=== PATIENT | male | born 1970 | race Caucasian/White ===

== ENCOUNTER 2016-10-11 11:51 | Emergency (ER) | payer OTHER, MEDICARE, MEDICAID ==
[2016-10-11] MEDS ORDERED: IPRATROPIUM 0.5MG/ALBUTEROL 2.5MG INH SOL UD 3ML (DUONEB)(J7620) As Ordered ONE (13:03)
[2016-10-11] MEDS ORDERED: methylPREDNISolone INJ 125 MG/2 ML VIAL (J2930) As Ordered ONE (13:03)
--- NOTE | 2016-10-11 14:26 | REP ---
CHEST, TWO VIEWS: COMPARISON: 07/09/2016 There is no evidence of acute infiltrate. No pleural effusion is seen. The heart is normal in size. The mediastinal silhouette is unremarkable. The visualized osseous structures are intact. IMPRESSION: No acute pulmonary disease. Signed by Brian Moran MD 10/11/2016 05:22 P
--- NOTE | 2016-10-11 14:40 | EDDOCDS ---
Nurse's Notes [facility] Name: Lizandro Hargrove Age: 46 yrs Sex: Male : 1970 Arrival Date: 10/11/2016 Time: 11:51 Bed PD Private MD: [place] Renaldo [place] Diagnosis: Moderate persistent asthma with (acute) exacerbation Presentation: 10/11 11:53 Presenting complaint: Patient states: difficultly breathing and cough for a couple of srm days. hx of asthma. Presenting complaint: Patient states: nom fevers at home. Adult Sepsis Screening: The patient does not have new or worsening altered mentation. Patient's respiratory rate is less than 22. Systolic blood pressure is greater than 100. Patient has a qSOFA score of 0- Negative Sepsis Screen. Suicide/Homicide risk assessment- the patient denies having any suicidal and/or homicidal ideations and does not present with any other emotional, behavioral or mental health complaints. Status: Patient is not a dining service inspector or dependent. Transition of care: patient was not received from another setting of care. 11:53 Acuity: BUTCH Level 4 [facility] 11:53 Method Of Arrival: Walkin/Carried/Asstd [facility] Triage Assessment: 11:55 General: Appears in no apparent distress, Behavior is appropriate for age, cooperative. srm Pain: Pain currently is 5 out of 10 on a pain scale. HIV screening NA for this visit Offered previously. Respiratory: Airway is patent Respiratory effort is even, unlabored, Breath sounds are diminished bilaterally. dry cough. Historical: - Allergies: no known allergies; - Home Meds: 1. albuterol sulfate 90 mcg/actuation Inhl HFAA 1 puff every 4 hours as needed 2. Albuterol-Ipratropium Inhl 3 mL as needed (Last dose: 10/11/2016 08:30) 3. Calcium with D 2 tab nightly 4. Flonase 50 mcg/actuation Nasal spsn 1 spray 2 times per day 5. Qvar inhalation 1 puff 2 times per day 6. Singulair 10 mg Oral tab 1 tab once daily 7. Symbicort INH 2 puff daily 8. Zyrtec 10 mg Oral tab 1 tab once daily - PMHx: Asthma; Seasonal Allergies; Sleep Apnea w/ CPAP; - PSHx: Tonsillectomy; Gastric Bypass; Vasectomy; Left Shoulder Surgery; Left Ankle Surgery; - Social history: Smoking status: Patient states was never smoker of tobacco. No barriers to communication noted, The patient speaks fluent Maltese, Speaks appropriately for age. - Family history: Not pertinent. - : The pt / caregiver states he / she is not on anticoagulants. Home medication list is obtained from the patient. - Exposure Risk Screening:: None identified. Screenin:36 Screening information is obtained from the patient. Fall risk: No risks identified. ttb Assistance ADL's: requires no assistance with activities of daily living. Abuse/DV Screen: The patient / caregiver reports he/she is: not in a situation that causes fear, pain or injury. Nutritional screening: No deficits noted. Advance Directives: Currently, there is no health care proxy. home support is adequate. Assessment: 14:36 Adult Sepsis Screening: The patient does not have new or worsening altered mentation. ttb Systolic blood pressure is greater than 100. Patient has a qSOFA score of 0- Negative Sepsis Screen. General: Appears in no apparent distress, well nourished, well groomed, Behavior is appropriate for age, cooperative. Pain: Denies pain. Neurological: Level of Consciousness is awake, alert. EENT: Denies nasal congestion, nasal discharge. Cardiovascular: Chest pain is denied. Respiratory: Airway is patent Respiratory effort is even, unlabored, Denies shortness of breath. GI: Denies nausea, vomiting, pain. Derm: Skin is normal. Vital Signs: 11:52 BP 126 / 74; Pulse 60; Resp 24 S; Temp 97.3(O); Pulse Ox 100% on R/A; Weight 136.08 kg dd6 (R); Height 6 ft. 0 in. (182.88 cm) (R); 14:33 BP 119 / 59; Pulse 65; Resp 18; Temp 96.3(O); Pulse Ox 100% on R/A; Pain 0/10; ttb 11:52 Body Mass Index 40.69 (136.08 kg, 182.88 cm) dd6 Vitals: 11:52 Log In Time: October 11, 2016 at 11:50. dd6 ED Course: 11:52 Patient visited by Ryan Fournier PCA. dd6 11:52 [facility] is Private Physician. dd6 11:52 Patient moved to Waiting dd6 11:53 Patient moved to Pre RCE dd6 11:54 Triage Initiated srm 12:23 Patient moved to Triage 1 mlb1 12:51 Ermias Pink PA is PHCP. btw 12:51 Ximena Hernandez MD is Attending Physician. btw 12:51 Patient visited by Ermias Pink PA. btw 13:00 Patient moved to PD2 / jrd 13:28 Patient visited by Tiff Machado RN. srm 14:00 Patient visited by Rola Wright PCA. ct3 14:31 [facility] is Referral Physician. btw 14:36 The patient / caregiver is instructed regarding the plan of care and ED course. Patient ttb has correct armband on for positive identification. 14:36 No IV's were initiated during this patient's visit. No procedures done that require ttb assistance. Administered Medications: 13:06 Drug: Albuterol-Ipratropium 1 neb [ipratropium-albuterol 0.5 mg-3 mg(2.5 mg base)/3 mL kt1 nebulization soln (1 neb)] Route: Nebulizer; 13:20 Follow up: Response: Nebulizer completed sd7 13:19 Drug: methylPREDNISolone Sodium Succinate 125 mg [methylprednisolone sodium succ 125 mg mlb1 solution for injection (125 mg)] Route: IM; Site: left deltoid; 13:26 Drug: Albuterol-Ipratropium 1 neb [ipratropium-albuterol 0.5 mg-3 mg(2.5 mg base)/3 mL sd7 nebulization soln (1 neb)] Route: Nebulizer; 13:43 Follow up: Response: Nebulizer completed sd7 13:44 Drug: Albuterol-Ipratropium 1 neb [ipratropium-albuterol 0.5 mg-3 mg(2.5 mg base)/3 mL sd7 nebulization soln (1 neb)] Route: Nebulizer; 14:34 Follow up: Response: Nebulizer completed sd7 RT: 13:06 Initial Med Neb Given as ordered Patient was instructed and evaluated on procedure. kt1 Respiratory: Breath sounds are clear bilaterally. 13:26 Subsequent Med Neb Given as ordered Patient tolerated procedure well without adverse sd7 effect. Respiratory: Breath sounds are diminished bilaterally. Breath sounds with wheezes bilaterally. at expiration. 13:44 Subsequent Med Neb Given as ordered Patient tolerated procedure well without adverse sd7 effect. Respiratory: Breath sounds are clear bilaterally. Order Results: There are currently no results for this order. Outcome: 14:31 Discharge ordered by Provider. btw 14:36 Discharge Assessment: Patient awake, alert and oriented x 3. No cognitive and/or ttb functional deficits noted. Patient verbalized understanding of disposition instructions. Patient awake and alert. patient administered narcotics - no. The following High Risk Discharge criteria are identified: None. Discharged to home ambulatory. Condition: good Condition: stable Condition: improved. Discharge instructions given to patient, Instructed on discharge instructions, follow up and referral plans. medication usage, Demonstrated understanding of instructions, medications, Pt was receptive of discharge instructions/ teaching. Prescriptions given X 1. No special radiology studies were completed. Property :Personal belongings accompany Pt. 14:38 Patient left the ED. ttb Signatures: Tiff Machado RN RN srm Barney, Michael B RN RN mlb1 Monserrat Mason kt1 Ryan Fournier, CHRISTMAS BELL RINGER CHRISTMAS BELL RINGER dd6 Ermias Pink PA PA btw Rola Wright, CHRISTMAS BELL RINGER CHRISTMAS BELL RINGER ct3 Nithya Hernandez RN RN ttb Xiomara Butler,RT RT sd7 Kirill Helton, CHRISTMAS BELL RINGER CHRISTMAS BELL RINGER jrd MTDD
--- NOTE | 2016-10-11 14:40 | EDDOCDS ---
Physician Documentation [facility] Name: Lizandro Hargrove Age: 46 yrs Sex: Male : 1970 Arrival Date: 10/11/2016 Time: 11:51 Bed PD Private MD: [facility] Disposition: 10/11/16 14:31 Discharged to Home/Self Care. Impression: Moderate persistent asthma with (acute) exacerbation. - Condition is Stable. - Discharge Instructions: Asthma, Adult, Asthma, Acute Bronchospasm. - Prescriptions for Medrol (Wilder) 4 mg Oral Tablets, Dose Pack - take 1 Pack by ORAL route as directed - follow package instructions; 1 packet. - Medication Reconciliation, Local Pharmacy Hours form. - Follow up: [facility]; When: 1 - 2 days; Reason: Further diagnostic work-up, Recheck today's complaints, Continuance of care. Follow up: Emergency Department; When: As soon as possible; Reason: Trouble breathing, Worsening of conditions. - Problem is an acute exacerbation. - Symptoms have improved. Historical: - Allergies: no known allergies; - Home Meds: 1. albuterol sulfate 90 mcg/actuation Inhl HFAA 1 puff every 4 hours as needed 2. Albuterol-Ipratropium Inhl 3 mL as needed (Last dose: 10/11/2016 08:30) 3. Calcium with D 2 tab nightly 4. Flonase 50 mcg/actuation Nasal spsn 1 spray 2 times per day 5. Qvar inhalation 1 puff 2 times per day 6. Singulair 10 mg Oral tab 1 tab once daily 7. Symbicort INH 2 puff daily 8. Zyrtec 10 mg Oral tab 1 tab once daily - PMHx: Asthma; Seasonal Allergies; Sleep Apnea w/ CPAP; - PSHx: Tonsillectomy; Gastric Bypass; Vasectomy; Left Shoulder Surgery; Left Ankle Surgery; - Social history: Smoking status: Patient states was never smoker of tobacco. No barriers to communication noted, The patient speaks fluent Luxembourgish, Speaks appropriately for age. - Family history: Not pertinent. - : The pt / caregiver states he / she is not on anticoagulants. Home medication list is obtained from the patient. - Exposure Risk Screening:: None identified. Vital Signs: 10/11 11:52 BP 126 / 74; Pulse 60; Resp 24 S; Temp 97.3(O); Pulse Ox 100% on R/A; Weight 136.08 kg dd6 / 300.01 lbs (R); Height 6 ft. 0 in. (182.88 cm) (R); 14:33 BP 119 / 59; Pulse 65; Resp 18; Temp 96.3(O); Pulse Ox 100% on R/A; Pain 0/10; ttb 11:52 Body Mass Index 40.69 (136.08 kg, 182.88 cm) dd6 MDM: 13:01 methylPREDNISolone Sodium Succinate 125 mg IM once ordered. btw 13:01 Albuterol-Ipratropium 1 neb Nebulizer every 20 minutes x3 ordered. btw 13:01 Call Respiratory ordered. btw 13:01 Call Respiratory complete. kt1 13:01 Chest, 2 View (pa\E\lat) Ordered. EDMS 14:25 Financial registration complete. lg Administered Medications: 13:06 Drug: Albuterol-Ipratropium 1 neb [ipratropium-albuterol 0.5 mg-3 mg(2.5 mg base)/3 mL kt1 nebulization soln (1 neb)] Route: Nebulizer; 13:20 Follow up: Response: Nebulizer completed 13:19 Drug: methylPREDNISolone Sodium Succinate 125 mg [methylprednisolone sodium succ 125 mg mlb1 solution for injection (125 mg)] Route: IM; Site: left deltoid; 13:26 Drug: Albuterol-Ipratropium 1 neb [ipratropium-albuterol 0.5 mg-3 mg(2.5 mg base)/3 mL sd7 nebulization soln (1 neb)] Route: Nebulizer; 13:43 Follow up: Response: Nebulizer completed 13:44 Drug: Albuterol-Ipratropium 1 neb [ipratropium-albuterol 0.5 mg-3 mg(2.5 mg base)/3 mL sd7 nebulization soln (1 neb)] Route: Nebulizer; 14:34 Follow up: Response: Nebulizer completed Signatures: Dispatcher [employer] EDMS Tiff Machado RN RN srm Ganter, LoriLee, Reg Reg lg [place]ter[place], Kristin kt1 Wolfenden, Ermias, Nithya Maguire, ANABEL RN ttb Juventino Patricio RN mlb1 Xiomara Butler RT sd7 MTDD
--- NOTE | 2016-10-13 15:39 | EDDOCDS ---
Nurse's Notes [facility] Name: Lizandro Hargrove Age: 46 yrs Sex: Male : 1970 Arrival Date: 10/11/2016 Time: 11:51 Bed PD Private MD: [place] Renaldo [place] Diagnosis: Moderate persistent asthma with (acute) exacerbation Presentation: 10/11 11:53 Presenting complaint: Patient states: difficultly breathing and cough for a couple of srm days. hx of asthma. Presenting complaint: Patient states: nom fevers at home. Adult Sepsis Screening: The patient does not have new or worsening altered mentation. Patient's respiratory rate is less than 22. Systolic blood pressure is greater than 100. Patient has a qSOFA score of 0- Negative Sepsis Screen. Suicide/Homicide risk assessment- the patient denies having any suicidal and/or homicidal ideations and does not present with any other emotional, behavioral or mental health complaints. Status: Patient is not a patient services specialist or dependent. Transition of care: patient was not received from another setting of care. 11:53 Acuity: BUTCH Level 4 [facility] 11:53 Method Of Arrival: Walkin/Carried/Asstd [facility] Triage Assessment: 11:55 General: Appears in no apparent distress, Behavior is appropriate for age, cooperative. srm Pain: Pain currently is 5 out of 10 on a pain scale. HIV screening NA for this visit Offered previously. Respiratory: Airway is patent Respiratory effort is even, unlabored, Breath sounds are diminished bilaterally. dry cough. Historical: - Allergies: no known allergies; - Home Meds: 1. albuterol sulfate 90 mcg/actuation Inhl HFAA 1 puff every 4 hours as needed 2. Albuterol-Ipratropium Inhl 3 mL as needed (Last dose: 10/11/2016 08:30) 3. Calcium with D 2 tab nightly 4. Flonase 50 mcg/actuation Nasal spsn 1 spray 2 times per day 5. Qvar inhalation 1 puff 2 times per day 6. Singulair 10 mg Oral tab 1 tab once daily 7. Symbicort INH 2 puff daily 8. Zyrtec 10 mg Oral tab 1 tab once daily - PMHx: Asthma; Seasonal Allergies; Sleep Apnea w/ CPAP; - PSHx: Tonsillectomy; Gastric Bypass; Vasectomy; Left Shoulder Surgery; Left Ankle Surgery; - Social history: Smoking status: Patient states was never smoker of tobacco. No barriers to communication noted, The patient speaks fluent Pashto, Speaks appropriately for age. - Family history: Not pertinent. - : The pt / caregiver states he / she is not on anticoagulants. Home medication list is obtained from the patient. - Exposure Risk Screening:: None identified. Screenin:36 Screening information is obtained from the patient. Fall risk: No risks identified. ttb Assistance ADL's: requires no assistance with activities of daily living. Abuse/DV Screen: The patient / caregiver reports he/she is: not in a situation that causes fear, pain or injury. Nutritional screening: No deficits noted. Advance Directives: Currently, there is no health care proxy. home support is adequate. Assessment: 14:36 Adult Sepsis Screening: The patient does not have new or worsening altered mentation. ttb Systolic blood pressure is greater than 100. Patient has a qSOFA score of 0- Negative Sepsis Screen. General: Appears in no apparent distress, well nourished, well groomed, Behavior is appropriate for age, cooperative. Pain: Denies pain. Neurological: Level of Consciousness is awake, alert. EENT: Denies nasal congestion, nasal discharge. Cardiovascular: Chest pain is denied. Respiratory: Airway is patent Respiratory effort is even, unlabored, Denies shortness of breath. GI: Denies nausea, vomiting, pain. Derm: Skin is normal. Vital Signs: 11:52 BP 126 / 74; Pulse 60; Resp 24 S; Temp 97.3(O); Pulse Ox 100% on R/A; Weight 136.08 kg dd6 (R); Height 6 ft. 0 in. (182.88 cm) (R); 14:33 BP 119 / 59; Pulse 65; Resp 18; Temp 96.3(O); Pulse Ox 100% on R/A; Pain 0/10; ttb 11:52 Body Mass Index 40.69 (136.08 kg, 182.88 cm) dd6 Vitals: 11:52 Log In Time: October 11, 2016 at 11:50. dd6 ED Course: 11:52 Patient visited by Ryan Fournier PCA. dd6 11:52 [facility] is Private Physician. dd6 11:52 Patient moved to Waiting dd6 11:53 Patient moved to Pre RCE dd6 11:54 Triage Initiated srm 12:23 Patient moved to Triage 1 mlb1 12:51 Ermias Pink PA is PHCP. btw 12:51 Ximena Hernandez MD is Attending Physician. btw 12:51 Patient visited by Ermias Pink PA. btw 13:00 Patient moved to PD / jrd 13:28 Patient visited by Tiff Machado, ANABEL. srm 14:00 Patient visited by Rola Wright PCA. ct3 14:31 [facility] is Referral Physician. btw 14:36 The patient / caregiver is instructed regarding the plan of care and ED course. Patient ttb has correct armband on for positive identification. 14:36 No IV's were initiated during this patient's visit. No procedures done that require ttb assistance. 14:56 Chest, 2 View (pa\E\lat) Returned. EDMS 10/13 08:37 T-Sheet-- Draft Copy was scanned into [employer] and attached to record. 10:16 [facility] Payment Agreement was scanned into [employer] and attached to record. lg Administered Medications: 10/11 13:06 Drug: Albuterol-Ipratropium 1 neb [ipratropium-albuterol 0.5 mg-3 mg(2.5 mg base)/3 mL kt1 nebulization soln (1 neb)] Route: Nebulizer; 13:20 Follow up: Response: Nebulizer completed sd7 13:19 Drug: methylPREDNISolone Sodium Succinate 125 mg [methylprednisolone sodium succ 125 mg mlb1 solution for injection (125 mg)] Route: IM; Site: left deltoid; 13:26 Drug: Albuterol-Ipratropium 1 neb [ipratropium-albuterol 0.5 mg-3 mg(2.5 mg base)/3 mL sd7 nebulization soln (1 neb)] Route: Nebulizer; 13:43 Follow up: Response: Nebulizer completed sd7 13:44 Drug: Albuterol-Ipratropium 1 neb [ipratropium-albuterol 0.5 mg-3 mg(2.5 mg base)/3 mL sd7 nebulization soln (1 neb)] Route: Nebulizer; 14:34 Follow up: Response: Nebulizer completed sd7 RT: 13:06 Initial Med Neb Given as ordered Patient was instructed and evaluated on procedure. kt1 Respiratory: Breath sounds are clear bilaterally. 13:26 Subsequent Med Neb Given as ordered Patient tolerated procedure well without adverse sd7 effect. Respiratory: Breath sounds are diminished bilaterally. Breath sounds with wheezes bilaterally. at expiration. 13:44 Subsequent Med Neb Given as ordered Patient tolerated procedure well without adverse sd7 effect. Respiratory: Breath sounds are clear bilaterally. Order Results: Radiology Order: Chest, 2 View (pa\E\lat) Test: Chest, 2 View (pa\E\lat) REASON FOR EXAMINATION: diminished on LEFT;Shortness of Breath; CHEST, TWO VIEWS:; ; COMPARISON: 07/09/2016; ; There is no evidence of acute infiltrate.; ; No pleural effusion is seen.; ; The heart is normal in size.; ; The mediastinal silhouette is unremarkable.; ; The visualized osseous structures are intact.; ; IMPRESSION:; ; No acute pulmonary disease.; ; ; Signed by; Brian Moran MD 10/11/2016 05:22 P; Outcome: 14:31 Discharge ordered by Provider. btw 14:36 Discharge Assessment: Patient awake, alert and oriented x 3. No cognitive and/or ttb functional deficits noted. Patient verbalized understanding of disposition instructions. Patient awake and alert. patient administered narcotics - no. The following High Risk Discharge criteria are identified: None. Discharged to home ambulatory. Condition: good Condition: stable Condition: improved. Discharge instructions given to patient, Instructed on discharge instructions, follow up and referral plans. medication usage, Demonstrated understanding of instructions, medications, Pt was receptive of discharge instructions/ teaching. Prescriptions given X 1. No special radiology studies were completed. Property :Personal belongings accompany Pt. 14:38 Patient left the ED. ttb Signatures: Dispatcher [employer] EDMS Tiff Machado, RN RN [facility] Heaven Edward, Reg Reg gb Arnav Jensen, Reg Reg lg Juventino Patricio RN RN mlb1 Monserrat Mason kt1 Ryan Fournier, ASSOCIATE PRODUCT INTEGRITY ENGINEER ASSOCIATE PRODUCT INTEGRITY ENGINEER dd6 Ermias Pink PA PA btw Rola Wright, ASSOCIATE PRODUCT INTEGRITY ENGINEER ASSOCIATE PRODUCT INTEGRITY ENGINEER ct3 Nithya Hernandez RN RN ttb Xiomara ButlerRT RT sd7 Kirill Helton, ASSOCIATE PRODUCT INTEGRITY ENGINEER ASSOCIATE PRODUCT INTEGRITY ENGINEER jrd Chart Complete MTDD
--- NOTE | 2016-10-13 15:39 | EDDOCDS ---
Physician Documentation [facility] Name: Lizandro Hargrove Age: 46 yrs Sex: Male : 1970 Arrival Date: 10/11/2016 Time: 11:51 Bed PD Private MD: [facility] Disposition: 10/11/16 14:31 Discharged to Home/Self Care. Impression: Moderate persistent asthma with (acute) exacerbation. - Condition is Stable. - Discharge Instructions: Asthma, Adult, Asthma, Acute Bronchospasm. - Prescriptions for Medrol (Wilder) 4 mg Oral Tablets, Dose Pack - take 1 Pack by ORAL route as directed - follow package instructions; 1 packet. - Medication Reconciliation, Local Pharmacy Hours form. - Follow up: [facility]; When: 1 - 2 days; Reason: Further diagnostic work-up, Recheck today's complaints, Continuance of care. Follow up: Emergency Department; When: As soon as possible; Reason: Trouble breathing, Worsening of conditions. - Problem is an acute exacerbation. - Symptoms have improved. Historical: - Allergies: no known allergies; - Home Meds: 1. albuterol sulfate 90 mcg/actuation Inhl HFAA 1 puff every 4 hours as needed 2. Albuterol-Ipratropium Inhl 3 mL as needed (Last dose: 10/11/2016 08:30) 3. Calcium with D 2 tab nightly 4. Flonase 50 mcg/actuation Nasal spsn 1 spray 2 times per day 5. Qvar inhalation 1 puff 2 times per day 6. Singulair 10 mg Oral tab 1 tab once daily 7. Symbicort INH 2 puff daily 8. Zyrtec 10 mg Oral tab 1 tab once daily - PMHx: Asthma; Seasonal Allergies; Sleep Apnea w/ CPAP; - PSHx: Tonsillectomy; Gastric Bypass; Vasectomy; Left Shoulder Surgery; Left Ankle Surgery; - Social history: Smoking status: Patient states was never smoker of tobacco. No barriers to communication noted, The patient speaks fluent Ukrainian, Speaks appropriately for age. - Family history: Not pertinent. - : The pt / caregiver states he / she is not on anticoagulants. Home medication list is obtained from the patient. - Exposure Risk Screening:: None identified. Vital Signs: 10/11 11:52 BP 126 / 74; Pulse 60; Resp 24 S; Temp 97.3(O); Pulse Ox 100% on R/A; Weight 136.08 kg dd6 / 300.01 lbs (R); Height 6 ft. 0 in. (182.88 cm) (R); 14:33 BP 119 / 59; Pulse 65; Resp 18; Temp 96.3(O); Pulse Ox 100% on R/A; Pain 0/10; ttb 11:52 Body Mass Index 40.69 (136.08 kg, 182.88 cm) dd6 MDM: 13:01 methylPREDNISolone Sodium Succinate 125 mg IM once ordered. btw 13:01 Albuterol-Ipratropium 1 neb Nebulizer every 20 minutes x3 ordered. btw 13:01 Call Respiratory ordered. btw 13:01 Call Respiratory complete. kt1 13:01 Chest, 2 View (pa\E\lat) Ordered. EDMS 14:25 Financial registration complete. lg 10/13 08:37 T-Sheet-- Draft Copy was scanned into [employer] and attached to record. gb 10:16 [facility] Payment Agreement was scanned into [employer] and attached to record. lg Administered Medications: 10/11 13:06 Drug: Albuterol-Ipratropium 1 neb [ipratropium-albuterol 0.5 mg-3 mg(2.5 mg base)/3 mL kt1 nebulization soln (1 neb)] Route: Nebulizer; 13:20 Follow up: Response: Nebulizer completed 13:19 Drug: methylPREDNISolone Sodium Succinate 125 mg [methylprednisolone sodium succ 125 mg mlb1 solution for injection (125 mg)] Route: IM; Site: left deltoid; 13:26 Drug: Albuterol-Ipratropium 1 neb [ipratropium-albuterol 0.5 mg-3 mg(2.5 mg base)/3 mL sd7 nebulization soln (1 neb)] Route: Nebulizer; 13:43 Follow up: Response: Nebulizer completed 13:44 Drug: Albuterol-Ipratropium 1 neb [ipratropium-albuterol 0.5 mg-3 mg(2.5 mg base)/3 mL sd7 nebulization soln (1 neb)] Route: Nebulizer; 14:34 Follow up: Response: Nebulizer completed 7 Signatures: Dispatcher [employer] Tiff Roe, RN RN srm Heaven Edward, Reg Reg gb Arnav Jensen, Reg Reg lg Monserrat Mason kt1 Ermias Pink PA PA btw Conner, Teresa, RN RN ttJuventino Godfrey RN mlb1 Xiomara Butler RT sd7 The chart was reviewed and I authenticate all verbal orders and agree with the evaluation and treatment provided.Attachments: 10/13 08:37 T-Sheet-- Draft Copy gb 10:16 [facility] Payment Agreement lg Chart Complete MTDD
--- NOTE | 2016-10-13 15:39 | EDDOCDS ---
Physician Documentation [facility] Name: Lizandro Hargrove Age: 46 yrs Sex: Male : 1970 Arrival Date: 10/11/2016 Time: 11:51 Bed PD Private MD: [facility] Disposition: 10/11/16 14:31 Discharged to Home/Self Care. Impression: Moderate persistent asthma with (acute) exacerbation. - Condition is Stable. - Discharge Instructions: Asthma, Adult, Asthma, Acute Bronchospasm. - Prescriptions for Medrol (Wilder) 4 mg Oral Tablets, Dose Pack - take 1 Pack by ORAL route as directed - follow package instructions; 1 packet. - Medication Reconciliation, Local Pharmacy Hours form. - Follow up: [facility]; When: 1 - 2 days; Reason: Further diagnostic work-up, Recheck today's complaints, Continuance of care. Follow up: Emergency Department; When: As soon as possible; Reason: Trouble breathing, Worsening of conditions. - Problem is an acute exacerbation. - Symptoms have improved. Historical: - Allergies: no known allergies; - Home Meds: 1. albuterol sulfate 90 mcg/actuation Inhl HFAA 1 puff every 4 hours as needed 2. Albuterol-Ipratropium Inhl 3 mL as needed (Last dose: 10/11/2016 08:30) 3. Calcium with D 2 tab nightly 4. Flonase 50 mcg/actuation Nasal spsn 1 spray 2 times per day 5. Qvar inhalation 1 puff 2 times per day 6. Singulair 10 mg Oral tab 1 tab once daily 7. Symbicort INH 2 puff daily 8. Zyrtec 10 mg Oral tab 1 tab once daily - PMHx: Asthma; Seasonal Allergies; Sleep Apnea w/ CPAP; - PSHx: Tonsillectomy; Gastric Bypass; Vasectomy; Left Shoulder Surgery; Left Ankle Surgery; - Social history: Smoking status: Patient states was never smoker of tobacco. No barriers to communication noted, The patient speaks fluent Hungarian, Speaks appropriately for age. - Family history: Not pertinent. - : The pt / caregiver states he / she is not on anticoagulants. Home medication list is obtained from the patient. - Exposure Risk Screening:: None identified. Vital Signs: 10/11 11:52 BP 126 / 74; Pulse 60; Resp 24 S; Temp 97.3(O); Pulse Ox 100% on R/A; Weight 136.08 kg dd6 / 300.01 lbs (R); Height 6 ft. 0 in. (182.88 cm) (R); 14:33 BP 119 / 59; Pulse 65; Resp 18; Temp 96.3(O); Pulse Ox 100% on R/A; Pain 0/10; ttb 11:52 Body Mass Index 40.69 (136.08 kg, 182.88 cm) dd6 MDM: 13:01 methylPREDNISolone Sodium Succinate 125 mg IM once ordered. btw 13:01 Albuterol-Ipratropium 1 neb Nebulizer every 20 minutes x3 ordered. btw 13:01 Call Respiratory ordered. btw 13:01 Call Respiratory complete. kt1 13:01 Chest, 2 View (pa\E\lat) Ordered. EDMS 14:25 Financial registration complete. lg 10/13 08:37 T-Sheet-- Draft Copy was scanned into [employer] and attached to record. gb 10:16 [facility] Payment Agreement was scanned into [employer] and attached to record. lg Administered Medications: 10/11 13:06 Drug: Albuterol-Ipratropium 1 neb [ipratropium-albuterol 0.5 mg-3 mg(2.5 mg base)/3 mL kt1 nebulization soln (1 neb)] Route: Nebulizer; 13:20 Follow up: Response: Nebulizer completed 13:19 Drug: methylPREDNISolone Sodium Succinate 125 mg [methylprednisolone sodium succ 125 mg mlb1 solution for injection (125 mg)] Route: IM; Site: left deltoid; 13:26 Drug: Albuterol-Ipratropium 1 neb [ipratropium-albuterol 0.5 mg-3 mg(2.5 mg base)/3 mL sd7 nebulization soln (1 neb)] Route: Nebulizer; 13:43 Follow up: Response: Nebulizer completed 13:44 Drug: Albuterol-Ipratropium 1 neb [ipratropium-albuterol 0.5 mg-3 mg(2.5 mg base)/3 mL sd7 nebulization soln (1 neb)] Route: Nebulizer; 14:34 Follow up: Response: Nebulizer completed 7 Signatures: Dispatcher [employer] Tiff Roe, RN RN srm Heaven Edward, Reg Reg gb Arnav Jensen, Reg Reg lg Monserrat Mason kt1 Ermias Pink PA PA btw Conner, Teresa, RN RN ttJuventino Godfrey RN mlb1 Xiomara Butler RT sd7 The chart was reviewed and I authenticate all verbal orders and agree with the evaluation and treatment provided.Attachments: 10/13 08:37 T-Sheet-- Draft Copy gb 10:16 [facility] Payment Agreement lg Chart Complete MTDD
== END 2016-10-11 14:38 | disposition home or self-care (01) ==
LOC: M ED 11:51
DX: J45.41 Moderate persistent asthma with (acute) exacerbation (principal); G47.30 Sleep apnea, unspecified; Z79.51 Long term (current) use of inhaled steroids; Z79.899 Other long term (current) drug therapy
CPT/HCPCS: 71020; 94640; 96372; 99283; J2930

== ENCOUNTER 2016-10-21 13:26 | Emergency (ER) | payer MEDICARE, MEDICAID ==
--- NOTE | 2016-10-21 15:34 | REP ---
Clinical: Syncope. Comparison: 12/03/2015. Findings: The ventricles, sulci, and cisterns are normal in position and appearance. Moran-white differentiation is maintained. No acute intracranial hemorrhage, mass/mass effect, pathology or trauma/injury. No evidence for acute infarction. No extra-axial fluid collection. Calvarium is intact. Paranasal sinuses and mastoid air cells are clear. Impression: Normal noncontrast head CT. No evidence for acute intracranial pathology or trauma/injury. Signed by Lizandro Paige MD 10/21/2016 03:25 P
[2016-10-21 16:15] LABS: BASO # 0.1 K/mm3 (0.0-0.2); BASO % 1.1 % (0.0-1.0); EOS # 0.2 K/mm3 (0.0-0.50); EOS % 3.3 % (0.0-3.0); LARGE UNSTAINED CELL # 0.2 K/mm3 (0.0-0.4); LARGE UNSTAINED CELL % 3.5 % (0.0-4.0); LYMPH # 2.2 K/mm3 (1.5-4.5); LYMPH % 34.8 % (24.0-44.0); MEAN CORPUSCULAR HEMOGLOBIN 30.2 pg (27.0-33.0); MEAN CORPUSCULAR HGB CONC 32.3 g/dl (32.0-36.5); MEAN CORPUSCULAR VOLUME 93.8 fl (80.0-96.0); MONO # 0.4 K/mm3 (0.0-0.8); MONO % 6.7 % (0.0-5.0); NEUTROPHILS # 2.9 K/mm3 (1.8-7.7); NEUTROPHILS % 50.7 % (36.0-66.0); PLATELET COUNT, AUTOMATED 245 k/mm3 (150-450); RED CELL DISTRIBUTION WIDTH 13.3 % (11.5-14.5); WHITE BLOOD COUNT 5.8 K/mm3 (4.0-10.0)
[2016-10-21 16:34] LABS: ALBUMIN 3.2 GM/DL (3.2-5.2); ALKALINE PHOSPHATASE 82 U/L (45-117); ALT/SGPT 12 U/L (12-78); ANION GAP 4 MEQ/L (8-16); AST/SGOT 11 U/L (15-37); BILIRUBIN,DIRECT 0.1 MG/DL (0.0-0.2); BILIRUBIN,TOTAL 0.5 MG/DL (0.2-1.0); BLOOD UREA NITROGEN 18 MG/DL (7-18); CARBON DIOXIDE LEVEL 32 MEQ/L (21-32); CHLORIDE LEVEL 107 MEQ/L (98-107); CREATININE FOR GFR 0.98 MG/DL (0.70-1.30); GLOMERULAR FILTRATION RATE > 60.0 (>60); GLUCOSE, FASTING 87 MG/DL (70-105); POTASSIUM SERUM 4.2 MEQ/L (3.5-5.1); SODIUM LEVEL 143 MEQ/L (136-145); TOTAL PROTEIN 6.4 GM/DL (6.4-8.2)
--- NOTE | 2016-10-21 18:34 | EDDOCDS ---
Physician Documentation [facility] Name: Lizandro Hargrove Age: 46 yrs Sex: Male : 1970 Arrival Date: 10/21/2016 Time: 13:26 Bed TR7 Private MD: [facility] Disposition: 10/21/16 17:26 Discharged to Home/Self Care. Impression: Dizziness and giddiness. - Condition is Stable. - Medication Reconciliation, Local Pharmacy Hours form. - Follow up: Emergency Department; When: As soon as possible; Reason: Worsening of conditions. Follow up: Private Physician; When: 2 - 3 days; Reason: Recheck today's complaints. - Problem is new. - Symptoms are unchanged. Historical: - Allergies: no known allergies; - Home Meds: 1. albuterol sulfate 90 mcg/actuation Inhl HFAA 1 puff every 4 hours as needed 2. Albuterol-Ipratropium Inhl 3 mL as needed 3. Calcium with D 2 tab nightly 4. Flonase 50 mcg/actuation Nasal spsn 1 spray 2 times per day 5. Qvar inhalation 1 puff 2 times per day 6. Singulair 10 mg Oral tab 1 tab once daily 7. Symbicort INH 2 puff daily 8. Zyrtec 10 mg Oral tab 1 tab once daily - PMHx: Asthma; Seasonal Allergies; Sleep Apnea w/ CPAP; - PSHx: Tonsillectomy; Gastric Bypass; Vasectomy; Left Shoulder Surgery; Left Ankle Surgery; - Social history: Smoking status: Patient states former smoker of tobacco. No barriers to communication noted, The patient speaks fluent Yakut, Speaks appropriately for age. - Family history: Not pertinent. - : The pt / caregiver states he / she is not on anticoagulants. Home medication list is obtained from the patient. - Exposure Risk Screening:: None identified. Vital Signs: 10/21 13:27 BP 117 / 62; Pulse 52; Resp 18 S; Temp 97.1(O); Pulse Ox 100% on R/A; Weight 136.08 kg dd6 / 300.01 lbs (R); Height 6 ft. 0 in. (182.88 cm) (R); 15:56 BP 126 / 58 (auto/); hs1 15:58 Pulse 48 MON; hs1 16:10 Pulse 50 MON; hs1 16:11 BP 113 / 62 (auto/); hs1 16:40 Pulse 48 MON; hs1 16:41 BP 106 / 66 (auto/); hs1 17:10 Pulse 48 MON; hs1 17:11 BP 110 / 66 (auto/); hs1 17:24 BP 118 / 83 Supine; Pulse 53; ms18 17:24 BP 109 / 83 Standing; Pulse 53; ms18 17:25 Pulse 50 MON; hs1 17:26 BP 105 / 67 (auto/); hs1 17:26 Pulse 52 MON; Resp 18; Temp 97.2; Pulse Ox 98% ; Pain 0/10; hs1 17:26 BP 105 / 67 (auto/); hs1 13:27 Body Mass Index 40.69 (136.08 kg, 182.88 cm) dd6 MDM: 13:46 ECG WITH READING ER PHYS+CARDIAG ordered. EDMS 15:11 CBC with Diff Ordered. EDMS 15:11 Troponin Ordered. EDMS 15:11 BMP Ordered. EDMS 15:11 Liver Profile Ordered. EDMS 15:11 CK-MB Ordered. EDMS 15:12 CT Head Without Contrast Ordered. EDMS 15:15 Knife Grinder ordered. jk8 15:18 IV Saline Lock ordered. jk8 16:23 Financial registration complete. zo 16:24 [facility] Payment Agreement was scanned into [employer] and attached to record. zo 16:54 CBC with Diff Reviewed. jk8 16:54 BMP Reviewed. jk8 16:54 Liver Profile Reviewed. jk8 16:54 Troponin Reviewed. jk8 16:54 CK-MB Reviewed. jk8 16:54 CT Head Without Contrast Reviewed. jk8 Signatures: Dispatcher [employer] EDMS Juventino Patricio RN RN mlb1 Leodan Henderson Hannah, RN RN hs1 Kirill Ireland PA-C PA-C jk8 The chart was reviewed and I authenticate all verbal orders and agree with the evaluation and treatment provided.Attachments: 16:24 [facility] Payment Agreement zo MTDD
--- NOTE | 2016-10-21 18:35 | EDDOCDS ---
Nurse's Notes [facility] Name: Lizandro Hargrove Age: 46 yrs Sex: Male : 1970 Arrival Date: 10/21/2016 Time: 13:26 Bed TR7 Private MD: [facility] [place] Diagnosis: Dizziness and giddiness Presentation: 10/21 13:41 Presenting complaint: Patient states: Dizziness and nausea began yesterday. Adult mlb1 Sepsis Screening: The patient does not have new or worsening altered mentation. Patient's respiratory rate is less than 22. Systolic blood pressure is greater than 100. Patient has a qSOFA score of 0- Negative Sepsis Screen. Suicide/Homicide risk assessment- the patient denies having any suicidal and/or homicidal ideations and does not present with any other emotional, behavioral or mental health complaints. 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 Transition of care: patient was not received from another setting of care. 13:41 Acuity: BUTCH Level 3 mlb1 13:41 Method Of Arrival: Walkin/Carried/Asstd mlb1 Triage Assessment: 13:43 General: Appears in no apparent distress, comfortable, Behavior is appropriate for age, mlb1 cooperative. Pain: Denies pain. HIV screening NA for this visit Offered previously. Neurological: Reports dizziness. GI: Reports nausea. Derm: Skin is pink, warm & dry. normal. Historical: - Allergies: no known allergies; - Home Meds: 1. albuterol sulfate 90 mcg/actuation Inhl HFAA 1 puff every 4 hours as needed 2. Albuterol-Ipratropium Inhl 3 mL as needed 3. Calcium with D 2 tab nightly 4. Flonase 50 mcg/actuation Nasal spsn 1 spray 2 times per day 5. Qvar inhalation 1 puff 2 times per day 6. Singulair 10 mg Oral tab 1 tab once daily 7. Symbicort INH 2 puff daily 8. Zyrtec 10 mg Oral tab 1 tab once daily - PMHx: Asthma; Seasonal Allergies; Sleep Apnea w/ CPAP; - PSHx: Tonsillectomy; Gastric Bypass; Vasectomy; Left Shoulder Surgery; Left Ankle Surgery; - Social history: Smoking status: Patient states former smoker of tobacco. No barriers to communication noted, The patient speaks fluent Kinyarwanda, Speaks appropriately for age. - Family history: Not pertinent. - : The pt / caregiver states he / she is not on anticoagulants. Home medication list is obtained from the patient. - Exposure Risk Screening:: None identified. Screenin:22 Screening information is obtained from the patient. Fall risk: No risks identified. hs1 Assistance ADL's: requires no assistance with activities of daily living. Abuse/DV Screen: The patient / caregiver reports he/she is: not in a situation that causes fear, pain or injury. Nutritional screening: No deficits noted. Advance Directives: There is no active DNR order. home support is adequate. Assessment: 13:50 General: Appears in no apparent distress, Behavior is appropriate for age, cooperative. hs1 Neurological: No deficits noted. Cardiovascular: Rhythm is sinus bradycardia No ectopy. Cardiovascular: Chest pain is denied. Respiratory: Airway is patent Respiratory effort is even, unlabored, Respiratory pattern is regular, symmetrical. GI: Abdomen is flat, non- distended obese. Derm: Skin is pink, warm & dry. normal. Vital Signs: 13:27 BP 117 / 62; Pulse 52; Resp 18 S; Temp 97.1(O); Pulse Ox 100% on R/A; Weight 136.08 kg dd6 (R); Height 6 ft. 0 in. (182.88 cm) (R); 15:56 BP 126 / 58 (auto/); hs1 15:58 Pulse 48 MON; hs1 16:10 Pulse 50 MON; hs1 16:11 BP 113 / 62 (auto/); hs1 16:40 Pulse 48 MON; hs1 16:41 BP 106 / 66 (auto/); hs1 17:10 Pulse 48 MON; hs1 17:11 BP 110 / 66 (auto/); hs1 17:24 BP 118 / 83 Supine; Pulse 53; ms18 17:24 BP 109 / 83 Standing; Pulse 53; ms18 17:25 Pulse 50 MON; hs1 17:26 BP 105 / 67 (auto/); hs1 17:26 Pulse 52 MON; Resp 18; Temp 97.2; Pulse Ox 98% ; Pain 0/10; hs1 17:26 BP 105 / 67 (auto/); hs1 13:27 Body Mass Index 40.69 (136.08 kg, 182.88 cm) dd6 Vitals: 13:27 Log In Time: October 21, 2016 at 13:25. dd6 ED Course: 13:27 Patient visited by Ryan Fournier PCA. dd6 13:27 [facility] [place] is Private Physician. dd6 13:27 Patient moved to Waiting dd6 13:29 Patient moved to Pre RCE dd6 13:41 Patient visited by Juventino Patricio RN. mlb1 13:42 Triage Initiated mlb1 13:45 Patient moved to PR2 / 26 mlb1 13:54 Patient moved to Pre RCE bcj 14:46 Patient moved to Triage 2 mlb1 14:49 Kirill Ireland PA-C is PHCP. jk8 14:49 Ximena Hernandez MD is Attending Physician. jk8 14:49 Patient visited by Kirill Ireland PA-C. jk8 14:57 Patient moved to I5 / M5 rs6 15:00 The patient / caregiver is instructed regarding the plan of care and ED course. hs1 15:17 Patient moved to 13 dls 15:54 CT Head Without Contrast Returned. EDMS 16:14 Patient visited by Delia Gudino RN. hs1 16:23 [facility] Payment Agreement was scanned into [employer] and attached to record. zo 17:45 Discontinued IV lock intact, bleeding controlled, pressure dressing applied, No hs1 redness/swelling at site. No procedures done that require assistance. 17:54 Patient moved to TR2 dy 18:06 Patient moved to TR7 ms18 Order Results: Lab Order: CBC with Diff; SPEC'M 10/21/16 15:57 Test: WHITE BLOOD COUNT; Value: 5.8; Range: 4.0-10.0; Units: K/mm3; Status: F Test: RED BLOOD COUNT; Value: 4.61; Range: 4.30-6.10; Units: M/mm3; Status: F Test: HEMOGLOBIN; Value: 14.0; Range: 14.0-18.0; Units: g/dl; Status: F Test: HEMATOCRIT; Value: 43.3; Range: 42.0-52.0; Units: %; Status: F Test: MEAN CORPUSCULAR VOLUME; Value: 93.8; Range: 80.0-96.0; Units: fl; Status: F Test: MEAN CORPUSCULAR HEMOGLOBIN; Value: 30.2; Range: 27.0-33.0; Units: pg; Status: F Test: MEAN CORPUSCULAR HGB CONC; Value: 32.3; Range: 32.0-36.5; Units: g/dl; Status: F Test: RED CELL DISTRIBUTION WIDTH; Value: 13.3; Range: 11.5-14.5; Units: %; Status: F Test: PLATELET COUNT, AUTOMATED; Value: 245; Range: 150-450; Units: k/mm3; Status: F Test: NEUTROPHILS %; Value: 50.7; Range: 36.0-66.0; Units: %; Status: F Test: LYMPH %; Value: 34.8; Range: 24.0-44.0; Units: %; Status: F Test: MONO %; Value: 6.7; Range: 0.0-5.0; Abnormal: Above high normal; Units: %; Status: F Test: EOS %; Value: 3.3; Range: 0.0-3.0; Abnormal: Above high normal; Units: %; Status: F Test: BASO %; Value: 1.1; Range: 0.0-1.0; Abnormal: Above high normal; Units: %; Status: F Test: LARGE UNSTAINED CELL %; Value: 3.5; Range: 0.0-4.0; Units: %; Status: F Test: NEUTROPHILS #; Value: 2.9; Range: 1.8-7.7; Units: K/mm3; Status: F Test: LYMPH #; Value: 2.2; Range: 1.5-4.5; Units: K/mm3; Status: F Test: MONO #; Value: 0.4; Range: 0.0-0.8; Units: K/mm3; Status: F Test: EOS #; Value: 0.2; Range: 0.0-0.50; Units: K/mm3; Status: F Test: BASO #; Value: 0.1; Range: 0.0-0.2; Units: K/mm3; Status: F Test: LARGE UNSTAINED CELL #; Value: 0.2; Range: 0.0-0.4; Units: K/mm3; Status: F Lab Order: Troponin; SPEC'M 10/21/16 15:57 Test: TROPONIN I; Value: < 0.02; Range: < 0.10; Units: NG/ML; Status: F Test Note: ; Troponin I Reference Interval for [place] [employer] LOCI: 99th Percentile= 0.00-0.045 ng/ml Risk Stratification: <= 0.10 ng/ml Decreased Risk for Adverse Clinical Events. 0.10-1.50 ng/ml Increased Risk for Adverse Clinical Events. Evaluation of additional criterion and/or repeat testing in 2-6 hours is suggested to rule out myocardial damage. >= 1.50 ng/ml Indicative of Myocardial Injury. Lab Order: BMP; SPEC'M 10/21/16 15:57 Test: GLUCOSE, FASTING; Value: 87; Range: 70-105; Units: MG/DL; Status: F Test: BLOOD UREA NITROGEN; Value: 18; Range: 7-18; Units: MG/DL; Status: F Test: CREATININE FOR GFR; Value: 0.98; Range: 0.70-1.30; Units: MG/DL; Status: F Test: GLOMERULAR FILTRATION RATE; Value: > 60.0; Range: >60; Status: F Test: SODIUM LEVEL; Value: 143; Range: 136-145; Units: MEQ/L; Status: F Test: POTASSIUM SERUM; Value: 4.2; Range: 3.5-5.1; Units: MEQ/L; Status: F Test: CHLORIDE LEVEL; Value: 107; Range: 98-107; Units: MEQ/L; Status: F Test: CARBON DIOXIDE LEVEL; Value: 32; Range: 21-32; Units: MEQ/L; Status: F Test: ANION GAP; Value: 4; Range: 8-16; Abnormal: Below low normal; Units: MEQ/L; Status: F Test: CALCIUM LEVEL; Value: 8.0; Range: 8.5-10.1; Abnormal: Below low normal; Units: MG/DL; Status: F Test Note: ; Units are mL/min/1.73 m2 Chronic Kidney Disease Staging per NKF: Stage I & II GFR >=60 Normal to Mildly Decreased Stage III GFR 30-59 Moderately Decreased Stage IV GFR 15-29 Severely Decreased Stage V GFR <15 Very Little GFR Left ESRD GFR <15 on EGG AND SPICE MIXER Lab Order: Liver Profile; SPEC'M 10/21/16 15:57 Test: AST/SGOT; Value: 11; Range: 15-37; Abnormal: Below low normal; Units: U/L; Status: F Test: ALT/SGPT; Value: 12; Range: 12-78; Units: U/L; Status: F Test: ALKALINE PHOSPHATASE; Value: 82; Range: 45-117; Units: U/L; Status: F Test: BILIRUBIN,TOTAL; Value: 0.5; Range: 0.2-1.0; Units: MG/DL; Status: F Test: BILIRUBIN,DIRECT; Value: 0.1; Range: 0.0-0.2; Units: MG/DL; Status: F Test: TOTAL PROTEIN; Value: 6.4; Range: 6.4-8.2; Units: GM/DL; Status: F Test: ALBUMIN; Value: 3.2; Range: 3.2-5.2; Units: GM/DL; Status: F Test: ALBUMIN/GLOBULIN RATIO; Value: 1.00; Range: 1.00-1.93; Status: F Lab Order: CK-MB; SPEC'M 10/21/16 15:57 Test: CPK CREATINE PHOSPHOKINASE; Value: 56; Range: 39-308; Units: U/L; Status: F Test: CK-MB VALUE MASS; Value: 1.0; Range: 0.0-3.6; Units: NG/ML; Status: F Test: MB/CK RELATIVE INDEX; Value: 1.78; Range: < OR =4; Status: F Test Note: ; DIAGNOSIS CRITERIA MMB ng/ml Relative Index (RI) NON-AMI < or = 5 N/A MORAN ZONE > 5 < or = 4 AMI > 5 > 4 Radiology Order: CT Head Without Contrast Test: CT Head Without Contrast REASON FOR EXAMINATION: Syncope; Clinical: Syncope.; ; Comparison: 12/03/2015.; ; Findings:; The ventricles, sulci, and cisterns are normal in position and appearance.; Moran-white differentiation is maintained. No acute intracranial hemorrhage,; mass/mass effect, pathology or trauma/injury. No evidence for acute infarction.; No extra-axial fluid collection. Calvarium is intact. Paranasal sinuses and; mastoid air cells are clear.; ; Impression:; Normal noncontrast head CT.; No evidence for acute intracranial pathology or trauma/injury.; ; ; Signed by; Lizandro Paige MD 10/21/2016 03:25 P; Outcome: 17:26 Discharge ordered by Provider. jk8 17:45 Discharge Assessment: Patient awake, alert and oriented x 3. No cognitive and/or hs1 functional deficits noted. Patient verbalized understanding of disposition instructions. patient administered narcotics - no. The following High Risk Discharge criteria are identified: None. Discharged to home ambulatory, with family. Condition: stable. Discharge instructions given to patient. No special radiology studies were completed. Property sent home with patient. 18:33 Patient left the ED. hs1 Signatures: Dispatcher [employer] EDMS Jose Rice, RN RN Kimberly Barnes RN RN Wilian Maynard, RN Juventino Duggan RN RN mlb1 Leodan Henderson Daniell, ELECTROTHERAPIST ELECTROTHERAPIST dd6 Delia Gudino RN RN hs1 Neisha Anderson RN RN ms18 Valentina Umaña, ELECTROTHERAPIST ELECTROTHERAPIST rs6 Kirill Ireland PA-C PA-C jk8 [facility]
--- NOTE | 2016-10-22 07:28 | ECGEPIP ---
Stationary ECG Study [facility] - ED Test Date: 2016-10-21 Pat Name: REAGAN MEJÍA Department: Room: - Gender: M [place] Applier: loraine : 1970 Requested By: Ximena Hernandez Order Number: [id number] Reading MD: Ximena Hernandez Measurements Intervals [place] Rate: 57 P: 34 OK: 162 QRS: -10 QRSD: 106 T: 17 QT: 432 QTc: 421 Interpretive Statements SINUS BRADYCARDIA Electronically Signed On 10-22-2016 7:27:41 EST by Ximena Hernandez
--- NOTE | 2016-10-23 19:34 | EDDOCDS ---
Nurse's Notes [facility] Name: Reagan Mejía Age: 46 yrs Sex: Male : 1970 Arrival Date: 10/21/2016 Time: 13:26 Bed TR7 Private MD: [facility] [place] Diagnosis: Dizziness and giddiness Presentation: 10/21 13:41 Presenting complaint: Patient states: Dizziness and nausea began yesterday. Adult mlb1 Sepsis Screening: The patient does not have new or worsening altered mentation. Patient's respiratory rate is less than 22. Systolic blood pressure is greater than 100. Patient has a qSOFA score of 0- Negative Sepsis Screen. Suicide/Homicide risk assessment- the patient denies having any suicidal and/or homicidal ideations and does not present with any other emotional, behavioral or mental health complaints. Status: Patient is not a environmental services supervisor or dependent. Transition of care: patient was not received from another setting of care. 13:41 Acuity: BUTCH Level 3 mlb1 13:41 Method Of Arrival: Walkin/Carried/Asstd mlb1 Triage Assessment: 13:43 General: Appears in no apparent distress, comfortable, Behavior is appropriate for age, mlb1 cooperative. Pain: Denies pain. HIV screening NA for this visit Offered previously. Neurological: Reports dizziness. GI: Reports nausea. Derm: Skin is pink, warm & dry. normal. Historical: - Allergies: no known allergies; - Home Meds: 1. albuterol sulfate 90 mcg/actuation Inhl HFAA 1 puff every 4 hours as needed 2. Albuterol-Ipratropium Inhl 3 mL as needed 3. Calcium with D 2 tab nightly 4. Flonase 50 mcg/actuation Nasal spsn 1 spray 2 times per day 5. Qvar inhalation 1 puff 2 times per day 6. Singulair 10 mg Oral tab 1 tab once daily 7. Symbicort INH 2 puff daily 8. Zyrtec 10 mg Oral tab 1 tab once daily - PMHx: Asthma; Seasonal Allergies; Sleep Apnea w/ CPAP; - PSHx: Tonsillectomy; Gastric Bypass; Vasectomy; Left Shoulder Surgery; Left Ankle Surgery; - Social history: Smoking status: Patient states former smoker of tobacco. No barriers to communication noted, The patient speaks fluent Italian, Speaks appropriately for age. - Family history: Not pertinent. - : The pt / caregiver states he / she is not on anticoagulants. Home medication list is obtained from the patient. - Exposure Risk Screening:: None identified. Screenin:22 Screening information is obtained from the patient. Fall risk: No risks identified. hs1 Assistance ADL's: requires no assistance with activities of daily living. Abuse/DV Screen: The patient / caregiver reports he/she is: not in a situation that causes fear, pain or injury. Nutritional screening: No deficits noted. Advance Directives: There is no active DNR order. home support is adequate. Assessment: 13:50 General: Appears in no apparent distress, Behavior is appropriate for age, cooperative. hs1 Neurological: No deficits noted. Cardiovascular: Rhythm is sinus bradycardia No ectopy. Cardiovascular: Chest pain is denied. Respiratory: Airway is patent Respiratory effort is even, unlabored, Respiratory pattern is regular, symmetrical. GI: Abdomen is flat, non- distended obese. Derm: Skin is pink, warm & dry. normal. Vital Signs: 13:27 BP 117 / 62; Pulse 52; Resp 18 S; Temp 97.1(O); Pulse Ox 100% on R/A; Weight 136.08 kg dd6 (R); Height 6 ft. 0 in. (182.88 cm) (R); 15:56 BP 126 / 58 (auto/); hs1 15:58 Pulse 48 MON; hs1 16:10 Pulse 50 MON; hs1 16:11 BP 113 / 62 (auto/); hs1 16:40 Pulse 48 MON; hs1 16:41 BP 106 / 66 (auto/); hs1 17:10 Pulse 48 MON; hs1 17:11 BP 110 / 66 (auto/); hs1 17:24 BP 118 / 83 Supine; Pulse 53; ms18 17:24 BP 109 / 83 Standing; Pulse 53; ms18 17:25 Pulse 50 MON; hs1 17:26 BP 105 / 67 (auto/); hs1 17:26 Pulse 52 MON; Resp 18; Temp 97.2; Pulse Ox 98% ; Pain 0/10; hs1 17:26 BP 105 / 67 (auto/); hs1 13:27 Body Mass Index 40.69 (136.08 kg, 182.88 cm) dd6 Vitals: 13:27 Log In Time: October 21, 2016 at 13:25. dd6 ED Course: 13:27 Patient visited by Ryan Fournier PCA. dd6 13:27 [facility] [place] is Private Physician. dd6 13:27 Patient moved to Waiting dd6 13:29 Patient moved to Pre RCE dd6 13:41 Patient visited by Juventino Patricio RN. mlb1 13:42 Triage Initiated mlb1 13:45 Patient moved to PR2 / 26 mlb1 13:54 Patient moved to Pre RCE bcj 14:46 Patient moved to Triage 2 mlb1 14:49 Kirill Ireland PA-C is PHCP. jk8 14:49 Ximena Hernandez MD is Attending Physician. jk8 14:49 Patient visited by Kirill Ireland PA-C. jk8 14:57 Patient moved to I5 / M5 rs6 15:00 The patient / caregiver is instructed regarding the plan of care and ED course. hs1 15:17 Patient moved to 13 dls 15:54 CT Head Without Contrast Returned. EDMS 16:14 Patient visited by Delia Gudino RN. hs1 16:23 [facility] Payment Agreement was scanned into [employer] and attached to record. zo 17:45 Discontinued IV lock intact, bleeding controlled, pressure dressing applied, No hs1 redness/swelling at site. No procedures done that require assistance. 17:54 Patient moved to TR2 dy 18:06 Patient moved to TR7 ms18 10/22 07:58 EKG-ADULT Returned. EDMS 08:45 T-Sheet-- Draft Copy was scanned into [employer] and attached to record. seh 08:52 ECG/EKG was scanned into [employer] and attached to record. [facility] Order Results: Lab Order: CBC with Diff; SPEC'M 10/21/16 15:57 Test: WHITE BLOOD COUNT; Value: 5.8; Range: 4.0-10.0; Units: K/mm3; Status: F Test: RED BLOOD COUNT; Value: 4.61; Range: 4.30-6.10; Units: M/mm3; Status: F Test: HEMOGLOBIN; Value: 14.0; Range: 14.0-18.0; Units: g/dl; Status: F Test: HEMATOCRIT; Value: 43.3; Range: 42.0-52.0; Units: %; Status: F Test: MEAN CORPUSCULAR VOLUME; Value: 93.8; Range: 80.0-96.0; Units: fl; Status: F Test: MEAN CORPUSCULAR HEMOGLOBIN; Value: 30.2; Range: 27.0-33.0; Units: pg; Status: F Test: MEAN CORPUSCULAR HGB CONC; Value: 32.3; Range: 32.0-36.5; Units: g/dl; Status: F Test: RED CELL DISTRIBUTION WIDTH; Value: 13.3; Range: 11.5-14.5; Units: %; Status: F Test: PLATELET COUNT, AUTOMATED; Value: 245; Range: 150-450; Units: k/mm3; Status: F Test: NEUTROPHILS %; Value: 50.7; Range: 36.0-66.0; Units: %; Status: F Test: LYMPH %; Value: 34.8; Range: 24.0-44.0; Units: %; Status: F Test: MONO %; Value: 6.7; Range: 0.0-5.0; Abnormal: Above high normal; Units: %; Status: F Test: EOS %; Value: 3.3; Range: 0.0-3.0; Abnormal: Above high normal; Units: %; Status: F Test: BASO %; Value: 1.1; Range: 0.0-1.0; Abnormal: Above high normal; Units: %; Status: F Test: LARGE UNSTAINED CELL %; Value: 3.5; Range: 0.0-4.0; Units: %; Status: F Test: NEUTROPHILS #; Value: 2.9; Range: 1.8-7.7; Units: K/mm3; Status: F Test: LYMPH #; Value: 2.2; Range: 1.5-4.5; Units: K/mm3; Status: F Test: MONO #; Value: 0.4; Range: 0.0-0.8; Units: K/mm3; Status: F Test: EOS #; Value: 0.2; Range: 0.0-0.50; Units: K/mm3; Status: F Test: BASO #; Value: 0.1; Range: 0.0-0.2; Units: K/mm3; Status: F Test: LARGE UNSTAINED CELL #; Value: 0.2; Range: 0.0-0.4; Units: K/mm3; Status: F Lab Order: Troponin; SPEC'M 10/21/16 15:57 Test: TROPONIN I; Value: < 0.02; Range: < 0.10; Units: NG/ML; Status: F Test Note: ; Troponin I Reference Interval for [place] LOCI: 99th Percentile= 0.00-0.045 ng/ml Risk Stratification: <= 0.10 ng/ml Decreased Risk for Adverse Clinical Events. 0.10-1.50 ng/ml Increased Risk for Adverse Clinical Events. Evaluation of additional criterion and/or repeat testing in 2-6 hours is suggested to rule out myocardial damage. >= 1.50 ng/ml Indicative of Myocardial Injury. Lab Order: BMP; SPEC'M 10/21/16 15:57 Test: GLUCOSE, FASTING; Value: 87; Range: 70-105; Units: MG/DL; Status: F Test: BLOOD UREA NITROGEN; Value: 18; Range: 7-18; Units: MG/DL; Status: F Test: CREATININE FOR GFR; Value: 0.98; Range: 0.70-1.30; Units: MG/DL; Status: F Test: GLOMERULAR FILTRATION RATE; Value: > 60.0; Range: >60; Status: F Test: SODIUM LEVEL; Value: 143; Range: 136-145; Units: MEQ/L; Status: F Test: POTASSIUM SERUM; Value: 4.2; Range: 3.5-5.1; Units: MEQ/L; Status: F Test: CHLORIDE LEVEL; Value: 107; Range: 98-107; Units: MEQ/L; Status: F Test: CARBON DIOXIDE LEVEL; Value: 32; Range: 21-32; Units: MEQ/L; Status: F Test: ANION GAP; Value: 4; Range: 8-16; Abnormal: Below low normal; Units: MEQ/L; Status: F Test: CALCIUM LEVEL; Value: 8.0; Range: 8.5-10.1; Abnormal: Below low normal; Units: MG/DL; Status: F Test Note: ; Units are mL/min/1.73 m2 Chronic Kidney Disease Staging per NKF: Stage I & II GFR >=60 Normal to Mildly Decreased Stage III GFR 30-59 Moderately Decreased Stage IV GFR 15-29 Severely Decreased Stage V GFR <15 Very Little GFR Left ESRD GFR <15 on SURGEON CHIEF Lab Order: Liver Profile; SPEC'M 10/21/16 15:57 Test: AST/SGOT; Value: 11; Range: 15-37; Abnormal: Below low normal; Units: U/L; Status: F Test: ALT/SGPT; Value: 12; Range: 12-78; Units: U/L; Status: F Test: ALKALINE PHOSPHATASE; Value: 82; Range: 45-117; Units: U/L; Status: F Test: BILIRUBIN,TOTAL; Value: 0.5; Range: 0.2-1.0; Units: MG/DL; Status: F Test: BILIRUBIN,DIRECT; Value: 0.1; Range: 0.0-0.2; Units: MG/DL; Status: F Test: TOTAL PROTEIN; Value: 6.4; Range: 6.4-8.2; Units: GM/DL; Status: F Test: ALBUMIN; Value: 3.2; Range: 3.2-5.2; Units: GM/DL; Status: F Test: ALBUMIN/GLOBULIN RATIO; Value: 1.00; Range: 1.00-1.93; Status: F Lab Order: CK-MB; SPEC'M 10/21/16 15:57 Test: CPK CREATINE PHOSPHOKINASE; Value: 56; Range: 39-308; Units: U/L; Status: F Test: CK-MB VALUE MASS; Value: 1.0; Range: 0.0-3.6; Units: NG/ML; Status: F Test: MB/CK RELATIVE INDEX; Value: 1.78; Range: < OR =4; Status: F Test Note: ; DIAGNOSIS CRITERIA MMB ng/ml Relative Index (RI) NON-AMI < or = 5 N/A MORAN ZONE > 5 < or = 4 AMI > 5 > 4 Radiology Order: EKG-ADULT Test: EKG-ADULT REASON FOR EXAMINATION: dizziness; Stationary ECG Study; [facility] - ED; ; Test Date: 2016-10-21; Pat Name: REAGAN MEJÍA Department:; Room: -; Gender: M Destination Specialist: loraine; : 1970 Requested By: Ximena Hernandez; Order Number: [id number] Reading MD: Ximena Hernandez; Measurements; Intervals [place]; Rate: 57 P: 34; AL: 162 QRS: -10; QRSD: 106 T: 17; QT: 432; QTc: 421; Interpretive Statements; SINUS BRADYCARDIA; ; Electronically Signed On 10-22-2016 7:27:41 EST by Ximena Hernandez; Radiology Order: CT Head Without Contrast Test: CT Head Without Contrast REASON FOR EXAMINATION: Syncope; Clinical: Syncope.; ; Comparison: 12/03/2015.; ; Findings:; The ventricles, sulci, and cisterns are normal in position and appearance.; Moran-white differentiation is maintained. No acute intracranial hemorrhage,; mass/mass effect, pathology or trauma/injury. No evidence for acute infarction.; No extra-axial fluid collection. Calvarium is intact. Paranasal sinuses and; mastoid air cells are clear.; ; Impression:; Normal noncontrast head CT.; No evidence for acute intracranial pathology or trauma/injury.; ; ; Signed by; Reagan Paige MD 10/21/2016 03:25 P; Outcome: 10/21 17:26 Discharge ordered by Provider. jk8 17:45 Discharge Assessment: Patient awake, alert and oriented x 3. No cognitive and/or hs1 functional deficits noted. Patient verbalized understanding of disposition instructions. patient administered narcotics - no. The following High Risk Discharge criteria are identified: None. Discharged to home ambulatory, with family. Condition: stable. Discharge instructions given to patient. No special radiology studies were completed. Property sent home with patient. 18:33 Patient left the ED. hs1 Signatures: Dispatcher [employer] EDMS Jose Rice RN RN bcj Scott, Debra, RN RN dls Youngs, David, Juventino Duggan RN, RN RN mlb1 Leodan Henderson Daniell, WAXED BAG MACHINE OPERATOR WAXED BAG MACHINE OPERATOR dd6 Delia Gudino RN RN hs1 Neisha Anderson RN RN ms18 Valentina Umaña, WAXED BAG MACHINE OPERATOR WAXED BAG MACHINE OPERATOR rs6 Kirill Ireland PA-C PA-C jk8 Hoffert, Sarah seh Chart Complete MTDD
--- NOTE | 2016-10-23 19:34 | EDDOCDS ---
Physician Documentation [facility] Name: Lizandro Hargrove Age: 46 yrs Sex: Male : 1970 Arrival Date: 10/21/2016 Time: 13:26 Bed TR7 Private MD: [facility] Disposition: 10/21/16 17:26 Discharged to Home/Self Care. Impression: Dizziness and giddiness. - Condition is Stable. - Medication Reconciliation, Local Pharmacy Hours form. - Follow up: Emergency Department; When: As soon as possible; Reason: Worsening of conditions. Follow up: Private Physician; When: 2 - 3 days; Reason: Recheck today's complaints. - Problem is new. - Symptoms are unchanged. Historical: - Allergies: no known allergies; - Home Meds: 1. albuterol sulfate 90 mcg/actuation Inhl HFAA 1 puff every 4 hours as needed 2. Albuterol-Ipratropium Inhl 3 mL as needed 3. Calcium with D 2 tab nightly 4. Flonase 50 mcg/actuation Nasal spsn 1 spray 2 times per day 5. Qvar inhalation 1 puff 2 times per day 6. Singulair 10 mg Oral tab 1 tab once daily 7. Symbicort INH 2 puff daily 8. Zyrtec 10 mg Oral tab 1 tab once daily - PMHx: Asthma; Seasonal Allergies; Sleep Apnea w/ CPAP; - PSHx: Tonsillectomy; Gastric Bypass; Vasectomy; Left Shoulder Surgery; Left Ankle Surgery; - Social history: Smoking status: Patient states former smoker of tobacco. No barriers to communication noted, The patient speaks fluent Georgian, Speaks appropriately for age. - Family history: Not pertinent. - : The pt / caregiver states he / she is not on anticoagulants. Home medication list is obtained from the patient. - Exposure Risk Screening:: None identified. Vital Signs: 10/21 13:27 BP 117 / 62; Pulse 52; Resp 18 S; Temp 97.1(O); Pulse Ox 100% on R/A; Weight 136.08 kg dd6 / 300.01 lbs (R); Height 6 ft. 0 in. (182.88 cm) (R); 15:56 BP 126 / 58 (auto/); hs1 15:58 Pulse 48 MON; hs1 16:10 Pulse 50 MON; hs1 16:11 BP 113 / 62 (auto/); hs1 16:40 Pulse 48 MON; hs1 16:41 BP 106 / 66 (auto/); hs1 17:10 Pulse 48 MON; hs1 17:11 BP 110 / 66 (auto/); hs1 17:24 BP 118 / 83 Supine; Pulse 53; ms18 17:24 BP 109 / 83 Standing; Pulse 53; ms18 17:25 Pulse 50 MON; hs1 17:26 BP 105 / 67 (auto/); hs1 17:26 Pulse 52 MON; Resp 18; Temp 97.2; Pulse Ox 98% ; Pain 0/10; hs1 17:26 BP 105 / 67 (auto/); hs1 13:27 Body Mass Index 40.69 (136.08 kg, 182.88 cm) dd6 MDM: 13:46 ECG WITH READING ER PHYS+CARDIAG ordered. EDMS 15:11 CBC with Diff Ordered. EDMS 15:11 Troponin Ordered. EDMS 15:11 BMP Ordered. EDMS 15:11 Liver Profile Ordered. EDMS 15:11 CK-MB Ordered. EDMS 15:12 CT Head Without Contrast Ordered. EDMS 15:15 Manager Cable ordered. jk8 15:18 IV Saline Lock ordered. jk8 16:23 Financial registration complete. zo 16:24 [facility] Payment Agreement was scanned into [email or web address] and attached to record. zo 16:54 CBC with Diff Reviewed. jk8 16:54 BMP Reviewed. jk8 16:54 Liver Profile Reviewed. jk8 16:54 Troponin Reviewed. jk8 16:54 CK-MB Reviewed. jk8 16:54 CT Head Without Contrast Reviewed. jk8 10/22 08:45 T-Sheet-- Draft Copy was scanned into [email or web address] and attached to record. [facility] 08:52 ECG/EKG was scanned into [email or web address] and attached to record. [facility] Signatures: Dispatcher [employer] EDJuventino Conway RN RN mlb1 Leodan Henderson Hannah, RN RN hs1 Kirill Ireland PA-C PA-C jk8 Hoffert, Sarah seh The chart was reviewed and I authenticate all verbal orders and agree with the evaluation and treatment provided.Attachments: 01/14 16:24 [facility] Payment Agreement zo 10/22 08:45 T-Sheet-- Draft Copy [facility] 08:52 ECG/EKG [facility] Chart Complete MTDD
--- NOTE | 2016-10-23 19:34 | EDDOCDS ---
Physician Documentation [facility] Name: Lizandro Hargrove Age: 46 yrs Sex: Male : 1970 Arrival Date: 10/21/2016 Time: 13:26 Bed TR7 Private MD: [facility] Disposition: 10/21/16 17:26 Discharged to Home/Self Care. Impression: Dizziness and giddiness. - Condition is Stable. - Medication Reconciliation, Local Pharmacy Hours form. - Follow up: Emergency Department; When: As soon as possible; Reason: Worsening of conditions. Follow up: Private Physician; When: 2 - 3 days; Reason: Recheck today's complaints. - Problem is new. - Symptoms are unchanged. Historical: - Allergies: no known allergies; - Home Meds: 1. albuterol sulfate 90 mcg/actuation Inhl HFAA 1 puff every 4 hours as needed 2. Albuterol-Ipratropium Inhl 3 mL as needed 3. Calcium with D 2 tab nightly 4. Flonase 50 mcg/actuation Nasal spsn 1 spray 2 times per day 5. Qvar inhalation 1 puff 2 times per day 6. Singulair 10 mg Oral tab 1 tab once daily 7. Symbicort INH 2 puff daily 8. Zyrtec 10 mg Oral tab 1 tab once daily - PMHx: Asthma; Seasonal Allergies; Sleep Apnea w/ CPAP; - PSHx: Tonsillectomy; Gastric Bypass; Vasectomy; Left Shoulder Surgery; Left Ankle Surgery; - Social history: Smoking status: Patient states former smoker of tobacco. No barriers to communication noted, The patient speaks fluent Nepali, Speaks appropriately for age. - Family history: Not pertinent. - : The pt / caregiver states he / she is not on anticoagulants. Home medication list is obtained from the patient. - Exposure Risk Screening:: None identified. Vital Signs: 10/21 13:27 BP 117 / 62; Pulse 52; Resp 18 S; Temp 97.1(O); Pulse Ox 100% on R/A; Weight 136.08 kg dd6 / 300.01 lbs (R); Height 6 ft. 0 in. (182.88 cm) (R); 15:56 BP 126 / 58 (auto/); hs1 15:58 Pulse 48 MON; hs1 16:10 Pulse 50 MON; hs1 16:11 BP 113 / 62 (auto/); hs1 16:40 Pulse 48 MON; hs1 16:41 BP 106 / 66 (auto/); hs1 17:10 Pulse 48 MON; hs1 17:11 BP 110 / 66 (auto/); hs1 17:24 BP 118 / 83 Supine; Pulse 53; ms18 17:24 BP 109 / 83 Standing; Pulse 53; ms18 17:25 Pulse 50 MON; hs1 17:26 BP 105 / 67 (auto/); hs1 17:26 Pulse 52 MON; Resp 18; Temp 97.2; Pulse Ox 98% ; Pain 0/10; hs1 17:26 BP 105 / 67 (auto/); hs1 13:27 Body Mass Index 40.69 (136.08 kg, 182.88 cm) dd6 MDM: 13:46 ECG WITH READING ER PHYS+CARDIAG ordered. EDMS 15:11 CBC with Diff Ordered. EDMS 15:11 Troponin Ordered. EDMS 15:11 BMP Ordered. EDMS 15:11 Liver Profile Ordered. EDMS 15:11 CK-MB Ordered. EDMS 15:12 CT Head Without Contrast Ordered. EDMS 15:15 Beauty Culturist ordered. jk8 15:18 IV Saline Lock ordered. jk8 16:23 Financial registration complete. zo 16:24 [facility] Payment Agreement was scanned into [employer] and attached to record. zo 16:54 CBC with Diff Reviewed. jk8 16:54 BMP Reviewed. jk8 16:54 Liver Profile Reviewed. jk8 16:54 Troponin Reviewed. jk8 16:54 CK-MB Reviewed. jk8 16:54 CT Head Without Contrast Reviewed. jk8 10/22 08:45 T-Sheet-- Draft Copy was scanned into [employer] and attached to record. [facility] 08:52 ECG/EKG was scanned into [employer] and attached to record. [facility] Signatures: Dispatcher [employer] EDJuventino Conway RN RN mlb1 Leodan Henderson Hannah, RN RN hs1 Kirill Ireland PA-C PA-C jk8 Hoffert, Sarah seh The chart was reviewed and I authenticate all verbal orders and agree with the evaluation and treatment provided.Attachments: 01/14 16:24 [facility] Agreement zo 10/22 08:45 T-Sheet-- Draft Copy [facility] 08:52 ECG/EKG [facility] Chart Complete MTDD
== END 2016-10-21 18:33 | disposition home or self-care (01) ==
LOC: M ED 13:26
DX: R42 Dizziness and giddiness (principal); J45.909 Unspecified asthma, uncomplicated; G47.30 Sleep apnea, unspecified; Z98.84 Bariatric surgery status; Z87.39 Personal history of other diseases of the musculoskeletal system and connective tissue; Z90.89 Acquired absence of other organs; Z87.891 Personal history of nicotine dependence; Z79.51 Long term (current) use of inhaled steroids; Z79.899 Other long term (current) drug therapy

== ENCOUNTER 2016-12-07 16:06 | Emergency (ER) | payer MEDICARE, MEDICAID ==
[~2016-12-07] VITALS: Ht 182.9 cm; Wt 136.1 kg
[2016-12-07] MEDS ORDERED: COMBAER6 INH (16:35)
[2016-12-07] MEDS ORDERED: SING10TA32 PO (16:35)
[2016-12-07] MEDS ORDERED: ZYRT10CA PO (16:35)
[2016-12-07] MEDS ORDERED: [UNRECOGNIZED DRUG - REMARK] (16:35)
[2016-12-07] MEDS ORDERED: CEFU250T PO (16:35)
[2016-12-07] MEDS ORDERED: ALBU17IN2 INH (16:35)
[2016-12-07] MEDS ORDERED: METH4PACK PO (16:35)
[2016-12-07] MEDS ORDERED: methylPREDNISolone INJ 125 MG/2 ML VIAL (J2930) IV ONE (19:00)
[2016-12-07 19:28] LABS: BASO % 0.3 % (0.0-1.0); EOS % 0.6 % (0.0-3.0); LARGE UNSTAINED CELL # 0.1 K/mm3 (0.0-0.4); LARGE UNSTAINED CELL % 1.9 % (0.0-4.0); LYMPH # 1.5 K/mm3 (1.5-4.5); LYMPH % 20.9 % (24.0-44.0); MEAN CORPUSCULAR HEMOGLOBIN 30.7 pg (27.0-33.0); MEAN CORPUSCULAR HGB CONC 33.2 g/dl (32.0-36.5); MEAN CORPUSCULAR VOLUME 92.3 fl (80.0-96.0); MONO # 0.4 K/mm3 (0.0-0.8); MONO % 5.9 % (0.0-5.0); NEUTROPHILS # 4.5 K/mm3 (1.8-7.7); NEUTROPHILS % 70.4 % (36.0-66.0); PLATELET COUNT, AUTOMATED 294 k/mm3 (150-450); RED CELL DISTRIBUTION WIDTH 12.8 % (11.5-14.5); WHITE BLOOD COUNT 6.4 K/mm3 (4.0-10.0)
[2016-12-07] MEDS: IPRATROPIUM 0.5MG/ALBUTEROL 2.5MG INH SOL UD 3ML (DUONEB)(J7620) NEB PRN ×3 (19:34→20:30)
--- NOTE | 2016-12-07 19:45 | REP ---
CHEST, TWO VIEWS: HISTORY: Dyspnea and cough. COMPARISON: 10/11/2016 FINDINGS: The superior mediastinal structures are midline. The cardiac silhouette is unremarkable in size, shape and position. The diaphragmatic surfaces of the lungs are regular and the costophrenic angles are clear. The pulmonary spicer are clear. The imaged osseous structures are intact. IMPRESSION: There is no acute cardiopulmonary disease. No significant change from the prior examination. Signed by Cheko Monge DO 12/07/2016 07:49 P
[2016-12-07 19:56] LABS: ANION GAP 5 MEQ/L (8-16); BLOOD UREA NITROGEN 22 MG/DL (7-18); CALCIUM LEVEL 8.7 MG/DL (8.5-10.1); CARBON DIOXIDE LEVEL 30 MEQ/L (21-32); CHLORIDE LEVEL 108 MEQ/L (98-107); CREATININE FOR GFR 1.01 MG/DL (0.70-1.30); GLOMERULAR FILTRATION RATE > 60.0 (>60); GLUCOSE, FASTING 100 MG/DL (70-105); SODIUM LEVEL 143 MEQ/L (136-145)
[2016-12-07] MEDS ORDERED: PRED20TA PO (21:07)
[2016-12-07 21:19] VITALS: BP 132/69
== END 2016-12-07 21:25 | disposition home or self-care (01) ==
LOC: M ED 19:52
DX: J44.1 Chronic obstructive pulmonary disease with (acute) exacerbation (principal); I25.10 Atherosclerotic heart disease of native coronary artery without angina pectoris; E11.9 Type 2 diabetes mellitus without complications; Z79.51 Long term (current) use of inhaled steroids; Z79.899 Other long term (current) drug therapy; Z87.891 Personal history of nicotine dependence; G47.30 Sleep apnea, unspecified
CPT/HCPCS: 36415; 71020; 80048; 85025; 87804; 94640; 94760; 96374; 99282; J2930

== ENCOUNTER 2016-12-09 10:47 | Emergency (ER) | payer MEDICARE, MEDICAID ==
[~2016-12-09] VITALS: Ht 182.9 cm; Wt 136.1 kg
[~2016-12-09 10:47] MED LIST: ALBU17IN2 INH; CEFU250T PO; COMBAER6 INH; METH4PACK PO; PRED20TA PO; SING10TA32 PO; ZYRT10CA PO; [UNRECOGNIZED DRUG - REMARK]
[2016-12-09] MEDS ORDERED: SYMB16INH INH (11:03)
[2016-12-09] MEDS ORDERED: dexameTHASONE 20 MG/5 ML VIAL (J1100) IV ONE (11:30)
[2016-12-09] MEDS: IPRATROPIUM 0.5MG/ALBUTEROL 2.5MG INH SOL UD 3ML (DUONEB)(J7620) NEB PRN ×3 (12:08→13:02)
[2016-12-09 12:55] VITALS: O2SAT 98
[2016-12-09 13:24] VITALS: BP 111/56
== END 2016-12-09 13:45 | disposition home or self-care (01) ==
LOC: EDBD 10:47 → M ED 11:41
DX: J45.901 Unspecified asthma with (acute) exacerbation (principal); Z79.52 Long term (current) use of systemic steroids; Z79.899 Other long term (current) drug therapy; Z87.891 Personal history of nicotine dependence; Z98.84 Bariatric surgery status; G47.30 Sleep apnea, unspecified
CPT/HCPCS: 94640; 94760; 96374; 99283; J1100

== ENCOUNTER 2016-12-15 17:55 | Emergency (ER) | payer MEDICARE, MEDICAID ==
[~2016-12-15] VITALS: Ht 182.9 cm; Wt 142.9 kg
[~2016-12-15 17:55] MED LIST changes: +SYMB16INH INH
[2016-12-15] MEDS ORDERED: FLUTISP (18:19)
[2016-12-15] MEDS ORDERED: CALC1TAB30 PO (18:19)
[2016-12-15] MEDS ORDERED: SYMB16INH INH (18:19)
[2016-12-15] MEDS ORDERED: IPRATROPIUM 0.5MG/ALBUTEROL 2.5MG INH SOL UD 3ML (DUONEB)(J7620) NEB ONE ×2 (20:30)
[2016-12-15] MEDS ORDERED: dexameTHASONE 20 MG/5 ML VIAL (J1100) IM ONE (20:30)
[2016-12-15] MEDS ORDERED: ALBUTEROL SULFATE 2.5 MG/0.5 ML INH NEB SOLN NEB ONE (20:30)
[2016-12-15] MEDS ORDERED: AZITHROMYCIN 250 MG TAB PO ONE (21:00)
[2016-12-15] MEDS ORDERED: PRED20TA PO (21:02)
[2016-12-15] MEDS ORDERED: ZITHTAB PO (21:03)
[2016-12-15 21:13] VITALS: BP 111/65
--- NOTE | 2016-12-16 08:35 | REP ---
REASON: Cough COMPARISON: 12/07/2016 FINDINGS: The superior mediastinal structures are midline. The cardiac silhouette is unremarkable in size, shape, and position. The diaphragmatic surfaces of the lungs are regular, and the costophrenic angles are clear. The pulmonary spicer are clear. The imaged osseous structures are intact. IMPRESSION: There is no acute cardiopulmonary disease. Signed by Cheko Monge DO 12/16/2016 10:04 A
== END 2016-12-15 21:14 | disposition home or self-care (01) ==
LOC: M ED 18:50
DX: J45.901 Unspecified asthma with (acute) exacerbation (principal); J20.9 Acute bronchitis, unspecified; J06.9 Acute upper respiratory infection, unspecified; G47.30 Sleep apnea, unspecified; Z98.84 Bariatric surgery status; Z79.52 Long term (current) use of systemic steroids; Z79.899 Other long term (current) drug therapy
CPT/HCPCS: 71020; 94640; 96372; 99282; J1100

== ENCOUNTER 2016-12-17 16:55 | Emergency (ER) | payer MEDICARE, MEDICAID ==
[~2016-12-17 16:55] MED LIST changes: +CALC1TAB30 PO; +FLUTISP; +ZITHTAB PO
[2016-12-17] MEDS ORDERED: ALBU83IN INH (17:06)
[2016-12-17] MEDS ORDERED: PRED20TA PO (17:06)
[2016-12-17] MEDS ORDERED: IPRATROPIUM 0.5MG/ALBUTEROL 2.5MG INH SOL UD 3ML (DUONEB)(J7620) NEB STA (17:23)
[2016-12-17] MEDS ORDERED: ALBUTEROL SULFATE 2.5 MG/0.5 ML INH NEB SOLN As Ordered ONE (17:29)
[2016-12-17] MEDS ORDERED: methylPREDNISolone INJ 125 MG/2 ML VIAL (J2930) IV ONE (17:30)
[2016-12-17] MEDS ORDERED: ALBUTEROL SULFATE 2.5 MG/0.5 ML INH NEB SOLN NEB ONE (17:30)
[2016-12-17 17:43] LABS: ABG BASE EXCESS 1.5 (-2.0-2.0); ABG HCO3 25.3 MEQ/L (22.0-26.0); ABG PARTIAL PRESSURE O2 69.8 mmHg (75.0-100.0); ABG STANDARD HCO3 25.8 MEQ/L (22.0-26.0); ABG TOTAL CO2 26.4 MEQ/L (22.0-29.0); ABG pH (ARTERIAL) 7.452 UNITS (7.350-7.450)
[2016-12-17 17:56] LABS: BASO % 0.1 % (0.0-1.0); EOS % 0.3 % (0.0-3.0); LARGE UNSTAINED CELL # 0.1 K/mm3 (0.0-0.4); LARGE UNSTAINED CELL % 0.6 % (0.0-4.0); LYMPH # 0.7 K/mm3 (1.5-4.5); LYMPH % 7.2 % (24.0-44.0); MEAN CORPUSCULAR HEMOGLOBIN 30.2 pg (27.0-33.0); MEAN CORPUSCULAR VOLUME 91.5 fl (80.0-96.0); MONO # 0.3 K/mm3 (0.0-0.8); MONO % 2.8 % (0.0-5.0); NEUTROPHILS # 8.2 K/mm3 (1.8-7.7); NEUTROPHILS % 88.9 % (36.0-66.0); PLATELET COUNT, AUTOMATED 346 k/mm3 (150-450); RED CELL DISTRIBUTION WIDTH 12.8 % (11.5-14.5); WHITE BLOOD COUNT 9.2 K/mm3 (4.0-10.0)
[2016-12-17 18:21] LABS: ALBUMIN 3.6 GM/DL (3.2-5.2); ALBUMIN/GLOBULIN RATIO 1.16 (1.00-1.93); ALKALINE PHOSPHATASE 58 U/L (45-117); ALT/SGPT 16 U/L (12-78); ANION GAP 10 MEQ/L (8-16); AST/SGOT 15 U/L (15-37); BILIRUBIN,DIRECT 0.1 MG/DL (0.0-0.2); BILIRUBIN,TOTAL 0.5 MG/DL (0.2-1.0); BLOOD UREA NITROGEN 20 MG/DL (7-18); CALCIUM LEVEL 8.5 MG/DL (8.5-10.1); CARBON DIOXIDE LEVEL 26 MEQ/L (21-32); CHLORIDE LEVEL 105 MEQ/L (98-107); CREATININE FOR GFR 1.12 MG/DL (0.70-1.30); GLOMERULAR FILTRATION RATE > 60.0 (>60); GLUCOSE, FASTING 112 MG/DL (70-105); SODIUM LEVEL 141 MEQ/L (136-145); TOTAL PROTEIN 6.7 GM/DL (6.4-8.2)
[2016-12-17] MEDS ORDERED: ISOVUE-370 76% 100ML VIAL (Q9967) As Ordered ONE (18:32)
[2016-12-17] MEDS ORDERED: NS 1,000 ML IV SCH (18:45)
--- NOTE | 2016-12-17 19:10 | REPUSA ---
History: shortness of breath Comparison: No prior CTA of the chest available Technique: A CT-pulmonary angiogram was performed. A dose of intravenous contrast was administered. A xial images were displayed, as were sagittal and coronal reconstructions. A 3-D model was also render ed. Exam DLP: Findings: Somewhat limited evaluation due to suboptimal bolus. No CT evidence of central pulmonary em bolism is identified. There is no evidence of thoracic aortic aneurysm or dissection. No air space consolidation is identified in the lungs. There is no evidence of pulmonary edema. No pa thologically enlarged hilar or mediastinal lymph nodes are identified. No significant pleural or herminio cardial fluid collection is seen. There is no evidence of pneumothorax. Mild degenerative changes are noted in the spine. The included portion of the upper abdomen does not show significant abnormality. Impression: Suboptimal bolus. No evidence of central pulmonary embolism is identified.
[2016-12-17 20:30] VITALS: O2SAT 95
[2016-12-17 21:09] VITALS: BP 114/58
--- NOTE | 2016-12-18 07:35 | REP ---
Clinical: Cough. Dyspnea . Comparison: 12/15/2016 . Findings: The mediastinum and cardiac silhouette are stable and within normal limits for portable technique. The lung spicer are clear without acute consolidation, effusion, or pneumothorax. Skeletal structures are intact. Impression: Normal portable chest x-ray Signed by Lizandro Paige MD 12/18/2016 07:27 A
--- NOTE | 2016-12-18 12:27 | ECGEPIP ---
Stationary ECG Study [facility] - ED Test Date: 2016-12-17 Pat Name: REAGAN MEJÍA Department: Room: - Gender: M Churn Operator: macrina : 1970 Requested By: Satinder Ramos Order Number: [id number] Reading MD: Ximena Hernandez Measurements Intervals [place] Rate: 73 P: 37 IN: 152 QRS: -18 QRSD: 105 T: 20 QT: 386 QTc: 427 Interpretive Statements SINUS RHYTHM INCREASED RATE 10/21/16 Electronically Signed On 12-18-2016 12:27:23 EDT by Ximena Hernandez
== END 2016-12-17 21:11 | disposition home or self-care (01) ==
LOC: EDBD 16:55 → M ED 17:36
DX: J45.51 Severe persistent asthma with (acute) exacerbation (principal); G47.30 Sleep apnea, unspecified; Z98.84 Bariatric surgery status; Z87.891 Personal history of nicotine dependence; Z79.2 Long term (current) use of antibiotics; Z79.899 Other long term (current) drug therapy; Z79.51 Long term (current) use of inhaled steroids; Z79.52 Long term (current) use of systemic steroids
CPT/HCPCS: 36600; 71010; 71275; 80048; 80076; 82550; 82553; 82803; 83605; 83880; 84484; 85025; 85379; 87040; 87804; 93005; 93041; 94640; 96361; 96374; 99284; J2930; Q9967

== ENCOUNTER → 2016-12-26 | Outpatient (REF) | payer MEDICARE, MEDICAID ==
[~2016-12-26] MED LIST changes: +ALBU83IN INH
[2016-12-26 11:17] LABS: BASO % 0.2 % (0.0-1.0); EOS # 0.1 K/mm3 (0.0-0.50); LYMPH % 15.5 % (24.0-44.0); MEAN CORPUSCULAR HEMOGLOBIN 30.8 pg (27.0-33.0); MEAN CORPUSCULAR HGB CONC 32.9 g/dl (32.0-36.5); MEAN CORPUSCULAR VOLUME 93.6 fl (80.0-96.0); MONO # 0.5 K/mm3 (0.0-0.8); MONO % 8.1 % (0.0-5.0); NEUTROPHILS # 4.3 K/mm3 (1.8-7.7); NEUTROPHILS % 72.5 % (36.0-66.0); RED CELL DISTRIBUTION WIDTH 12.9 % (11.5-14.5); WHITE BLOOD COUNT 5.9 K/mm3 (4.0-10.0)
[2016-12-26 11:33] LABS: FOLATE > 24.0 NG/ML (>5.4); VITAMIN B12 LEVEL 370 PG/ML (247-911)
[2016-12-26 11:35] LABS: ALBUMIN 3.2 GM/DL (3.2-5.2); ALBUMIN/GLOBULIN RATIO 1.33 (1.00-1.93); ALKALINE PHOSPHATASE 56 U/L (45-117); ALT/SGPT 14 U/L (12-78); ANION GAP 5 MEQ/L (8-16); AST/SGOT 13 U/L (15-37); BILIRUBIN,TOTAL 0.6 MG/DL (0.2-1.0); BLOOD UREA NITROGEN 14 MG/DL (7-18); CARBON DIOXIDE LEVEL 28 MEQ/L (21-32); CHLORIDE LEVEL 108 MEQ/L (98-107); CHOLESTEROL LEVEL 168 MG/DL (<200); FERRITIN 36 NG/ML (26-388); GLOMERULAR FILTRATION RATE > 60.0 (>60); GLUCOSE, FASTING 97 MG/DL (70-105); MAGNESIUM LEVEL 2.2 MG/DL (1.8-2.4); PHOSPHORUS LEVEL 2.8 MG/DL (2.5-4.9); POTASSIUM SERUM 4.2 MEQ/L (3.5-5.1); SODIUM LEVEL 141 MEQ/L (136-145); TOTAL PROTEIN 5.6 GM/DL (6.4-8.2); TRIGLYCERIDES LEVEL 82 MG/DL (<150)
[2016-12-27 11:13] LABS: ALBUMIN 3.29 GM/DL (3.29-5.55); ALBUMIN % 58.8 % (55.8-66.1); GAMMA GLOBULIN % 13.8 % (11.1-18.8)
[2016-12-27 14:16] LABS: Lyme Disease IgG/IgM Antibodie <0.91 ISR (0.00-0.90); Lyme Disease IgM Ab Quantitati <0.80 index (0.00-0.79)
== END ==
LOC: M LABDRAW1 10:37
PROVIDERS: ATTEND Physician Assistant Medical
DX: M13.80 Other specified arthritis, unspecified site (principal); J45.909 Unspecified asthma, uncomplicated; J40 Bronchitis, not specified as acute or chronic; R06.02 Shortness of breath; Z79.899 Other long term (current) drug therapy

== ENCOUNTER → 2017-03-12 | Outpatient (CLI) | payer MEDICARE, MEDICAID ==
[2017-03-12 16:49] LABS: FERRITIN 21 NG/ML (26-388)
[2017-03-12 19:21] LABS: BASO % 0.8 % (0.0-1.0); EOS # 0.2 K/mm3 (0.0-0.50); LYMPH # 1.5 K/mm3 (1.5-4.5); LYMPH % 30.7 % (24.0-44.0); MEAN CORPUSCULAR HEMOGLOBIN 31.1 pg (27.0-33.0); MEAN CORPUSCULAR HGB CONC 32.9 g/dl (32.0-36.5); MEAN CORPUSCULAR VOLUME 94.7 fl (80.0-96.0); MONO # 0.3 K/mm3 (0.0-0.8); MONO % 6.4 % (0.0-5.0); NEUTROPHILS # 2.5 K/mm3 (1.8-7.7); NEUTROPHILS % 55.5 % (36.0-66.0); RED CELL DISTRIBUTION WIDTH 12.9 % (11.5-14.5); WHITE BLOOD COUNT 4.5 K/mm3 (4.0-10.0)
== END ==
LOC: M WUC 12:20
PROVIDERS: ATTEND Physician Assistant Medical
DX: D50.9 Iron deficiency anemia, unspecified (principal)

== ENCOUNTER → 2017-03-15 | Outpatient (REF) | payer MEDICARE, MEDICAID ==
[~2017-03-15] MED LIST changes: +ASPI1TAB PO; +ASPI325T PO; +ASPI81TA85 PO; +CLEO300C2; +DRAM25TA3 PO; +IPRASOL4 INH; +OMEP20CA3 PO; +OMEP40CA2 PO; +TIOT18INH INH; +ZOFR4TAB3 PO
[2017-03-18 15:10] LABS: D001-IgE D pteronyssinus <0.10 kU/L (Class 0); E005-IgE Dog Dander 4.15 kU/L (Class IV); G002-IgE Bermuda Grass < 0.10 kU/L (Class 0); G008-IgE Kentucky Bluegrass < 0.10 kU/L (Class 0); M001-IgE Penicillium chrysogen < 0.10 kU/L (Class 0); M002 IgE Cladosporium herbaru < 0.10 kU/L (Class 0); M003 IgE Aspergillus fumigatu < 0.10 kU/L (Class 0); M006-IgE Alternaria alternata < 0.10 kU/L (Class 0); T001-IgE Maple/Box Elder < 0.10 kU/L (Class 0); T003-IgE Common Silver Birch < 0.10 kU/L (Class 0); T007-IgE Oak, White < 0.10 kU/L (Class 0); T008-IgE Elm, American < 0.10 kU/L (Class 0); T015-IgE Ash, White < 0.10 kU/L (Class 0); T041-IgE Hickory, White < 0.10 kU/L (Class 0); W001-IgE Ragweed, Short < 0.10 kU/L (Class 0); W009-IgE Plantain, English < 0.10 kU/L (Class 0); W014-IgE Pigweed, Rough < 0.10 kU/L (Class 0); W018-IgE Sheep Sorrel < 0.10 kU/L (Class 0)
== END ==
LOC: M LAB REF 12:54
PROVIDERS: ATTEND Internal Medicine Pulmonary Disease
DX: J45.40 Moderate persistent asthma, uncomplicated (principal); L03.316 Cellulitis of umbilicus

== ENCOUNTER → 2017-03-15 | Outpatient (REF) | payer MEDICARE, MEDICAID ==
[~2017-03-15] MED LIST changes: -ASPI1TAB PO; -ASPI325T PO; -DRAM25TA3 PO; -IPRASOL4 INH; -OMEP20CA3 PO; -ZOFR4TAB3 PO
== END ==
LOC: M LAB REF 15:41
PROVIDERS: ATTEND Physician Assistant Medical
DX: L03.316 Cellulitis of umbilicus (principal)

== ENCOUNTER 2017-03-23 12:06 | Emergency (ER) | payer MEDICARE, MEDICAID ==
[~2017-03-23 12:06] MED LIST changes: -ASPI81TA85 PO; -CLEO300C2; -OMEP40CA2 PO; -TIOT18INH INH
[2017-03-23] MEDS ORDERED: ASPIRIN 81 MG CHEW TABLET PO ONE (12:15)
[2017-03-23] MEDS ORDERED: OMEP40CA2 PO (12:35)
[2017-03-23] MEDS ORDERED: PRED20TA PO (12:35)
[2017-03-23] MEDS ORDERED: CLEO300C2 (12:35)
[2017-03-23] MEDS ORDERED: TIOT18INH INH (12:35)
--- NOTE | 2017-03-23 12:48 | REP ---
Chest one-view HISTORY: Chest pain Comparison: 12/17/2016 The lungs are clear. The heart is normal in size. The pulmonary vasculature is normal in appearance. Impression: No acute disease. Signed by Ever Low MD 03/23/2017 12:39 P
[2017-03-23 12:54] LABS: BASO % 0.2 % (0.0-1.0); EOS % 0.4 % (0.0-3.0); LARGE UNSTAINED CELL # 0.1 K/mm3 (0.0-0.4); LARGE UNSTAINED CELL % 0.9 % (0.0-4.0); LYMPH # 0.9 K/mm3 (1.5-4.5); LYMPH % 14.3 % (24.0-44.0); MEAN CORPUSCULAR HEMOGLOBIN 31.1 pg (27.0-33.0); MEAN CORPUSCULAR HGB CONC 33.4 g/dl (32.0-36.5); MEAN CORPUSCULAR VOLUME 93.2 fl (80.0-96.0); MONO # 0.1 K/mm3 (0.0-0.8); MONO % 2.2 % (0.0-5.0); NEUTROPHILS # 4.9 K/mm3 (1.8-7.7); NEUTROPHILS % 82.1 % (36.0-66.0); PLATELET COUNT, AUTOMATED 264 k/mm3 (150-450); RED CELL DISTRIBUTION WIDTH 12.6 % (11.5-14.5)
[2017-03-23 12:58] LABS: ALBUMIN 3.7 GM/DL (3.2-5.2); ALBUMIN/GLOBULIN RATIO 1.23 (1.00-1.93); ALKALINE PHOSPHATASE 70 U/L (45-117); ALT/SGPT 18 U/L (12-78); ANION GAP 3 MEQ/L (8-16); AST/SGOT 23 U/L (15-37); BILIRUBIN,DIRECT < 0.1 MG/DL (0.0-0.2); BILIRUBIN,TOTAL 0.6 MG/DL (0.2-1.0); BLOOD UREA NITROGEN 18 MG/DL (7-18); CALCIUM LEVEL 8.6 MG/DL (8.5-10.1); CARBON DIOXIDE LEVEL 26 MEQ/L (21-32); CHLORIDE LEVEL 107 MEQ/L (98-107); CREATININE FOR GFR 1.01 MG/DL (0.70-1.30); GLOMERULAR FILTRATION RATE > 60.0 (>60); GLUCOSE, FASTING 118 MG/DL (70-105); POTASSIUM SERUM 4.1 MEQ/L (3.5-5.1); SODIUM LEVEL 136 MEQ/L (136-145); TOTAL PROTEIN 6.7 GM/DL (6.4-8.2)
[2017-03-23] MEDS ORDERED: ASPI81TA85 PO (19:19)
--- NOTE | 2017-03-23 19:39 | ECGEPIP ---
Stationary ECG Study [facility] - ED Test Date: 2017-03-23 Pat Name: REAGAN MEJÍA Department: Room: - Gender: M Software Recruiter: jamey : 1970 Requested By: Ximena Hernandez Order Number: [id number] Reading MD: Blas Frausto Measurements Intervals [place] Rate: 59 P: 12 MD: 142 QRS: -14 QRSD: 110 T: -1 QT: 429 QTc: 428 Interpretive Statements SINUS BRADYCARDIA NSTTW ABNORMALITY SIMILAR TO 12/17/16 Electronically Signed On 03-23-2017 19:38:39 EDT by Blas Frausto
--- NOTE | 2017-03-23 19:43 | ECGEPIP ---
Stationary ECG Study [facility] - ED Test Date: 2017-03-23 Pat Name: REAGAN MEJÍA Department: Room: - Gender: M Natural Resource Officer: lr : 1970 Requested By: Ximena Hernandez Order Number: [id number] Reading MD: Blas Frausto Measurements Intervals [place] Rate: 53 P: 23 MS: 156 QRS: -12 QRSD: 106 T: 1 QT: 456 QTc: 431 Interpretive Statements SINUS BRADYCARDIA INCOMPLETE RIGHT BUNDLE BRANCH BLOCK SIMILAR TO PRIOR ON SAME DATE Electronically Signed On 03-23-2017 19:43:00 EDT by Blas Frausto
[2017-03-23 19:56] VITALS: BP 111/59
== END 2017-03-23 20:09 | disposition home or self-care (01) ==
LOC: M ED 12:44
DX: R07.9 Chest pain, unspecified (principal); R42 Dizziness and giddiness; R06.02 Shortness of breath; J45.909 Unspecified asthma, uncomplicated; G47.30 Sleep apnea, unspecified; Z79.899 Other long term (current) drug therapy; Z79.82 Long term (current) use of aspirin

== ENCOUNTER 2017-03-30 12:47 | Inpatient (IN) | payer MEDICARE, MEDICAID ==
[~2017-03-30] VITALS: Ht 182.9 cm; Wt 141.8 kg
[~2017-03-30 12:47] MED LIST changes: +ASPI81TA85 PO; +CLEO300C2; +OMEP40CA2 PO; +TIOT18INH INH
--- NOTE | 2017-03-30 13:50 | REP ---
CT of the brain without IV contrast: Comparison 10/21/2016. There is no hemorrhage. The cortical stripe is unremarkable. Ventricles are normal size and midline. There is no edema, mass effect or midline shift. The visualized paranasal sinuses and mastoid air cells are unremarkable. Impression: There is no hemorrhage, acute infarct or mass. Negative CT scan of the brain. No interval change. Signed by Brian Celeste MD 03/30/2017 01:42 P
[2017-03-30 13:59] LABS: MEAN CORPUSCULAR HEMOGLOBIN 31.8 pg (27.0-33.0); MEAN CORPUSCULAR HGB CONC 34.6 g/dl (32.0-36.5); RED CELL DISTRIBUTION WIDTH 12.7 % (11.5-14.5); WHITE BLOOD COUNT 5.4 K/mm3 (4.0-10.0)
[2017-03-30 14:00] LABS: ANION GAP 8 MEQ/L (8-16); BLOOD UREA NITROGEN 18 MG/DL (7-18); CALCIUM LEVEL 8.5 MG/DL (8.5-10.1); CARBON DIOXIDE LEVEL 27 MEQ/L (21-32); CHLORIDE LEVEL 107 MEQ/L (98-107); CREATININE FOR GFR 1.11 MG/DL (0.70-1.30); GLOMERULAR FILTRATION RATE > 60.0 (>60); GLUCOSE, FASTING 92 MG/DL (70-105); SODIUM LEVEL 142 MEQ/L (136-145)
[2017-03-30] MEDS ORDERED: MECLIZINE 25 MG TABLET PO ONE (14:15)
[2017-03-30] MEDS ORDERED: OMEP20CA3 PO (16:19)
[2017-03-30] MEDS ORDERED: IPRASOL4 INH (16:19)
[2017-03-30] MEDS ORDERED: ASPI325T PO (16:20)
[2017-03-30] MEDS ORDERED: PRED20TA PO (16:23)
[2017-03-30] MEDS ORDERED: ACETAMINOPHEN TAB 650MG DOSE (2X325MG) PO PRN (17:45)
[2017-03-30] MEDS ORDERED: ALBUTEROL 90 MCG/ACT 8GM HFA INHALER INH PRN (17:45)
[2017-03-30] MEDS ORDERED: OMEPRAZOLE 20 MG CAP PO PRN (17:45)
[2017-03-30] MEDS ORDERED: ONDANSETRON 4MG/2ML VIAL (J2405) IV PRN (17:45)
[2017-03-30] MEDS ORDERED: IPRATROPIUM 0.5MG/ALBUTEROL 2.5MG INH SOL UD 3ML (DUONEB)(J7620) NEB PRN (17:45)
--- NOTE | 2017-03-30 18:16 | HPE ---
DATE OF ADMISSION: 03/30/2017 PRIMARY CARE PROVIDER: Juany Tracey. CODE STATUS: Full code. CHIEF COMPLAINT: Brief aphasia with left arm paresthesias. HISTORY OF PRESENT ILLNESS: Mr. Hargrove is a 46-year-old gentleman with recurrent history of vague complaint of left arm weakness, paresthesias, who has an appointment to see neurology within the next 1-2 weeks, but was brought to the emergency department after having brief episode of paresthesias, weakness, and aphasia. He stated when the emergency medical services (EMS) presented to his house and bring him to the emergency department that he did have garbled speech that was recognized by his family members. That has since dissipated and he is no longer having any issues other than the left arm paresthesias. He denies headache, lightheadedness, dizziness, blurry vision, double vision. No other significant limitations, and he has had good appetite. No sick contacts. PAST MEDICAL HISTORY: 1. Asthma. 2. Seasonal allergies. 3. Gastroesophageal reflux disease (GERD). PAST SURGICAL HISTORY: Unremarkable. FAMILY HISTORY: Noncontributory. SOCIAL HISTORY: States he quit smoking several years ago. Denies any alcohol use. No illicit drug use. No recent travel. No sick contacts. ALLERGIES: No known drug allergies. CURRENT MEDICATIONS: - albuterol inhaler as directed - DuoNeb every four hours as needed - aspirin 325 mg daily - Symbicort 160/4.5 mcg two inhalations twice a day - calcium with vitamin D one tablet twice a day - Zyrtec 10 mg daily - Singulair 10 mg daily - omeprazole 20 mg daily - prednisone 20 mg daily which will need to be confirmed by pharmacy - Spiriva one inhalation daily REVIEW OF SYSTEMS: CONSTITUTIONAL: He denies fevers, chills, rigors. No change in appetite or loss of appetite. HEENT: He denies headache, lightheadedness, dizziness, blurry vision or double vision. He did have a brief episode of aphasia as outlined above which has since dissipated. No difficulty with speech or swallowing. PULMONARY: He denies productive sputum, cough or hemoptysis, although he does have an underlying history of asthma. CARDIOVASCULAR: No chest pain, paroxysmal nocturnal dyspnea (PND), orthopnea. No lower extremity edema. GASTROINTESTINAL (GI): No nausea, vomiting or diarrhea. Appetite is good. He denies change in bowel habits. No hematochezia or melena. GENITOURINARY (): No dysuria, frequency or hematuria. MUSCULOSKELETAL: No bone, muscle or joint pain, swelling or erythema. NEUROLOGIC: He does describe aphasia briefly and does have some ongoing left-sided paresthesias. LYMPHATIC: No lumps, bumps, swelling of the neck, axilla or groin. No weight loss. No night sweats. ENDOCRINE: Negative for diabetes. Negative for thyroid disorder. HEMATOLOGIC: No bleeding or bruising sore. No prior history of venous thromboembolism. ONCOLOGIC: No history of cancer. PSYCHIATRIC: No history of depression. No suicidal ideation. No auditory or visual hallucinations. 10-point review of systems complete. Pertinent positives are listed. PHYSICAL EXAMINATION: VITAL SIGNS: Temperature is 97, pulse is 73, respiratory rate is 18, blood pressure 111/55, SpO2 is 100% on room air. GENERAL: The patient appears to be in no acute distress. He is alert and oriented, pleasant. HEENT: Head is atraumatic, normocephalic. Eyes pupils equal, round, and reactive to light and accommodation. Throat clear. Mucous membranes moist. No slurred speech. No facial droop. NECK: Supple. LUNGS: Clear. HEART: Regular rate and rhythm. ABDOMEN: Soft. EXTREMITIES: Good mannequin molder strength bilaterally. No limitations with range of motion. Lower extremity show no edema, no calf tenderness. NEUROLOGIC: Cranial nerves II through XII grossly intact. No motor or sensory deficits noted. LABORATORY DATA: White count is 5.4, hemoglobin is 14.5, platelets 286,000. Sodium is 142, potassium 4.0, chloride 107, bicarbonate 27, anion gap 8, BUN 18, creatinine 1.11, glucose 92. IMAGING: Head CT negative for hemorrhage or acute infarct or mass; otherwise no interval change, no acute findings. 12-lead EKG is pending, as well as MRI, MRA, and 2-D echocardiogram. PROBLEM LIST: 1. Transient ischemic attack (TIA) with brief aphasia which is resolved. 2. Left arm paresthesia. 3. Asthma. 4. Seasonal allergic rhinitis. 5. Gastroesophageal reflux disease (GERD). PLAN: The patient is admitted to the progressive care unit (PCU) on telemetry per Dr. Hwang. Consult Dr. Galvan. MRI, MRA of the brain is pending. Two-dimensional echocardiogram is pending. 12-lead electrocardiogram (EKG) is pending. Continue with home medications. Will check a lipid profile in the morning. Aspirin 325 mg daily. Physical therapy (PT)/occupational therapy (OT) evaluation and treatment. Deep venous thrombosis (DVT) prophylaxis with Lovenox.
[2017-03-30] MEDS: SYMBICORT 160/4.5MCG INHALER 6GM INH SCH (19:00)
--- NOTE | 2017-03-30 20:00 | REPUSA ---
MRI of the brain clinical history: CVA Technique: Multiecho multiplanar MRI images of the brain were obtained without administration of cont rast. Diffusion weighted images with ADC mapping was also obtained. The ventricles and sulci are symmetric bilaterally. The brain parenchyma demonstrates uniform and nor mal signal on all sequences. There is no midline shift, mass effect, or extra-axial fluid collection. The midline intracranial structures do not demonstrate any gross abnormalities. The cervical cranial junction is intact. The orbits are unremarkable. The visualized paranasal sinuses and mastoid air ce lls are clear. The osseous structures and superficial soft tissues are unremarkable. The vascular str uctures demonstrate appropriate flow voids. Impression: No acute findings.
--- NOTE | 2017-03-30 20:00 | REPUSA ---
MRI of the brain clinical history: CVA. Technique: [id number] MRA images of the brain were obtained without administration of contrast. 3 -D MIP images were also obtained. Findings: The vascular structures extending from the distal carotid and vertebrobasilar arterial syst ems, through the [place], demonstrate normal caliber and contour. There is no evidence of an eurysm, stenosis, or thrombosis. Impression: Unremarkable MRA examination of the brain.
[2017-03-30] MEDS ORDERED: NS 1,000 ML IV ONE (20:45)
[2017-03-30 20:49] LABS: MEAN CORPUSCULAR HEMOGLOBIN 31.4 pg (27.0-33.0); MEAN CORPUSCULAR HGB CONC 33.9 g/dl (32.0-36.5); MEAN CORPUSCULAR VOLUME 92.8 fl (80.0-96.0); RED CELL DISTRIBUTION WIDTH 12.7 % (11.5-14.5); WHITE BLOOD COUNT 5.4 K/mm3 (4.0-10.0)
[2017-03-30 21:24] VITALS: BP 124/67
[2017-03-30 23:36] VITALS: BP 113/58
[2017-03-31] MEDS ORDERED: SLF 3 ML SYR IV PRN (03:45)
[2017-03-31 04:16] VITALS: BP 105/55
[2017-03-31 05:44] LABS: MEAN CORPUSCULAR HEMOGLOBIN 32.8 pg (27.0-33.0); MEAN CORPUSCULAR HGB CONC 35.1 g/dl (32.0-36.5); MEAN CORPUSCULAR VOLUME 93.3 fl (80.0-96.0); RED CELL DISTRIBUTION WIDTH 12.6 % (11.5-14.5); WHITE BLOOD COUNT 4.2 K/mm3 (4.0-10.0)
[2017-03-31] MEDS ORDERED: SLF 3 ML SYR IV SCH (06:00)
[2017-03-31 06:09] LABS: ANION GAP 8 MEQ/L (8-16); BLOOD UREA NITROGEN 15 MG/DL (7-18); CALCIUM LEVEL 8.2 MG/DL (8.5-10.1); CARBON DIOXIDE LEVEL 25 MEQ/L (21-32); CHLORIDE LEVEL 111 MEQ/L (98-107); CHOLESTEROL LEVEL 160 MG/DL (<200); CREATININE FOR GFR 0.96 MG/DL (0.70-1.30); GLOMERULAR FILTRATION RATE > 60.0 (>60); GLUCOSE, FASTING 95 MG/DL (70-105); POTASSIUM SERUM 3.9 MEQ/L (3.5-5.1); SODIUM LEVEL 144 MEQ/L (136-145); TRIGLYCERIDES LEVEL 93 MG/DL (<150)
[2017-03-31] MEDS: SYMBICORT 160/4.5MCG INHALER 6GM INH SCH (07:47)
[2017-03-31] MEDS: IPRATROPIUM 0.5MG/ALBUTEROL 2.5MG INH SOL UD 3ML (DUONEB)(J7620) NEB SCH ×2 (07:47)
[2017-03-31 07:52] VITALS: BP 121/66
[2017-03-31] MEDS ORDERED: ENOXAPARIN 40 MG/0.4 ML SYRINGE (J1650) SC SCH (09:00)
[2017-03-31] MEDS ORDERED: ASPIRIN 325 MG TAB PO SCH (09:00)
[2017-03-31] MEDS ORDERED: CETIRIZINE (ZyrTEC) 10 MG TAB PO SCH (09:00)
[2017-03-31] MEDS ORDERED: TIOTROPIUM INHALER/CAPSULE (SPIRIVA) INH SCH (09:00)
[2017-03-31] MEDS ORDERED: MONTELUKAST 10 MG TAB PO SCH (09:00)
[2017-03-31] MEDS ORDERED: DRAM25TA3 PO (11:33)
[2017-03-31] MEDS ORDERED: ASPI1TAB PO (11:33)
[2017-03-31 11:54] VITALS: BP 114/60
--- NOTE | 2017-03-31 13:45 | ECHO ---
DATE OF PROCEDURE: 03/31/2017 REFERRING PROVIDER: Dr. Theodore Oliva. PATIENT LOCATION: Room 3211 REASON FOR THE ECHOCARDIOGRAM: TIA. 2D MEASUREMENT: IVS - 1.2 cm LV - 5.1 cm LVPW - 1.2 cm LA - 3.5 cm Aorta - 3.5 cm IVC - 2.4 cm DOPPLER MEASUREMENTS: Peak velocity across the aortic valve - 1.4 m/s Peak velocity across the LVOT - 1.0 m/s Mitral E - 0.66, Estella A - 0.47 with ratio of 1.4 2D COMMENTS: 1. Normal left ventricular size, wall thickness and normal global left ventricular systolic function. Left ventricular systolic ejection fraction is estimated at 60%. 2. Normal left atrium. Normal right atrium and right ventricle. 3. The atrial septum appears to be normal without evidence of defect or shunt. 4. Normal aortic root. 5. No pericardial effusion seen. 6. Normal aortic valve, mitral valve, tricuspid valve and pulmonic valve. The proximal pulmonary artery branches were not well visualized. 7. The inferior vena cava was mildly enlarged. Central venous pressure might then be elevated. DOPPLER: Only trace mitral regurgitation detected. Assessment of the left ventricular diastolic function appeared to be normal. IMPRESSION: 1. Normal global left ventricular systolic and diastolic function. 2. No significant valvular heart disease but trace mitral regurgitation. 3. The inferior vena cava/IVC was mildly enlarged. Central venous pressure might be elevated. MTDD
--- NOTE | 2017-03-31 14:10 | DSES ---
DATE OF ADMISSION: 03/30/2017 DATE OF DISCHARGE: 03/31/2017 ATTENDING PHYSICIAN: Germaine Hwang MD PRIMARY CARE PROVIDER: ELIANA Anguiano REFERRING PHYSICIAN: None. CONSULTING PHYSICIAN: Rose Galvan MD, of neurology CONDITION ON DISCHARGE: Stable. FINAL DIAGNOSIS: Dizziness/possible transient ischemic attack (TIA). PROCEDURES: None. HISTORY OF PRESENT ILLNESS: The patient is a 46-year-old male with past medical history of asthma, seasonal allergies, and gastroesophageal reflux disease (GERD), who presented to the emergency room (ER) with complaints of left arm weakness, paresthesias, and some slurred speech at home. The patient was scheduled to see neurology in 1-2 weeks but presented to the emergency room after he had presented with these symptoms. Family members had brought him to the emergency room because of symptoms that they had noted at home. Upon arrival of emergency medical services (EMS) to the home, the patient's symptoms had resolved. The patient was admitted for possible TIA. HOSPITAL COURSE: 1. Left arm weakness, numbness, and slurred speech associated with dizziness, possibly secondary to TIA, possibly secondary to illness. The patient had presented with weakness of his arm on the left side but has improved. Physical reveals full 5/5 muscle strength. Imaging done in the emergency room of MRI of his head and MRA of his head was negative. The patient has been evaluated by neurology. Has been cleared for discharge with aspirin 81 mg to be taken at home. The patient has been advised to followup with neurology as an outpatient, as well as his primary care provider. The patient was discharged home with meclizine. The patient had received a dose of meclizine, and his dizziness has resolved. 2. Asthma. Continue with current inhaled therapy. 3. Seasonal allergic rhinitis. Continue with cetirizine. 4. Gastroesophageal reflux disease. Continue with proton pump inhibitor (PPI). DISCHARGE MEDICATIONS: The patient will be discharged home with the following medications: - albuterol two puffs inhaled twice a day as needed shortness of breath - Symbicort two puffs inhaled twice a day - calcium one tablet by mouth twice a day - cetirizine 10 mg by mouth daily - Montelukast 10 mg by mouth daily - omeprazole 20 mg by mouth daily - Spiriva one inhalation daily Medications stopped include: - aspirin 325 - prednisone 20 mg daily New medications prescribed include: - aspirin 81 mg by mouth every day - meclizine 25 mg by mouth every 12 hours as needed dizziness DISCHARGE INSTRUCTIONS: The patient was advised to followup with his primary care provider and neurology within the next 7 days. He has been advised to remain compliant with treatment and medications and return to the emergency room if he experiences any problems. TIME SPENT ON DISCHARGE: 35 minutes.
--- NOTE | 2017-03-31 14:51 | CR ---
DATE OF CONSULTATION: 03/31/2017 REFERRING PROVIDER: Dr. Theodore Oliva REASON FOR CONSULTATION: Possible transient ischemic attack (TIA). HISTORY OF PRESENT ILLNESS: The patient is 46-year-old male with past medical history significant for gastric bypass surgery with approximately 200 pounds of weight loss, presenting with sudden onset of severe dizziness. The patient states he has experienced dizziness without vertigo and states that again he is having severe dizziness without vertigo. He stated that his left arm started to feel numb as well as bilateral legs. He took a baby aspirin 325 mg. He started to feel as though he was leaning toward the left all of a sudden. He could not exactly describe the sensation changes. His voice sounded different. He was brought via ambulance to [facility]. The patient did have a head CT, which was negative. His symptoms have improved in regard to the paresthesias and speech changes; however, he still has difficulty with balance. The patient does have a history of sleep apnea and is noncompliant with treatment. He, himself, does not have a history of hypertension, diabetes, or hyperlipidemia. He quit tobacco several years ago. PAST MEDICAL HISTORY: 1. Obstructive sleep apnea, noncompliant with continuous positive airway pressure (CPAP) therapy. 2. Morbid obesity. Has had gastric bypass surgery. 3. Chronic dizziness. PAST SURGICAL HISTORY: Gastric bypass surgery January 2016. SOCIAL HISTORY: The patient denies use of any tobacco, alcohol, or illicit drugs but was a former smoker. The patient quit tobacco 21 years ago. FAMILY HISTORY: Noncontributory. REVIEW OF SYSTEMS: A 14-point review of systems was obtained and is negative except as per history of present illness (HPI). PHYSICAL EXAMINATION: Blood pressure 111/55, pulse rate 65, respiratory rate is 18, 97 degrees Fahrenheit. Current height 6 feet 0 inches, current weight is 143 kg. The patient is awake, alert, oriented to person, place, and time. Speech, language, comprehension, repetition are intact. Pupils are 3 mm round, reactive to light. Extraocular movements are intact without nystagmus. Sensation when V1, V2, V3 is intact to light touch bilaterally. No facial asymmetry on activation. Palate elevates symmetrically. Tongue is midline. No weakness of sternocleidomastoids. No pronator drift. Strength is 5/5, including bilateral deltoids, biceps, triceps, hand wheel presser, iliopsoas, tibialis. Romberg testing is negative. Sensory is intact to light touch and temperature throughout all four extremities. Deep tendon reflexes are 2+ throughout. ASSESSMENT: Possible transient ischemic attacks (TIA) with episode of dizziness, leaning toward the left, and left arm paresthesias. Bilateral lower extremity paresthesias less likely. Could be related to a TIA. PLAN Start aspirin 81 mg by mouth daily. Obtain MRI brain, MR angiogram head and neck without contrast. Continue telemetry monitoring since symptoms have essentially improved with treatment of meclizine. Continue observation per 24 hours. If MRI is normal, the patient can be seen in the outpatient clinic within the next month. Can consider checking a B12 level.
--- NOTE | 2017-04-02 00:51 | ECGEPIP ---
Stationary ECG Study [facility] Test Date: 2017-03-30 Pat Name: REAGAN MEJÍA Department: Room: [place] [address] Gender: M Director Of Patient Financial Services: GABY : 1970 Requested By: FARHAN Dee Order Number: [id number] Reading MD: Fred Dallas Measurements Intervals [place] Rate: 57 P: 54 [place]: 164 QRS: -12 QRSD: 106 T: 15 QT: 431 QTc: 420 Interpretive Statements SINUS BRADYCARDIA LOW QRS VOLTAGE IN PRECORDIAL LEADS Compared to the last 2 tracings, no significant changes Electronically Signed On 04-02-2017 0:51:35 EDT by Fred Dallas
== END 2017-03-31 12:08 | disposition home or self-care (01) | DRG 69 ==
LOC: M ED 15:20 → M ED INP 17:39 → M PCU 21:15
PROVIDERS: ADMIT Hospitalist; ATTEND Internal Medicine
DX: G45.9 Transient cerebral ischemic attack, unspecified (principal); J45.909 Unspecified asthma, uncomplicated; K21.9 Gastro-esophageal reflux disease without esophagitis; Z79.899 Other long term (current) drug therapy; J30.9 Allergic rhinitis, unspecified; Z87.891 Personal history of nicotine dependence; G47.33 Obstructive sleep apnea (adult) (pediatric); Z91.19 Patient's noncompliance with other medical treatment and regimen; Z98.84 Bariatric surgery status

== ENCOUNTER 2017-04-02 12:32 | Emergency (ER) | payer MEDICARE, MEDICAID ==
[~2017-04-02] VITALS: Ht 182.9 cm; Wt 144.1 kg
[~2017-04-02 12:32] MED LIST changes: +ASPI1TAB PO; +ASPI325T PO; +CEFU1TAB20 PO; -CEFU250T PO; +DRAM25TA3 PO; +IPRASOL4 INH; +OMEP20CA3 PO
[2017-04-02] MEDS ORDERED: NS 500 ML IV ONE (13:15)
[2017-04-02 13:43] LABS: BASO % 0.5 % (0.0-1.0); EOS # 0.3 K/mm3 (0.0-0.50); EOS % 4.6 % (0.0-3.0); LARGE UNSTAINED CELL # 0.1 K/mm3 (0.0-0.4); LARGE UNSTAINED CELL % 2.3 % (0.0-4.0); LYMPH # 1.5 K/mm3 (1.5-4.5); LYMPH % 25.3 % (24.0-44.0); MEAN CORPUSCULAR HEMOGLOBIN 31.5 pg (27.0-33.0); MEAN CORPUSCULAR HGB CONC 33.1 g/dl (32.0-36.5); MEAN CORPUSCULAR VOLUME 95.1 fl (80.0-96.0); MONO # 0.4 K/mm3 (0.0-0.8); MONO % 6.4 % (0.0-5.0); NEUTROPHILS # 3.4 K/mm3 (1.8-7.7); NEUTROPHILS % 60.8 % (36.0-66.0); PLATELET COUNT, AUTOMATED 253 k/mm3 (150-450); RED CELL DISTRIBUTION WIDTH 12.8 % (11.5-14.5); WHITE BLOOD COUNT 5.6 K/mm3 (4.0-10.0)
[2017-04-02 14:44] LABS: ALBUMIN/GLOBULIN RATIO 1.03 (1.00-1.93); ALKALINE PHOSPHATASE 63 U/L (45-117); ALT/SGPT 13 U/L (12-78); ANION GAP 3 MEQ/L (8-16); AST/SGOT 11 U/L (15-37); BILIRUBIN,DIRECT < 0.1 MG/DL (0.0-0.2); BILIRUBIN,TOTAL 0.4 MG/DL (0.2-1.0); BLOOD UREA NITROGEN 19 MG/DL (7-18); CALCIUM LEVEL 7.8 MG/DL (8.5-10.1); CARBON DIOXIDE LEVEL 29 MEQ/L (21-32); CHLORIDE LEVEL 111 MEQ/L (98-107); CREATININE FOR GFR 0.96 MG/DL (0.70-1.30); GLOMERULAR FILTRATION RATE > 60.0 (>60); GLUCOSE, FASTING 89 MG/DL (70-105); POTASSIUM SERUM 4.3 MEQ/L (3.5-5.1); SODIUM LEVEL 143 MEQ/L (136-145); TOTAL PROTEIN 5.9 GM/DL (6.4-8.2)
[2017-04-02] MEDS ORDERED: ZOFR4TAB3 PO (14:56)
[2017-04-02 15:07] VITALS: BP 130/71
--- NOTE | 2017-04-02 20:06 | ECGEPIP ---
Stationary ECG Study [facility] - ED Test Date: 2017-04-02 Pat Name: REAGAN MEJÍA Department: Room: - Gender: M Curriculum Designer: karen : 1970 Requested By: Gigi Cline PA-C Order Number: [id number] Reading MD: Ximena Hernandez Measurements Intervals [place] Rate: 51 P: 23 [place]: 166 QRS: -13 QRSD: 110 T: -2 QT: 430 QTc: 398 Interpretive Statements SINUS BRADYCARDIA SIMILAR 03/30/17 Electronically Signed On 04-02-2017 20:05:48 EDT by Ximena Hernandez
== END 2017-04-02 15:09 | disposition home or self-care (01) ==
LOC: M ED 13:33
DX: R42 Dizziness and giddiness (principal); R11.2 Nausea with vomiting, unspecified; I10 Essential (primary) hypertension; J45.909 Unspecified asthma, uncomplicated; K21.9 Gastro-esophageal reflux disease without esophagitis; Z98.84 Bariatric surgery status; Z79.899 Other long term (current) drug therapy; Z79.82 Long term (current) use of aspirin; Z87.891 Personal history of nicotine dependence

== ENCOUNTER → 2017-04-04 | Outpatient (REF) | payer MEDICARE, MEDICAID ==
[~2017-04-04] MED LIST changes: -CEFU1TAB20 PO; +CEFU250T PO; +ZOFR4TAB3 PO
[2017-04-04 13:49] LABS: VITAMIN B12 LEVEL 345 PG/ML (247-911)
[2017-04-04 13:50] LABS: FOLATE 16.9 NG/ML (>5.4)
[2017-04-05 05:23] LABS: TOTAL PROTEIN 6.7 GM/DL (6.4-8.2)
[2017-04-05 06:18] LABS: ALBUMIN 4.07 GM/DL (3.29-5.55); ALBUMIN % 60.7 % (55.8-66.1); GAMMA GLOBULIN % 14.5 % (11.1-18.8)
== END ==
LOC: M LABNEURO 12:59
PROVIDERS: ATTEND Psychiatry & Neurology Neurology
DX: G62.9 Polyneuropathy, unspecified (principal); E61.0 Copper deficiency

== ENCOUNTER → 2017-06-04 | Outpatient (REF) | payer OTHER, MEDICAID ==
[~2017-06-04] MED LIST changes: +CEFU1TAB20 PO; -CEFU250T PO; +MECL-86 PO; +MOBI15TA PO
== END ==
LOC: M LAB REF 11:00
PROVIDERS: ATTEND Physician Assistant Medical
DX: L02.412 Cutaneous abscess of left axilla (principal)

== ENCOUNTER 2017-06-16 11:41 | Emergency (ER) | payer OTHER, MEDICARE, MEDICAID ==
[~2017-06-16] VITALS: Ht 182.9 cm; Wt 143.2 kg
[~2017-06-16 11:41] MED LIST changes: -MECL-86 PO; -MOBI15TA PO
[2017-06-16] MEDS ORDERED: COMBAER6 INH (11:56)
[2017-06-16] MEDS ORDERED: MOBI15TA PO (11:56)
[2017-06-16] MEDS: IPRATROPIUM 0.5MG/ALBUTEROL 2.5MG INH SOL UD 3ML (DUONEB)(J7620) NEB PRN ×3 (12:13→13:15)
[2017-06-16] MEDS ORDERED: methylPREDNISolone INJ 125 MG/2 ML VIAL (J2930) IV ONE (12:15)
--- NOTE | 2017-06-16 12:21 | REP ---
Clinical: Dyspnea and cough . Comparison: 03/23/2017 . Technique: PA and lateral. Findings: The mediastinum and cardiac silhouette are normal. The lung spicer are clear and without acute consolidation, effusion, or pneumothorax. The skeletal structures are intact and normal. Impression: 1. No acute cardiopulmonary process. Signed by Lizandro Paige MD 06/16/2017 12:13 P
[2017-06-16 12:35] LABS: BASO % 0.6 % (0.0-1.0); EOS # 0.3 K/mm3 (0.0-0.50); EOS % 5.4 % (0.0-3.0); LARGE UNSTAINED CELL # 0.2 K/mm3 (0.0-0.4); LARGE UNSTAINED CELL % 2.6 % (0.0-4.0); LYMPH # 1.4 K/mm3 (1.5-4.5); MEAN CORPUSCULAR HEMOGLOBIN 30.4 pg (27.0-33.0); MEAN CORPUSCULAR HGB CONC 32.1 g/dl (32.0-36.5); MEAN CORPUSCULAR VOLUME 94.4 fl (80.0-96.0); MONO # 0.4 K/mm3 (0.0-0.8); MONO % 6.4 % (0.0-5.0); NEUTROPHILS # 3.7 K/mm3 (1.8-7.7); NEUTROPHILS % 64.1 % (36.0-66.0); PLATELET COUNT, AUTOMATED 271 k/mm3 (150-450); RED CELL DISTRIBUTION WIDTH 13.3 % (11.5-14.5); WHITE BLOOD COUNT 5.7 K/mm3 (4.0-10.0)
[2017-06-16 12:54] LABS: ANION GAP 7 MEQ/L (8-16); BLOOD UREA NITROGEN 16 MG/DL (7-18); CALCIUM LEVEL 8.3 MG/DL (8.5-10.1); CARBON DIOXIDE LEVEL 27 MEQ/L (21-32); CHLORIDE LEVEL 111 MEQ/L (98-107); CREATININE FOR GFR 1.06 MG/DL (0.70-1.30); GLOMERULAR FILTRATION RATE > 60.0 (>60); GLUCOSE, FASTING 84 MG/DL (70-105); POTASSIUM SERUM 3.8 MEQ/L (3.5-5.1); SODIUM LEVEL 145 MEQ/L (136-145)
[2017-06-16 14:16] VITALS: O2SAT 99
[2017-06-16] MEDS ORDERED: PRED20TA PO (14:20)
[2017-06-16] MEDS ORDERED: MECL-86 PO (14:20)
[2017-06-16 14:34] VITALS: BP 101/52
== END 2017-06-16 14:36 | disposition home or self-care (01) ==
LOC: M ED 11:41
DX: J45.901 Unspecified asthma with (acute) exacerbation (principal)
CPT/HCPCS: 71020; 80048; 85025; 93041; 94640; 94760; 96374; 99285; J2930

== ENCOUNTER → 2017-06-26 | Outpatient (CLI) | payer MEDICARE, MEDICAID ==
[~2017-06-26] MED LIST changes: +MECL-86 PO; +MOBI15TA PO
[2017-06-26 13:57] LABS: BASO % 0.6 % (0.0-1.0); EOS # 0.2 K/mm3 (0.0-0.50); EOS % 4.1 % (0.0-3.0); LYMPH # 1.6 K/mm3 (1.5-4.5); LYMPH % 27.7 % (24.0-44.0); MEAN CORPUSCULAR HEMOGLOBIN 31.1 pg (27.0-33.0); MEAN CORPUSCULAR HGB CONC 33.9 g/dl (32.0-36.5); MONO # 0.4 K/mm3 (0.0-0.8); MONO % 6.4 % (0.0-5.0); NEUTROPHILS # 3.3 K/mm3 (1.8-7.7); NEUTROPHILS % 58.9 % (36.0-66.0); WHITE BLOOD COUNT 5.6 K/mm3 (4.0-10.0)
[2017-06-26 14:33] LABS: ALBUMIN 3.3 GM/DL (3.2-5.2); ALBUMIN/GLOBULIN RATIO 1.22 (1.00-1.93); ALKALINE PHOSPHATASE 69 U/L (45-117); ALT/SGPT 15 U/L (12-78); ANION GAP 7 MEQ/L (8-16); AST/SGOT 17 U/L (15-37); BILIRUBIN,TOTAL 0.4 MG/DL (0.2-1.0); BLOOD UREA NITROGEN 22 MG/DL (7-18); CALCIUM LEVEL 8.7 MG/DL (8.5-10.1); CARBON DIOXIDE LEVEL 27 MEQ/L (21-32); CHLORIDE LEVEL 110 MEQ/L (98-107); CREATININE FOR GFR 1.26 MG/DL (0.70-1.30); FERRITIN 28 NG/ML (26-388); GLOMERULAR FILTRATION RATE > 60.0 (>60); GLUCOSE, FASTING 73 MG/DL (70-105); POTASSIUM SERUM 4.8 MEQ/L (3.5-5.1); SODIUM LEVEL 144 MEQ/L (136-145); THYROXINE (T4) 5.6 UG/DL (4.5-12.0)
== END ==
LOC: M WUC 10:47
PROVIDERS: ATTEND Physician Assistant Medical
DX: R42 Dizziness and giddiness (principal); D50.9 Iron deficiency anemia, unspecified; Z79.899 Other long term (current) drug therapy

== ENCOUNTER → 2017-06-29 | Outpatient (CLI) | payer MEDICARE, MEDICAID ==
--- NOTE | 2017-06-29 13:03 | REP ---
THYROID ULTRASOUND: Real-time sonographic evaluation of the thyroid performed. Right lobe measures 5.2 x 1.9 x 2.6 cm and left lobe 4.7 x 1.6 x 1.6 cm. Echotexture is diffusely heterogeneous. A solid nodule in the mid right lobe measures 6 x 7 x 5 mm. No other cystic or solid nodule is seen. Signed by Brian Moran MD 06/29/2017 02:24 P
== END ==
LOC: M RAD 11:46
PROVIDERS: ATTEND Physician Assistant Medical
DX: E03.9 Hypothyroidism, unspecified (principal)

== ENCOUNTER → 2017-07-26 | Outpatient (CLI) | payer MEDICARE, MEDICAID ==
[2017-07-26 20:30] LABS: THYROXINE (T4) 7.4 UG/DL (4.5-12.0)
== END ==
LOC: M WUC 17:56
PROVIDERS: ATTEND Physician Assistant Medical
DX: E03.9 Hypothyroidism, unspecified (principal)

== ENCOUNTER 2017-09-24 09:40 | Emergency (ER) | payer OTHER, MEDICARE ==
[~2017-09-24] VITALS: Ht 180.3 cm; Wt 143.6 kg
[~2017-09-24 09:40] MED LIST changes: -ARNU1INH INH; -LEVO75TA4 PO; -PRED10TA2 PO; -SPIR12.9 INH; -SPIR1AER IN
[2017-09-24 09:41] VITALS: BP 123/67
[2017-09-24] MEDS ORDERED: LEVO75TA4 PO (09:51)
[2017-09-24] MEDS ORDERED: ARNU1INH INH (09:51)
[2017-09-24] MEDS ORDERED: SPIR1AER IN (09:53)
[2017-09-24] MEDS ORDERED: SPIR12.9 INH (09:53)
[2017-09-24] MEDS ORDERED: IPRATROPIUM 0.5MG/ALBUTEROL 2.5MG INH SOL UD 3ML (DUONEB)(J7620) NEB ONE (10:15)
[2017-09-24] MEDS ORDERED: ALBUTEROL SULFATE 2.5 MG/0.5 ML INH NEB SOLN INH ONE (10:15)
--- NOTE | 2017-09-24 10:30 | REP ---
CHEST: Two views. There is no evidence of acute infiltrate. No pleural effusion is seen. The heart is normal in size. The mediastinal silhouette is unremarkable. The visualized osseous structures are intact. IMPRESSION: No acute pulmonary disease. Signed by Brian Moran MD 09/24/2017 05:55 P
[2017-09-24 10:47] LABS: BASO % 0.6 % (0.0-1.0); EOS # 0.1 10^3/uL (0.0-0.50); EOS % 2.3 % (0.0-3.0); IMMATURE GRANULOCYTE % 0.4 % (0-0); LYMPH # 1.4 10^3/uL (1.5-4.5); MEAN CORPUSCULAR HGB CONC 31.9 g/dl (32.0-36.5); MEAN CORPUSCULAR VOLUME 93.8 fl (80.0-96.0); MONO # 0.3 10^3/uL (0.0-0.8); MONO % 5.8 % (0.0-5.0); NEUTROPHILS # 3.1 10^3/uL (1.8-7.7); NEUTROPHILS % 62.9 % (36.0-66.0); PLATELET COUNT, AUTOMATED 267 10^3/uL (150-450); RED CELL DISTRIBUTION WIDTH 13.1 % (11.5-14.5); WHITE BLOOD COUNT 4.9 10^3/uL (4.0-10.0)
[2017-09-24 12:19] LABS: ANION GAP 5 MEQ/L (8-16); BLOOD UREA NITROGEN 24 MG/DL (7-18); CALCIUM LEVEL 8.4 MG/DL (8.5-10.1); CARBON DIOXIDE LEVEL 29 MEQ/L (21-32); CHLORIDE LEVEL 109 MEQ/L (98-107); CREATININE FOR GFR 0.94 MG/DL (0.70-1.30); GLOMERULAR FILTRATION RATE > 60.0 (>60); GLUCOSE, FASTING 96 MG/DL (70-105); SODIUM LEVEL 143 MEQ/L (136-145)
[2017-09-24] MEDS ORDERED: PRED10TA2 PO (12:33)
== END 2017-09-24 12:43 | disposition home or self-care (01) ==
LOC: M ED 09:40
DX: J45.901 Unspecified asthma with (acute) exacerbation (principal); E03.9 Hypothyroidism, unspecified; M54.5 Low back pain; Z98.84 Bariatric surgery status; Z79.899 Other long term (current) drug therapy; Z79.51 Long term (current) use of inhaled steroids

== ENCOUNTER → 2017-09-24 | Outpatient (CLI) | payer MEDICAID, MEDICARE ==
[~2017-09-24] MED LIST changes: +ARNU1INH INH; +LEVO75TA4 PO; +PRED10TA2 PO; +SPIR12.9 INH; +SPIR1AER IN
[2017-09-24 10:32] LABS: FREE T4 1.03 NG/DL (0.76-1.46)
== END ==
LOC: M LAB 09:15
PROVIDERS: ATTEND Nurse Practitioner Family
DX: E03.9 Hypothyroidism, unspecified (principal)

== ENCOUNTER → 2018-01-29 | Outpatient (CLI) | payer OTHER, MEDICARE ==
[2018-01-29 20:26] LABS: BASO % 0.4 % (0.0-1.0); EOS # 0.2 10^3/uL (0.0-0.50); EOS % 3.6 % (0.0-3.0); HEMATOCRIT 41.3 % (42.0-52.0); HEMOGLOBIN 13.3 g/dl (13.5-17.5); LYMPH # 1.7 10^3/uL (1.5-4.5); LYMPH % 33.7 % (24.0-44.0); MEAN CORPUSCULAR HGB CONC 32.2 g/dl (32.0-36.5); MONO # 0.4 10^3/uL (0.0-0.8); MONO % 7.9 % (0.0-5.0); NEUTROPHILS # 2.7 10^3/uL (1.8-7.7); NEUTROPHILS % 54.4 % (36.0-66.0); PLATELET COUNT, AUTOMATED 260 10^3/uL (150-450); RED BLOOD COUNT 4.44 10^6/uL (4.30-6.10); RED CELL DISTRIBUTION WIDTH 13.3 % (11.5-14.5)
[2018-01-29 20:54] LABS: IMMUNOGLOBULIN E 20.3 IU/ML (<100)
== END ==
LOC: M WUC 16:36
DX: J45.40 Moderate persistent asthma, uncomplicated (principal)
CPT/HCPCS: 82785

== ENCOUNTER 2018-08-07 18:24 | Emergency (ER) | payer MEDICARE, OTHER ==
[2018-08-07] MEDS: IPRATROPIUM 0.5MG/ALBUTEROL 2.5MG INH SOL UD 3ML (DUONEB)(J7620) NEB ×3 (18:50→19:35)
[2018-08-07 19:19] LABS: VENOUS BASE EXCESS 0.2 (-2.0-2.0); VENOUS HCO3 25.9 MEQ/L (23.0-27.0); VENOUS O2 SATURATION 82.6 % (60.0-80.0); VENOUS PARTIAL PRESSURE CO2 45.8 mmHg (38.0-50.0); VENOUS PARTIAL PRESSURE O2 46.4 mmHg (30.0-50.0); VENOUS STANDARD HCO3 24.3 MEQ/L; VENOUS TOTAL CO2 27.3 MEQ/L (24.0-28.0)
[2018-08-07] MEDS: methylPREDNISolone INJ 125 MG/2 ML VIAL (J2930) IV (19:38)
== END 2018-08-07 20:22 | disposition home or self-care (01) ==
LOC: M ED 18:24
DX: J45.901 Unspecified asthma with (acute) exacerbation (principal); Z87.01 Personal history of pneumonia (recurrent); Z86.73 Personal history of transient ischemic attack (TIA), and cerebral infarction without residual deficits; Z87.891 Personal history of nicotine dependence; Z98.0 Intestinal bypass and anastomosis status
CPT/HCPCS: J2930

== ENCOUNTER → 2020-08-04 | Outpatient (REF) | payer OTHER, MEDICARE ==
[~2020-08-04] MED LIST changes: +ARNU1INH INH; +ASPI-1 PO; -ASPI1TAB PO; -ASPI325T PO; +ASPI81TA26 PO; -ASPI81TA85 PO; +ASPI81TA86 PO; +FULLMIS XX; +IPRA0.00 INH; -IPRASOL4 INH; +LEVO75TA4 PO; +OMEP1CAP73 PO; -OMEP20CA3 PO; -OMEP40CA2 PO; +OMEP40CA97 PO; +PRED10TA2 PO; +SPIR12.9 INH; +SPIR1AER IN; +ZOFR4TAB14 PO; -ZOFR4TAB3 PO
[2020-08-04 18:14] LABS: BASO % 0.5 % (0.0-1.0); EOS # 0.1 10^3/uL (0.0-0.5); EOS % 1.4 % (0.0-3.0); HEMATOCRIT 41.4 % (42.0-52.0); HEMOGLOBIN 12.9 g/dl (13.5-17.5); LYMPH # 2.8 10^3/uL (1.5-5.0); LYMPH % 43.5 % (24.0-44.0); MEAN CORPUSCULAR HEMOGLOBIN 28.9 pg (27.0-33.0); MEAN CORPUSCULAR HGB CONC 31.2 g/dl (32.0-36.5); MEAN CORPUSCULAR VOLUME 92.8 fl (80.0-96.0); MONO # 0.5 10^3/uL (0.0-0.8); MONO % 7.7 % (0.0-5.0); NEUTROPHILS % 46.6 % (36.0-66.0); PLATELET COUNT, AUTOMATED 269 10^3/uL (150-450); RED BLOOD COUNT 4.46 10^6/uL (4.30-6.10); WHITE BLOOD COUNT 6.5 10^3/uL (4.0-10.0)
[2020-08-08 02:07] LABS: D001-IgE D pteronyssinus <0.10 kU/L (Class 0); E001-IgE Cat Epith/Dander 0.74 kU/L (Class II); E005-IgE Dog Dander 1.35 kU/L (Class II); G002-IgE Bermuda Grass < 0.10 kU/L (Class 0); G008-IgE Kentucky Bluegrass < 0.10 kU/L (Class 0); M001-IgE Penicillium chrysogen < 0.10 kU/L (Class 0); M002 IgE Cladosporium herbaru < 0.10 kU/L (Class 0); M003 IgE Aspergillus fumigatu < 0.10 kU/L (Class 0); M006-IgE Alternaria alternata < 0.10 kU/L (Class 0); T001-IgE Maple/Box Elder < 0.10 kU/L (Class 0); T003-IgE Common Silver Birch < 0.10 kU/L (Class 0); T006-IgE Cedar, Mountain < 0.10 kU/L (Class 0); T007-IgE Oak, White < 0.10 kU/L (Class 0); T008-IgE Elm, American < 0.10 kU/L (Class 0); T015-IgE Ash, White < 0.10 kU/L (Class 0); T041-IgE Hickory, White < 0.10 kU/L (Class 0); T070-IgE White Mulberry < 0.10 kU/L (Class 0); W001-IgE Ragweed, Short < 0.10 kU/L (Class 0); W009-IgE Plantain, English < 0.10 kU/L (Class 0); W014-IgE Pigweed, Rough < 0.10 kU/L (Class 0); W018-IgE Sheep Sorrel < 0.10 kU/L (Class 0)
== END ==
LOC: M LAB REF 17:23
PROVIDERS: ATTEND Physician Assistant
DX: J45.50 Severe persistent asthma, uncomplicated (principal)

== ENCOUNTER → 2020-08-06 | Outpatient (CLI) | payer OTHER, MEDICARE ==
--- NOTE | 2020-08-06 13:00 | REP ---
INDICATION: SEVERE PERSISTENT ASTHMA W/ACUTE EXACERBATION. COMPARISON: 06/07/2018. The latest prior. FINDINGS: The superior mediastinal structures are midline. The cardiac silhouette is unremarkable in size, shape, and position. The diaphragmatic surfaces of the lungs are regular, and the costophrenic angles are clear. The pulmonary spicer are clear. The imaged osseous structures are intact. IMPRESSION: There is no acute cardiopulmonary disease. <Electronically signed by Cheko Monge > 08/06/20 [id number]
== END ==
LOC: M LAB 11:58
PROVIDERS: ATTEND Physician Assistant
DX: J45.51 Severe persistent asthma with (acute) exacerbation (principal)

== ENCOUNTER → 2021-02-10 | Outpatient (REF) | payer OTHER | LOC: M LAB REF 16:39 | PROVIDERS: ATTEND Internal Medicine Pulmonary Disease | DX: J45.50 Severe persistent asthma, uncomplicated (principal) ==

== ENCOUNTER → 2021-02-28 | Outpatient (CLI) | payer MEDICARE ==
--- NOTE | 2021-02-28 16:03 | REPVR ---
PROCEDURE INFORMATION: Exam: CT Chest Without Contrast; Diagnostic Exam date and time: 02/28/2021 3:31 PM Age: 50 years old Clinical indication: Other: Asthma TECHNIQUE: Imaging protocol: Diagnostic computed tomography of the chest without contrast. Axial, coronal and sagittal reformatted images were created and reviewed. 3D rendering (Not supervised by radiologist): MIP and/or 3D reconstructed images were created by the technologist. Radiation optimization: All CT scans at this facility use at least one of these dose optimization techniques: automated exposure control; mA and/or kV adjustment per patient size (includes targeted exams where dose is matched to clinical indication); or iterative reconstruction. COMPARISON: CT ANGIO CHEST 12/17/2016 6:39 PM FINDINGS: Lungs: Unremarkable. No consolidation. No mass. Pleural spaces: Unremarkable. No pneumothorax. No pleural effusion. Heart: Unremarkable. No cardiomegaly. No pericardial effusion. Aorta: Unremarkable. No aneurysm. Lymph nodes: No pathologically enlarged lymph nodes. Liver: Scattered hepatic cysts, measuring up to 1.6 cm in the left hepatic lobe. Stomach and bowel: Status post gastric bypass. Bones/joints: No acute osseous abnormality. Degenerative changes. Soft tissues: Unremarkable. IMPRESSION: 1. No CT evidence of acute intrathoracic pathology. 2. Additional findings, as above. Electronically signed by: Juventino Madera On 02/28/2021 16:02:58 PM
== END ==
LOC: M RAD 15:22
PROVIDERS: ATTEND Internal Medicine Pulmonary Disease
DX: J45.50 Severe persistent asthma, uncomplicated (principal); K76.89 Other specified diseases of liver

== ENCOUNTER → 2021-03-15 | Outpatient (REF) | payer MEDICARE ==
[2021-03-15 14:12] LABS: BASO % 0.6 % (0.0-1.0); EOS # 0.2 10^3/uL (0.0-0.5); EOS % 3.1 % (0.0-3.0); HEMATOCRIT 42.2 % (42.0-52.0); HEMOGLOBIN 13.2 g/dl (13.5-17.5); LYMPH # 1.5 10^3/uL (1.5-5.0); MEAN CORPUSCULAR HEMOGLOBIN 28.6 pg (27.0-33.0); MEAN CORPUSCULAR HGB CONC 31.3 g/dl (32.0-36.5); MEAN CORPUSCULAR VOLUME 91.5 fl (80.0-96.0); MONO # 0.4 10^3/uL (0.0-0.8); MONO % 8.7 % (2.0-8.0); NEUTROPHILS # 2.8 10^3/uL (1.5-8.5); NEUTROPHILS % 57.4 % (36.0-66.0); PLATELET COUNT, AUTOMATED 255 10^3/uL (150-450); RED BLOOD COUNT 4.61 10^6/uL (4.30-6.10); WHITE BLOOD COUNT 4.8 10^3/uL (4.0-10.0)
== END ==
LOC: M LAB REF 13:09
PROVIDERS: ATTEND Internal Medicine Pulmonary Disease
DX: J45.50 Severe persistent asthma, uncomplicated (principal)

== ENCOUNTER 2021-08-18 15:33 | Emergency (ER) | payer MEDICARE ==
[~2021-08-18] VITALS: Ht 182.9 cm; Wt 168.3 kg
[~2021-08-18 15:33] MED LIST changes: -METH4PACK
--- OUTSIDE RECORDS SUMMARY | 2021-08-18 15:41 | CCD ---
Continuity of Care Document (CCD) Created on: 06/10/2021 Lizandro Hargrove External Reference #: [id number] : 1970 Sex: Male Author Author Lizandro VASQUEZ D.O. [place] [address] Phone [phone] Care Team Providers Care Baby Attendant Name Role Phone Torrie Tracey AUTM [phone] [facility] Dept - [place]-Pulmonary AUTM AUTM Unavailable Problems Active Problems Provider Date Uncomplicated severe persistent asthma ELIANA Wayne O nset: 08/04/2020 Social History Type Date Description Comments Sex Unknown Cigarette Use 1988 Pack Years - 05 Tobacco Use Start: 10/08/88 End: 10/08/93 Patient is a forme r smoker hx:<1ppd since age 19 Smoking Status Reviewed: 06/03/21 Patient is a former smoker hx :<1ppd since age 19 Allergies, Adverse Reactions, Alerts Description No Known Drug Allergies Medications Active Medications SIG Qnty Indications Ordering Provide r Date Prednisone 10mg Tablets 4 tabs po qd x5d, 3 tabs po qd x5d, 2 tabs po qd x5d, 1 tab x 5 days, then 1/2 tab po x 5 days 53tabs J45.50 Shawn Vasquez D.O. 06/03/2021 Carl-24 200mg Caps ER 24HR 1 by mouth bid 60caps Gerhard AndreaO. 03/28/2021 Prednisone 10mg Tablets 1 by mouth every day 30tabs J45.50 Shanw Vasquez D.O. 03/15/2021 Azithromycin 500mg Tablets 1 tab by mouth sunday, sun and sunday 36tabs J45.50 Gerhard AndreaO. 10/11/19 21 Asmanex Twisthaler 120 Metered Doses 220mcg/Inh Aerosol 1 puff by mouth twice a day 1units J45.50 Kemar AndreaO. 09/14/2020 Spiriva Respimat 2.5mcg/Act Aeroso l 2 puffs every day 4gm Anna Solo M.D. Zyrtec Allergy 10mg Capsules 1 tab by mouth every day 30caps Unknown Ventolin HFA 108(90Base) mcg/Act A erosol 2 puffs every 4 hours as needed 18gm Anna boles M.D. Symbicort 160-4.5mcg/Act Aerosol 2 puff twice a day 10.200gm Anna Solo M.D. Levothyroxine Sodium 75mcg Tablets 1 tab by mouth every day Unknown Omeprazole 40mg Capsules DR 1 cap by mouth every day 30caps Unknown Meclizine HCL 25mg Tablets 1 by mouth as needed Unknown Singulair 10mg Tablets 1 tab by mouth every day Unknown Albuterol Sulfate (2 .5mg/3ML) 0.083% Nebulizer 1 vial four times a day as needed 1080ml J45.50 Gerhard Pinto SeO. History Medications Theophylline ER 400mg Tablets ER 2 4HR 1 by mouth two times a day 180tabs J45.50 Gerhard AndreaO. - 03/14/2021 Prednisone 10mg Tablets 4 tabs po qd x5d, 3 tabs po qd x5d, 2 tabs po qd x5d, 1 tab x 5 days, then 1/2 tab po x 5 days 53tabs J45.50 Gerhard AndreaO. 02/10/2021 - 021 Medications Administered in Office Medication SIG Qnty Indications Ordering Provider Date Covid-19 vaccine, Unspecified Inj ection Unknown 12/13/2020 Immunizations CPT Code Status Date Vaccine Lot # [id number] Given 09/14/2020 Afluria, Quadrivalent, 0.5ml , [facility]# 26072-902-87 Vital Signs Date Vital Result Comment 06/03/2021 11:25am BP Systolic 108 mmHg BP Diastolic 60 mmHg Heart Rate 69 /min O2 % BldC Oximetry 95 % Height 71 inches 5'11" Weight 381.00 lb BMI (Body Mass Index) 53.1 kg/m2 [place] Body Weight 172 lb Weight 172.822 kg BSA (Body Surface Area) 2.77 m2 04/13/2021 2:16pm Heart Rate 60 /min O2 % BldC Oximetry 97 % Height 71 inches 5'11" Weight 378.00 lb BMI (Body Mass Index) 52.7 kg/m2 [place] Body Weight 172 lb Weight 171.461 kg BSA (Body Surface Area) 2.76 m2 Results Test Acquired Date Facility Test Result H/L Range Note FVL/Harjit 06/03/2021 [facility] PD[facility]eport SEE IMAGE FVC-Pred 5.23 L FVC-Pre 1.72 L FVC-%Pred-Pre 32 L FVC-LLN 4.27 L Fev1-Pred 4.06 L Fev1-Pre 1.21 L Fev1-%Pred-Pre 29 L Fev1-LLN 3.24 L Fev6-Pred 5.05 L Fev6-Pre 1.72 L Fev6-%Pred-Pre 34 L Fev6-LLN 4.11 L Mcb7rbd-Vkjl 78 % Dba9yre-Gtp 70 % Ejw2djv-%Pred-Pre 90 % Woe9zyt-MPP 68 % Pzh7cjg-Xdqw 97 % Zur1moc-Ifu 100 % Vyt5hem-%Pred-Pre 103 % FEFMax-Pred 10.05 L/E/sec FEFMax-Pre 4.72 L/E/sec FEFMax-%Pred-Pre 46 L/E/sec FEFMax-LLN 7.66 L/E/sec Mjt7060-Rzyo 3.57 L/E/sec Beu2063-Myq 0.68 L/E/sec Kuy3457-%Pred-Pre 19 L/E/sec Veg1489-MVN 1.92 L/E/sec ExpTime-Pre 6.02 sec Ymg5vic3-Ngxo 80 % Xiv7zmf5-Ljl 70 % Onn5hwi4-%Pred-Pre 87 % Okk7mfw7-DST 71 % FVL/Harjit 04/13/2021 [facility] PDFReport SEE IMAGE FVC-Pred 5.26 L FVC-Pre 1.90 L FVC-%Pred-Pre 36 L FVC-LLN 4.29 L Fev1-Pred 4.09 L Fev1-Pre 1.41 L Fev1-%Pred-Pre 34 L Fev1-LLN 3.27 L Fev6-Pred 5.08 L Fev6-Pre 1.87 L Fev6-%Pred-Pre 36 L Fev6-LLN 4.14 L Zgm0chm-Vowu 78 % Eww4bgi-Xnz 74 % Ayx0hnw-%Pred-Pre 95 % Ffy0lig-USG 68 % Fbp6ceb-Sadv 97 % Yju3npo-Kjm 98 % Kmc0soh-%Pred-Pre 101 % FEFMax-Pred 10.10 L/E/sec FEFMax-Pre 5.25 L/E/sec FEFMax-%Pred-Pre 51 L/E/sec FEFMax-LLN 7.71 L/E/sec Vsm1949-Sako 3.62 L/E/sec Jxo9844-Hgh 1.01 L/E/sec Irr2120-%Pred-Pre 27 L/E/sec Uxv9564-HHE 1.97 L/E/sec ExpTime-Pre 7.28 sec Mox4gnm6-Ypbi 81 % Ayb1eft1-Lfr 76 % Uou9swo2-%Pred-Pre 93 % Bwn9vxa6-GMB 72 % Rast/Ige, Pulmonary 03/15/2021 [facility] nter Main Lab [address] [place] [address] [phone] Immunoglobulin E 57.4 IU/mL Normal <100 Rast Zone 1 Region Allergen Panel (Inclu 03/15/2021 [facility] Main Lab [address] [place] [address] [phone] Class Description (SEE NOTE) Normal . 1 L039-JdK D pteronyssinus <0.10 kU/L Normal Class 0 N025-GxS D farinae Mite <0.10 kU/L Normal Class 0 G998-XpX Cat Epith/Dander 0.56 kU/L Abnormal Class II I195-PjV Dog Dander 1.53 kU/L Abnormal Class III Z407-GjE [place]erm[place] Grass < 0.10 kU/L Normal Class 0 C771-EhU [place] < 0.10 kU/L Normal Class 0 J945-MnY Bahia Grass < 0.10 kU/L Normal Class 0 M672-WgU Cockroach, Algerian < 0.10 kU/L Normal Class 0 T907-RrA Penicillium chrysogen < 0.10 kU/L Normal Class 0 M002 IgE Cladosporium herbaru < 0.10 kU/L Normal Class 0 M003 IgE Aspergillus fumigatu < 0.10 kU/L Normal Class 0 V225-KxV Mucor racemosus < 0.10 kU/L Normal Class 0 P598-DlK Alternaria alternata < 0.10 kU/L Normal Class 0 O932-OfZ Stemphylium Herbarum < 0.10 kU/L Normal Class 0 W523-RlN Common Silver Birch < 0.10 kU/L Normal Class 0 U614-GdJ Rien[place], White < 0.10 kU/L Normal Class 0 S352-PvC Elm, Algerian < 0.10 kU/L Normal Class 0 N913-ToH Crispin, White < 0.10 kU/L Normal Class 0 Q420-WbN Maple/[place] < 0.10 kU/L Normal Class 0 D447-VxD Hazelnut Tree < 0.10 kU/L Normal Class 0 Z974-OoB [place], White < 0.10 kU/L Normal Class 0 K571-KfQ [place] < 0.10 kU/L Normal Class 0 C976-XhI [place], Mountain < 0.10 kU/L Normal Class 0 W559-TmV Ragweed, Short < 0.10 kU/L Normal Class 0 K376-WwB Mugwort < 0.10 kU/L Normal Class 0 V493-LeD Plantain, Cuban < 0.10 kU/L Normal Class 0 C137-IpS Pigweed, Rough < 0.10 kU/L Normal Class 0 Z147-WhM Sheep [place] < 0.10 kU/L Normal Class 0 X852-KwI Nettle < 0.10 kU/L Normal Class 0 2 CBC With Differential 03/15/2021 [facility] Main Lab [address] [place] [address] [phone] White Blood Count 4.8 10 Normal 4.0-10.0 Red Blood Count 4.61 10 Normal 4.30-6.10 Hemoglobin 13.2 g/dL Low 13.5-17.5 Hematocrit 42.2 % Normal 42.0-52.0 Mean Corpuscular Volume 91.5 fl Normal 80.0-96.0 Mean Corpuscular Hemoglobin 28.6 pg Normal 27.0-33.0 Mean Corpuscular HGB Conc 31.3 g/dL Low 32.0-36.5 Red Cell Distribution Width 14.2 % Normal 11.5-14.5 Platelet Count, Automated 255 10 Normal 150-450 Neutrophils % 57.4 % Normal 36.0-66.0 Lymph % 30.0 % Normal 24.0-44.0 [place] % 8.7 % High 2.0-8.0 Eos % 3.1 % High 0.0-3.0 Baso % 0.6 % Normal 0.0-1.0 Immature Granulocyte % 0.2 % Normal 0-3.0 Nucleated Red Blood Cell % 0.0 % Normal 0-0 Neutrophils # 2.8 10 Normal 1.5-8.5 Lymph # 1.5 10 Normal 1.5-5.0 [place] # 0.4 10 Normal 0.0-0.8 Eos # 0.2 10 Normal 0.0-0.5 Baso # 0.0 10 Normal 0.0-0.2 FVL/Harjit 03/15/2021 [facility] PDFReport SEE IMAGE FVC-Pred 5.26 L FVC-Pre 1.75 L FVC-%Pred-Pre 33 L FVC-LLN 4.29 L Fev1-Pred 4.09 L Fev1-Pre 1.36 L Fev1-%Pred-Pre 33 L Fev1-LLN 3.27 L Fev6-Pred 5.08 L Fev6-Pre 1.75 L Fev6-%Pred-Pre 34 L Fev6-LLN 4.14 L Zgl0gmg-Ulgo 78 % Til2acg-Cnp 78 % Ldr7hdl-%Pred-Pre 99 % Rxi8iuc-OSF 68 % Zwk6jfr-Psyn 97 % Vck7owo-Bij 100 % Vzm7wsl-%Pred-Pre 103 % FEFMax-Pred 10.10 L/E/sec FEFMax-Pre 4.56 L/E/sec FEFMax-%Pred-Pre 45 L/E/sec FEFMax-LLN 7.71 L/E/sec Xog8630-Czhs 3.62 L/E/sec Ynz3748-Ygr 1.15 L/E/sec Mjz3512-%Pred-Pre 31 L/E/sec Dst0516-YUZ 1.97 L/E/sec ExpTime-Pre 5.91 sec Bnm0led9-Dmng 81 % Uzi8hzr0-Cpg 78 % Tmm3gjw0-%Pred-Pre 96 % Sei2ctf6-PQN 72 % Aspergillus Antibodies 02/10/2021 [facility] Main Lab [address] [place] [address] [phone] Aspergillus Fumigatus [place] Negative Normal Neg:<1 :1 Aspergillus Flavus [place] Negative Normal Neg:<1:1 Aspergillus Niger [place] Negative Normal Neg:<1:1 3 FVL/Harjit 02/10/2021 [employer] PDFReport SEE IMAGE FVC-Pred 5.26 L FVC-Pre 1.73 L FVC-%Pred-Pre 32 L FVC-LLN 4.29 L Fev1-Pred 4.09 L Fev1-Pre 1.19 L Fev1-%Pred-Pre 29 L Fev1-LLN 3.27 L Fev6-Pred 5.08 L Fev6-Pre 1.73 L Fev6-%Pred-Pre 34 L Fev6-LLN 4.14 L Jpa1uku-Qoqx 78 % Hlg4vck-Iix 69 % Xmu3ruw-%Pred-Pre 88 % Eha6owx-IEM 68 % Lou6vzw-Wwrt 97 % Xlt1htl-Wdd 100 % Ssx2gam-%Pred-Pre 103 % FEFMax-Pred 10.10 L/E/sec FEFMax-Pre 3.07 L/E/sec FEFMax-%Pred-Pre 30 L/E/sec FEFMax-LLN 7.71 L/E/sec Ziy0876-Nhqr 3.62 L/E/sec Gob7957-Ajw 0.71 L/E/sec Ooa9964-%Pred-Pre 19 L/E/sec Rtg4891-EMK 1.97 L/E/sec ExpTime-Pre 6.66 sec Hei7foz5-Opej 81 % Vry7crj6-Pry 69 % Ybf3hwq5-%Pred-Pre 85 % Yep5rqb7-PFS 72 % 1 . Levels of Specific IgE Class Description of Class ----- ---- < 0.10 0 Negative 0.10 - 0.31 0/I Equivoc al/Low 0.32 - 0.55 I Low 0.56 - 1.40 II Moderat e 1.41 - 3.90 III High 3.91 - 19.00 IV Very Hi gh 19.01 - 100.00 V Very H igh >100.00 Very High 2 Performed at: [facility] [address] [id number] 61 Colorectal Surgeon: Casey Simental MD, Phone: [phone] 3 Performed at: [facility] [address] [id number] 61 Colorectal Surgeon: Casey Simental MD, Phone: [phone] Procedures Date Code Description Status 06/03/2021 87850 Office/Outpatient Established Mo d MDM 30-39 Min Completed 06/03/2021 88431 Spirometry Completed 04/13/2021 60578 Office/Outpatient Established Mo d MDM 30-39 Min Completed 04/13/2021 11917 Spirometry Completed 03/15/2021 59991 Office/Outpatient Established Mo d MDM 30-39 Min Completed 03/15/2021 32967 Spirometry Completed 02/10/2021 73177 Office/Outpatient Established Lo w MDM 20-29 Min Completed 02/10/2021 33755 Spirometry Completed Medical Devices Description No Information Available Encounters Type Date Location Provider Dx Diagnosis Office Visit 06/03/2021 11:30a [facility] Shawn swan D.O. J45.50 Severe persistent asthma, uncomplicated R05 Cough K21.9 Gastro-esophageal reflux dis ease without esophagitis Office Visit 04/13/2021 2:00p [facility] Shawn swan D.O. J45.50 Severe persistent asthma, uncomplicated Office Visit 03/15/2021 11:00a [facility] Shawn swan D.O. J45.50 Severe persistent asthma, uncomplicated Office Visit 02/10/2021 1:30p [facility]Th[facility] Shawn swan D.O. J45.50 Severe persistent asthma, uncomplicated Assessments Date Code Description Provider 06/03/2021 J45.50 Severe persistent asthma, uncomp licated Shawn Sears, D.O. 06/03/2021 R05 Cough Shawn Sears, D.O. 06/03/2021 K21.9 Gastro-esophageal reflux disease without esophagitis Shawn Sears, D.O. 04/13/2021 J45.50 Severe persistent asthma, uncomp licated Shawn Sears, D.O. 03/15/2021 J45.50 Severe persistent asthma, uncomp licated Shawn Sears, D.O. 02/10/2021 J45.50 Severe persistent asthma, uncomp licated Shawn Sears, D.O. Plan of Treatment Future Appointment(s):* 09/06/2021 3:00 pm - Shawn Vasquez D.O. at [facility] Pulmonary/Thoracic 06/03/2021 - Shawn Sears, D.O.* J45.50 Severe persistent asthma, uncomplicated * R05 Cough * K21.9 Gastro-esophageal reflux disease without esophagitis * * New Medication:* Prednisone 10 mg * New Labs:* FVL/[place], Ordered: 06/03/21 * Theophylline Level, Ordered: 06/03/21 * Follow up:* Follow up in August with Carl level and spirometry, me please. Needs referral to allergy to consider off label use of Dupixent. Functional Status Functional Condition Comment Date Status Independent with all ADL's Activ e Independent with all IADL's Acti ve Mental Status Mental Condition Comment Date Status Cognitive ability not impaired A ctive Referrals Refer to Reason for Referral Status Appt Date Radiology/Procedure 77227 Closed 02/28/2021
--- OUTSIDE RECORDS SUMMARY | 2021-08-18 15:41 | CCD | Continuity of Care Document ---
Author Author Lizandro VASQUEZ D.O. [place] [address] Phone [phone] Care Team Providers Care Water Hydrant Installer Name Role Phone Torrie Tracey AUTM [phone] [facility] Dept - [place]-P[place] AUTM [phone] AUTM Unavailable Problems Active Problems Provider Date [...] SIG Qnty Indications Ordering Provide r Date Carl-24 200mg Caps ER 24HR 1 by mouth every day 30caps Gerhard AndreaO. 03/28/2021 Prednisone 10mg Tablets 1 by mouth every day 30tabs J45.50 Shawn Vasquez D.O. 03/15/2021 Azithromycin 500mg Tablets 1 tab by mouth sunday, sun and sunday 36tabs J45.50 Gerhard AndreaOJaime 10/11/19 21 Asmanex Twisthaler 120 Metered Doses [...] mouth two times a day 180tabs J45.50 Shawn Vasquez D.O. - 03/14/2021 Prednisone 10mg Tablets 4 tabs [...] CPT Code Status Date Vaccine Lot # [id number] Given 09/14/2020 Afluria, Quadrivalent, 0.5ml , [facility]# 63682-907-90 Vital Signs Date Vital Result Comment 06/03/2021 11:25am BP Systolic 108 mmHg BP Diastolic 60 mmHg Heart Rate 69 /min O2 % BldC Oximetry 95 % Height 71 inches 5'11" Weight 381.00 lb BMI (Body Mass Index) 53.1 kg/m2 [place] Body Weight 172 lb Weight 172.822 kg BSA (Body Surface Area) 2.77 m2 04/13/2021 2:16pm Heart Rate 60 /min O2 % BldC Oximetry 97 % Height 71 inches 5'11" Weight 378.00 lb BMI (Body Mass Index) 52.7 kg/m2 [place] Body Weight 172 lb Weight 171.461 kg BSA (Body Surface Area) 2.76 m2 Results Test Acquired Date Facility Test Result H/L Range Note FVL/Harjit 06/03/2021 [facility] PDFReport SEE IMAGE FVC-Pred 5.23 L FVC-Pre 1.72 L FVC-%Pred-Pre 32 L FVC-LLN 4.27 L Fev1-Pred 4.06 L Fev1-Pre 1.21 L Fev1-%Pred-Pre 29 L Fev1-LLN 3.24 L Fev6-Pred 5.05 L Fev6-Pre 1.72 L Fev6-%Pred-Pre 34 L Fev6-LLN 4.11 L Rss4edn-Pprl 78 % Hvm7jwb-Uxc 70 % Ipq5tof-%Pred-Pre 90 % Xxd8rfr-JUD 68 % Aou4ylv-Gchc 97 % Unp4eef-Rkk 100 % Wqb9hbl-%Pred-Pre 103 % FEFMax-Pred 10.05 L/E/sec FEFMax-Pre 4.72 L/E/sec FEFMax-%Pred-Pre 46 L/E/sec FEFMax-LLN 7.66 L/E/sec Mrv4762-Bpck 3.57 L/E/sec Leu0593-Kyo 0.68 L/E/sec Mkm2272-%Pred-Pre 19 L/E/sec Pxa1073-KFG 1.92 L/E/sec ExpTime-Pre 6.02 sec Smz6hof9-Xwki 80 % Lry2wlc6-Pvz 70 % Jka2svr4-%Pred-Pre 87 % Ayy0fgn0-VOS 71 % FVL/Harjit 04/13/2021 [employer] PDFReport SEE IMAGE FVC-Pred 5.26 L FVC-Pre 1.90 L FVC-%Pred-Pre 36 L FVC-LLN 4.29 L Fev1-Pred 4.09 L Fev1-Pre 1.41 L Fev1-%Pred-Pre 34 L Fev1-LLN 3.27 L Fev6-Pred 5.08 L Fev6-Pre 1.87 L Fev6-%Pred-Pre 36 L Fev6-LLN 4.14 L Dka1jtq-Yvhh 78 % Ijh8cxn-Fst 74 % Fda3yui-%Pred-Pre 95 % Bom4lyl-XWP 68 % Eiz5vnd-Twuc 97 % Pxj8eje-Fpb 98 % Svp7wxv-%Pred-Pre 101 % FEFMax-Pred 10.10 L/E/sec FEFMax-Pre 5.25 L/E/sec FEFMax-%Pred-Pre 51 L/E/sec FEFMax-LLN 7.71 L/E/sec Bvv9731-Ujzc 3.62 L/E/sec Rta6189-Lgh 1.01 L/E/sec Qhx9886-%Pred-Pre 27 L/E/sec Vmk7919-DSO 1.97 L/E/sec ExpTime-Pre 7.28 sec Nqg4mjp1-Dyms 81 % Ccc3bmj5-Zkl 76 % Awf5zqe0-%Pred-Pre 93 % Yug2esu3-WJE 72 % Rast/Ige, Pulmonary 03/15/2021 [facility] nter Main Lab [address] [place] [address] [phone] Immunoglobulin E 57.4 IU/mL Normal <100 Rast Zone 1 Region Allergen Panel (Inclu 03/15/2021 [facility] Main Lab [address] [place] [address] [phone] Class Description (SEE NOTE) Normal . 1 M127-HoY D pteronyssinus <0.10 kU/L Normal Class 0 R625-QnX D farinae Mite <0.10 kU/L Normal Class 0 B929-ZpY Cat Epith/Dander 0.56 kU/L Abnormal Class II F835-TfW Dog Dander 1.53 kU/L Abnormal Class III L926-GoW [place] Grass < 0.10 kU/L Normal Class 0 X785-WnR [place] < 0.10 kU/L Normal Class 0 U522-YqY Bahia Grass < 0.10 kU/L Normal Class 0 D496-YyR Cockroach, Solomon Islander < 0.10 kU/L Normal Class 0 F043-UdJ Penicillium chrysogen < 0.10 kU/L Normal Class 0 M002 IgE Cladosporium herbaru < 0.10 kU/L Normal Class 0 M003 IgE Aspergillus fumigatu < 0.10 kU/L Normal Class 0 E464-BuR Mucor racemosus < 0.10 kU/L Normal Class 0 T575-NgN Alternaria alternata < 0.10 kU/L Normal Class 0 R711-FcQ Stemphylium Herbarum < 0.10 kU/L Normal Class 0 C329-StA Common Silver Birch < 0.10 kU/L Normal Class 0 Y517-LhE [place], White < 0.10 kU/L Normal Class 0 V592-MtY Elm, Solomon Islander < 0.10 kU/L Normal Class 0 W578-BiL Crispin, White < 0.10 kU/L Normal Class 0 X696-ZsB Maple/[place] < 0.10 kU/L Normal Class 0 H521-RoT Hazelnut Tree < 0.10 kU/L Normal Class 0 N442-OgP [place], White < 0.10 kU/L Normal Class 0 J921-WgP White [place] < 0.10 kU/L Normal Class 0 F738-AtW [place], Mountain < 0.10 kU/L Normal Class 0 S848-TeH Ragweed, Short < 0.10 kU/L Normal Class 0 C841-JeM Mugwort < 0.10 kU/L Normal Class 0 Z988-JoO Plantain, Slovenian < 0.10 kU/L Normal Class 0 L377-BlX Pigweed, Rough < 0.10 kU/L Normal Class 0 S625-ObK Sheep [place] < 0.10 kU/L Normal Class 0 S860-TpT [place]ettle < 0.10 kU/L Normal Class 0 2 CBC With Differential 03/15/2021 [facility] Main Lab [address] [place] [address] [phone] White Blood Count 4.8 10 Normal 4.0-10.0 [...] 36.0-66.0 Lymph % 30.0 % Normal 24.0-44.0 [place] % 8.7 % High 2.0-8.0 Eos % 3.1 % High 0.0-3.0 Baso % 0.6 % Normal 0.0-1.0 Immature Granulocyte % 0.2 % Normal 0-3.0 Nucleated Red Blood Cell % 0.0 % Normal 0-0 Neutrophils # 2.8 10 Normal 1.5-8.5 Lymph # 1.5 10 Normal 1.5-5.0 [place] # 0.4 10 Normal 0.0-0.8 Eos # 0.2 10 Normal 0.0-0.5 Baso # 0.0 10 Normal 0.0-0.2 FVL/Gray 03/15/2021 [employer] PDFReport SEE IMAGE FVC-Pred 5.26 L FVC-Pre 1.75 L FVC-%Pred-Pre 33 L FVC-LLN 4.29 L Fev1-Pred 4.09 L Fev1-Pre 1.36 L Fev1-%Pred-Pre 33 L Fev1-LLN 3.27 L Fev6-Pred 5.08 L Fev6-Pre 1.75 L Fev6-%Pred-Pre 34 L Fev6-LLN 4.14 L Nhw6dqt-Idjy 78 % Pdf7nbr-Sgo 78 % Lke3rgk-%Pred-Pre 99 % Ood9mky-ZFY 68 % Xvn7hhl-Hgsw 97 % Wje0cyr-Msl 100 % Ocz7ano-%Pred-Pre 103 % FEFMax-Pred 10.10 L/E/sec FEFMax-Pre 4.56 L/E/sec FEFMax-%Pred-Pre 45 L/E/sec FEFMax-LLN 7.71 L/E/sec Hob7405-Gvno 3.62 L/E/sec Jui8986-Mcs 1.15 L/E/sec Wcs1870-%Pred-Pre 31 L/E/sec Wwz3382-RMI 1.97 L/E/sec ExpTime-Pre 5.91 sec Kbk1luw7-Ghft 81 % Ros1mut9-Cul 78 % Bjb0ews7-%Pred-Pre 96 % Thl5zck3-UWV 72 % Aspergillus Antibodies 02/10/2021 [facility] Main Lab [address] [place] [address] [phone] Aspergillus Fumigatus [place] Negative Normal Neg:<1 :1 Aspergillus Flavus [place] Negative Normal Neg:<1:1 Aspergillus Niger [place] Negative Normal Neg:<1:1 3 FVL/Gray 02/10/2021 [employer] PDFReport SEE IMAGE FVC-Pred 5.26 L FVC-Pre 1.73 L FVC-%Pred-Pre 32 L FVC-LLN 4.29 L Fev1-Pred 4.09 L Fev1-Pre 1.19 L Fev1-%Pred-Pre 29 L Fev1-LLN 3.27 L Fev6-Pred 5.08 L Fev6-Pre 1.73 L Fev6-%Pred-Pre 34 L Fev6-LLN 4.14 L Anx0itz-Chhr 78 % Kfu2pjl-Wvg 69 % Rez2krv-%Pred-Pre 88 % Phb7drp-TIL 68 % Evh0daj-Wnsf 97 % Poa1zkp-Qbq 100 % Pnn5dqy-%Pred-Pre 103 % FEFMax-Pred 10.10 L/E/sec FEFMax-Pre 3.07 L/E/sec FEFMax-%Pred-Pre 30 L/E/sec FEFMax-LLN 7.71 L/E/sec Kch0024-Iepk 3.62 L/E/sec Zxg0338-Oro 0.71 L/E/sec Cty0745-%Pred-Pre 19 L/E/sec Kgv6601-TAH 1.97 L/E/sec ExpTime-Pre 6.66 sec Gcf0gwa4-Xbon 81 % Drp6mkr4-Wnp 69 % Sun5hmt1-%Pred-Pre 85 % Aoi6nek6-JCG 72 % 1 . Levels of Specific IgE Class Description of Class ----- ---- < 0.10 0 Negative 0.10 - 0.31 0/I Equivoc al/Low 0.32 - 0.55 I Low 0.56 - 1.40 II Moderat e 1.41 - 3.90 III High 3.91 - 19.00 IV Very Hi gh 19.01 - 100.00 V Very H igh >100.00 Very High 2 Performed at: [address] [id number] Volunteer Manager: Casey Simental MD, Phone: [phone] 3 Performed at: [address] [id number] Volunteer Manager: Casey Simental MD, Phone: [phone] Procedures Date Code Description Status 04/13/2021 93117 Office/Outpatient Established Mo d MDM 30-39 Min Completed 04/13/2021 17390 Spirometry Completed 03/15/2021 08368 Office/Outpatient Established Mo d MDM 30-39 Min Completed 03/15/2021 11695 Spirometry Completed 02/10/2021 79132 Office/Outpatient Established Lo w MDM 20-29 Min Completed 02/10/2021 59655 Spirometry Completed Medical Devices Description No Information Available Encounters Type Date Location Provider Dx Diagnosis Office Visit 04/13/2021 2:00p [facility] Shawn Se swan D.O. J45.50 Severe persistent asthma, uncomplicated Office Visit 03/15/2021 11:00a [facility] Shawn Kemar Subramanian.O. J45.50 Severe persistent asthma, uncomplicated Office Visit 02/10/2021 1:30p [facility] Shawn Se swan D.O. J45.50 Severe persistent asthma, uncomplicated Assessments Date Code Description Provider 06/03/2021 J45.50 Severe persistent asthma, uncomp licated Shawn Sears, D.O. 06/03/2021 R05 Cough Shawn Sears, D.O. 06/03/2021 K21.9 Gastro-esophageal reflux disease without esophagitis Shawn Vasquez D.O. 04/13/2021 J45.50 Severe persistent asthma, uncomp licated Shawn Sears D.O. 03/15/2021 J45.50 Severe persistent asthma, uncomp licated Shawn Sears, D.O. 02/10/2021 J45.50 Severe persistent asthma, uncomp licated Shawn Vasquez D.O. Plan of Treatment 06/03/2021 - Shawn Vasquez D.O.* J45.50 Severe persistent asthma, uncomplicated * R05 Cough * K21.9 Gastro-esophageal reflux disease without esophagitis * * New Labs:* FVL/Harjit, Ordered: 06/03/21 * Theophylline Level, Ordered: 06/03/21 * Follow up:* Follow up in August with carl roseann and harjit, me please Functional Status Functional Condition Comment Date Status Independent with all ADL's Activ e Independent with all IADL's Acti ve Mental Status Mental Condition Comment Date Status Cognitive ability not impaired A ctive Referrals Refer to Reason for Referral Status Appt Date Radiology/Procedure 72383 Closed 02/28/2021
--- OUTSIDE RECORDS SUMMARY | 2021-08-18 15:41 | CCD | Continuity of Care Document ---
Author Author Lizandro VASQUEZ D.O. Organization [place] [address] Phone [phone] Care Team Providers Care Antique Clocks Repairer Name Role Phone Torrie Tracey AUTM [phone] [facility] Dept - [place]-P[facility] AUTM [phone] AUTM Unavailable Problems Active Problems Provider Date Uncomplicated severe persistent asthma ELIANA Wayne O nset: 08/04/2020 Social History Type Date Description Comments Sex Unknown Cigarette Use 1988 Pack Years - 05 Tobacco Use Start: 10/08/88 End: 10/08/93 Patient is a forme r smoker hx:<1ppd since age 19 Smoking Status Reviewed: 03/15/21 Patient is a former smoker hx :<1ppd [...] CPT Code Status Date Vaccine Lot # [id number] Given 09/14/2020 Afluria, Quadrivalent, 0.5ml , [facility]# [id number] Vital Signs Date Vital Result Comment 04/13/2021 2:16pm Heart Rate 60 /min O2 % BldC Oximetry 97 % Height 71 inches 5'11" Weight 378.00 lb BMI (Body Mass Index) 52.7 kg/m2 [place] Body Weight 172 lb Weight 171.461 kg BSA (Body Surface Area) 2.76 m2 03/15/2021 11:04am BP Systolic 110 mmHg BP Diastolic 70 mmHg Heart Rate 67 /min O2 % BldC Oximetry 95 % Body Temperature 97.2 F Height 71 inches 5'11" Weight 374.00 lb BMI (Body Mass Index) 52.2 kg/m2 [place] Body Weight 172 lb Weight 169.646 kg BSA (Body Surface Area) 2.75 m2 Results Test Acquired Date Facility Test Result H/L Range Note FVL/[place] 04/13/2021 [facility] PDFReport SEE IMAGE FVC-Pred 5.26 L FVC-Pre 1.90 L FVC-%Pred-Pre 36 L FVC-LLN 4.29 L Fev1-Pred 4.09 L Fev1-Pre 1.41 L Fev1-%Pred-Pre 34 L Fev1-LLN 3.27 L Fev6-Pred 5.08 L Fev6-Pre 1.87 L Fev6-%Pred-Pre 36 L Fev6-LLN 4.14 L Vgw0bdo-Wkjd 78 % Crr7giq-Zus 74 % Qge2vsk-%Pred-Pre 95 % Cda5snl-ASA 68 % Jqz4ozl-Szxm 97 % Dsb3mki-Zta 98 % Kse7nwp-%Pred-Pre 101 % FEFMax-Pred 10.10 L/E/sec FEFMax-Pre 5.25 L/E/sec FEFMax-%Pred-Pre 51 L/E/sec FEFMax-LLN 7.71 L/E/sec Hin2898-Xayf 3.62 L/E/sec Kjd4779-Yrd 1.01 L/E/sec Hzn9569-%Pred-Pre 27 L/E/sec Ebn3542-LPD 1.97 L/E/sec ExpTime-Pre 7.28 sec Zay5kij8-Yoxw 81 % Hcp6xkp7-Cxw 76 % How2cez9-%Pred-Pre 93 % Fkg1hqi7-SUL 72 % [facility], Pulmonary 03/15/2021 [facility] nter Main Lab [address], [place] [id number] [phone] Immunoglobulin E 57.4 IU/mL Normal <100 [place] Zone 1 Region Allergen Panel (Inclu 03/15/2021 [facility] Main Lab [address] [place] [address] [phone] Class Description (SEE NOTE) Normal . 1 X352-AmK D pteronyssinus <0.10 kU/L Normal Class 0 C761-XpV D farinae Mite <0.10 kU/L Normal Class 0 Y607-CoP Cat Epith/Dander 0.56 kU/L Abnormal Class II O727-LrX Dog Dander 1.53 kU/L Abnormal Class III R153-HqH Berm[place] Grass < 0.10 kU/L Normal Class 0 J358-WxT [place] Blue[place] < 0.10 kU/L Normal Class 0 E261-HlU [place] Grass < 0.10 kU/L Normal Class 0 V139-UiF Cockroach, Finnish < 0.10 kU/L Normal Class 0 M709-PaQ Penicillium chrysogen < 0.10 kU/L Normal Class 0 M002 IgE Cladosporium herbaru < 0.10 kU/L Normal Class 0 M003 IgE Aspergillus fumigatu < 0.10 kU/L Normal Class 0 F696-RlW Mucor racemosus < 0.10 kU/L Normal Class 0 C074-UvZ Alternaria alternata < 0.10 kU/L Normal Class 0 S127-GoO Stemphylium Herbarum < 0.10 kU/L Normal Class 0 T273-NeC Common Silver Birch < 0.10 kU/L Normal Class 0 L256-OyJ [place], White < 0.10 kU/L Normal Class 0 F702-AjH Elm, Finnish < 0.10 kU/L Normal Class 0 D821-ChF [place], White < 0.10 kU/L Normal Class 0 A313-TyK Maple/[place] < 0.10 kU/L Normal Class 0 Z349-HbY Hazelnut Tree < 0.10 kU/L Normal Class 0 J855-TuP [place], White < 0.10 kU/L Normal Class 0 B727-ZoU [place] < 0.10 kU/L Normal Class 0 S094-AtC [place], Mountain < 0.10 kU/L Normal Class 0 I433-YjM Ragweed, Short < 0.10 kU/L Normal Class 0 P069-JkJ Mugwort < 0.10 kU/L Normal Class 0 H443-KwT Plantain, Amharic < 0.10 kU/L Normal Class 0 Z401-UpZ Pigweed, Rough < 0.10 kU/L Normal Class 0 C973-RdN Sheep [place] < 0.10 kU/L Normal Class 0 G812-KwA Nettle < 0.10 kU/L Normal Class 0 2 CBC With Differential 03/15/2021 [facility] Main Lab [address] [id number] [phone] White Blood Count 4.8 10 Normal 4.0-10.0 [...] 36.0-66.0 Lymph % 30.0 % Normal 24.0-44.0 [place] % 8.7 % High 2.0-8.0 Eos % 3.1 % High 0.0-3.0 Baso % 0.6 % Normal 0.0-1.0 Immature Granulocyte % 0.2 % Normal 0-3.0 Nucleated Red Blood Cell % 0.0 % Normal 0-0 Neutrophils # 2.8 10 Normal 1.5-8.5 Lymph # 1.5 10 Normal 1.5-5.0 [place] # 0.4 10 Normal 0.0-0.8 Eos # 0.2 10 Normal 0.0-0.5 Baso # 0.0 10 Normal 0.0-0.2 FVL/Harjit 03/15/2021 [employer] PDFReport SEE IMAGE FVC-Pred 5.26 L FVC-Pre 1.75 L FVC-%Pred-Pre 33 L FVC-LLN 4.29 L Fev1-Pred 4.09 L Fev1-Pre 1.36 L Fev1-%Pred-Pre 33 L Fev1-LLN 3.27 L Fev6-Pred 5.08 L Fev6-Pre 1.75 L Fev6-%Pred-Pre 34 L Fev6-LLN 4.14 L Cjn7uty-Nmxh 78 % Rcm8vdp-Vbk 78 % Hhb6pig-%Pred-Pre 99 % Avm3zta-UVA 68 % Icn7spk-Fpam 97 % Uws4muu-Hwc 100 % Eej1rti-%Pred-Pre 103 % FEFMax-Pred 10.10 L/E/sec FEFMax-Pre 4.56 L/E/sec FEFMax-%Pred-Pre 45 L/E/sec FEFMax-LLN 7.71 L/E/sec Zuz2877-Dijh 3.62 L/E/sec Eji8505-Ffu 1.15 L/E/sec Yyy0116-%Pred-Pre 31 L/E/sec Zsq3549-DZE 1.97 L/E/sec ExpTime-Pre 5.91 sec Qrg5dfa4-Qhrb 81 % Tjt5qwm3-Wno 78 % Uvw9kju2-%Pred-Pre 96 % Ihy9luk5-ZEW 72 % Aspergillus Antibodies 02/10/2021 [facility] Main Lab [address], [place] [id number] [phone] Aspergillus Fumigatus [place] Negative Normal Neg:<1 :1 Aspergillus Flavus [place] Negative Normal Neg:<1:1 Aspergillus Niger [place] Negative Normal Neg:<1:1 3 FVL/[place] 02/10/2021 [employer] PDFReport SEE IMAGE FVC-Pred 5.26 L FVC-Pre 1.73 L FVC-%Pred-Pre 32 L FVC-LLN 4.29 L Fev1-Pred 4.09 L Fev1-Pre 1.19 L Fev1-%Pred-Pre 29 L Fev1-LLN 3.27 L Fev6-Pred 5.08 L Fev6-Pre 1.73 L Fev6-%Pred-Pre 34 L Fev6-LLN 4.14 L Pla2hwy-Efyp 78 % Ixe6rmu-Sih 69 % Oai3gmc-%Pred-Pre 88 % Gbi5geq-DKH 68 % Lnr1vfr-Ioqw 97 % Ttq3mfd-Lml 100 % Cep1nav-%Pred-Pre 103 % FEFMax-Pred 10.10 L/E/sec FEFMax-Pre 3.07 L/E/sec FEFMax-%Pred-Pre 30 L/E/sec FEFMax-LLN 7.71 L/E/sec Dif2138-Rwtr 3.62 L/E/sec Zzd5484-Wuv 0.71 L/E/sec Dwo1892-%Pred-Pre 19 L/E/sec Vxv8798-TLB 1.97 L/E/sec ExpTime-Pre 6.66 sec Deo3bng9-Rxmx 81 % Bvv8nmt8-Gnm 69 % Cgj8egy1-%Pred-Pre 85 % Miu3pqm8-QYL 72 % 1 . Levels of Specific IgE Class Description of Class ----- ---- < 0.10 0 Negative 0.10 - 0.31 0/I Equivoc al/Low 0.32 - 0.55 I Low 0.56 - 1.40 II Moderat e 1.41 - 3.90 III High 3.91 - 19.00 IV Very Hi gh 19.01 - 100.00 V Very H igh >100.00 Very High 2 Performed at: [address] [id number] Technical Writer: Casey Simental MD, Phone: [phone] Performed at: [address] [id number] Technical Writer: Casey Simental MD, Phone: [phone] Procedures Date Code Description Status 04/13/2021 06640 Office/Outpatient Established Mo d MDM 30-39 Min Completed 04/13/2021 46376 Spirometry Completed 03/15/2021 01549 Office/Outpatient Established Mo d MDM 30-39 Min Completed 03/15/2021 15949 Spirometry Completed 02/10/2021 37072 Office/Outpatient Established Lo w MDM 20-29 Min Completed 02/10/2021 68532 Spirometry Completed Medical Devices Description No Information Available Encounters Type Date Location Provider Dx Diagnosis Office Visit 04/13/2021 2:00p [facility] Shawn swan D.OJaime J45.50 Severe persistent asthma, uncomplicated Office Visit 03/15/2021 11:00a [facility] Shawn swan D.OJaime J45.50 Severe persistent asthma, uncomplicated Office Visit 02/10/2021 1:30p [facility] Shawn swan DJaimeO. J45.50 Severe persistent asthma, uncomplicated Assessments Date Code Description Provider 04/13/2021 J45.50 Severe persistent asthma, uncomp licated Shawn Sears, D.O. 03/15/2021 J45.50 Severe persistent asthma, uncomp licated Shawn Sears, D.O. 02/10/2021 J45.50 Severe persistent asthma, uncomp licated Shawn Sears, D.O. Plan of Treatment 04/13/2021 - Shawn Vasquez D.Darlene.* J45.50 Severe persistent asthma, uncomplicated * * Follow up:* Carl level in one week. Follow up in one month with spirometry, me, not PA. Recommend Commercial Carpenter referral. Functional Status Functional Condition Comment Date Status Independent with all ADL's Activ e Independent with all IADL's Acti ve Mental Status Mental Condition Comment Date Status Cognitive ability not impaired A ctive Referrals Refer to Reason for Referral Status Appt Date Radiology/Procedure 32830 Closed 02/28/2021
--- OUTSIDE RECORDS SUMMARY | 2021-08-18 15:41 | CCD | Continuity of Care Document ---
Author Author Lizandro VASQUEZ D.O. [place] [address] Phone [phone] Care Team Providers Care Compound Specialist Name Role Phone Torrie Tracey AUTM [phone] [facility] Dept - [place]-Pulmonary AUTM [phone] AUTM Unavailable Problems Active Problems Provider Date [...] CPT Code Status Date Vaccine Lot # [id number] Given 09/14/2020 Afluria, Quadrivalent, 0.5ml , [facility]# [id number] Vital Signs Date Vital Result Comment 06/03/2021 11:25am BP Systolic 108 mmHg BP Diastolic 60 mmHg Heart Rate 69 /min O2 % BldC Oximetry 95 % Height 71 inches 5'11" Weight 381.00 lb BMI (Body Mass Index) 53.1 kg/m2 [place] Body Weight 172 lb Weight 172.822 kg BSA (Body Surface Area) 2.77 m2 04/13/2021 2:16pm Heart Rate 60 /min O2 % BldC Oximetry 97 % Height 71 inches 5'11" Weight 378.00 lb BMI (Body Mass Index) 52.7 kg/m2 [place] Body Weight 172 lb Weight 171.461 kg BSA (Body Surface Area) 2.76 m2 Results Test Acquired Date Facility Test Result H/L Range Note FVL/Harjit 06/03/2021 [employer] PDFReport SEE IMAGE FVC-Pred 5.23 L FVC-Pre 1.72 L FVC-%Pred-Pre 32 L FVC-LLN 4.27 L Fev1-Pred 4.06 L Fev1-Pre 1.21 L Fev1-%Pred-Pre 29 L Fev1-LLN 3.24 L Fev6-Pred 5.05 L Fev6-Pre 1.72 L Fev6-%Pred-Pre 34 L Fev6-LLN 4.11 L Kuo8oxb-Fvmi 78 % Ldm1cgu-Fnm 70 % Cdm3ojf-%Pred-Pre 90 % Ruj9uar-TQL 68 % Flm6oun-Hlhq 97 % Lrm3pvz-Emt 100 % Bvh3thl-%Pred-Pre 103 % FEFMax-Pred 10.05 L/E/sec FEFMax-Pre 4.72 L/E/sec FEFMax-%Pred-Pre 46 L/E/sec FEFMax-LLN 7.66 L/E/sec Gbj2279-Aqmc 3.57 L/E/sec Zjq7959-Ezi 0.68 L/E/sec Szu3060-%Pred-Pre 19 L/E/sec Kdt6999-VFR 1.92 L/E/sec ExpTime-Pre 6.02 sec Gie4uvl0-Xtmf 80 % Oqa2yib5-Sge 70 % Nhb5dzb7-%Pred-Pre 87 % Sbp9cwg0-FRS 71 % FVL/Harjit 04/13/2021 [employer] PDFReport SEE IMAGE FVC-Pred 5.26 L FVC-Pre 1.90 L FVC-%Pred-Pre 36 L FVC-LLN 4.29 L Fev1-Pred 4.09 L Fev1-Pre 1.41 L Fev1-%Pred-Pre 34 L Fev1-LLN 3.27 L Fev6-Pred 5.08 L Fev6-Pre 1.87 L Fev6-%Pred-Pre 36 L Fev6-LLN 4.14 L [place] 78 % Sed7hlv-Ocv 74 % Wsv8lwn-%Pred-Pre 95 % Cof9jqf-HTK 68 % Cbp0vmt-Niqp 97 % Aqt4sjj-Pto 98 % Yhu8geb-%Pred-Pre 101 % FEFMax-Pred 10.10 L/E/sec FEFMax-Pre 5.25 L/E/sec FEFMax-%Pred-Pre 51 L/E/sec FEFMax-LLN 7.71 L/E/sec Lao6093-Ozie 3.62 L/E/sec Zau0237-Szr 1.01 L/E/sec %Pred-Pre 27 L/E/sec Twl1396-RPS 1.97 L/E/sec ExpTime-Pre 7.28 sec Qxj1rdf1-Zmzs 81 % Zbm1wjf0-Dgh 76 % Equ0tmx0-%Pred-Pre 93 % Mfv0yzu1-PHU 72 % [facility]/[place]ge, Pulmonary 03/15/2021 [facility] nter Main Lab [address] [place] [id number] [phone] Immunoglobulin E 57.4 IU/mL Normal <100 R[facility] Zone 1 Region Allergen Panel (Inclu 03/15/2021 [facility] Main Lab [address] [place] [address] [phone] Class Description (SEE NOTE) Normal . 1 F074-UcL D pteronyssinus <0.10 kU/L Normal Class 0 A724-XpW D farinae Mite <0.10 kU/L Normal Class 0 A792-IfF Cat Epith/Dander 0.56 kU/L Abnormal Class II S671-NkA Dog Dander 1.53 kU/L Abnormal Class III G728-ShK [place]erm[place] Grass < 0.10 kU/L Normal Class 0 K935-OxV [place] < 0.10 kU/L Normal Class 0 I832-ZvM [place] Grass < 0.10 kU/L Normal Class 0 D692-MbX Cockroach, Jordanian < 0.10 kU/L Normal Class 0 X791-UmI Penicillium chrysogen < 0.10 kU/L Normal Class 0 M002 IgE Cladosporium herbaru < 0.10 kU/L Normal Class 0 M003 IgE Aspergillus fumigatu < 0.10 kU/L Normal Class 0 Q558-NwA Mucor racemosus < 0.10 kU/L Normal Class 0 W909-KlL Alternaria alternata < 0.10 kU/L Normal Class 0 T133-WwD Stemphylium Herbarum < 0.10 kU/L Normal Class 0 S594-GpT Common Silver Birch < 0.10 kU/L Normal Class 0 F150-XuZ [place], White < 0.10 kU/L Normal Class 0 H467-IqJ Elm, Jordanian < 0.10 kU/L Normal Class 0 T650-YbL [place], White < 0.10 kU/L Normal Class 0 W842-MsA Maple/[place] < 0.10 kU/L Normal Class 0 E969-HgU Hazelnut Tree < 0.10 kU/L Normal Class 0 B580-KdT [place], White < 0.10 kU/L Normal Class 0 D282-HoJ [place] < 0.10 kU/L Normal Class 0 O845-ApS [place], Mountain < 0.10 kU/L Normal Class 0 E513-TlX Ragweed, Short < 0.10 kU/L Normal Class 0 N475-TnZ Mugwort < 0.10 kU/L Normal Class 0 N532-OlU Plantain, Mozambican < 0.10 kU/L Normal Class 0 K750-YoI Pigweed, Rough < 0.10 kU/L Normal Class 0 T737-XyE Sheep [place] < 0.10 kU/L Normal Class 0 Q183-NxL Nettle < 0.10 kU/L Normal Class 0 2 CBC With Differential 03/15/2021 [facility] Main Lab [address] [place] [address] [phone] White Blood Count 4.8 10 Normal 4.0-10.0 [...] 36.0-66.0 Lymph % 30.0 % Normal 24.0-44.0 [place] % 8.7 % High 2.0-8.0 Eos % 3.1 % High 0.0-3.0 Baso % 0.6 % Normal 0.0-1.0 Immature Granulocyte % 0.2 % Normal 0-3.0 Nucleated Red Blood Cell % 0.0 % Normal 0-0 Neutrophils # 2.8 10 Normal 1.5-8.5 Lymph # 1.5 10 Normal 1.5-5.0 [place] # 0.4 10 Normal 0.0-0.8 Eos # 0.2 10 Normal 0.0-0.5 Baso # 0.0 10 Normal 0.0-0.2 FVL/Harjit 03/15/2021 [employer] PDFReport SEE IMAGE FVC-Pred 5.26 L FVC-Pre 1.75 L FVC-%Pred-Pre 33 L FVC-LLN 4.29 L Fev1-Pred 4.09 L Fev1-Pre 1.36 L Fev1-%Pred-Pre 33 L Fev1-LLN 3.27 L Fev6-Pred 5.08 L Fev6-Pre 1.75 L Fev6-%Pred-Pre 34 L Fev6-LLN 4.14 L Nfz0ibj-Ffck 78 % Qlz7kwx-Xmg 78 % Kjw5vwl-%Pred-Pre 99 % Lgn2qng-WVX 68 % Rjs6bir-Ftpc 97 % Egm1qcl-Qzt 100 % Gjv2hwt-%Pred-Pre 103 % FEFMax-Pred 10.10 L/E/sec FEFMax-Pre 4.56 L/E/sec FEFMax-%Pred-Pre 45 L/E/sec FEFMax-LLN 7.71 L/E/sec Tvm3284-Shjw 3.62 L/E/sec Nsy4849-Dwv 1.15 L/E/sec Bpw3601-%Pred-Pre 31 L/E/sec Wqx7071-GLQ 1.97 L/E/sec ExpTime-Pre 5.91 sec Djb0fsi4-Muss 81 % Fah1yjl9-Dhx 78 % Jhb6voc8-%Pred-Pre 96 % Dly3drv6-UAT 72 % Aspergillus Antibodies 02/10/2021 [facility] Main Lab [address] [place] [address] [phone] Aspergillus Fumigatus [place] Negative Normal Neg:<1 :1 Aspergillus Flavus [place] Negative Normal Neg:<1:1 Aspergillus Niger [place] Negative Normal Neg:<1:1 3 FVL/Harjit 02/10/2021 [employer] PDFReport SEE IMAGE FVC-Pred 5.26 L FVC-Pre 1.73 L FVC-%Pred-Pre 32 L FVC-LLN 4.29 L Fev1-Pred 4.09 L Fev1-Pre 1.19 L Fev1-%Pred-Pre 29 L Fev1-LLN 3.27 L Fev6-Pred 5.08 L Fev6-Pre 1.73 L Fev6-%Pred-Pre 34 L Fev6-LLN 4.14 L Xfm5nvo-Mzod 78 % Lsc8mnx-Qof 69 % Asd5kyq-%Pred-Pre 88 % Nho2urz-YIB 68 % Arm2vnt-Bnwq 97 % Ius9mem-Bny 100 % Peq5znw-%Pred-Pre 103 % FEFMax-Pred 10.10 L/E/sec FEFMax-Pre 3.07 L/E/sec FEFMax-%Pred-Pre 30 L/E/sec FEFMax-LLN 7.71 L/E/sec Qoi4305-Feym 3.62 L/E/sec Kkw1376-Owk 0.71 L/E/sec Lce8383-%Pred-Pre 19 L/E/sec Dtq1173-MLX 1.97 L/E/sec ExpTime-Pre 6.66 sec Nnr4icu3-Kkbf 81 % Ojm8yzq9-Tol 69 % Nnn0gdl8-%Pred-Pre 85 % Htd2bxv0-EDK 72 % 1 . Levels of Specific IgE Class Description of Class ----- ---- < 0.10 0 Negative 0.10 - 0.31 0/I Equivoc al/Low 0.32 - 0.55 I Low 0.56 - 1.40 II Moderat e 1.41 - 3.90 III High 3.91 - 19.00 IV Very Hi gh 19.01 - 100.00 V Very H igh >100.00 Very High 2 Performed at: [facility] [address] [id number] 41 Bedspring Assembler: Casey Simental MD, Phone: [phone] Performed at: [facility] [address] [id number] 61 Bedspring Assembler: Casey Simental MD, Phone: [phone] Procedures Date Code Description Status 04/13/2021 54030 Office/Outpatient Established Mo d MDM 30-39 Min Completed 04/13/2021 58936 Spirometry Completed 03/15/2021 43697 Office/Outpatient Established Mo d MDM 30-39 Min Completed 03/15/2021 62079 Spirometry Completed 02/10/2021 33489 Office/Outpatient Established Lo w MDM 20-29 Min Completed 02/10/2021 06523 Spirometry Completed Medical Devices Description No Information Available Encounters Type Date Location Provider Dx Diagnosis Office Visit 04/13/2021 2:00p [facility] Shawn swan D.O. J45.50 Severe persistent asthma, uncomplicated Office Visit 03/15/2021 11:00a [facility] Shawn swan D.O. J45.50 Severe persistent asthma, uncomplicated Office Visit 02/10/2021 1:30p [facility] Shawn swan D.O. J45.50 Severe persistent asthma, uncomplicated Assessments Date Code Description Provider 06/03/2021 J45.50 Severe persistent asthma, uncomp licated Shawn Vasquez D.O. 06/03/2021 R05 Cough Shawn Vasquez D.O. 06/03/2021 K21.9 Gastro-esophageal reflux disease without esophagitis Shawn Vasquez D.O. 04/13/2021 J45.50 Severe persistent asthma, uncomp licated Shawn Sears, D.O. 03/15/2021 J45.50 Severe persistent asthma, uncomp licated Shawn Sears, D.O. 02/10/2021 J45.50 Severe persistent asthma, uncomp licated Shawn Sears, D.O. Plan of Treatment Future Appointment(s):* 09/06/2021 3:00 pm - Shawn [facility] D.O. at [facility] Pulmonary[facility]Thoracic 06/03/2021 - Gerhard AndreaO.* J45.50 Severe persistent asthma, uncomplicated * R05 Cough * K21.9 Gastro-esophageal reflux disease without esophagitis * * New Medication:* Prednisone 10 mg * New Labs:* FVL/[place], Ordered: 06/03/21 * Theophylline Level, Ordered: 06/03/21 * Follow up:* Follow up in August with carl level and harjit, me please Needs referral to allergy to consider off label use of dupixent Functional Status Functional Condition Comment Date Status Independent with all ADL's Activ e Independent with all IADL's Acti ve Mental Status Mental Condition Comment Date Status Cognitive ability not impaired A ctive Referrals Refer to Reason for Referral Status Appt Date Radiology/Procedure 68403 Closed 02/28/2021
--- OUTSIDE RECORDS SUMMARY | 2021-08-18 15:41 | CCD ---
Continuity of Care Document (CCD) Created on: 06/03/2021 Lizandro Hargrove External Reference #: [id number] : 1970 Sex: Male Author Author Lizandro VASQUEZ D.[place]. [place] [address] Phone [phone] Care Team Providers Care Call Or Contact Centre Manager Name Role Phone Torrie Tracey AUTM [phone] [facility] Dept - [place]-Pulmonary AUTM AUTM Unavailable [...] CPT Code Status Date Vaccine Lot # [id number] Given 09/14/2020 Afluria, Quadrivalent, 0.5ml , [facility]# 97960-891-15 Vital Signs Date Vital Result Comment 04/13/2021 2:16pm Heart Rate 60 /min O2 % BldC Oximetry 97 % Height 71 inches 5'11" Weight 378.00 lb BMI (Body Mass Index) 52.7 kg/m2 [place] Body Weight 172 lb Weight 171.461 kg BSA (Body Surface Area) 2.76 m2 03/15/2021 11:04am BP Systolic 110 mmHg BP Diastolic 70 mmHg Heart Rate 67 /min O2 % BldC Oximetry 95 % Body Temperature 97.2 F Height 71 inches 5'11" Weight 374.00 lb BMI (Body Mass Index) 52.2 kg/m2 [place] Body Weight 172 lb Weight 169.646 kg BSA (Body Surface Area) 2.75 m2 Results Test Acquired Date Facility Test Result H/L Range Note [facility]/[place] 04/13/2021 [facility] SEE IMAGE FVC-Pred 5.26 L FVC-Pre 1.90 L FVC-%Pred-Pre 36 L FVC-LLN 4.29 L Fev1-Pred 4.09 L Fev1-Pre 1.41 L Fev1-%Pred-Pre 34 L Fev1-LLN 3.27 L Fev6-Pred 5.08 L Fev6-Pre 1.87 L Fev6-%Pred-Pre 36 L Fev6-LLN 4.14 L Wvk7mvr-Ejgi 78 % Lzy4cpa-Qxl 74 % Bcs0pqf-%Pred-Pre 95 % Zie0zdo-MWL 68 % Yoq5vbf-Noqf 97 % Nad9cls-Pua 98 % Fnx5lgu-%Pred-Pre 101 % FEFMax-Pred 10.10 L/E/sec FEFMax-Pre 5.25 L/E/sec FEFMax-%Pred-Pre 51 L/E/sec FEFMax-LLN 7.71 L/E/sec Bqx5317-Fvjc 3.62 L/E/sec Tlk9322-Cmr 1.01 L/E/sec Mel7794-%Pred-Pre 27 L/E/sec Pch3086-PZR 1.97 L/E/sec ExpTime-Pre 7.28 sec Mqy7bdc7-Boqw 81 % Rip7jyp0-Mxr 76 % Qsp1lvb2-%Pred-Pre 93 % Sqv0rby5-CLS 72 % [facility], Pulmonary 03/15/2021 [facility] nter Main Lab [address] [place], [place] [id number] [phone] Immunoglobulin E 57.4 IU/mL Normal <100 [facility] Zone 1 Region Allergen Panel (Inclu 03/15/2021 [facility] Main Lab [address] [place] [address] [phone] Class Description (SEE NOTE) Normal . 1 B107-FqG D pteronyssinus <0.10 kU/L Normal Class 0 F616-IrE D farinae Mite <0.10 kU/L Normal Class 0 E292-EjE Cat Epith/Dander 0.56 kU/L Abnormal Class II O158-HcG Dog Dander 1.53 kU/L Abnormal Class III E867-WyR B[place] Grass < 0.10 kU/L Normal Class 0 O958-YdL [place] Bluegrass < 0.10 kU/L Normal Class 0 E835-BjU Bahia Grass < 0.10 kU/L Normal Class 0 K477-WmX Cockroach, Portuguese < 0.10 kU/L Normal Class 0 X256-RvM Penicillium chrysogen < 0.10 kU/L Normal Class 0 M002 IgE Cladosporium herbaru < 0.10 kU/L Normal Class 0 M003 IgE Aspergillus fumigatu < 0.10 kU/L Normal Class 0 Y469-ZiB Mucor racemosus < 0.10 kU/L Normal Class 0 K566-HbL Alternaria alternata < 0.10 kU/L Normal Class 0 H115-QgK Stemphylium Herbarum < 0.10 kU/L Normal Class 0 E078-VvM Common Silver Birch < 0.10 kU/L Normal Class 0 A420-JuO [place], White < 0.10 kU/L Normal Class 0 B954-PrR Elm, Portuguese < 0.10 kU/L Normal Class 0 L774-QcN Crispin, White < 0.10 kU/L Normal Class 0 N418-XlX Maple/Garrett < 0.10 kU/L Normal Class 0 U633-KkU Hazelnut Tree < 0.10 kU/L Normal Class 0 Q506-MiV Christian, White < 0.10 kU/L Normal Class 0 T977-TaM White Lovely < 0.10 kU/L Normal Class 0 A375-DoH [place], Mountain < 0.10 kU/L Normal Class 0 R807-IuA Ragweed, Short < 0.10 kU/L Normal Class 0 P059-MxR Mugwort < 0.10 kU/L Normal Class 0 B041-EuN Plantain, Arabic < 0.10 kU/L Normal Class 0 I219-VvD Pigweed, Rough < 0.10 kU/L Normal Class 0 G601-KxP Sheep Larson < 0.10 kU/L Normal Class 0 R155-KrR Nettle < 0.10 kU/L Normal Class 0 2 CBC With Differential 03/15/2021 [facility] Main Lab [address] [place] [id number] [phone] White Blood Count 4.8 10 Normal 4.0-10.0 [...] 36.0-66.0 Lymph % 30.0 % Normal 24.0-44.0 Mitchell % 8.7 % High 2.0-8.0 Eos % 3.1 % High 0.0-3.0 Baso % 0.6 % Normal 0.0-1.0 Immature Granulocyte % 0.2 % Normal 0-3.0 Nucleated Red Blood Cell % 0.0 % Normal 0-0 Neutrophils # 2.8 10 Normal 1.5-8.5 Lymph # 1.5 10 Normal 1.5-5.0 Mitchell # 0.4 10 Normal 0.0-0.8 Eos # 0.2 10 Normal 0.0-0.5 Baso # 0.0 10 Normal 0.0-0.2 FVL/Harjit 03/15/2021 [facility] SEE IMAGE FVC-Pred 5.26 L FVC-Pre 1.75 L FVC-%Pred-Pre 33 L FVC-LLN 4.29 L Fev1-Pred 4.09 L Fev1-Pre 1.36 L Fev1-%Pred-Pre 33 L Fev1-LLN 3.27 L Fev6-Pred 5.08 L Fev6-Pre 1.75 L Fev6-%Pred-Pre 34 L Fev6-LLN 4.14 L Eey9mti-Zddz 78 % Raw6ost-Nuz 78 % Eos3xex-%Pred-Pre 99 % Lvl2nai-OIF 68 % Uxd6grh-Umju 97 % Sma2aen-Fnw 100 % Cgd7zvq-%Pred-Pre 103 % FEFMax-Pred 10.10 L/E/sec FEFMax-Pre 4.56 L/E/sec FEFMax-%Pred-Pre 45 L/E/sec FEFMax-LLN 7.71 L/E/sec Rek8543-Oiqt 3.62 L/E/sec Eyo7907-Cng 1.15 L/E/sec Nmw1032-%Pred-Pre 31 L/E/sec Rtd7003-VHF 1.97 L/E/sec ExpTime-Pre 5.91 sec Gta1tcu2-Lhnp 81 % Ppa5xel4-Kib 78 % Leo8afs3-%Pred-Pre 96 % Fcv1yzc3-DNY 72 % Aspergillus Antibodies 02/10/2021 [facility] Main Lab [address] [place], [place] [id number] [phone] Aspergillus Fumigatus Pay[place] Negative Normal Neg:<1 :1 Aspergillus Flavus [place] Negative Normal Neg:<1:1 Aspergillus Niger [place] Negative Normal Neg:<1:1 3 [facility] 02/10/2021 [facility] SEE IMAGE FVC-Pred 5.26 L FVC-Pre 1.73 L FVC-%Pred-Pre 32 L FVC-LLN 4.29 L Fev1-Pred 4.09 L Fev1-Pre 1.19 L Fev1-%Pred-Pre 29 L Fev1-LLN 3.27 L Fev6-Pred 5.08 L Fev6-Pre 1.73 L Fev6-%Pred-Pre 34 L Fev6-LLN 4.14 L Ljf5vzi-Kurs 78 % Vrg3rab-Pob 69 % Juf3cct-%Pred-Pre 88 % Dht8nni-ZHS 68 % Tdc8hqb-Owpw 97 % Sjm1grx-Eey 100 % Sck7dce-%Pred-Pre 103 % FEFMax-Pred 10.10 L/E/sec FEFMax-Pre 3.07 L/E/sec FEFMax-%Pred-Pre 30 L/E/sec FEFMax-LLN 7.71 L/E/sec Fci6464-Jjci 3.62 L/E/sec Glx9748-Dtn 0.71 L/E/sec Tmq8008-%Pred-Pre 19 L/E/sec Sjs0147-OHF 1.97 L/E/sec ExpTime-Pre 6.66 sec Vup3ajn1-Moxk 81 % Kgd9rqv8-Aac 69 % Pbi6qbw4-%Pred-Pre 85 % Rbb8osm5-AMB 72 % 1 . Levels of Specific IgE Class Description of Class ----- ---- < 0.10 0 Negative 0.10 - 0.31 0/I Equivoc al/Low 0.32 - 0.55 I Low 0.56 - 1.40 II Moderat e 1.41 - 3.90 III High 3.91 - 19.00 IV Very Hi gh 19.01 - 100.00 V Very H igh >100.00 Very High 2 Performed at: [address] [id number] Outside Machinist Apprentice: Casey Simental MD, Phone: [phone] Performed at: [address] [id number] 61 Outside Machinist Apprentice: Casey Simental MD, Phone: [phone] Procedures Date Code Description Status 04/13/2021 16144 Office/Outpatient Established Mo d MDM 30-39 Min Completed 04/13/2021 21478 Spirometry Completed 03/15/2021 69717 Office/Outpatient Established Mo d MDM 30-39 Min Completed 03/15/2021 62049 Spirometry Completed 02/10/2021 68658 Office/Outpatient Established Lo w MDM 20-29 Min Completed 02/10/2021 43897 Spirometry Completed Medical Devices Description No Information [...] month with spirometry, me, not PA. Recommend Heating And Ventilation Engineer referral. Functional Status Functional Condition Comment Date Status Independent with all ADL's Activ e Independent with all IADL's Acti ve Mental Status Mental Condition Comment Date Status Cognitive ability not impaired A ctive Referrals Refer to Reason for Referral Status Appt Date Radiology/Procedure 64875 Closed 02/28/2021
[2021-08-18] MEDS ORDERED: METH4PACK (15:57)
[2021-08-18] MEDS: IPRATROPIUM 0.5MG/ALBUTEROL 2.5MG INH SOL UD 3ML (DUONEB) NEB SCH ×3 (17:10→18:40)
[2021-08-18 17:20] LABS: BASO % 0.3 % (0.0-1.0); EOS % 0.1 % (0.0-3.0); HEMATOCRIT 41.1 % (42.0-52.0); LYMPH # 1.2 10^3/uL (1.5-5.0); LYMPH % 16.3 % (24.0-44.0); MEAN CORPUSCULAR HEMOGLOBIN 28.4 pg (27.0-33.0); MEAN CORPUSCULAR HGB CONC 31.6 g/dl (32.0-36.5); MEAN CORPUSCULAR VOLUME 89.7 fl (80.0-96.0); MONO # 0.4 10^3/uL (0.0-0.8); NEUTROPHILS # 5.5 10^3/uL (1.5-8.5); PLATELET COUNT, AUTOMATED 279 10^3/uL (150-450); RED BLOOD COUNT 4.58 10^6/uL (4.30-6.10)
[2021-08-18 17:46] LABS: ALBUMIN 3.5 GM/DL (3.2-5.2); BILIRUBIN,DIRECT 0.1 MG/DL (0.0-0.2); BILIRUBIN,TOTAL 0.5 MG/DL (0.2-1.0); THYROID STIMULATING HORMONE 0.739 uIU/ML (0.358-3.740); THYROXINE (T4) 8.5 UG/DL (4.5-12.0); TOTAL PROTEIN 6.5 GM/DL (6.4-8.2)
--- OUTSIDE RECORDS SUMMARY | 2021-08-18 17:49 | CCD ---
Author Author [facility] Organization [facility] Address Unknown Phone Unavailable Care Team Providers Care Procurement Technician Name Role Phone Mani Rodriguez MD Unavailable Unavailable Mani Rodriguez MD Unavailable Unavailable Mani Rodriguez MD Unavailable Unavailable Mani Rodriguez MD Unavailable Unavailable Mani Rodriguez MD Unavailable Unavailable Mani Rodriguez MD Unavailable Unavailable PHYSICIAN, OTHER Unavailable Unavailable Josephine MORIN MD Unavailable Unavailable Josephine MORIN MD Unavailable Unavailable Josephine MORIN MD Unavailable Unavailable Josephine MORIN MD Unavailable Unavailable Josephine MORIN MD Unavailable Unavailable Josephine MORIN MD Unavailable Unavailable Josephine MORIN MD Unavailable Unavailable Josephine MORIN MD Unavailable Unavailable Josephine MORIN MD Unavailable Unavailable Josephine MORIN MD Unavailable Unavailable Josephine MORIN MD Unavailable Unavailable Josephine MORIN MD Unavailable Unavailable Josephine MORIN MD Unavailable Unavailable Josephine MORIN MD Unavailable Unavailable Josephine MORIN MD Unavailable Unavailable Middeldorf DO, Dewayne Unavailable + Middeldorf DO, Dewayne Unavailable + Middeldorf DO, Dewayne Unavailable + Middeldorf DO, Dewayne Unavailable + Middeldorf DO, Dewayne Unavailable + DR MD URIEL FABIAN Unavailable Unavailable OTHER, PHYSICIAN REFERRING Unavailable Unavailabl e ROCHE, M GUY PA Unavailable Unavailable ROCHE, M GUY PA Unavailable Unavailable ROCHE, M GUY PA Unavailable Unavailable ROCHE, M GUY PA Unavailable Unavailable ROCHE, M GUY PA Unavailable Unavailable ROCHE, M GUY PA Unavailable Unavailable ROCHE, M GUY PA Unavailable Unavailable ROCHE, M GUY PA Unavailable Unavailable ROCHE, M GUY PA Unavailable Unavailable ROCHE, M GUY PA Unavailable Unavailable ROCHE, M GUY PA Unavailable Unavailable ROCHE, M GUY PA Unavailable Unavailable ROCHE, M GUY PA Unavailable Unavailable ROCHE, M GUY PA Unavailable Unavailable ROCHE, M GUY PA Unavailable Unavailable ROCHE, M GUY PA Unavailable Unavailable ROCHE, M GUY PA Unavailable Unavailable ROCHE, M GUY PA Unavailable Unavailable ROCHE, M GUY PA Unavailable Unavailable ROCHE, M GUY PA Unavailable Unavailable ROCHE, M GUY PA Unavailable Unavailable ROCHE, M GUY PA Unavailable Unavailable ROCHE, M GUY PA Unavailable Unavailable ROCHE, M GUY PA Unavailable Unavailable ROCHE, M GUY PA Unavailable Unavailable ROCHE, M GUY PA Unavailable Unavailable ROCHE, M GUY PA Unavailable Unavailable ROCHE, M GUY PA Unavailable Unavailable ROCHE, M GUY PA Unavailable Unavailable ROCHE, M GUY PA Unavailable Unavailable ROCHE, M GUY PA Unavailable Unavailable ROCHE, M GUY PA Unavailable Unavailable ROCHE, M GUY PA Unavailable Unavailable ROCHE, M GUY PA Unavailable Unavailable ROCHE, M GUY PA Unavailable Unavailable Terese Raymundo MD Unavailable Unavailable Terese Raymundo MD Unavailable Unavailable Terese Raymundo MD Unavailable Unavailable Terese Raymundo MD Unavailable Unavailable Terese Raymundo MD Unavailable Unavailable Terese Raymundo MD Unavailable Unavailable Terese Raymundo MD Unavailable Unavailable Sorge, C Hira MD Unavailable Unavailable Sorge, C Hira MD Unavailable Unavailable Sorge, C Hira MD Unavailable Unavailable Sorge, C Hira MD Unavailable Unavailable Sorge, C Hira MD Unavailable Unavailable Sorge, C Hira MD Unavailable Unavailable Sorge, C Hira MD Unavailable Unavailable Sorge, C Hira MD Unavailable Unavailable Sorge, C Hira MD Unavailable Unavailable Sorge, C Hira MD Unavailable Unavailable Sorge, C Hira MD Unavailable Unavailable Sorge, C Hira MD Unavailable Unavailable Sorge, C Hira MD Unavailable Unavailable Sorge, C Hira MD Unavailable Unavailable Sorge, C Hira MD Unavailable Unavailable Sorge, C Hira MD Unavailable Unavailable Sorge, C Hira MD Unavailable Unavailable Sorge, C Hira MD Unavailable Unavailable Sorge, C Hira MD Unavailable Unavailable SEARS, A CECILIA DO Unavailable Unavailable SEARS, A CECILIA DO Unavailable Unavailable SEARS, A CECILIA DO Unavailable Unavailable SEARS, A CECILIA DO Unavailable Unavailable SEARS, A CECILIA DO Unavailable Unavailable SEARS, A CECILIA DO Unavailable Unavailable SEARS, A CECILIA DO Unavailable Unavailable SEARS, A CECILIA DO Unavailable Unavailable SEARS, A CECILIA DO Unavailable Unavailable SEARS, A CECILIA DO Unavailable Unavailable SEARS, A CECILIA DO Unavailable Unavailable SEARS, A CECILIA DO Unavailable Unavailable SEARS, A CECILIA DO Unavailable Unavailable SEARS, A CECILIA DO Unavailable Unavailable SEARS, A CECILIA DO Unavailable Unavailable SEARS, A CECILIA DO Unavailable Unavailable SEARS, A CECILIA DO Unavailable Unavailable SEARS, A CECILIA DO Unavailable Unavailable SEARS, A CECILIA DO Unavailable Unavailable SEARS, A CECILIA DO Unavailable Unavailable SEARS, A CECILIA DO Unavailable Unavailable SEARS, A CECILIA DO Unavailable Unavailable SEARS, A CECILIA DO Unavailable Unavailable SEARS, A CECILIA DO Unavailable Unavailable SEARS, A CECILIA DO Unavailable Unavailable SEARS, A CECILIA DO Unavailable Unavailable SEARS, A CECILIA DO Unavailable Unavailable SEARS, A CECILIA DO Unavailable Unavailable SEARS, A CECILIA DO Unavailable Unavailable SEARS, A CECILIA DO Unavailable Unavailable SEARS, A CECILIA DO Unavailable Unavailable SEARS, A CECILIA DO Unavailable Unavailable SEARS, A CECILIA DO Unavailable Unavailable SEARS, A CECILIA DO Unavailable Unavailable SEARS, A CECILIA DO Unavailable Unavailable SEARS, A CECILIA DO Unavailable Unavailable SEARS, A CECILIA DO Unavailable Unavailable SEARS, A CECILIA DO Unavailable Unavailable SEARS, A CECILIA DO Unavailable Unavailable SEARS, A CECILIA DO Unavailable Unavailable SEARS, A CECILIA DO Unavailable Unavailable SEARS, A CECILIA DO Unavailable Unavailable SEARS, A CECILIA DO Unavailable Unavailable SEARS, A CECILIA DO Unavailable Unavailable SEARS, A CECILIA DO Unavailable Unavailable SEARS, A CECILIA DO Unavailable Unavailable SEARS, A CECILIA DO Unavailable Unavailable SEARS, A CECILIA DO Unavailable Unavailable TYREE, BRAYDON PA Unavailable Unavailable TYREE, BRAYDON PA Unavailable Unavailable TYREE, BRAYDON PA Unavailable Unavailable TYREE, BRAYDON PA Unavailable Unavailable TYREE, BRAYDON PA Unavailable Unavailable TYREE, BRAYDON PA Unavailable Unavailable TYREE, BRAYDON PA Unavailable Unavailable TYREE, BRAYDON PA Unavailable Unavailable TYREE, BRAYDON PA Unavailable Unavailable TYREE, BRAYDON PA Unavailable Unavailable TYREE, BRAYDON PA Unavailable Unavailable TYREE, BRAYDON PA Unavailable Unavailable TYREE, BRAYDON PA Unavailable Unavailable TYREE, BRAYDON PA Unavailable Unavailable Tracey, C Torrie PA Unavailable Unavailable Tracey, C Torrie PA Unavailable Unavailable Tracey, C Torrie PA Unavailable Unavailable Tracey, C Torrie PA Unavailable Unavailable Tracey, C Torrie PA Unavailable Unavailable Tracey, C Torrie PA Unavailable Unavailable Tracey, C Torrie PA Unavailable Unavailable Tracey, C Torrie PA Unavailable Unavailable Tracey, C Torrie PA Unavailable Unavailable Tracey, C Torrie PA Unavailable Unavailable Tracey, C Torrie PA Unavailable Unavailable Tracey, C Torrie PA Unavailable Unavailable Tracey, C Torrie PA Unavailable Unavailable Tracey, C Torrie PA Unavailable Unavailable Tracey, C Torrie PA Unavailable Unavailable Tracey, C Torrie PA Unavailable Unavailable Tracey, C Torrie PA Unavailable Unavailable Tracey, C Torrie PA Unavailable Unavailable Tracey, C Torrie PA Unavailable Unavailable Tracey, C Torrie PA Unavailable Unavailable Tracey, C Torrie PA Unavailable Unavailable Tracey, C Torrie PA Unavailable Unavailable Tracey, C Torrie PA Unavailable Unavailable Tracey, C Torrie PA Unavailable Unavailable Tracey, C Torrie PA Unavailable Unavailable Tracey, C Torrie PA Unavailable Unavailable Tracey, C Torrie PA Unavailable Unavailable Tracey, C Torrie PA Unavailable Unavailable Tracey, C Torrie PA Unavailable Unavailable Tracey, C Torrie PA Unavailable Unavailable Tracey, C Torrie PA Unavailable Unavailable Tracey, C Torrie PA Unavailable Unavailable Tracey, C Torrie PA Unavailable Unavailable Tracey, C Torrie PA Unavailable Unavailable Tracey, C Torrie PA Unavailable Unavailable Tracey, C Torrie PA Unavailable Unavailable Tracey, C Torrie PA Unavailable Unavailable Tracey, C Torrie PA Unavailable Unavailable Tracey, C Torrie PA Unavailable Unavailable Tracey, C Torrie PA Unavailable Unavailable Tracey, C Torrie PA Unavailable Unavailable Tracey, C Torrie PA Unavailable Unavailable Tracey, C Torrie PA Unavailable Unavailable Tracey, C Torrie PA Unavailable Unavailable Tracey, C Torrie PA Unavailable Unavailable Tracey, C Torrie PA Unavailable Unavailable Tracey, C Torrie PA Unavailable Unavailable Tracey, C Torrie PA Unavailable Unavailable Tracey, C Torrie PA Unavailable Unavailable Tracey, C Torrie PA Unavailable Unavailable Tracey, C Torrie PA Unavailable Unavailable SIMEON, K BAKARI PA Unavailable Unavailable SIMEON, K BAKARI PA Unavailable Unavailable SIMEON, K BAKARI PA Unavailable Unavailable SIMEON, K BAKARI PA Unavailable Unavailable SIMEON, K BAKARI PA Unavailable Unavailable SIMEON, K BAKARI PA Unavailable Unavailable SIMEON, K BAKARI PA Unavailable Unavailable SIMEON, K BAKARI PA Unavailable Unavailable SIMEON, K BAKARI PA Unavailable Unavailable SIMEON, K BAKARI PA Unavailable Unavailable SIMEON, K BAKARI PA Unavailable Unavailable SIMEON, K BAKARI PA Unavailable Unavailable SIMEON, K BAKARI PA Unavailable Unavailable SIMEON, K BAKARI PA Unavailable Unavailable SIMEON, K BAKARI PA Unavailable Unavailable SIMEON, K BAKARI PA Unavailable Unavailable SIMEON, K BAKARI PA Unavailable Unavailable SIMEON, K BAKARI PA Unavailable Unavailable SIMEON, K BAKARI PA Unavailable Unavailable SIMEON, K BAKARI PA Unavailable Unavailable SIMEON, K BAKARI PA Unavailable Unavailable SIMEON, K BAKARI PA Unavailable Unavailable SIMEON, K BAKARI PA Unavailable Unavailable SIMEON, K BAKARI PA Unavailable Unavailable SIMEON, K BAKARI PA Unavailable Unavailable SIMEON, K BAKARI PA Unavailable Unavailable SIMEON, K BAKARI PA Unavailable Unavailable SIMEON, K BAKARI PA Unavailable Unavailable SIMEON, K BAKARI PA Unavailable Unavailable SIMEON, K BAKARI PA Unavailable Unavailable SIMEON, K BAKARI PA Unavailable Unavailable SIMEON, K BAKARI PA Unavailable Unavailable SIMEON, K BAKARI PA Unavailable Unavailable SIMEON, K BAKARI PA Unavailable Unavailable SIMEON, K BAKARI PA Unavailable Unavailable SIMEON, K BAKARI PA Unavailable Unavailable SIMEON, K BAKARI PA Unavailable Unavailable SIMEON, K BAKARI PA Unavailable Unavailable SIMEON, K BAKARI PA Unavailable Unavailable SIMEON, K BAKARI PA Unavailable Unavailable SIMEON, K BAKARI PA Unavailable Unavailable SIMEON, K BAKARI PA Unavailable Unavailable SIMEON, K BAKARI PA Unavailable Unavailable SIMEON, K BAKARI PA Unavailable Unavailable SIMEON, K BAKARI PA Unavailable Unavailable SIMEON, K BAKARI PA Unavailable Unavailable SIMEON, K BAKARI PA Unavailable Unavailable SIMEON, K BAKARI PA Unavailable Unavailable SIMEON, K BAKARI PA Unavailable Unavailable SIMEON, K BAKARI PA Unavailable Unavailable SIMEON, K BAKARI PA Unavailable Unavailable SIMEON, K BAKARI PA Unavailable Unavailable SIMEON, K BAKARI PA Unavailable Unavailable SIMEON, K BAKARI PA Unavailable Unavailable Alton, E Brian DO Unavailable Unavailable Alton, E Brian DO Unavailable Unavailable Alton, E Brian DO Unavailable Unavailable Alton, E Brian DO Unavailable Unavailable Alton, E Brian DO Unavailable Unavailable Alton, E Brian DO Unavailable Unavailable Alton, E Brian DO Unavailable Unavailable Alton, E Brian DO Unavailable Unavailable Alton, E Brian DO Unavailable Unavailable Alton, E Brian DO Unavailable Unavailable Alton, E Brian DO Unavailable Unavailable Alton, E Brian DO Unavailable Unavailable Alton, E Brian DO Unavailable Unavailable Alton, E Brian DO Unavailable Unavailable Alton, E Brian DO Unavailable Unavailable Alton, E Brian DO Unavailable Unavailable Alton, E Brian DO Unavailable Unavailable Alton, E Brian DO Unavailable Unavailable Alton, E Brian DO Unavailable Unavailable Alton, E Brian DO Unavailable Unavailable Alton, E Brian DO Unavailable Unavailable Alton, E Brian DO Unavailable Unavailable Alton, E Brian DO Unavailable Unavailable Alton, E Brian DO Unavailable Unavailable Alton, E Brian DO Unavailable Unavailable Alton, E Brian DO Unavailable Unavailable DR SUDARSHAN MEANS Unavailable Unavailable Re-disclosure Warning The records that you are about to access may contain information from federally-assisted alcohol or drug abuse programs. If such information is present, then the following federally mandated warning applies: This information has been disclosed to you from records protected by federal confidentiality rules (42 CFR part 2). The federal rules prohibit you from making any further disclosure of this information unless further disclosure is expressly permitted by the written consent of the person to whom it pertains or as otherwise permitted by 42 CFR part 2. A general authorization for the release of medical or other information is NOT sufficient for this purpose. The Federal rules restrict any use of the information to criminally investigate or prosecute any alcohol or drug abuse patient.The records that you are about to access may contain highly sensitive health information, the redisclosure of which is protected by Article 27-F of the [facility] Public Health law. If you continue you may have access to information: Regarding HIV / AIDS; Provided by facilities licensed or operated by the [facility] Office of Mental Health; or Provided by the [facility] Office for People With Developmental Disabilities. If such information is present, then the following [facility] mandated warning applies: This information has been disclosed to you from confidential records which are protected by state law. State law prohibits you from making any further disclosure of this information without the specific written consent of the person to whom it pertains, or as otherwise permitted by law. Any unauthorized further disclosure in violation of state law may result in a fine or detention sentence or both. A general authorization for the release of medical or other information is NOT sufficient authorization for further disc losure. Allergies and Adverse Reactions Type Description Substance Reaction Status Data Source(s ) Miscellaneous allergy No Known Drug Allergies No Known Drug Allergies [facility] Miscellaneous allergy No Known Food Allergies No Known Food Allergies [facility] Environmental Allergy seasonal seasonal Cli [facility] Family History Family Member Name Family Member Gender Family Member Status Date o f Status Description Data Source(s) Unknown Male Problem [facility] ([facility] () Unknown Male Problem [facility] ([facility]) () - at age 81 Unknown Male Problem [facility] ([facility]) Unknown Male Problem [facility] ([facility] ) () Unknown Male Problem [facility] ([facility] at age 84 Encounters Encounter Providers Location Date Indications Data Source(s ) Outpatient Attender: DR FERNANDO Law er: DR FERNANDO Greenltant: Hira Raymundo MD 008 07/28/2021 01:29:00 PM EDT - 07/28/2021 01:29:00 PM EDT Lab test [facility] Lab test Outpatient Attender: DR FERNANDO Law er: DR KING TRANReferrer: DR FERNANDO Pickensant: Hira Raymundo MD 07/28/2021 11:36:00 A M EDT - 07/28/2021 12:00:00 PM EDT F/U FROM CF ER [facility] F/U FROM ER Patient discharged. Emergency Attender: BAKARI Avery mitter: BAKARI SIMEON PAConsultant: Hira Raymundo MD 07/23/2021 05:51:00 PM EDT - 07/23/2021 06:45:00 PM EDT DIFFICULTY BREATHING [facility] DIFFICULTY BREATHING Patient discharged. Emergency Attender: BAKARI Avery mitter: BAKARI SIMEON PAConsultant: Hira Raymundo MD 07/21/2021 11:37:00 AM EDT - 07/21/2021 02:20:00 PM EDT CAN'T BREATH [facility] CAN'T BREATH Patient discharged. Outpatient Attender: DR FERNANDO Law er: DR FERNANDO Greenltant: Hira Raymundo MD 008 07/12/2021 12:21:00 PM EDT - 07/12/2021 12:21:00 PM EDT LAB TEST [facility] LAB TEST Outpatient Attender: DR FERNANDO Law er: DR KING TRANReferrer: DR FERNANDO Greenltant: Hira Raymundo MD 07/12/2021 11:47:00 A M EDT - 07/12/2021 12:10:00 PM EDT Health check up [facility] Health check up Patient discharged. Outpatient Attender: Dewayne Falk DOAttender: Mateo Rodriguez MD 06/08/2021 03:15:00 PM EDT [facility] Outpatient Attender: Dewayne Falk DOAttender: ELANA PURCELL ER-LAB-PNP 06/03/2021 11:56:00 AM EDT [facility] Outpatient Attender: CECILIA Montejo/Jorge/Hema/Reindl 06/03/2021 11:30:00 AM EDT [facility] ([facility] Emergency Attender: DR MASHA FUNEZ NAdmitter: DR MASHA MEANSConsultant: Hira Raymundo MD 06/01/2021 07:42:00 PM EDT - 06/01/2021 09:42:00 PM EDT SHORTNESS OF BREATH [facility] SHORTNESS OF BREATH Patient discharged. Outpatient Attender: SILAS Gonzalesmitter: SILAS MORIN MDConsultant: Hira Raymundo MD 008 05/26/2021 11:08:00 AM EDT - 05/26/2021 11:08:00 AM EDT BLOOD WORK [facility] BLOOD WORK Outpatient Attender: SILAS Forrester DAdmitter: SILAS MORIN MDReferrer: SILAS MORIN MDConsultant: Hira Raymundo MD 2020 10:43:00 AM EDT - 05/26/2021 11:10:00 AM EDT Health check up [facility] Health check up Patient discharged. Outpatient Attender: CECILIA Bell christopher: DR ALVARADO OTHERAdmitter: CECILIA VAQSUEZ DOConsultant: Hira Raymundo MD 008 05/20/2021 01:17: 00 PM EDT - 05/20/2021 01:17:00 PM EDT lab test [facility] lab test Outpatient Attender: Brian Triana mitter: Brian Muñizerrer: Brian Dang DOConsultant: Hira Raymundo MD 04/27/2021 09:31 :00 AM EDT - 04/27/2021 09:50:00 AM EDT MIGRANE HEADACHE [facility] MIGRANE HEADACHE Patient discharged. Emergency Attender: BAKARI Avery mitter: BAKARI SIMEON PAConsultant: Hira Raymundo MD 04/14/2021 05:38:00 PM EDT - 04/14/2021 06:45:00 PM EDT SHORTNESS OF BREATH [facility] SHORTNESS OF BREATH Patient discharged. Outpatient Attender: CECILIA Montejo/[place]/Hema/Reindl 04/13/2021 02:00:00 PM EDT [facility] ([facility], ) Emergency Attender: BAKARI Avery mitter: BAKARI SIMEON PAConsultant: Hira Raymundo MD 04/08/2021 06:24:00 PM EDT - 04/08/2021 08:30:00 PM EDT DIFFICULTY BREATHING [facility] DIFFICULTY BREATHING Patient discharged. Outpatient Attender: CECILIA Montejo/[place]/Hema/Reindl 03/15/2021 11:00:00 AM EDT [facility] ([facility], ) Outpatient Attender: SILAS Gonzalesmitter: SILAS MORIN MDReferrer: SILAS MORIN MDConsultant: Hira Raymundo MD 2020 11:11:00 AM EDT - 03/05/2021 12:00:00 PM EDT DIARRHEA [facility] DIARRHEA Patient discharged. Emergency Attender: BAKARI Avery mitter: BAKARI SIMEON PAConsultant: Hira Raymundo MD [id number] 03/04/2021 12:11:00 PM EDT - 03/04/2021 02:23:00 PM EDT CAN'T BREATH [facility] CAN'T BREATH Patient discharged. Outpatient Attender: SILAS Forrester DAdmitter: SILAS MORIN MDConsultant: Hira Raymundo MD 008 03/01/2021 11:42:00 AM EDT - 03/01/2021 11:42:00 AM EDT LAB TEST [facility] LAB TEST Outpatient Attender: SILAS Forrester DAdmitter: SILAS MORIN MDReferrer: SILAS Wuultant: Hira Raymundo MD 2020 10:57:00 AM EDT - 03/01/2021 11:10:00 AM EDT Health check up [facility] Health check up Patient discharged. Emergency Attender: DR MASHA Deemitter: DR MASHA MEANSConsultant: Hira Raymundo MD [id number] 02/15/2021 05:34:00 PM EDT - 02/15/2021 06:56:00 PM EDT Shortness of breath [facility] Shortness of breath Patient discharged. Outpatient Attender: Torrie HAWK dmitter: Torrie Tracey PAConsultant: Hira Raymundo MD 008 02/14/2021 01:54:00 PM EDT - 02/14/2021 01:54:00 PM EDT Lab test [facility] Lab test Emergency Attender: BAKARI Avery mitter: BAKARI SIMEON PAConsultant: Hira Raymundo MD 02/12/2021 02:45:00 PM EDT - 02/12/2021 04:40:00 PM EDT DIFFICULTY BREATHING [facility] DIFFICULTY BREATHING Patient discharged. Outpatient Attender: CECILIA Montejo/[place]/Hema/Reindl 02/10/2021 01:30:00 PM EDT [facility] ([facility], ) Emergency Attender: BAKARI Avery mitter: BAKARI SIMEON PAConsultant: Hira Raymundo MD 01/31/2021 11:39:00 AM EDT - 01/31/2021 01:00:0 0 PM EDT SOB [facility] SOB Patient discharged. Outpatient Attender: CECILIA Bell christopher: DR ALVARADO OTHERAdmitter: CECILIA VASQUEZ DOConsultant: Hira Raymundo MD 008 01/28/2021 02:47: 00 PM EDT - 01/28/2021 02:47:00 PM EDT Lab test [facility] Lab test Outpatient Attender: CECILIA Montejo/Jorge/Hema/Reindl 10/11/2020 10:00:00 AM EST [facility] ([facility], ) Outpatient Attender: GUY [place]um/Hema/Rein dl 09/14/2020 01:30:00 PM EST [facility] ([facility]) Emergency Attender: BRAYDON HAWK dmitter: BRAYDON CLEMENTS PAConsultant: Hira Raymundo MD [id number] 08/25/2020 01:21:00 PM EST - 08/25/2020 03:21:00 PM EST ASTHMAS ATTACK [facility] ASTHMAS ATTACK Patient discharged. Emergency Attender: BAKARI Avery mitter: BAKARI Nolanerrer: BAKARI SIMEON PAConsultant: Hira Raymundo MD [id number] 08/12/2020 12:10 :00 PM EST - 08/12/2020 03:20:00 PM EST SHORTNESS OF BREATH [facility] SHORTNESS OF BREATH Patient discharged. Outpatient Attender: GUY [place]/Hema/Rein dl 08/04/2020 02:30:00 PM EDT [facility] ([facility], ) Emergency Attender: DR MASHA Pereira: DR MASHA Webb: DR MASHA MEANSConsultant: Hira Raymundo MD 0 10:32:00 AM EDT - 08/03/2020 11:45:00 AM EDT Shortness of breath [facility] Shortness of breath Patient discharged. Emergency Attender: DR MASHA Gill: Hira Raymundo MDAdmitter: DR MASHA Webb: DR MASHA MEANSConsultant: Hira Raymundo MD 06/24/2020 03:47:00 PM EDT - 06/24/2020 05:00:00 PM EDT Difficulty breathing [facility] Difficulty breathing Patient admitted. Emergency Attender: BAKARI Avery mitter: BAKARI [place]: BAKARI SIMEON PAConsultant: Hira Raymundo MD [id number] 06/22/2020 02:16 :00 PM EDT - 06/22/2020 05:30:00 PM EDT Dizziness [facility] Dizziness Patient discharged. Emergency Attender: BRAYDON HAWK dmitter: BRAYDON CLEMENTS PAReferrer: BRAYDON CLEMENTS PAConsultant: Hira Raymundo MD [id number] 06/17/2020 09:2 9:00 AM EDT - 06/17/2020 12:10:00 PM EDT Shortness of breath [facility] Shortness of breath Patient discharged. Immunizations Vaccine Date Status Description Data Source(s) COVID-19 VACCINE Yoni 12/13/2020 12:00:00 AM EST completed [facility] Vaccine Series Complete: YESThis Data wa s Submitted to [facility] [employer]. New in 2011. IIV4 09/14/2020 10:44:00 PM EST completed [facility] ([facility], ) New in 2011. IIV4 09/14/2020 01:53:00 PM EST completed [facility] ([facility], ) Medications Medication Brand Name Start Date Product Form Dose Route Admi nistrative Instructions Pharmacy Instructions Status Indications Reaction Description Data Source(s) Albuterol 0.833 MG/ML / Ipratropium Brom fabio 0.167 MG/ML Inhalant Solution CL- ALBUTEROL/IPRATROP(DUONEB) 3MG-0.5MG CL- ALBUTEROL/IPRATROP(DUONEB) 3MG-0.5MG 07/28/2021 12:25:00 PM EDT 1 U INHALATION active <td>CL- ALBUTEROL/IPRATROP(DUONEB) 3MG- 0.5MG</td><td>07/28/2021</td><td>07/28/2021</td><td>INHALATION</td><td>X1</td><t d>1 unit(s)</td><td>[id number]</td><td>RxNorm</td><td>1 EA INHALATION ONE TIME DOSE</td> [facility] Medrol Dosepak 4MG Oral Tablet 07/28/2021 12:00:00 AM EDT 1 mL BY MOUTH active <td>Medrol Dosepak 4 MG Oral Tablet</td><td>07/28/2021</td><td>Unknown</td><td>BY MOUTH</td><td>DAILY</td><td>1 DOSE</td><td>[id number]</td><td>RxNorm</td><td>TAKE 1 DOSE BY MOUTH DAILY</td> [facility] benzonatate 100 MG Oral Capsule [Tessalo n Perles] Tessalon Perles 100MG Oral Capsule, Liquid Filled Tessalon Perles 100MG Oral Capsule, Liquid Filled 07/28/2021 12:00:00 AM EDT 1 CAPSULE BY MOUTH active <td>Tessalon Perles 100MG Oral Capsule, Liquid Filled</td><td>07/28/2021</td><td>Unknown</td><td>BY MOUTH</td><td>TWICE A DAY</td><td>1 CAPSULE</td><td>809986</td><td>RxNorm</td><td>TAKE 1 CAPSULE BY MOUTH TWICE A DAY FOR cough NEEDED</td> [facility] Prednisone 20 MG Oral Tablet predniSONE 20MG Oral Tabl et predniSONE 20MG Oral Tablet 07/23/2021 12:00:00 AM EDT 2 TABLET BY MOUTH active <td>predniSONE 20MG Oral Tablet</td><td>07/23/2021</td><td>Unknown</td><td>BY MOUTH</td><td>DAILY</td><td>2 TABLET</td><td>848588</td><td>RxNorm</td><td>TAKE 2 TABLET BY MOUTH DAILY x 2 additional days</td> [facility] Prednisone 20 MG Oral Tablet predniSONE 20MG Oral Tabl et predniSONE 20MG Oral Tablet 07/21/2021 12:00:00 AM EDT 2 TABLET BY MOUTH active <td>predniSONE 20MG Oral Tablet</td><td>07/21/2021</td><td>Unknown</td><td>BY MOUTH</td><td>DAILY</td><td>2 TABLET</td><td>660110</td><td>RxNorm</td><td>TAKE 2 TABLET BY MOUTH DAILY x 3 days then resume the daily 10 mg tab</td> [facility] Calcium 600 600 MG Oral Tablet 07/13/2021 12:00:00 AM EDT 1 TABLET BY MOUTH active <td>Calcium 600 600 MG Oral Tablet</td><td>07/13/2021</td><td>Unknown</td><td>BY MOUTH</td><td>DAILY</td><td>1 TABLET</td><td></td><td>RxNorm</td><td>TAKE 1 TABLET BY MOUTH DAILY</td> [facility] Prednisone 10 MG Oral Tablet Prednisone 06/03/2021 12:00:00 AM EDT ORAL active MEDENT ([facility], ) Cholecalciferol 1000 UNT Oral Tablet Vitamin D 1000IU Oral Tablet Vitamin D 1000IU Oral Tablet 06/02/2021 12:00:00 AM EDT 1 TABLET BY MOUTH active <td>Vitamin D 1000IU Oral Tablet</td><td >06/02/2021</td><td>Unknown</td><td>BY MOUTH</td><td>DAILY</td><td>1 TABLET</td><td>440813</td><td>RxNorm</td><td>TAKE 1 TABLET BY MOUTH DAILY</td> [facility] Cholecalciferol 1000 UNT Oral Tablet Vitamin D 1000IU Oral Tablet Vitamin D 1000IU Oral Tablet 06/02/2021 12:00:00 AM EDT 1 TABLET BY MOUTH active <td>Vitamin D 1000IU Oral Tablet</td><td >06/02/2021</td><td>Unknown</td><td>BY MOUTH</td><td>DAILY</td><td>1 TABLET</td><td>296376</td><td>RxNorm</td><td>TAKE 1 TABLET BY MOUTH DAILY</td> [facility] METHYLPRED(SOLU-MEDROL)125MG/2MLFINJ 06/01/2021 08:29: 00 PM EDT 125 mg IM OPTIONS active <td>METHYLPRED (SOLU- MEDROL)125MG/2MLFINJ</td><td>06/01/2021</td><td>06/01/2021</td><td>IM OPTIONS</td><td>X1</td><td>125 MG</td><td>7866354</td><td>RxNorm</td><td>125 MG IM OPTIONS ONE TIME DOSE</td> [facility] Albuterol 0.83 MG/ML Inhalant Solution ALBUTEROL (PROV ENTIL) 0.083%F ALBUTEROL (PROVENTIL) 0.083%F 06/01/2021 07:57:00 PM EDT 3 U INHALATION active <td>ALBUTEROL (P ROVENTIL) 0.083%F</td><td>06/01/2021</td><td>06/01/2021</td><td>INHALATION</td><td>X1< VIAL</td><td>506864</td><td>RxNorm</td><td>3 VIAL INHALATION ONE TIME DOSE </td> [facility] Albuterol 0.833 MG/ML / Ipratropium Brom fabio 0.167 MG/ML Inhalant Solution ALBUTEROL/IPRAT(DUONEB)3MG/0.5MGF3ML ALBUTEROL/IPRAT(DUONEB)3MG/0.5MGF3ML 06/01/2021 07:57:00 PM EDT 3 mL INHALATION active <td>ALBUTEROL/IPRAT(DUONEB)3MG/0.5MGF3ML</td><td>06/01/2021</td><td>06/01/20 21</td><td>INHALATION</td><td>X1</td><td>3 ML</td><td>8271641</td><td>RxNorm</td><td>3 ML INHALATION ONE TIME DOSE</td> [facility] Prednisone 50 MG Oral Tablet predniSONE 50MG Oral Tabl et predniSONE 50MG Oral Tablet 06/01/2021 12:00:00 AM EDT 1 TABLET BY MOUTH active <td>predniSONE 50MG Oral Tablet</td><td>06/01/2021</td><td>Unknown</td><td>BY MOUTH</td><td>DAILY</td><td>1 TABLET</td><td>717719</td><td>RxNorm</td><td>TAKE 1 TABLET BY MOUTH DAILY</td> [facility] Ergocalciferol 28399 UNT Oral Capsule Vitamin D 04336Z U Oral Capsule Vitamin D 35110AD Oral Capsule 05/28/2021 12:00:00 AM EDT 1 CAPSULE BY MOUTH active <td>Vitamin D 94062VU Oral Capsule</td><td>05/28/2021</td><td>Unknown</td><td>BY MOUTH</td><td>Once a Week</td><td>1 CAPSULE</td><td>9294567</td><td>RxNorm</td><td>TAKE 1 CAPSULE BY MOUTH Once a Week</td> [facility] Ergocalciferol 03610 UNT Oral Capsule Vitamin D 42597F U Oral Capsule Vitamin D 12425KT Oral Capsule 05/28/2021 12:00:00 AM EDT 1 CAPSULE BY MOUTH active <td>Vitamin D 85771XU Oral Capsule</td><td>05/28/2021</td><td>Unknown</td><td>BY MOUTH</td><td>Once a Week</td><td>1 CAPSULE</td><td>2473688</td><td>RxNorm</td><td>TAKE 1 CAPSULE BY MOUTH Once a Week</td> [facility] Ergocalciferol 53826 UNT Oral Capsule Vitamin D 53936O U Oral Capsule Vitamin D 97768AT Oral Capsule 05/28/2021 12:00:00 AM EDT 1 CAPSULE BY MOUTH active <td>Vitamin D 07846TP Oral Capsule</td><td>05/28/2021</td><td>Unknown</td><td>BY MOUTH</td><td>Once a Week</td><td>1 CAPSULE</td><td>9303301</td><td>RxNorm</td><td>TAKE 1 CAPSULE BY MOUTH Once a Week</td> [facility] Ergocalciferol 58798 UNT Oral Capsule Vitamin D 34774D U Oral Capsule Vitamin D 59259PT Oral Capsule 05/28/2021 12:00:00 AM EDT 1 CAPSULE BY MOUTH active <td>Vitamin D 65128MV Oral Capsule</td><td>05/28/2021</td><td>Unknown</td><td>BY MOUTH</td><td>Once a Week</td><td>1 CAPSULE</td><td>2660261</td><td>RxNorm</td><td>TAKE 1 CAPSULE BY MOUTH Once a Week</td> [facility] Prednisone 10 MG Oral Tablet predniSONE 10MG Oral Tabl et predniSONE 10MG Oral Tablet 05/26/2021 12:00:00 AM EDT 1 TABLET ORAL active <td>predniSONE 10MG Oral Tablet</td><td>05/26/2021</td><td>Unknown</td><td>ORAL</td><td>DAILY</td><td>1 TABLET</td><td>089017</td><td>RxNorm</td><td>TAKE 1 TABLET ORAL DAILY</td> [facility] Prednisone 10 MG Oral Tablet predniSONE 10MG Oral Tabl et predniSONE 10MG Oral Tablet 05/26/2021 12:00:00 AM EDT 1 TABLET ORAL active <td>predniSONE 10MG Oral Tablet</td><td>05/26/2021</td><td>Unknown</td><td>ORAL</td><td>DAILY</td><td>1 TABLET</td><td>482862</td><td>RxNorm</td><td>TAKE 1 TABLET ORAL DAILY</td> [facility] Theophylline 200MG Oral Tablet, Extended Release, 12 HR 05/26/2021 12:00:00 AM EDT 1 TABLET ORAL active <td>The ophylline 200MG Oral Tablet, Extended Release, 12 HR</td><td>05/26/2021</td><td>Unknown</td><td>ORAL</td><td>DAILY</td><td>1 TABLET</td><td></td><td>RxNorm</td><td>TAKE 1 TABLET ORAL DAILY</td> [facility] Prednisone 10 MG Oral Tablet predniSONE 10MG Oral Tabl et predniSONE 10MG Oral Tablet 05/26/2021 12:00:00 AM EDT 1 TABLET ORAL active <td>predniSONE 10MG Oral Tablet</td><td>05/26/2021</td><td>Unknown</td><td>ORAL</td><td>DAILY</td><td>1 TABLET</td><td>159419</td><td>RxNorm</td><td>TAKE 1 TABLET ORAL DAILY</td> [facility] Azithromycin 250MG Oral Tablet 05/26/2021 12:00:00 AM EDT 2 TABLET ORAL active <td>Azithromycin 250 MG Oral Tablet</td><td>05/26/2021</td><td>Unknown</td><td>ORAL</td><td>EVERY OTHER DAY</td><td>2 TABLET</td><td>534283</td><td>RxNorm</td><td>TAKE 2 TABLET ORAL EVERY OTHER DAY</td> [facility] Theophylline 200MG Oral Tablet, Extended Release, 12 HR 05/26/2021 12:00:00 AM EDT 1 TABLET ORAL active <td>The ophylline 200MG Oral Tablet, Extended Release, 12 HR</td><td>05/26/2021</td><td>Unknown</td><td>ORAL</td><td>DAILY</td><td>1 TABLET</td><td></td><td>RxNorm</td><td>TAKE 1 TABLET ORAL DAILY</td> [facility] Theophylline 200MG Oral Tablet, Extended Release, 12 HR 05/26/2021 12:00:00 AM EDT 1 TABLET ORAL active <td>The ophylline 200MG Oral Tablet, Extended Release, 12 HR</td><td>05/26/2021</td><td>Unknown</td><td>ORAL</td><td>DAILY</td><td>1 TABLET</td><td></td><td>RxNorm</td><td>TAKE 1 TABLET ORAL DAILY</td> [facility] Theophylline 200MG Oral Tablet, Extended Release, 12 HR 05/26/2021 12:00:00 AM EDT 1 TABLET ORAL active <td>The ophylline 200MG Oral Tablet, Extended Release, 12 HR</td><td>05/26/2021</td><td>Unknown</td><td>ORAL</td><td>DAILY</td><td>1 TABLET</td><td></td><td>RxNorm</td><td>TAKE 1 TABLET ORAL DAILY</td> [facility] Azithromycin 250MG Oral Tablet 05/26/2021 12:00:00 AM EDT 2 TABLET ORAL active <td>Azithromycin 250 MG Oral Tablet</td><td>05/26/2021</td><td>Unknown</td><td>ORAL</td><td>EVERY OTHER DAY</td><td>2 TABLET</td><td>453629</td><td>RxNorm</td><td>TAKE 2 TABLET ORAL EVERY OTHER DAY</td> [facility] Prednisone 10 MG Oral Tablet predniSONE 10MG Oral Tabl et predniSONE 10MG Oral Tablet 05/26/2021 12:00:00 AM EDT 1 TABLET ORAL active <td>predniSONE 10MG Oral Tablet</td><td>05/26/2021</td><td>Unknown</td><td>ORAL</td><td>DAILY</td><td>1 TABLET</td><td>690940</td><td>RxNorm</td><td>TAKE 1 TABLET ORAL DAILY</td> [facility] Azithromycin 250MG Oral Tablet 05/26/2021 12:00:00 AM EDT 2 TABLET ORAL active <td>Azithromycin 250 MG Oral Tablet</td><td>05/26/2021</td><td>Unknown</td><td>ORAL</td><td>EVERY OTHER DAY</td><td>2 TABLET</td><td>855374</td><td>RxNorm</td><td>TAKE 2 TABLET ORAL EVERY OTHER DAY</td> [facility] 2 ML Ketorolac Tromethamine 30 MG/ML Inj ection CL- KETOROLAC (TORADOL) 60MG/2ML VIAL CL- KETOROLAC (TORADOL) 60MG/2ML VIAL 04/27/2021 10:10:00 AM EDT 1 U IM OPTIONS active <td>CL- KETORO LAC (TORADOL) 60MG/2ML VIAL</td><td>04/27/2021</td><td>04/27/2021</td><td>IM OPTIONS</td><td>X1</td><td>1 unit(s)</td><td>8030907</td><td>RxNorm</td><td>1 EA IM OPTIONS ONE TIME DOSE</td> [facility] Sumatriptan 50 MG Oral Tablet [Imitrex] Imitrex 50MG O ral Tablet Imitrex 50MG Oral Tablet 04/27/2021 12:00:00 AM EDT 1 TABLET BY MOUTH ac tive <td>Imitrex 50MG Oral Tablet</td><td>04/27/2021</td><td>Unknown</td><td>BY MOUTH</td><td>ONE TIME DOSE</td><td>1 TABLET</td><td>425814</td><td>RxNorm</td><td>TAKE 1 TABLET BY MOUTH ONE TIME DOSE</td> [facility] Sumatriptan 50 MG Oral Tablet [Imitrex] Imitrex 50MG O ral Tablet Imitrex 50MG Oral Tablet 04/27/2021 12:00:00 AM EDT 1 TABLET BY MOUTH ac tive <td>Imitrex 50MG Oral Tablet</td><td>04/27/2021</td><td>Unknown</td><td>BY MOUTH</td><td>ONE TIME DOSE</td><td>1 TABLET</td><td>274759</td><td>RxNorm</td><td>TAKE 1 TABLET BY MOUTH ONE TIME DOSE</td> [facility] Sumatriptan 50 MG Oral Tablet [Imitrex] Imitrex 50MG O ral Tablet Imitrex 50MG Oral Tablet 04/27/2021 12:00:00 AM EDT 1 TABLET BY MOUTH ac tive <td>Imitrex 50MG Oral Tablet</td><td>04/27/2021</td><td>Unknown</td><td>BY MOUTH</td><td>ONE TIME DOSE</td><td>1 TABLET</td><td>755923</td><td>RxNorm</td><td>TAKE 1 TABLET BY MOUTH ONE TIME DOSE</td> [facility] Metoclopramide 10 MG Oral Tablet [Reglan] Reglan 10MG Oral Tablet Reglan 10MG Oral Tablet 04/27/2021 12:00:00 AM EDT 1 TABLET BY MOUTH ac tive <td>Reglan 10MG Oral Tablet</td><td>04/27/2021</td><td>Unknown</td><td>BY MOUTH</td><td>ONE TIME DOSE</td><td>1 TABLET</td><td>281020</td><td>RxNorm</td><td>TAKE 1 TABLET BY MOUTH ONE TIME DOSE</td> [facility] Sumatriptan 50 MG Oral Tablet [Imitrex] Imitrex 50MG O ral Tablet Imitrex 50MG Oral Tablet 04/27/2021 12:00:00 AM EDT 1 TABLET BY MOUTH ac tive <td>Imitrex 50MG Oral Tablet</td><td>04/27/2021</td><td>Unknown</td><td>BY MOUTH</td><td>ONE TIME DOSE</td><td>1 TABLET</td><td>300671</td><td>RxNorm</td><td>TAKE 1 TABLET BY MOUTH ONE TIME DOSE</td> [facility] Sumatriptan 50 MG Oral Tablet [Imitrex] Imitrex 50MG O ral Tablet Imitrex 50MG Oral Tablet 04/27/2021 12:00:00 AM EDT 1 TABLET BY MOUTH ac tive <td>Imitrex 50MG Oral Tablet</td><td>04/27/2021</td><td>Unknown</td><td>BY MOUTH</td><td>ONE TIME DOSE</td><td>1 TABLET</td><td>236986</td><td>RxNorm</td><td>TAKE 1 TABLET BY MOUTH ONE TIME DOSE</td> [facility] Metoclopramide 10 MG Oral Tablet [Reglan] Reglan 10MG Oral Tablet Reglan 10MG Oral Tablet 04/27/2021 12:00:00 AM EDT 1 TABLET BY MOUTH ac tive <td>Reglan 10MG Oral Tablet</td><td>04/27/2021</td><td>Unknown</td><td>BY MOUTH</td><td>ONE TIME DOSE</td><td>1 TABLET</td><td>600108</td><td>RxNorm</td><td>TAKE 1 TABLET BY MOUTH ONE TIME DOSE</td> [facility] Metoclopramide 10 MG Oral Tablet [Reglan] Reglan 10MG Oral Tablet Reglan 10MG Oral Tablet 04/27/2021 12:00:00 AM EDT 1 TABLET BY MOUTH ac tive <td>Reglan 10MG Oral Tablet</td><td>04/27/2021</td><td>Unknown</td><td>BY MOUTH</td><td>ONE TIME DOSE</td><td>1 TABLET</td><td>727678</td><td>RxNorm</td><td>TAKE 1 TABLET BY MOUTH ONE TIME DOSE</td> [facility] Metoclopramide 10 MG Oral Tablet [Reglan] Reglan 10MG Oral Tablet Reglan 10MG Oral Tablet 04/27/2021 12:00:00 AM EDT 1 TABLET BY MOUTH ac tive <td>Reglan 10MG Oral Tablet</td><td>04/27/2021</td><td>Unknown</td><td>BY MOUTH</td><td>ONE TIME DOSE</td><td>1 TABLET</td><td>487569</td><td>RxNorm</td><td>TAKE 1 TABLET BY MOUTH ONE TIME DOSE</td> [facility] Metoclopramide 10 MG Oral Tablet [Reglan] Reglan 10MG Oral Tablet Reglan 10MG Oral Tablet 04/27/2021 12:00:00 AM EDT 1 TABLET BY MOUTH ac tive <td>Reglan 10MG Oral Tablet</td><td>04/27/2021</td><td>Unknown</td><td>BY MOUTH</td><td>ONE TIME DOSE</td><td>1 TABLET</td><td>151427</td><td>RxNorm</td><td>TAKE 1 TABLET BY MOUTH ONE TIME DOSE</td> [facility] Prednisone 20 MG Oral Tablet predniSONE 20MG Oral Tabl et predniSONE 20MG Oral Tablet 04/14/2021 12:00:00 AM EDT 40 MILLIGRAM BY MOUTH act alan <td>predniSONE 20MG Oral Tablet</td><td>04/14/2021</td><td>Unknown</td><td>BY MOUTH</td><td>DAILY</td><td>40 MILLIGRAM</td><td>654208</td><td>RxNorm</td><td> TAKE 40 MILLIGRAM BY MOUTH DAILY X 5 DAYS</td> [facility] Theophylline 200 MG Extended Release Oral Capsule [Carl-24] Carl-24 03/28/2021 12:00:00 AM EDT ORAL active M EDENT ([facility], ) Prednisone 10 MG Oral Tablet Prednisone 03/15/2021 12:00:00 AM EDT ORAL active MEDENT ([facility], ) Theophylline 400 MG Extended Release Oral Tablet Theophyllin e ER 03/15/2021 12:00:00 AM EDT ORAL completed MED[facility] ([facility], ) Ergocalciferol 00870 UNT Oral Capsule Vitamin D 14920H U Oral Capsule Vitamin D 54981PK Oral Capsule 03/05/2021 12:00:00 AM EDT 1 CAPSULE BY MOUTH active <td>Vitamin D 89798WJ Oral Capsule</td><td>03/05/2021</td><td>Unknown</td><td>BY MOUTH</td><td>Once a Week</td><td>1 CAPSULE</td><td>5346288</td><td>RxNorm</td><td>TAKE 1 CAPSULE BY MOUTH Once a Week</td> [facility] montelukast 10 MG Oral Tablet Montelukast Sodium 10MG Oral Tablet Montelukast Sodium 10MG Oral Tablet 03/01/2021 12:00:00 AM EDT 10 MILLIGRAMS ORAL active <td>Montelukast Sodi um 10MG Oral Tablet</td><td>03/01/2021</td><td>Unknown</td><td>ORAL</td><td>DAILY</td><td>10 MILLIGRAMS</td><td>20011111</td><td>RxNorm</td><td>TAKE 10 MILLIGRAMS ORAL DAILY </td> [facility] Albuterol 0.83 MG/ML Inhalant Solution A lbuterol Sulfate 0.083% Inhalation Solution Albuterol Sulfate 0.083% Inhalation Solution 12:00:00 AM EDT 2 mL INHALATION active <td>A lbuterol Sulfate 0.083% Inhalation Solution</td><td>03/01/2021</td><td>Unknown</td><td>INHALATION</td><td> NEEDED EVERY 4 HR</td><td>2 PUFF</td><td>023017</td><td>RxNorm</td><td>PUFF 2 PUFF INHALATION NEEDED EVERY 4 HR</td> [facility] Omeprazole 20 MG Delayed Release Oral Ca psule Omeprazole 20MG Oral Capsule, Delayed Release Omeprazole 20MG Oral Capsule, Delayed Release 03/01/20 12:00:00 AM EDT 20 MILLIGRAMS ORAL active <td>Omeprazole 20MG Oral Capsule, Delayed Release</td><td>03/01/2021</td><td>Unknown</td><td>ORAL</td><td>DAILY</td><td>20 MILLIGRAMS</td><td>624808</td><td>RxNorm</td><td>TAKE 20 MILLIGRAMS ORAL DAILY</td> [facility] Meclizine Hydrochloride 25 MG Oral Tablet Meclizine HC l 25MG Oral Tablet Meclizine HCl 25MG Oral Tablet 03/01/2021 12:00:00 AM EDT 25 MIL LIGRAM BY MOUTH active <td>Meclizine HCl 25MG Oral Tablet</td><td>03/01/2021</td><td>Unknown</td><td>BY MOUTH</td><td>PRNTID</td><td>25 MILLIGRAM</td><td>845489</td><td>RxNorm</td><td> TAKE 25 MILLIGRAM BY MOUTH PRNTID FOR dizziness</td> [facility] Flonase 0.05MG/Actuation Nasal [place] 03/01/2021 12:00:00 AM EDT 2 mL active <td>Flonase 0.05MG/A ctuation Nasal [place]</td><td>03/01/2021</td><td>Unknown</td><td>BOTH NARES</td><td>TWICE A DAY</td><td>2 SPRAY</td><td>2359237</td><td>RxNorm</td><td>2 SPRAY BOTH NARES TWICE A DAY</td> [facility] Flonase 0.05MG/Actuation Nasal [place] 03/01/2021 12:00:00 AM EDT 2 mL active <td>Flonase 0.05MG/A ctuation Nasal [place]</td><td>03/01/2021</td><td>Unknown</td><td>BOTH NARES</td><td>TWICE A DAY</td><td>2 SPRAY</td><td>3761598</td><td>RxNorm</td><td>2 SPRAY BOTH NARES TWICE A DAY</td> [facility] Omeprazole 20 MG Delayed Release Oral Ca psule Omeprazole 20MG Oral Capsule, Delayed Release Omeprazole 20MG Oral Capsule, Delayed Release 03/01/20 12:00:00 AM EDT 20 MILLIGRAMS ORAL active <td>Omeprazole 20MG Oral Capsule, Delayed Release</td><td>03/01/2021</td><td>Unknown</td><td>ORAL</td><td>DAILY</td><td>20 MILLIGRAMS</td><td>982932</td><td>RxNorm</td><td>TAKE 20 MILLIGRAMS ORAL DAILY</td> [facility] Levothyroxine Sodium 0.075 MG Oral Tablet Levothyroxin e 75MCG Oral Tablet Levothyroxine 75MCG Oral Tablet 03/01/2021 12:00:00 AM EDT 75 ug O RAL active <td>Levothyroxine 75 MCG Oral Tablet</td><td>03/01/2021</td><td>Unknown</td><td>ORAL</td><td>DAILY</td><td>75 MCG</td><td>304054</td><td>RxNorm</td><td>TAKE 75 MCG ORAL DAILY</td> [facility] montelukast 10 MG Oral Tablet Montelukast Sodium 10MG Oral Tablet Montelukast Sodium 10MG Oral Tablet 03/01/2021 12:00:00 AM EDT 10 MILLIGRAMS ORAL active <td>Montelukast Sodi um 10MG Oral Tablet</td><td>03/01/2021</td><td>Unknown</td><td>ORAL</td><td>DAILY</td><td>10 MILLIGRAMS</td><td>20011111</td><td>RxNorm</td><td>TAKE 10 MILLIGRAMS ORAL DAILY </td> [facility] Omeprazole 20 MG Delayed Release Oral Ca psule Omeprazole 20MG Oral Capsule, Delayed Release Omeprazole 20MG Oral Capsule, Delayed Release 03/01/20 12:00:00 AM EDT 20 MILLIGRAMS ORAL active <td>Omeprazole 20MG Oral Capsule, Delayed Release</td><td>03/01/2021</td><td>Unknown</td><td>ORAL</td><td>DAILY</td><td>20 MILLIGRAMS</td><td>19800206</td><td>RxNorm</td><td>TAKE 20 MILLIGRAMS ORAL DAILY</td> [facility] Flonase 0.05MG/Actuation Nasal [place] 03/01/2021 12:00:00 AM EDT 2 mL active <td>Flonase 0.05MG/A ctuation Nasal [place]</td><td>03/01/2021</td><td>Unknown</td><td>BOTH NARES</td><td>TWICE A DAY</td><td>2 SPRAY</td><td>4989377</td><td>RxNorm</td><td>2 SPRAY BOTH NARES TWICE A DAY</td> [facility] Meclizine Hydrochloride 25 MG Oral Tablet Meclizine HC l 25MG Oral Tablet Meclizine HCl 25MG Oral Tablet 03/01/2021 12:00:00 AM EDT 25 MIL LIGRAM BY MOUTH active <td>Meclizine HCl 25MG Oral Tablet</td><td>03/01/2021</td><td>Unknown</td><td>BY MOUTH</td><td>PRNTID</td><td>25 MILLIGRAM</td><td>421990</td><td>RxNorm</td><td> TAKE 25 MILLIGRAM BY MOUTH PRNTID FOR dizziness</td> [facility] Meclizine Hydrochloride 25 MG Oral Tablet Meclizine HC l 25MG Oral Tablet Meclizine HCl 25MG Oral Tablet 03/01/2021 12:00:00 AM EDT 25 MIL LIGRAM BY MOUTH active <td>Meclizine HCl 25MG Oral Tablet</td><td>03/01/2021</td><td>Unknown</td><td>BY MOUTH</td><td>PRNTID</td><td>25 MILLIGRAM</td><td>500322</td><td>RxNorm</td><td> TAKE 25 MILLIGRAM BY MOUTH PRNTID FOR dizziness</td> [facility] Levothyroxine Sodium 0.075 MG Oral Tablet Levothyroxin e 75MCG Oral Tablet Levothyroxine 75MCG Oral Tablet 03/01/2021 12:00:00 AM EDT 75 ug O RAL active <td>Levothyroxine 75 MCG Oral Tablet</td><td>03/01/2021</td><td>Unknown</td><td>ORAL</td><td>DAILY</td><td>75 MCG</td><td>497954</td><td>RxNorm</td><td>TAKE 75 MCG ORAL DAILY</td> [facility] Omeprazole 20 MG Delayed Release Oral Ca psule Omeprazole 20MG Oral Capsule, Delayed Release Omeprazole 20MG Oral Capsule, Delayed Release 03/01/20 12:00:00 AM EDT 20 MILLIGRAMS ORAL active <td>Omeprazole 20MG Oral Capsule, Delayed Release</td><td>03/01/2021</td><td>Unknown</td><td>ORAL</td><td>DAILY</td><td>20 MILLIGRAMS</td><td>646395</td><td>RxNorm</td><td>TAKE 20 MILLIGRAMS ORAL DAILY</td> [facility] Albuterol 0.83 MG/ML Inhalant Solution A lbuterol Sulfate 0.083% Inhalation Solution Albuterol Sulfate 0.083% Inhalation Solution 12:00:00 AM EDT 2 mL INHALATION active <td>A lbuterol Sulfate 0.083% Inhalation Solution</td><td>03/01/2021</td><td>Unknown</td><td>INHALATION</td><td> NEEDED EVERY 4 HR</td><td>2 PUFF</td><td>036160</td><td>RxNorm</td><td>PUFF 2 PUFF INHALATION NEEDED EVERY 4 HR</td> [facility] Meclizine Hydrochloride 25 MG Oral Tablet Meclizine HC l 25MG Oral Tablet Meclizine HCl 25MG Oral Tablet 03/01/2021 12:00:00 AM EDT 25 MIL LIGRAM BY MOUTH active <td>Meclizine HCl 25MG Oral Tablet</td><td>03/01/2021</td><td>Unknown</td><td>BY MOUTH</td><td>PRNTID</td><td>25 MILLIGRAM</td><td>[id number]</td><td>RxNorm</td><td> TAKE 25 MILLIGRAM BY MOUTH PRNTID FOR dizziness</td> [facility] Levothyroxine Sodium 0.075 MG Oral Tablet Levothyroxin e 75MCG Oral Tablet Levothyroxine 75MCG Oral Tablet 03/01/2021 12:00:00 AM EDT 75 ug O RAL active <td>Levothyroxine 75 MCG Oral Tablet</td><td>03/01/2021</td><td>Unknown</td><td>ORAL</td><td>DAILY</td><td>75 MCG</td><td>[id number]</td><td>RxNorm</td><td>TAKE 75 MCG ORAL DAILY</td> [facility] Levothyroxine Sodium 0.075 MG Oral Tablet Levothyroxin e 75MCG Oral Tablet Levothyroxine 75MCG Oral Tablet 03/01/2021 12:00:00 AM EDT 75 ug O RAL active <td>Levothyroxine 75 MCG Oral Tablet</td><td>03/01/2021</td><td>Unknown</td><td>ORAL</td><td>DAILY</td><td>75 MCG</td><td>[id number]</td><td>RxNorm</td><td>TAKE 75 MCG ORAL DAILY</td> [facility] Meclizine Hydrochloride 25 MG Oral Tablet Meclizine HC l 25MG Oral Tablet Meclizine HCl 25MG Oral Tablet 03/01/2021 12:00:00 AM EDT 25 MIL LIGRAM BY MOUTH active <td>Meclizine HCl 25MG Oral Tablet</td><td>03/01/2021</td><td>Unknown</td><td>BY MOUTH</td><td>PRNTID</td><td>25 MILLIGRAM</td><td>[id number]</td><td>RxNorm</td><td> TAKE 25 MILLIGRAM BY MOUTH PRNTID FOR dizziness</td> [facility] Flonase 0.05MG/Actuation Nasal [place] 03/01/2021 12:00:00 AM EDT 2 mL active <td>Flonase 0.05MG/A ctuation Nasal [place]</td><td>03/01/2021</td><td>Unknown</td><td>BOTH NARES</td><td>TWICE A DAY</td><td>2 SPRAY</td><td>[id number]</td><td>RxNorm</td><td>2 SPRAY BOTH NARES TWICE A DAY</td> [facility] Albuterol 0.83 MG/ML Inhalant Solution A lbuterol Sulfate 0.083% Inhalation Solution Albuterol Sulfate 0.083% Inhalation Solution 12:00:00 AM EDT 2 mL INHALATION active <td>A lbuterol Sulfate 0.083% Inhalation Solution</td><td>03/01/2021</td><td>Unknown</td><td>INHALATION</td><td> NEEDED EVERY 4 HR</td><td>2 PUFF</td><td>[id number]</td><td>RxNorm</td><td>PUFF 2 PUFF INHALATION NEEDED EVERY 4 HR</td> [facility] Meclizine Hydrochloride 25 MG Oral Tablet Meclizine HC l 25MG Oral Tablet Meclizine HCl 25MG Oral Tablet 03/01/2021 12:00:00 AM EDT 25 MIL LIGRAM BY MOUTH active <td>Meclizine HCl 25MG Oral Tablet</td><td>03/01/2021</td><td>Unknown</td><td>BY MOUTH</td><td>PRNTID</td><td>25 MILLIGRAM</td><td>[id number]</td><td>RxNorm</td><td> TAKE 25 MILLIGRAM BY MOUTH PRNTID FOR dizziness</td> [facility] Albuterol 0.83 MG/ML Inhalant Solution A lbuterol Sulfate 0.083% Inhalation Solution Albuterol Sulfate 0.083% Inhalation Solution 12:00:00 AM EDT 2 mL INHALATION active <td>A lbuterol Sulfate 0.083% Inhalation Solution</td><td>03/01/2021</td><td>Unknown</td><td>INHALATION</td><td> NEEDED EVERY 4 HR</td><td>2 PUFF</td><td>[id number]</td><td>RxNorm</td><td>PUFF 2 PUFF INHALATION NEEDED EVERY 4 HR</td> [facility] montelukast 10 MG Oral Tablet Montelukast Sodium 10MG Oral Tablet Montelukast Sodium 10MG Oral Tablet 03/01/2021 12:00:00 AM EDT 10 MILLIGRAMS ORAL active <td>Montelukast Sodi um 10MG Oral Tablet</td><td>03/01/2021</td><td>Unknown</td><td>ORAL</td><td>DAILY</td><td>10 MILLIGRAMS</td><td>[id number]</td><td>RxNorm</td><td>TAKE 10 MILLIGRAMS ORAL DAILY </td> [facility] montelukast 10 MG Oral Tablet Montelukast Sodium 10MG Oral Tablet Montelukast Sodium 10MG Oral Tablet 03/01/2021 12:00:00 AM EDT 10 MILLIGRAMS ORAL active <td>Montelukast Sodi um 10MG Oral Tablet</td><td>03/01/2021</td><td>Unknown</td><td>ORAL</td><td>DAILY</td><td>10 MILLIGRAMS</td><td>[id number]</td><td>RxNorm</td><td>TAKE 10 MILLIGRAMS ORAL DAILY </td> [facility] montelukast 10 MG Oral Tablet Montelukast Sodium 10MG Oral Tablet Montelukast Sodium 10MG Oral Tablet 03/01/2021 12:00:00 AM EDT 10 MILLIGRAMS ORAL active <td>Montelukast Sodi um 10MG Oral Tablet</td><td>03/01/2021</td><td>Unknown</td><td>ORAL</td><td>DAILY</td><td>10 MILLIGRAMS</td><td>[id number]</td><td>RxNorm</td><td>TAKE 10 MILLIGRAMS ORAL DAILY </td> [facility] Levothyroxine Sodium 0.075 MG Oral Tablet Levothyroxin e 75MCG Oral Tablet Levothyroxine 75MCG Oral Tablet 03/01/2021 12:00:00 AM EDT 75 ug O RAL active <td>Levothyroxine 75 MCG Oral Tablet</td><td>03/01/2021</td><td>Unknown</td><td>ORAL</td><td>DAILY</td><td>75 MCG</td><td>527954</td><td>RxNorm</td><td>TAKE 75 MCG ORAL DAILY</td> [facility] Omeprazole 20 MG Delayed Release Oral Ca psule Omeprazole 20MG Oral Capsule, Delayed Release Omeprazole 20MG Oral Capsule, Delayed Release 03/01/20 12:00:00 AM EDT 20 MILLIGRAMS ORAL active <td>Omeprazole 20MG Oral Capsule, Delayed Release</td><td>03/01/2021</td><td>Unknown</td><td>ORAL</td><td>DAILY</td><td>20 MILLIGRAMS</td><td>407287</td><td>RxNorm</td><td>TAKE 20 MILLIGRAMS ORAL DAILY</td> [facility] Flonase 0.05MG/Actuation Nasal [place] 03/01/2021 12:00:00 AM EDT 2 mL active <td>Flonase 0.05MG/A ctuation Nasal [place]</td><td>03/01/2021</td><td>Unknown</td><td>BOTH NARES</td><td>TWICE A DAY</td><td>2 SPRAY</td><td>1450674</td><td>RxNorm</td><td>2 SPRAY BOTH NARES TWICE A DAY</td> [facility] Flonase 0.05MG/Actuation Nasal [place] 03/01/2021 12:00:00 AM EDT 2 mL active <td>Flonase 0.05MG/A ctuation Nasal [place]</td><td>03/01/2021</td><td>Unknown</td><td>BOTH NARES</td><td>TWICE A DAY</td><td>2 SPRAY</td><td>3794721</td><td>RxNorm</td><td>2 SPRAY BOTH NARES TWICE A DAY</td> [facility] Levothyroxine Sodium 0.075 MG Oral Tablet Levothyroxin e 75MCG Oral Tablet Levothyroxine 75MCG Oral Tablet 03/01/2021 12:00:00 AM EDT 75 ug O RAL active <td>Levothyroxine 75 MCG Oral Tablet</td><td>03/01/2021</td><td>Unknown</td><td>ORAL</td><td>DAILY</td><td>75 MCG</td><td>535961</td><td>RxNorm</td><td>TAKE 75 MCG ORAL DAILY</td> [facility] Albuterol 0.83 MG/ML Inhalant Solution A lbuterol Sulfate 0.083% Inhalation Solution Albuterol Sulfate 0.083% Inhalation Solution 12:00:00 AM EDT 2 mL INHALATION active <td>A lbuterol Sulfate 0.083% Inhalation Solution</td><td>03/01/2021</td><td>Unknown</td><td>INHALATION</td><td> NEEDED EVERY 4 HR</td><td>2 PUFF</td><td>352166</td><td>RxNorm</td><td>PUFF 2 PUFF INHALATION NEEDED EVERY 4 HR</td> [facility] montelukast 10 MG Oral Tablet Montelukast Sodium 10MG Oral Tablet Montelukast Sodium 10MG Oral Tablet 03/01/2021 12:00:00 AM EDT 10 MILLIGRAMS ORAL active <td>Montelukast Sodi um 10MG Oral Tablet</td><td>03/01/2021</td><td>Unknown</td><td>ORAL</td><td>DAILY</td><td>10 MILLIGRAMS</td><td>[id number]</td><td>RxNorm</td><td>TAKE 10 MILLIGRAMS ORAL DAILY </td> [facility] Omeprazole 20 MG Delayed Release Oral Ca psule Omeprazole 20MG Oral Capsule, Delayed Release Omeprazole 20MG Oral Capsule, Delayed Release 03/01/20 12:00:00 AM EDT 20 MILLIGRAMS ORAL active <td>Omeprazole 20MG Oral Capsule, Delayed Release</td><td>03/01/2021</td><td>Unknown</td><td>ORAL</td><td>DAILY</td><td>20 MILLIGRAMS</td><td>[id number]</td><td>RxNorm</td><td>TAKE 20 MILLIGRAMS ORAL DAILY</td> [facility] Albuterol 0.83 MG/ML Inhalant Solution A lbuterol Sulfate 0.083% Inhalation Solution Albuterol Sulfate 0.083% Inhalation Solution 12:00:00 AM EDT 2 mL INHALATION active <td>A lbuterol Sulfate 0.083% Inhalation Solution</td><td>03/01/2021</td><td>Unknown</td><td>INHALATION</td><td> NEEDED EVERY 4 HR</td><td>2 PUFF</td><td>358216</td><td>RxNorm</td><td>PUFF 2 PUFF INHALATION NEEDED EVERY 4 HR</td> [facility] benzonatate 100 MG Oral Capsule [Tessalo n Perles] Tessalon Perles 100MG Oral Capsule, Liquid Filled Tessalon Perles 100MG Oral Capsule, Liquid Filled 02/15/2021 12:00:00 AM EDT 1 CAPSULE BY MOUTH active <td>Tessalon Perles 100MG Oral Capsule, Liquid Filled</td><td>02/15/2021</td><td>Unknown</td><td>BY MOUTH</td><td>EVERY 8HR</td><td>1 CAPSULE</td><td>786970</td><td>RxNorm</td><td>TAKE 1 CAPSULE BY MOUTH EVERY 8HR</td> [facility] benzonatate 100 MG Oral Capsule [Tessalo n Perles] Tessalon Perles 100MG Oral Capsule, Liquid Filled Tessalon Perles 100MG Oral Capsule, Liquid Filled 02/15/2021 12:00:00 AM EDT 1 CAPSULE BY MOUTH active <td>Tessalon Perles 100MG Oral Capsule, Liquid Filled</td><td>02/15/2021</td><td>Unknown</td><td>BY MOUTH</td><td>EVERY 8HR</td><td>1 CAPSULE</td><td>153933</td><td>RxNorm</td><td>TAKE 1 CAPSULE BY MOUTH EVERY 8HR</td> [facility] Prednisone 20 MG Oral Tablet predniSONE 20MG Oral Tabl et predniSONE 20MG Oral Tablet 02/12/2021 12:00:00 AM EDT 2 TABLET BY MOUTH active <td>predniSONE 20MG Oral Tablet</td><td>02/12/2021</td><td>Unknown</td><td>BY MOUTH</td><td>DAILY</td><td>2 TABLET</td><td>830881</td><td>RxNorm</td><td>TAKE 2 TABLET BY MOUTH DAILY FOR THE NEXT THREE DAYS</td> [facility] Prednisone 20 MG Oral Tablet predniSONE 20MG Oral Tabl et predniSONE 20MG Oral Tablet 02/12/2021 12:00:00 AM EDT 2 TABLET BY MOUTH active <td>predniSONE 20MG Oral Tablet</td><td>02/12/2021</td><td>Unknown</td><td>BY MOUTH</td><td>DAILY</td><td>2 TABLET</td><td>325536</td><td>RxNorm</td><td>TAKE 2 TABLET BY MOUTH DAILY FOR THE NEXT THREE DAYS</td> [facility] Prednisone 10 MG Oral Tablet Prednisone 02/10/2021 12:00:00 AM EDT ORAL completed [facility] ([facility], ) Covid-19 vaccine, Unspecified 12/13/2020 12:00:00 AM EST completed [facility] ([facility], ) Medication administered onsite Azithromycin 500 MG Oral Tablet Azithromycin 10/11/2020 12:00:[address] ORAL active [facility] ([facility], ) Prednisone 10 MG Oral Tablet Prednisone 10/11/2020 12:00:00 AM EST ORAL completed [facility] ([facility], ) 120 ACTUAT mometasone furoate 0.2 MG/ACTUAT Dry Powder Inhaler [Asmanex] Asmanex Twisthaler 120 Metered Doses 09/14/2020 12:00:00 AM EST ORAL active [facility] ([facility], ) 120 ACTUAT Fluticasone propionate 0.22 MG/ACTUAT Meter ed Dose Inhaler [Flovent] Flovent HFA 08/04/2020 12:00:00 AM EDT RESPIRATORY compl eted [facility] ([facility], ) Prednisone 10 MG Oral Tablet Prednisone 08/04/2020 12:00:00 AM EDT completed [facility] ([facility], ) Insurance Providers Payer name Policy type / Coverage type Policy ID Covered republican ID Covered republican's relationship to rogers Policy Rogers Plan Information OTHER B [id number] Self [id number] P[employer] Ins (WC) Workers Compensation [id number] Self [id number] Medicaid [facility] Part B [id number] [id number] Self [id number] Medicaid [facility] Part B [id number] [id number] Self [id number] Medicaid [facility] Part B [id number] [id number] Self [id number] MEDICARE A [id number] Self [id number] A [id number] A MEDICARE [id number] SP [id number] MEDICARE [id number] SP [id number] A MEDICARE [id number] SP [id number] [place] Med[place] Part B [id number] Self 2 [id number] Medicare [facility] Part B [id number] Self 2 [id number] [place] Med[place] Part B [id number] Self 2 [id number] MEDICAID M [id number] Self [id number] [facility] [id number] SP [id number] [facility] Medicare Advantage Commercial [id number] Self [id number] [facility] Medicare Commercial [id number] Self [id number] MEDICAID [id number] SP [id number] Medicaid [place] Medigap Part [place] [id number] 96861.0 Self [id number] [facility] MEDICARE [id number] SP [id number] [facility] MMC [id number] und efined [id number] [facility] [id number] undefin ed [id number] [facility] [id number] [facility] [id number] Medicare [facility] Medicare Primary [id number] Self [id number] [facility] Medigap Part B [id number] Self [id number] Medicaid [place] Med[place] Part B [id number] .[id number] Self [id number] Workers Comp (WC) Workers Compensation [id number] Self [id number] [facility] Medigap Part B [id number] Self [id number] [employer] PRG-Vacaa Medigap Part B [id number] Self 1 [id number] [employer] [id number] undefined [id number] Medicaid Medicaid [id number] S elf [id number] [facility] Dual Plan Commercial [id number] Self [id number] [place] Med[place] [id number] .[id number] .[id number] Self [id number] [place]/[facility] Medicare Primary [id number] Self [id number] [facility] Health Maintenance Organization (HMO) [id number] Self [id number] [facility] DUAL COMPLET MCRADVANT [id number] S [id number] MEDICAID [id number] SP [id number] ADMINISTRATION [id number] SP [id number] [facility]) O [id number] S [id number] MEDICAID M [id number] S [id number] Medicaid [place] Medigap Part B [id number] .[id number] Self [id number] [facility](Medicare) Commercial [id number] Self [id number] Workers Comp (WC) Workers Compensation [id number] Self [id number] [employer] [facility] O [id number] S [id number] [employer]acaa Medigap Part B [id number] Self 1 [id number] MEDICARE-OP [id number] undefined [id number] [place] Part B [id number]. 84054.0 Self [id number] [place] Part B [id number] .[id number] Self [id number] Medicare [facility] Medicare Primary [id number] Self [id number] [facility] DUAL COMPLETE O [id number] S [id number] Workers Comp (WC) Workers Compensation [id number] Self [id number] [employer] [place] CCN [id number] SP [id number] [employer] Medigap Part B [id number] Self 1 [id number] [facility] [id number] SP [id number] Medicaid [place] Med[place] Part B [id number] 73978.0 Self [id number] [facility] MCRO [id number] SP [id number] [facility] DUAL COMPLET [place] [id number] S [id number] [facility] [id number] SP [id number] [place] [id number] Self [id number] [place]/[facility] Medicare Primary [id number] Self [id number] Medicaid Medigap Part B [id number] Self [id number] Medicare (Part B) Medicare Primary [id number] Self 2 [id number] MEDICARE C [id number] S [id number] A [facility] C [id number] S [id number] [facility] [id number] undefined [id number] [employer] [id number] S [id number] [facility] [id number] undefi any [id number] [place] Med[place] Part B [id number] Self [id number] Medicare [place] Medicare Primary [id number] Self [id number] MEDICAID [id number] SP [id number] [facility] ADMINISTRATION-OP [id number] undefined [id number] [facility] [id number] S [id number] [facility] [id number] S [id number] [employer] Medicare Commercial [id number] Self [id number] [facility] [id number] undefined [id number] MEDICARE COMPLETE [id number] SP [id number] MEDICARE COMPLETE [id number] SP [id number] [facility]INIC [id number] undefined [id number] [facility] UT-OP [id number] undefined [id number] [facility] [id number] undefined [id number] Problems, Conditions, and Diagnoses Code Display Name Description Problem Type Effective Dates Data Source(s) T59194 Encounter for observation fo r suspected exposure to other biological agents ruled out Encounter for observation for suspected exposure to other biological agents ruled out Diagnosis 07/28/2021 01:29:00 PM EDT [facility] R5383 Other fatigue Other fatigue Diagnosis 07/28/2021 11:36:00 AM EDT [facility] R059 Cough, unspecified Cough, unspecified Diagnosis 11:36:00 AM EDT [facility] R0602 Shortness of breath Shortness of breath Diagnosis 1 11:36:00 AM EDT [facility] E33509 Unspecified asthma with (acute) exacerba tion Unspecified asthma with (acute) exacerbation Diagnosis 07/28/2021 11:36:00 AM T [facility] J9801 Acute bronchospasm Acute bronchospasm Diagnosis 11:39:00 AM EDT [facility] R030 Elevated blood-pressure reading, without diagnosis of hypertension Elevated blood-pressure reading, without diagnosis of hypertension Diagnosis 07/12/2021 12:21:00 PM EDT [facility] I10 Essential (primary) hypertension Essential (primary) h ypertension Diagnosis 07/12/2021 12:21:00 PM [facility] O67360 Unspecified asthma, uncomplicated Unspecified as thma, uncomplicated Diagnosis 07/12/2021 11:47:00 AM [facility] C21979 Other muscle spasm Other muscle spasm Diagnosis 02/2021 11:47:00 AM [facility] J45.991 Cough variant asthma COUGH VARIANT ASTHMA Diagnosis 06/08/2021 03:15:00 PM [facility] Z20.822 CONTACT WITH AND (SUSPECTED) EXPOSURE TO COVID-19 CONTACT WITH AND (SUSPECTED) EXPOSURE TO COVID-19 Diagnosis 06/03/2021 11:56:00 AM [facility] Z01.812 Encounter for preprocedural laboratory e xamination ENCOUNTER FOR PREPROCEDURAL LABORATORY EXAMINATION Diagnosis 06/03/2021 11:56:00 AM [facility] R05 Cough Cough Diagnosis 06/01/2021 07:42:00 PM ED T [facility] E559 Vitamin D deficiency, unspecified Vitamin D defi ciency, unspecified Diagnosis 05/26/2021 10:43:00 AM T [facility] E039 Hypothyroidism, unspecified Hypothyroidism, unspecifie d Diagnosis 05/26/2021 10:43:00 AM [facility] E785 Hyperlipidemia, unspecified Hyperlipidemia, unspecifie d Diagnosis 05/26/2021 10:43:00 AM [facility] R42 Dizziness and giddiness Dizziness and giddiness Diagno sis 05/26/2021 10:43:00 AM EDT [facility] R197 Diarrhea, unspecified Diarrhea, unspecified Diagnosis 05/26/2021 10:43:00 AM EDT [facility] J4550 Severe persistent asthma, uncomplicated Severe persistent asthma, uncomplicated Diagnosis 05/20/2021 01:17:00 PM EDT [facility] B91202 Migraine, unspecified, not intractable, without status migrainosus Migraine, unspecified, not intractable, without status migrainosus Diagnosis 04/27/2021 09:31:00 AM EDT [facility] Z1389 Encounter for screening for other disord er Encounter for screening for other disorder Diagnosis 03/05/2021 11:12:00 AM EDT [facility] G4762 Sleep related leg cramps Sleep related leg cramps Diag nosis 03/04/2021 12:11:00 PM EDT [facility] J4551 Severe persistent asthma with (acute) ex acerbation Severe persistent asthma with (acute) exacerbation Diagnosis 03/04/2021 12:11:00 PM EDT [facility] Z131 Encounter for screening for diabetes grace litus Encounter for screening for diabetes mellitus Diagnosis 03/01/2021 11:42:00 AM EDT [facility] R309 Painful micturition, unspecified Painful micturi tion, unspecified Diagnosis 02/14/2021 01:54:00 PM EDT [facility] R319 Hematuria, unspecified Hematuria, unspecified Diagnosi s 02/14/2021 01:54:00 PM EDT [facility] Z7722 Contact with and (suspected) exposure to environmental tobacco smoke (acute) (chronic) Contact with and (suspected) exposure to environmental tobacco smoke (acute) (chronic) Diagnosis 02/12/2021 03:01:00 PM EDT [facility] J4541 Moderate persistent asthma with (acute) exacerbation Moderate persistent asthma with (acute) exacerbation Diagnosis 02/12/2021 03:01:00 PM EDT [facility] J4531 Mild persistent asthma with (acute) exac erbation Mild persistent asthma with (acute) exacerbation Diagnosis 08/25/2020 01:21:00 PM EST [facility] R001 Bradycardia, unspecified Bradycardia, unspecified Diag nosis 06/22/2020 02:16:00 PM EDT [facility] J45.50 Uncomplicated severe persistent asthma U ncomplicated severe persistent asthma Problem 08/04/2020 12:00:00 AM EDT [facility] ([facility]) Surgeries/Procedures Procedure Description Date Indications Data Source(s) Spirometry 06/03/2021 12:00:00 AM EDT [facility] ([facility]) OFFICE OUTPATIENT VISIT 25 MINUTES 06/03/2021 12:00:00 AM EDT [facility] ([facility]) Spirometry 04/13/2021 12:00:00 AM EDT [facility] ([facility]) OFFICE OUTPATIENT VISIT 25 MINUTES 04/13/2021 12:00:00 AM EDT [facility] ([facility]) Spirometry 03/15/2021 12:00:00 AM EDT [facility] ([facility]) OFFICE OUTPATIENT VISIT 25 MINUTES 03/15/2021 12:00:00 AM EDT [facility] ([facility]) Spirometry 02/10/2021 12:00:00 AM EDT M [facility]ENT ([facility]) OFFICE OUTPATIENT VISIT 15 MINUTES 02/10/2021 12:00:00 AM EDT [facility] ([facility]) Spirometry 10/11/2020 12:00:00 AM EST [facility] ([facility]) Bronchospasm Evaluation 09/14/2020 12:00:00 AM EST [facility] ([facility]) Maximum Breathing Capacity, Maximal Voluntary Ventilation 09/14/2020 12:00:00 AM EST [facility] ([facility]) Plethysmography Determination Lung Volumes & Per Airway Resi st 09/14/2020 12:00:00 AM EST [facility] ([facility]) DIFFUSING CAPACITY 09/14/2020 12:00:00 AM EST [facility] ([facility]) Spirometry 08/04/2020 12:00:00 AM EDT M [facility] ([facility]) Results ID Date Data Source [id number] 07/28/2021 12:10:00 PM EDT [facility] Name Value Range Interpretation Code Description Data Alexandra rce(s) Supporting Document(s) SARS-CoV-2 RNA Nph Ql SOCORRO+non-probe NOT DETECTED [facility] This lab was ordered by [facility] MANUEL MIDDLE[facility] and reported by [facility]. ID Date Data Source [id number] 07/28/2021 12:10:00 PM EDT [facility] Name Value Range Interpretation Code Description Data Alexandra rce(s) Supporting Document(s) RESP PROFILE RP2.1 NASAL PCR [facility] \\BLDo\\RESPIRATORY PROFILE NASAL PHARYNGEAL BY PCR\\BLDx\\ \\BLDo\\DETECTED _NONE \\BLDx\\ 07/28/21.1436.[facility]. \\BLDo\\EQUIVOCAL _NONE \\BLDx\\ 07/28/21.1436.[facility]. VIRUSES ADENOVIRUS NOT DETECTED NORMAL: NOT DETECTED [facility] CORONAVIRUS 229E NOT DETECTED NORMAL: NOT DETECTED [facility] CORONAVIRUS HKU1 NOT DETECTED NORMAL: NOT DETECTED [facility] CORONAVIRUS NL63 NOT DETECTED NORMAL: NOT DETECTED [facility] CORONAVIRUS OC43 NOT DETECTED NORMAL: NOT DETECTED [facility] 77054-0 NOT DETECTED NORMAL: NOT DETECTED [facility] REPORT TO DEPARTMENT OF HEAL TH HUMAN METAPNEUMO NOT DETECTED NORMAL: NOT DETECTED [facility] HUMAN RHINO/ENTERO NOT DETECTED NORMAL: NOT DETECTED [facility] NOT DETECTEDNOT DETECTEDNOT DETECTEDNOT DETECTED PARAINFLUENZA V3 NOT DETECTED NORMAL: NOT DETECTED [facility] NOT DETECTED RSV NOT DETECTED NORMAL: NOT DETECTED [facility] BACTERIANOT DET ECTEDNOT DETECTEDNOT DETECTEDNOT DETECTED TESTING PERFORMED USING THE Indelsul RP2.1 MULTIPLEXED NUCLEIC ACID TEST. THIS TEST HAS NOT BEEN FDA CLEARED OR APPROVED; THIS TEST HAS BEEN AUTHORIZED BY FDA UNDER AN EUA FOR USE BY AUTHORIZED LABORATORIES; THIS TEST HAS BEEN AUTHORIZED ONLY FOR THE DETECTION AND DIFFERENTATION OF NUCLEI ACID OF SARS-CoV-2 FROM MULTIPLE RESPIRATORY VIRAL AND BACTERIAL ORGANIMS; AND THIS TEST IS ONLY AUTHORIZED FOR THE DURATION OF THE DECLARATION THAT CIRCUMSTANCES EXIST JUSTIFYING THE AUTHORIZATION OF EMERGENCY USE OF IN VITRO DIAGNOSTIC TESTS FOR THE DETECTION AND/OR DIAGNOSIS OF COVID-19 UNDER SECTION 564(b)(1) OF THE ACT, 21 U.S.C. 360bbb-3(b) (1), UNLESS THE AUTHORIZATION IS TERMINATED OR REVOKED SOONER. ID Date Data Source [id number] 07/12/2021 12:25:00 PM EDT [facility] Name Value Range Interpretation Code Description Data Alexandra rce(s) Supporting Document(s) Theophylline [Mass/volume] in Serum or Plasma 1.2 ug/mL 10 .0 - 20.0 Below low normal [facility] \\BLDo\\THEOPHY LLINE TOXIC LEVEL\\BLDx\\ THEOPHYLLINE LEVELS ABOVE 20.0 mcg/mL MAY BE TOXIC. ID Date Data Source [id number] 07/12/2021 12:25:00 PM EDT [facility] Name Value Range Interpretation Code Description Data Alexandra rce(s) Supporting Document(s) Magnesium [Mass/volume] in Serum or Plasma 2.2 mg/dL 1.8 - 2.4 [facility] ID Date Data Source [id number] 07/12/2021 12:25:00 PM EDT [facility] Name Value Range Interpretation Code Description Data Alexandra rce(s) Supporting Document(s) COMPREHENSIVE CHEM PROFILE [facility] COMPREHENSIVE METABOLIC PANEL Sodium [Moles/volume] in Serum or Plasma 144 mEq/L 136 - 145 [facility] Potassium [Moles/volume] in Serum or Plasma 4.6 mEq/L 3.5 - 5.1 [facility] Chloride [Moles/volume] in Serum or Plasma 105 mEq/L 98 - 107 [facility] Carbon dioxide, total [Moles/volume] in Serum or Plasma 29.8 mEq /L 21.0 - 32.0 [facility] Glucose [Mass/volume] in Serum or Plasma 98 mg/dL 70 - 100 [facility] Urea nitrogen [Mass/volume] in Serum or Plasma 19 mg/dL 7 - 18 Above high normal [facility] CREATININE SERUM 1.06 mg/dL 0.70 - 1.30 [facility] AGE 51 yrs [facility] l HEIGHT R [facility] l eGFR NON-AFR AMR >60 [facility] eGFR AFR AMR >60 [facility] ital BUN/CREAT 18 6 - 25 [facility] l Protein [Mass/volume] in Serum or Plasma 6.5 g/dL 6.0 - 8.3 [facility] Albumin [Mass/volume] in Serum or Plasma 3.6 g/dL 3.8 - 5.4 Below low normal [facility] GLOBULIN 2.9 g/dL 2.0 - 4.0 [facility] l A/G RATIO 1.2 0.8 - 2.0 [facility] l Calcium [Mass/volume] in Serum or Plasma 8.5 mg/dL 8.8 - 10.2 Below low normal [facility] Bilirubin.total [Mass/volume] in Serum or Plasma 0.5 mg/dL 0.2 - 1.0 [facility] Bilirubin.direct [Mass/volume] in Serum or Plasma 0.1 mg/dL 0.0 - 0. 2 [facility] INDIRECT BILI 0.4 mg/dL 0.0 - 1.1 [facility] pital ALK PHOSPHATASE 65 U/L 40 - 129 [facility] ospital Aspartate aminotransferase [Enzymatic ac tivity/volume] in Serum or Plasma by With P-5'-P 42 IU/L 7 - 37 Above high normal [facility] ital Alanine aminotransferase [Enzymatic acti vity/volume] in Serum or Plasma by With P-5'-P 33 IU/L 12 - 78 [facility] ANION GAP 9 7 - 15 [facility] l Estimated GFR referenc e range: >60ml/min/1.73m >18 years: Calculated using IDMS traceable Study Equation <18 years: Calculated using IDMO tracable Bedside Schartz Equation ID Date Data Source [id number] 07/12/2021 12:25:00 PM EDT [facility] Name Value Range Interpretation Code Description Data Alexandra rce(s) Supporting Document(s) [facility] [facility]LOOD [facility] Leukocytes [#/volume] in Blood by Automated count 6.7 K/uL 4.0 - 10 .0 [facility] Erythrocytes [#/volume] in Blood by Automated count 4.89 M/uL 4.30 - 6.10 [facility] Hemoglobin [Mass/volume] in Blood 13.8 g/dL 13.5 - 17.5 [facility] Hematocrit [Volume Fraction] of Blood by Automated count 44.6 % 3 9.0 - 50.0 [facility] Erythrocyte mean corpuscular volume [Entitic volume] by Auto mated count 91.2 fL 80.0 - 96.0 [facility] Erythrocyte mean corpuscular hemoglobin [Entitic mass] by Automated count 28.2 pg 26.0 - 34.0 [facility] Erythrocyte mean corpuscular hemoglobin concentration [Mass/volume] by Automated count 30.9 g/dL 32.0 - 36.0 Below low normal [facility] violeta Erythrocyte distribution width [Ratio] by Automated count 13.2 % 11.6 - 14.8 [facility] Platelets [#/volume] in Blood by Automated count 292 K/uL 150 - 450 [facility] Platelet mean volume [Entitic volume] in Blood by Automated count 8.5 fL 7.1 - 10.4 [facility] Neutrophils [#/volume] in Blood by Automated count 3.83 K/uL 1.70 - 7.70 [facility] Lymphocytes [#/volume] in Blood by Automated count 2.17 K/uL 1.50 - 6.00 [facility] Monocytes [#/volume] in Blood by Automated count 0.49 K/uL 0.00 - 1. 00 [facility] Eosinophils [#/volume] in Blood by Automated count 0.16 K/uL 0.03 - 0.48 [facility] Basophils [#/volume] in Blood by Automated count 0.04 K/uL 0.01 - 0. 08 [facility] 0.01 Urinalysis macro (dipstick) panel - Urine 0.000 10^3/uL 0.000 - 0.012 [facility] Neutrophils/100 leukocytes in Blood by Automated count 57.2 % 42. 0 - 75.0 [facility] Lymphocytes/100 leukocytes in Blood by Automated count 32.4 % 15. 0 - 41.0 [facility] Monocytes/100 leukocytes in Blood by Automated count 7.3 % 0.0 - 12.0 [facility] Eosinophils/100 leukocytes in Blood by Automated count 2.4 % 0.0 - 7.0 [facility] 0.60.10 NRBC 0.0 % [facility] l MANUAL DIFF NOT INDICATED [facility] RBC MORPH NOT INDICATED [facility] ID Date Data Source [id number] 06/03/2021 11:22:00 AM EDT [facility] ([facility]) Name Value Range Interpretation Code Description Data Alexandra rce(s) Supporting Document(s) FVC-Pred 5.23 L [facility] ([facility]) PDFReport Laboratory test result [facility] ([facility]) FVC-Pre 1.72 L [facility] ([facility]) FVC-LLN 4.27 L [facility] ([facility]) FVC-%Pred-Pre 32 L [facility] ([facility]) Fev1-Pred 4.06 L [facility] ([facility]) Fev1-LLN 3.24 L [facility] ([facility]) Fev1-%Pred-Pre 29 L [facility] ([facility]) Fev1-Pre 1.21 L [facility] ([facility]) Fev6-Pred 5.05 L [facility] ([facility]) Fev6-Pre 1.72 L [facility] ([facility]) Fev6-%Pred-Pre 34 L [facility] ([facility]) Fev6-LLN 4.11 L [facility] ([facility]) Dsl4ucj-Oll 70 % [facility] ([facility]) Oey8cch-Owpm 78 % [facility] ([facility]) Ehj9hrs-%Pred-Pre 90 % [facility] ([facility]) Ial2hsk-BUZ 68 % [facility] ([facility]) Ezs1wky-Gigx 97 % [facility] ([facility]) Tsm4dvk-Vox 100 % [facility] ([facility]) FEFMax-Pred 10.05 L/E/sec [facility] ([facility]) FEFMax-Pre 4.72 L/E/sec [facility] ([facility]) Djr8rtm-%Pred-Pre 103 % [facility] ([facility]) FEFMax-%Pred-Pre 46 L/E/sec [facility] ([facility]) Fpv2633-Sgw 0.68 L/E/sec [facility] ([facility]) Ccy2357-Ipap 3.57 L/E/sec [facility] ([facility]) FEFMax-LLN 7.66 L/E/sec [facility] ([facility]) ExpTime-Pre 6.02 sec [facility] ([facility]) Fbk4428-JSU 1.92 L/E/sec [facility] ([facility]) Lmw2325-%Pred-Pre 19 L/E/sec [facility] ([facility]) Vix8oup8-Qvqz 80 % [facility] ([facility]) Kar8dbj3-Tnd 70 % [facility] ([facility]) Swb1slz7-QNC 71 % [facility] ([facility]) Ems4lqr9-%Pred-Pre 87 % [facility] ([facility]) ID Date Data Source [id number] 06/03/2021 09:40:00 AM EDT [facility] Name Value Range Interpretation Code Description Data Alexandra rce(s) Supporting Document(s) LCOVID-19 RHEONIX ASSAY Negative [facility] This lab was ordered by [facility] and reported by [facility]. ID Date Data Source [id number] 06/04/2021 11:50:00 PM EDT [facility] Name Value Range Interpretation Code Description Data Alexandra rce(s) Supporting Document(s) COVID19 RHEONIX Negative NEGATIVE N [facility] The Rheonix COVID-19 MDx Assay is an end point RT-PCR assayintended for the qualitative detection of nucleic acid ltzoVUMC-MvB-7 virus. Positive results are indicative of thepresence of SARS-CoV-2 RNA; clinical correlation withpatient history and other diagnostic information isnecessary to determine patient infection status. Negativeresults do not preclude SARS-CoV-2 infection and should notbe used as the sole basis for patient management decisions. The [employer] MDx Assay is only for use under the Food andDrug Administration's Emergency Use Authorization. ID Date Data Source [id number] 05/26/2021 11:10:00 AM EDT [facility] Name Value Range Interpretation Code Description Data Alexandra rce(s) Supporting Document(s) 25-OH VITAMIN D 16.1 ng/mL 30.0 - 100 Below low normal [facility] Deficient < 20 ng/mL Insufficient 20 - < 30 ng/mL Sufficient 30 - 100 ng/mL 25-OH vitamin D reference values based on the Clinical Guidelines Subcommittee of the Endocrine Society Task Force. Biotin can interfere with 25-OH Vitamin D results if taken 48 hours prior to specimen collection. ID Date Data Source [id number] 05/26/2021 11:10:00 AM EDT [facility] Name Value Range Interpretation Code Description Data Alexandra rce(s) Supporting Document(s) T4 FREE 0.96 ng/dL 0.76 - 1.46 [facility] ital ID Date Data Source [id number] 05/26/2021 11:10:00 AM EDT [facility] Name Value Range Interpretation Code Description Data Alexandra rce(s) Supporting Document(s) TSH 2.97 uIU/mL 0.36 - 3.74 [facility] ID Date Data Source [id number] 05/26/2021 11:10:00 AM EDT [facility] Name Value Range Interpretation Code Description Data Alexandra rce(s) Supporting Document(s) COMPREHENSIVE CHEM PROFILE i [facility] COMPREHENSIVE METABOLIC PANEL Sodium [Moles/volume] in Serum or Plasma 143 mEq/L 136 - 145 [facility] Potassium [Moles/volume] in Serum or Plasma 4.0 mEq/L 3.5 - 5.1 [facility] Chloride [Moles/volume] in Serum or Plasma 106 mEq/L 98 - 107 [facility] Carbon dioxide, total [Moles/volume] in Serum or Plasma 30.3 mEq /L 21.0 - 32.0 [facility] Glucose [Mass/volume] in Serum or Plasma 94 mg/dL 70 - 100 [facility] Urea nitrogen [Mass/volume] in Serum or Plasma 20 mg/dL 7 - 18 Above high normal [facility] CREATININE SERUM 1.01 mg/dL 0.70 - 1.30 [facility] AGE 51 yrs [facility] l HEIGHT R [facility] l eGFR NON-AFR AMR >60 [facility] eGFR AFR AMR >60 [facility] ital BUN/CREAT 20 6 - 25 [facility] Protein [Mass/volume] in Serum or Plasma 6.6 g/dL 6.0 - 8.3 [facility] Albumin [Mass/volume] in Serum or Plasma 3.4 g/dL 3.8 - 5.4 Below low normal [facility] GLOBULIN 3.2 g/dL 2.0 - 4.0 [facility] l A/G RATIO 1.1 0.8 - 2.0 [facility] Calcium [Mass/volume] in Serum or Plasma 8.7 mg/dL 8.8 - 10.2 Below low normal [facility] Bilirubin.total [Mass/volume] in Serum or Plasma 0.5 mg/dL 0.2 - 1.0 [facility] Bilirubin.direct [Mass/volume] in Serum or Plasma 0.1 mg/dL 0.0 - 0. 2 [facility] INDIRECT BILI 0.4 mg/dL 0.0 - 1.1 [facility] pital ALK PHOSPHATASE 73 U/L 40 - 129 [facility] ospital Aspartate aminotransferase [Enzymatic ac tivity/volume] in Serum or Plasma by With P-5'-P 21 IU/L 7 - 37 [facility] Alanine aminotransferase [Enzymatic acti vity/volume] in Serum or Plasma by With P-5'-P 19 IU/L 12 - 78 [facility] ANION GAP 7 7 - 15 [facility] l Estimated GFR referenc e range: >60ml/min/1.73m >18 years: Calculated using IDMS traceable Study Equation <18 years: Calculated using IDMS tracable Bedside Schartz Equation ID Date Data Source [id number] 05/26/2021 11:10:00 AM EDT [facility] Name Value Range Interpretation Code Description Data Alexandra rce(s) Supporting Document(s) CBC [facility] l COMPLETE BLOOD COUNT Leukocytes [#/volume] in Blood by Automated count 7.5 K/uL 4.0 - 10 .0 [facility] Erythrocytes [#/volume] in Blood by Automated count 4.67 M/uL 4.30 - 6.10 [facility] Hemoglobin [Mass/volume] in Blood 13.4 g/dL 13.5 - 17.5 Below low no rmal [facility] Hematocrit [Volume Fraction] of Blood by Automated count 42.5 % 3 9.0 - 50.0 [facility] Erythrocyte mean corpuscular volume [Entitic volume] by Auto mated count 91.0 fL 80.0 - 96.0 [facility] Erythrocyte mean corpuscular hemoglobin [Entitic mass] by Automated count 28.7 pg 26.0 - 34.0 [facility] Erythrocyte mean corpuscular hemoglobin concentration [Mass/volume] by Automated count 31.5 g/dL 32.0 - 36.0 Below low normal [facility] violeta Erythrocyte distribution width [Ratio] by Automated count 13.4 % 11.6 - 14.8 [facility] Platelets [#/volume] in Blood by Automated count 301 K/uL 150 - 450 [facility] Platelet mean volume [Entitic volume] in Blood by Automated count 9.0 fL 7.1 - 10.4 [facility] Neutrophils [#/volume] in Blood by Automated count 4.28 K/uL 1.70 - 7.70 [facility] Lymphocytes [#/volume] in Blood by Automated count 2.43 K/uL 1.50 - 6.00 [facility] Monocytes [#/volume] in Blood by Automated count 0.60 K/uL 0.00 - 1. 00 [facility] Eosinophils [#/volume] in Blood by Automated count 0.12 K/uL 0.03 - 0.48 [facility] Basophils [#/volume] in Blood by Automated count 0.03 K/uL 0.01 - 0. 08 [facility] 0.02 Urinalysis macro (dipstick) panel - Urine 0.000 10^3/uL 0.000 - 0.012 [facility] Neutrophils/100 leukocytes in Blood by Automated count 57.2 % 42. 0 - 75.0 [facility] Lymphocytes/100 leukocytes in Blood by Automated count 32.5 % 15. 0 - 41.0 [facility] Monocytes/100 leukocytes in Blood by Automated count 8.0 % 0.0 - 12.0 [facility] Eosinophils/100 leukocytes in Blood by Automated count 1.6 % 0.0 - 7.0 [facility] 0.40.30 NRBC 0.0 % [facility]IC[facility] RBC MORPH NOT INDICATED [facility] ID Date Data Source [id number] 05/20/2021 01:15:00 PM EDT [facility] Name Value Range Interpretation Code Description Data Alexandra rce(s) Supporting Document(s) Theophylline [Mass/volume] in Serum or Plasma <2.0 ug/mL 10 .0 - 20.0 Below low normal [facility] \\BLDo\\THEOPHY LLINE TOXIC LEVEL\\BLDx\\ THEOPHYLLINE LEVELS ABOVE 20.0 mcg/mL MAY BE TOXIC. ID Date Data Source [id number] 04/13/2021 02:12:00 PM EDT [facility] ([facility]) Name Value Range Interpretation Code Description Data Alexandra rce(s) Supporting Document(s) PDFReport Laboratory test result [facility] ([facility], ) FVC-Pred 5.26 L [facility] ([facility]) FVC-Pre 1.90 L [facility] ([facility]) FVC-%Pred-Pre 36 L [facility] ([facility]) FVC-LLN 4.29 L [facility] ([facility]) Fev1-Pre 1.41 L [facility] ([facility]) Fev1-Pred 4.09 L [facility] ([facility]) Fev1-%Pred-Pre 34 L [facility] ([facility] ) Fev1-LLN 3.27 L [facility] ([facility]) Fev6-Pred 5.08 L [facility] ([facility]) Fev6-%Pred-Pre 36 L [facility] ([facility]) Fev6-Pre 1.87 L [facility] ([facility]) Dor8ycf-Qxqt 78 % [facility] ([facility]) Fev6-LLN 4.14 L [facility] ([facility]) Crj5ttk-Xms 74 % [facility] ([facility]) Nph5lbi-%Pred-Pre 95 % [facility] ([facility]) Uin3fvu-CRV 68 % [facility] ([facility]) Gey6ded-Uqoq 97 % [facility] ([facility]) FEFMax-Pred 10.10 L/E/sec [facility] ([facility]) Fgj3nkb-Zje 98 % [facility] ([facility]) Hbn8fvy-%Pred-Pre 101 % [facility] ([facility]) FEFMax-Pre 5.25 L/E/sec [facility] ([facility]) FEFMax-%Pred-Pre 51 L/E/sec [facility] ([facility]) FEFMax-LLN 7.71 L/E/sec [facility] ([facility]) Ewo7747-Paf 1.01 L/E/sec [facility] ([facility]) Rax5196-Rpkf 3.62 L/E/sec [facility] ([facility]) Lsx4581-%Pred-Pre 27 L/E/sec [facility] ([facility]) Duu2995-BQT 1.97 L/E/sec [facility] ([facility]) Xyz9htp0-Huz 76 % [facility] ([facility]) ExpTime-Pre 7.28 sec [facility] ([facility]) Zan3hxw8-Qqmk 81 % [facility] ([facility]) Xmr1tts4-%Pred-Pre 93 % [facility]) Cwv6ltz8-RMT 72 % [facility] ([facility]) ID Date Data Source [id number] 03/15/2021 11:41:00 AM EDT [facility] ([facility]) Name Value Range Interpretation Code Description Data Alexandra rce(s) Supporting Document(s) White Blood Count 4.8 10 4.0-10.0 Normal (applies to non-numeri c results) [facility] ([facility]) Hemoglobin 13.2 g/dL 13.5-17.5 Below low normal [facility] ( [facility]) Red Blood Count 4.61 10 4.30-6.10 Normal (applies to non-numeric results) [facility] ([facility]) Hematocrit 42.2 % 42.0-52.0 Normal (applies to non-numeric resul ts) [facility] ([facility]) Mean Corpuscular Volume 91.5 fl 80.0-96.0 Normal ( applies to non-numeric results) [facility] ([facility]) Mean Corpuscular Hemoglobin 28.6 pg 27.0-33.0 Norm al (applies to non-numeric results) [facility] ([facility]) Mean Corpuscular HGB Conc 31.3 g/dL 32.0-36.5 Below low normal [facility] ([facility]) Red Cell Distribution Width 14.2 % 11.5-14.5 Norm al (applies to non-numeric results) [facility] ([facility]) Platelet Count, Automated 255 10 150-450 Normal (applies to non-numeric results) [facility] ([facility]) Lymph % 30.0 % 24.0-44.0 Normal (applies to non-numeric resul ts) [facility]) Neutrophils % 57.4 % 36.0-66.0 Normal (applies to non-numeric re sults) [facility]) Eos % 3.1 % 0.0-3.0 Above high normal [facility] ([facility]) Baso % 0.6 % 0.0-1.0 Normal (applies to non-numeric resul ts) [facility] ([facility]) [place] % 8.7 % 2.0-8.0 Above high normal [facility] ([facility]) Immature Granulocyte % 0.2 % 0-3.0 Normal (applies to non-n umeric results) [facility] ([facility]) Nucleated Red Blood Cell % 0.0 % 0-0 Normal (applies to n on-numeric results) [facility] ([facility]) Neutrophils # 2.8 10 1.5-8.5 Normal (applies to non-numeric re sults) [facility] ([facility]) Lymph # 1.5 10 1.5-5.0 Normal (applies to non-numeric resul ts) [facility] ([facility]) [place] # 0.4 10 0.0-0.8 Normal (applies to non-numeric resul ts) [facility] ([facility]) Baso # 0.0 10 0.0-0.2 Normal (applies to non-numeric resul ts) [facility] ([facility]) Eos # 0.2 10 0.0-0.5 Normal (applies to non-numeric resul ts) [facility] ([facility]) ID Date Data Source [id number] 03/15/2021 11:41:00 AM EDT [facility] ([facility]) Name Value Range Interpretation Code Description Data Alexandra rce(s) Supporting Document(s) Class Description Laboratory test result Normal (applies to non-numeric results) [facility] ([facility]) <content>.</content>
<content>Levels of Specific IgE Class Description of Class</content>
<content> ----- </content>
<content>< 0.10 0 Negative</content>
<content>0.10 - 0.31 0/I Equivocal/Low</content>
<content>0.32 - 0.55 I Low</content>
<content>0.56 - 1.40 II Moderate</content>
<content>1.41 - 3.90 III High</content>
<content>3.91 - 19.00 IV Very High</content>
<content>19.01 - 100.00 V Very High</content>
<content>>100.00 Very High</content>
<content></content> H231-FiF D pteronyssinus Laboratory test result Normal (applies to non-numeric results) [facility] ([facility], ) B845-ViR D farinae Mite Laboratory test result N ormal (applies to non-numeric results) [facility] ([facility], ) G676-JbX Cat Epith/Dander 0.56 kU/L Abnormal (appli es to non-numeric results) [facility] ([facility], ) B475-QaD Dog Dander 1.53 kU/L Abnormal (applies to non-nu meric results) [facility] ([facility], ) H123-VgJ [place] Laboratory test result Normal (applies to non- numeric results) [facility] ([facility], ) U858-BlQ [place] Laboratory test result No rmal (applies to non-numeric results) [facility] ([facility], ) Q245-SyD Cockroach, [place] Laboratory test result Normal (applies to non- numeric results) [facility] ([facility], ) H446-JoT [place] Grass Laboratory test result Norm al (applies to non-numeric results) [facility] ([facility], ) T153-NjF Penicillium chrysogen Laboratory test result Normal (applies to non- numeric results) [facility] ([facility]) M003 IgE Aspergillus fumigatu Laboratory test result Normal (applies to non- numeric results) [facility] ([facility], ) M002 IgE Cladosporium herbaru Laboratory test result Normal (applies to non- numeric results) [facility] ([facility], ) H090-ZvV Alternaria alternata Laboratory test result Normal (applies to non- numeric results) [facility] ([facility]) P923-YvP Mucor racemosus Laboratory test result Normal (applies to non-numeric results) [facility] ([facility]) A692-OlZ Stemphylium Herbarum Laboratory test result Normal (applies to non- numeric results) [facility] ([facility], ) E284-HkM [place], White Laboratory test result Piedad l (applies to non-numeric results) [facility] ([facility], ) J573-LfF Common Silver Birch Laboratory test result Normal (applies to non- numeric results) [facility] ([facility], ) R752-QjF [place], [place] Laboratory test result No rmal (applies to non-numeric results) [facility] ([facility], ) L903-HlX [place], White Laboratory test result Piedad l (applies to non-numeric results) [facility] ([facility], ) S487-TcA Maple/[place] Laboratory test result Normal (applies to non-numeric results) [facility] ([facility], ) P458-XjI [place] Laboratory test result No rmal (applies to non-numeric results) [facility] ([facility], ) E386-MmB [place], White Laboratory test result N ormal (applies to non-numeric results) [facility] ([facility], ) F387-AaI [place], [place] Laboratory test result Normal (applies to non-numeric results) [facility] ([facility], ) U236-IaM [place] Laboratory test result N ormal (applies to non-numeric results) [facility] ([facility], ) V714-DiQ Rag[place], Short Laboratory test result N ormal (applies to non-numeric results) [facility] ([facility], ) C005-KwE Mugwort Laboratory test result Normal ( applies to non-numeric results) [facility] ([facility], ) U426-IyY Plantain, [place] Laboratory test result Normal (applies to non- numeric results) [facility] ([facility], ) Z377-KfP Pigweed, Rough Laboratory test result N ormal (applies to non-numeric results) [facility] ([facility]) D802-LcO Sheep [place] Laboratory test result Nor mal (applies to non-numeric results) [facility] ([facility]) A967-PqZ Nettle Laboratory test result Normal (a pplies to non-numeric results) [facility] ([facility]) Performed at: [address] [id number] Software Quality Assurance Engineer: Casey Simental MD, Phone: [phone] ID Date Data Source [id number] 03/15/2021 11:41:00 AM EDT [facility] ([facility]) Name Value Range Interpretation Code Description Data Alexandra rce(s) Supporting Document(s) IgE [Mass/volume] in Serum 57.4 IU/ml Normal (applie s to non-numeric results) [facility] ([facility]) ID Date Data Source [id number] 03/15/2021 11:02:00 AM EDT [facility] ([facility]) Name Value Range Interpretation Code Description Data Alexandra rce(s) Supporting Document(s) PDFReport Laboratory test result [facility] ([facility]) FVC-Pred 5.26 L [facility] ([facility]) FVC-Pre 1.75 L [facility] ([facility]) FVC-%Pred-Pre 33 L [facility] ([facility]) Fev1-Pred 4.09 L [facility] ([facility]) FVC-LLN 4.29 L [facility] ([facility]) Fev1-Pre 1.36 L [facility] ([facility]) Fev1-%Pred-Pre 33 L [facility] ([facility]) Fev1-LLN 3.27 L [facility] ([facility]) Fev6-Pred 5.08 L [facility] ([facility]) Fev6-Pre 1.75 L [facility] ([facility]) Fev6-LLN 4.14 L [facility] ([facility], ) Fev6-%Pred-Pre 34 L [facility] ([facility]) Dvm5eho-Fyx 78 % [facility] ([facility]) Xrf1uss-Hnin 78 % [facility] ([facility]) Ssx7cjt-%Pred-Pre 99 % [facility] ([facility]) Bxe1cjc-GWL 68 % [facility] ([facility]) Czf9zch-Ppu 100 % [facility] ([facility]) Gbu6eid-Jxvv 97 % [facility] ([facility]) Hbe3vvu-%Pred-Pre 103 % [facility] ([facility]) FEFMax-Pred 10.10 L/E/sec [facility] ([facility]) FEFMax-%Pred-Pre 45 L/E/sec [facility] ([facility]) FEFMax-Pre 4.56 L/E/sec [facility] ([facility]) Wgk4263-Bhhj 3.62 L/E/sec [facility] ([facility]) FEFMax-LLN 7.71 L/E/sec [facility] ([facility]) Vra1264-Edl 1.15 L/E/sec [facility] ([facility]) Sst4975-%Pred-Pre 31 L/E/sec [facility] ([facility]) ExpTime-Pre 5.91 sec [facility] ([facility]) Ukp4889-ATA 1.97 L/E/sec [facility] ([facility]) Yvy2dgj1-Djnr 81 % [facility] ([facility]) Bsd6azd4-Ilc 78 % [facility] ([facility]) Twa5qoj6-XKZ 72 % [facility] ([facility]) Rrj0eie0-%Pred-Pre 96 % [facility] ([facility]) ID Date Data Source [id number] 03/04/2021 01:15:00 PM EDT [facility] Name Value Range Interpretation Code Description Data Alexandra rce(s) Supporting Document(s) COMPREHENSIVE CHEM PROFILE [facility] COMPREHENSIVE METABOLIC PANEL Sodium [Moles/volume] in Serum or Plasma 144 mEq/L 136 - 145 [facility] Potassium [Moles/volume] in Serum or Plasma 4.3 mEq/L 3.5 - 5.1 [facility] Chloride [Moles/volume] in Serum or Plasma 106 mEq/L 98 - 107 [facility] Carbon dioxide, total [Moles/volume] in Serum or Plasma 27.9 mEq /L 21.0 - 32.0 [facility] Glucose [Mass/volume] in Serum or Plasma 123 mg/dL 70 - 100 Above high normal [facility] Urea nitrogen [Mass/volume] in Serum or Plasma 17 mg/dL 7 - 18 [facility] CREATININE SERUM 1.03 mg/dL 0.70 - 1.30 [facility] AGE 50 yrs [facility] HEIGHT 72.00 INCHES [facility] ital eGFR NON-AFR AMR >60 [facility] eGFR AFR AMR >60 [facility] ital BUN/CREAT 17 6 - 25 [facility] Protein [Mass/volume] in Serum or Plasma 6.1 g/dL 6.0 - 8.3 [facility] Albumin [Mass/volume] in Serum or Plasma 3.5 g/dL 3.8 - 5.4 Below low normal [facility] GLOBULIN 2.6 g/dL 2.0 - 4.0 [facility] l A/G RATIO 1.3 0.8 - 2.0 [facility] Calcium [Mass/volume] in Serum or Plasma 8.3 mg/dL 8.8 - 10.2 Below low normal [facility] Bilirubin.total [Mass/volume] in Serum or Plasma 0.7 mg/dL 0.2 - 1.0 [facility] Bilirubin.direct [Mass/volume] in Serum or Plasma 0.2 mg/dL 0.0 - 0. 2 [facility] INDIRECT BILI 0.5 mg/dL 0.0 - 1.1 [facility] pital ALK PHOSPHATASE 57 U/L 40 - 129 [facility] ospital Aspartate aminotransferase [Enzymatic ac tivity/volume] in Serum or Plasma by With P-5'-P 22 IU/L 7 - 37 [facility] Alanine aminotransferase [Enzymatic acti vity/volume] in Serum or Plasma by With P-5'-P 21 IU/L 12 - 78 [facility] ANION GAP 10 7 - 15 [facility] l Estimated GFR referenc e range: >60ml/min/1.73m >18 years: Calculated using IDMS traceable Study Equation <18 years: Calculated using IDMS tracable Bedside Schartz Equation ID Date Data Source [id number] 03/04/2021 01:15:00 PM EDT [facility] Name Value Range Interpretation Code Description Data Alexandra rce(s) Supporting Document(s) CBC [facility] l COMPLETE BLOOD COUNT Leukocytes [#/volume] in Blood by Automated count 6.9 K/uL 4.0 - 10 .0 [facility] Erythrocytes [#/volume] in Blood by Automated count 4.44 M/uL 4.30 - 6.10 [facility] Hemoglobin [Mass/volume] in Blood 12.9 g/dL 13.5 - 17.5 Below low no rmal [facility] Hematocrit [Volume Fraction] of Blood by Automated count 41.1 % 3 9.0 - 50.0 [facility] Erythrocyte mean corpuscular volume [Entitic volume] by Auto mated count 92.6 fL 80.0 - 96.0 [facility] Erythrocyte mean corpuscular hemoglobin [Entitic mass] by Automated count 29.1 pg 26.0 - 34.0 [facility] Erythrocyte mean corpuscular hemoglobin concentration [Mass/volume] by Automated count 31.4 g/dL 32.0 - 36.0 Below low normal [facility] Erythrocyte distribution width [Ratio] by Automated count 14.2 % 11.6 - 14.8 [facility] Platelets [#/volume] in Blood by Automated count 224 K/uL 150 - 450 [facility] Platelet mean volume [Entitic volume] in Blood by Automated count 8.5 fL 7.1 - 10.4 [facility] Neutrophils [#/volume] in Blood by Automated count 5.80 K/uL 1.70 - 7.70 [facility] Lymphocytes [#/volume] in Blood by Automated count 0.83 K/uL 1.50 - 6.00 Below low normal [facility] Monocytes [#/volume] in Blood by Automated count 0.21 K/uL 0.00 - 1. 00 [facility] Eosinophils [#/volume] in Blood by Automated count 0.01 K/uL 0.00 - 0.30 [facility] Basophils [#/volume] in Blood by Automated count 0.02 K/uL 0.00 - 0. 10 [facility] 0.03 Urinalysis macro (dipstick) panel - Urine 0.000 10^3/uL 0.000 - 0.012 [facility] Neutrophils/100 leukocytes in Blood by Automated count 84.2 % 42.2 - 75.2 Above high normal [facility] Lymphocytes/100 leukocytes in Blood by Automated count 12.0 % 15.0 - 41.0 Below low normal [facility] Monocytes/100 leukocytes in Blood by Automated count 3.0 % 0.0 - 12.0 [facility] Eosinophils/100 leukocytes in Blood by Automated count 0.1 % 0.0 - 7.0 [facility] 0.30.40 NRBC 0.0 % [facility] l MANUAL DIFF NOT INDICATED [facility] ospital RBC MORPH NOT INDICATED [facility] pital ID Date Data Source [id number] 03/01/2021 11:42:00 AM EDT [facility] Name Value Range Interpretation Code Description Data Alexandra rce(s) Supporting Document(s) T4 FREE 0.95 ng/dL 0.76 - 1.46 [facility] ital ID Date Data Source [id number] 03/01/2021 11:42:00 AM EDT [facility] Name Value Range Interpretation Code Description Data Alexandra rce(s) Supporting Document(s) TSH 1.73 uIU/mL 0.36 - 3.74 [facility] pital ID Date Data Source [id number] 03/01/2021 11:42:00 AM EDT [facility] Name Value Range Interpretation Code Description Data Alexandra rce(s) Supporting Document(s) LIPID PROFILE [facility] LIPID PROFILE Cholesterol [Mass/volume] in Serum or Plasma 197 mg/dL [facility] Triglyceride [Mass/volume] in Serum or Plasma 85 mg/dL [facility] Cholesterol in HDL [Mass/volume] in Serum or Plasma 66 mg/dL [facility] Cholesterol in LDL [Mass/volume] in Serum or Plasma by calculati on 114 mg/dL [facility] CHOL/HDL 2.98 [facility] l \\BLDo\\INTERPRE TATION\\BLDx\\ REFERENCE RANGES (NATIONAL CHOLESTEROL EDUCATION PROGRAM) CHOLESTEROL < 200 mg/dL DESIREABLE 200 - 239 mg/dL BORDERLINE HIGH > 240 mg/dL HIGH TRIGLYCERIDES < 150 mg/dL DESIREABLE 150 - 199 mg/dL BORDERLINE HIGH 200 - 499 mg/dL HIGH > or = 500 mg/dL VERY HIGH HDL > or = 60 mg/dL HIGH < 40 mg/dL LOW LDL < 100 mg/dL DESIREABLE 100 - 129 mg/dL LOW RISK 130 - 159 mg/dL BORDERLINE HIGH 160 - 189 mg/dL HIGH > or = 190 mg/dL VERY HIGH ID Date Data Source [id number] 03/01/2021 11:42:00 AM EDT [facility] Name Value Range Interpretation Code Description Data Alexandra rce(s) Supporting Document(s) LIVER PROFILE [facility] HEPATIC PANEL Protein [Mass/volume] in Serum or Plasma 6.6 g/dL 6.0 - 8.3 [facility] Albumin [Mass/volume] in Serum or Plasma 3.4 g/dL 3.8 - 5.4 Below low normal [facility] GLOBULIN 3.2 g/dL 2.0 - 4.0 [facility] A/G RATIO 1.1 0.8 - 2.0 [facility] Bilirubin.total [Mass/volume] in Serum or Plasma 0.6 mg/dL 0.2 - 1.0 [facility] Bilirubin.direct [Mass/volume] in Serum or Plasma 0.2 mg/dL 0.0 - 0. 2 [facility] INDIRECT BILI 0.4 mg/dL 0.0 - 1.1 [facility] 57 U/L 40 - 129 [facility] ospital Aspartate aminotransferase [Enzymatic ac tivity/volume] in Serum or Plasma by With P-5'-P 24 IU/L 7 - 37 [facility] Alanine aminotransferase [Enzymatic acti vity/volume] in Serum or Plasma by With P-5'-P 20 IU/L 12 - 78 [facility] ID Date Data Source [id number] 03/01/2021 11:42:00 AM EDT [facility] Name Value Range Interpretation Code Description Data Alexandra rce(s) Supporting Document(s) BASIC METABOLIC PANEL [facility] BASIC METABOLIC PANEL Sodium [Moles/volume] in Serum or Plasma 142 mEq/L 136 - 145 [facility] Potassium [Moles/volume] in Serum or Plasma 3.9 mEq/L 3.5 - 5.1 [facility] Chloride [Moles/volume] in Serum or Plasma 106 mEq/L 98 - 107 [facility] Carbon dioxide, total [Moles/volume] in Serum or Plasma 27.5 mEq /L 21.0 - 32.0 [facility] Glucose [Mass/volume] in Serum or Plasma 75 mg/dL 70 - 100 [facility] Urea nitrogen [Mass/volume] in Serum or Plasma 19 mg/dL 7 - 18 Above high normal [facility] CREATININE SERUM 1.09 mg/dL 0.70 - 1.30 [facility] AGE 50 yrs [facility] l eGFR NON-AFR AMR >60 [facility] eGFR AFR AMR >60 [facility] BUN/CREAT 17 6 - 25 [facility] Calcium [Mass/volume] in Serum or Plasma 8.0 mg/dL 8.8 - 10.2 Below low normal [facility] ANION GAP 9 7 - 15 [facility] l Estimated GFR reference r luciano: > 60 mL/min/1.73m >18 years: Calculated using IDMS traceable MDRD Study Equation <18 years: Calculated using IDMS traceable Bedside Meléndez Equation ID Date Data Source [id number] 03/01/2021 11:42:00 AM EDT [facility] Name Value Range Interpretation Code Description Data Alexandra rce(s) Supporting Document(s) 25-OH VITAMIN D 13.9 ng/mL 30.0 - 100 Below low normal [facility] Deficient < 20 ng/mL Insufficient 20 - < 30 ng/mL Sufficient 30 - 100 ng/mL 25-OH vitamin D reference values based on the Clinical Guidelines Subcommittee of the Endocrine Society Task Force. Biotin can interfere with 25-OH Vitamin D results if taken 48 hours prior to specimen collection. ID Date Data Source [id number] 03/01/2021 11:42:00 AM EDT [facility] Name Value Range Interpretation Code Description Data Alexandra rce(s) Supporting Document(s) Hemoglobin A1c/Hemoglobin.total in Blood 5.5 % 4.0 - 5.6 [facility] Glucose mean value [Mass/volume] in Blood Estimated fr om glycated hemoglobin 111 mg/dL [facility] \\BLDo\\HEMOGLO BIN A1C\\BLDx\\ 4.0 - 5.6%: Normal 5.7 - 6.4%: Suggests Impaired Glucose Metabolism > or = 6.5%: Abnormal Estimated average glucose calculated using ADAG Study formula as recommended by the [place] [employer]. ID Date Data Source [id number] 03/01/2021 11:42:00 AM EDT [facility] Name Value Range Interpretation Code Description Data Alexandra rce(s) Supporting Document(s) CBC [facility] l COMPLETE BLOOD COUNT Leukocytes [#/volume] in Blood by Automated count 6.6 K/uL 4.0 - 10 .0 [facility] Erythrocytes [#/volume] in Blood by Automated count 4.74 M/uL 4.30 - 6.10 [facility] Hemoglobin [Mass/volume] in Blood 13.6 g/dL 13.5 - 17.5 [facility] Hematocrit [Volume Fraction] of Blood by Automated count 43.6 % 3 9.0 - 50.0 [facility] Erythrocyte mean corpuscular volume [Entitic volume] by Auto mated count 92.0 fL 80.0 - 96.0 [facility] Erythrocyte mean corpuscular hemoglobin [Entitic mass] by Automated count 28.7 pg 26.0 - 34.0 [facility] Erythrocyte mean corpuscular hemoglobin concentration [Mass/volume] by Automated count 31.2 g/dL 32.0 - 36.0 Below low normal [facility] violeta Erythrocyte distribution width [Ratio] by Automated count 14.0 % 11.6 - 14.8 [facility] Platelets [#/volume] in Blood by Automated count 278 K/uL 150 - 450 [facility] Platelet mean volume [Entitic volume] in Blood by Automated count 8.6 fL 7.1 - 10.4 [facility] Neutrophils [#/volume] in Blood by Automated count 4.90 K/uL 1.70 - 7.70 [facility] Lymphocytes [#/volume] in Blood by Automated count 1.27 K/uL 1.50 - 6.00 Below low normal [facility] Monocytes [#/volume] in Blood by Automated count 0.32 K/uL 0.00 - 1. 00 [facility] Eosinophils [#/volume] in Blood by Automated count 0.05 K/uL 0.00 - 0.30 [facility] Basophils [#/volume] in Blood by Automated count 0.04 K/uL 0.00 - 0. 10 [facility] 0.02 Urinalysis macro (dipstick) panel - Urine 0.000 10^3/uL 0.000 - 0.012 [facility] Neutrophils/100 leukocytes in Blood by Automated count 74.3 % 42. 2 - 75.2 [facility] Lymphocytes/100 leukocytes in Blood by Automated count 19.2 % 15. 0 - 41.0 [facility] Monocytes/100 leukocytes in Blood by Automated count 4.8 % 0.0 - 12.0 [facility] Eosinophils/100 leukocytes in Blood by Automated count 0.8 % 0.0 - 7.0 [facility] 0.60.30 NRBC 0.0 % [facility] NOT INDICATED [facility] RBC MORPH NOT INDICATED [facility] p[facility] ID Date Data Source [id number] 02/17/2021 12:14:55 [place] [address] TELEPHONE RADIOLOGY DEPARTMENT Name: [facility] #: [id number] : 1970 Ordering Physician: CLARY Sex: M Date: 02/15/21 Admission Type: E/R X-ray Number: [id number] Unsigned Transcriptions are preliminary reports and do not represent a Medical or Legal Document XRAY CHEST 2 VIEW PA - LATERA [id number] COMPLETE:02/15/21 18:01 BBS [id number] (REASON FOR CHEST: SHORTNESS OF BREATH Examination of the chest 2 views submitted. Priors:08/25/2020. FINDINGS: Stable chest. No infiltrate or effusion. Cardiac silhouette within normal limits. IMPRESSION: No acute cardiac pulmonary disease. Electronically Reviewed and Signed By RAFAELA CARRASCO 02/17/21 12:14 Dictating Initials: BE Transcribed Date: 02/16/21 08:35 Transcribe Initials: [facility]BS Name Value Range Interpretation Code Description Data Alexandra rce(s) Supporting Document(s) ID Date Data Source [id number] 02/14/2021 01:55:00 PM EDT [facility] Name Value Range Interpretation Code Description Data Alexandra rce(s) Supporting Document(s) CULTURE URINE QUANT [facility] CULTURE URINE SOURCE Clean Catch [facility] violeta COLONY COUNT _>100,000_CFU/ ML 02/16/21.KJV. PRELIMINARY REPORT _NO_GROWTH_@_24_HOURS 02/15/2156.[facility]. _GRAM_POSITIVE_GROWTH_@_48_HOURS 02/16/21.KJV. FINAL REPORT _NORMAL_SKIN_FLORA_ISOLATED 02/17/21.KJV. _NO_PATHOGENS_ISOLATED_@_48_HOURS 02/17/21.KJV. ID & SENSI NOT INDICATED Demetrius palmer 02/17/21.1009.KJV.COMPLETEClean CatchNOT INDICATED ID Date Data Source [id number] 02/10/2021 02:09:00 PM EDT [facility] ([facility]) Name Value Range Interpretation Code Description Data Alexandra rce(s) Supporting Document(s) Aspergillus Flavus [facility] test result No rmal (applies to non-numeric results) [facility] ([facility]) Aspergillus Fumigatus [facility] test result Normal (applies to non- numeric results) [facility] ([facility]) Aspergillus Niger [facility] test result Nor mal (applies to non-numeric results) [facility] ([facility]) Performed at: [address] [id number] Software Quality Assurance Engineer: Casey Simental MD, Phone: [phone] ID Date Data Source [id number] 02/10/2021 01:44:00 PM EDT [facility] ([facility]) Name Value Range Interpretation Code Description Data Alexandra rce(s) Supporting Document(s) PDFReport Laboratory test result [facility] ([facility], ) FVC-Pred 5.26 L [facility] ([facility]) FVC-Pre 1.73 L [facility] ([facility]) FVC-%Pred-Pre 32 L [facility] ([facility]) FVC-LLN 4.29 L [facility] ([facility]) Fev1-Pred 4.09 L [facility] ([facility]) Fev1-Pre 1.19 L [facility] ([facility]) Fev1-%Pred-Pre 29 L [facility] ([facility]) Fev1-LLN 3.27 L [facility] ([facility]) Fev6-Pred 5.08 L [facility] ([facility]) Fev6-Pre 1.73 L [facility] ([facility]) Fev6-LLN 4.14 L [facility] ([facility]) Fev6-%Pred-Pre 34 L [facility] ([facility], ) Jlb7hpc-Piam 78 % [facility] ([facility]) Jpm5jkj-Ipf 69 % [facility] ([facility]) Vxr3cey-%Pred-Pre 88 % [facility] ([facility]) Itv4fxp-GWV 68 % [facility] ([facility]) Cte7nme-Wurd 97 % [facility] ([facility]) Dxj2qjs-Fwj 100 % [facility] ([facility]) Tvq8mxf-%Pred-Pre 103 % [facility] ([facility]) FEFMax-Pred 10.10 L/E/sec [facility] ([facility]) FEFMax-%Pred-Pre 30 L/E/sec [facility] ([facility]) FEFMax-Pre 3.07 L/E/sec [facility] ([facility]) FEFMax-LLN 7.71 L/E/sec [facility] ([facility]) Ueh5137-Crhq 3.62 L/E/sec [facility] ([facility]) Jtz2425-%Pred-Pre 19 L/E/sec [facility] ([facility]) Ean8932-Uex 0.71 L/E/sec [facility] ([facility]) Tgd7ntp7-Leaf 81 % [facility] ([facility]) ExpTime-Pre 6.66 sec [facility] ([facility]) Swt9777-CHK 1.97 L/E/sec [facility] ([facility]) Bvh7yer6-Wca 69 % [facility] ([facility]) Jqt4wii0-CSQ 72 % [facility] ([facility]) Dpj4bos5-%Pred-Pre 85 % [facility] ([facility]) ID Date Data Source [id number] 01/28/2021 02:50:00 PM EDT [facility] Name Value Range Interpretation Code Description Data Alexandra rce(s) Supporting Document(s) RAST ALLERGENS ZONE 1 [facility] _RAST ALLERGENS ZONE 1- COMPREHENSI VE_Allergens, Zone 1Reported: 02/04/2021 20:05 Status=F --------TEST RESULT FLAG RANGE UNITS SC --Class Description 02/04/21.rfl.COMPLETE.LCTR Levels of Specific IgE Class Description of Class ----- < 0.10 0 Negative 0.10 - 0.31 0/I Equivocal/Low 0.32 - 0.55 I Low 0.56 - 1.40 II Moderate 1.41 - 3.90 III High 3.91 - 19.00 IV Very High 19.01 - 100.00 V Very High >100.00 Very UfucD499-KjE D pteronyssinus <0.10 Class 0 kU/L 02/04/21.rfl.COMPLETE.KREMP662-RyM D farinae <0.10 Class 0 kU/L 02/04/21.rfl.COMPLETE.OQJTC519-FnC Cat Dander 0.54 A Class I kU/L 02/04/21.rfl.COMPLETE.UVHJH219-AfU Dog Dander 1.38 A Class II kU/L 02/04/21.rfl.COMPLETE.KOVAH757-SaF [place] Grass <0.10 Class 0 kU/L 02/04/21.rfl.COMPLETE.MTJMF105-AeU Bluegrass, <0.10 Class 0 kU/L BN 02/04/21.rfl.COMPLETE.NFNEVepwyxktS390-UuZ [place] Grass <0.10 Class 0 kU/L BN 02/04/21.rfl.COMPLETE.JZTVE486- IgE Cockroach, <0.10 Class 0 kU/L BN 02/04/21.rfl.COMPLETE.DOWUPumwklpkF755-KuU Penicillium <0.10 Class 0 kU/L BN 02/04/21.rfl.COMPLETE.FIJApvxnuusldV638-MlX Cladosporium <0.10 Class 0 kU/L 02/04/21. 005.rfl.COMPLETE.KDHZhxiddjjfW345-CeT Aspergillus <0.10 Class 0 kU/L 02/04/21.rfl.COMPLETE.TCMKtytrqaziaS144- IgE Mucor racemosus <0.10 Class 0 kU/L BN 02/04/21.rfl.COMPLETE.JLRZU737-AqJ Alternaria <0.10 Class 0 kU/L 02/04/21.rfl.COMPLETE.AKMUlrwwfkblpH029- IgE Stemphylium <0.10 Class 0 kU/L 02/04/21.rfl.COMPLETE.YATUoszlwlpzB608-WrD Common Silver <0.10 Class 0 kU/L 02/04/21.rfl.COMPLETE.BVHZMpwrzV570-XgW [place], White <0.10 Class 0 kU/L 02/04/21.rfl.COMPLETE.ZDOMJ268-NhR Elm, [place] <0.10 Class 0 kU/L 02/04/21.rfl.COMPLETE.YCDHJ429-RhP [place], White <0.10 Class 0 kU/L 02/04/21.rfl.COMPLETE.KSNFM974-VuM Maple/[place] <0.10 Class 0 kU/L BN 02/04/21.rfl.COMPLETE.HXSFM395-AvX Hazelnut Tree <0.10 Class 0 kU/L BN 02/04/21.rfl.COMPLETE.HBOIV982-PvD [place], White <0.10 Class 0 kU/L BN 02/04/21.rfl.COMPLETE.ISSAM074-RwZ [place] <0.10 Class 0 kU/L BN 02/04/21.rfl.COMPLETE.EYRLN700-IgG Leon, Mountain <0.10 Class 0 kU/L BN 02/04/21.rfl.COMPLETE.CISBV387-JkH Ragweed, Short <0.10 Class 0 kU/L BN 02/04/21.rfl.COMPLETE.YXTFA648-QmU Mugwort <0.10 Class 0 kU/L BN 02/04/21.rfl.COMPLETE.RPJMO655-RbI Plantain, <0.10 Class 0 kU/L BN 02/04/21.rfl.COMPLETE.FEQGHfcxzoyS598- IgE Pigweed, Common <0.10 Class 0 kU/L BN 02/04/21.rfl.COMPLETE.HAKRG610-DbS Sheep [place] <0.10 Class 0 kU/L BN 02/04/21.rfl.COMPLETE.TAFMD026-WyM Nettle <0.10 Class 0 kU/L BN 02/04/21.rfl.COMPLETE.LCTRTest(s) [id number] Cockroach, [place]; 386203-S270-YwL Go, Whitewere developed and had performance characteristics determined by[facility]. These tests have not been cleared or approved by the U.S.Food and Drug Administration. The FDA has determined that suchclearance or approval is not necessary. These tests are used forclinical purposes. These should not be regarded as investigationalor for research.BN Test performed by: [employer] [address] [id number] Jan Alfonso MD ID Date Data Source [id number] 01/28/2021 02:50:00 PM EDT [facility] Name Value Range Interpretation Code Description Data Alexandra rce(s) Supporting Document(s) IMMUNOGLOBULIN E [facility] _IMMUNOGLOBULIN E_Immunoglobulin E, TotalReported: 02/04/2021 08:05 Status=F RESULT FLAG RANGE UNITS SC --Immunoglobulin E, Total 33 6-495 IU/mL BN 02/04/21.0805.rfl.COMPLETE.LCTRBN Test performed by: [facility] [address] [address] [id number] Jan Alfonso MD ID Date Data Source [id number] 01/28/2021 02:50:00 PM EDT [facility] Name Value Range Interpretation Code Description Data Alexandra rce(s) Supporting Document(s) CBC [facility] l COMPLETE BLOOD COUNT Leukocytes [#/volume] in Blood by Automated count 5.8 K/uL 4.0 - 10 .0 [facility] Erythrocytes [#/volume] in Blood by Automated count 4.85 M/uL 4.30 - 6.10 [facility] Hemoglobin [Mass/volume] in Blood 13.9 g/dL 13.5 - 17.5 [facility] Hematocrit [Volume Fraction] of Blood by Automated count 44.4 % 3 9.0 - 50.0 [facility] Erythrocyte mean corpuscular volume [Entitic volume] by Auto mated count 91.5 fL 80.0 - 96.0 [facility] Erythrocyte mean corpuscular hemoglobin [Entitic mass] by Automated count 28.7 pg 26.0 - 34.0 [facility] Erythrocyte mean corpuscular hemoglobin concentration [Mass/volume] by Automated count 31.3 g/dL 32.0 - 36.0 Below low normal [facility] violeta Erythrocyte distribution width [Ratio] by Automated count 13.2 % 11.6 - 14.8 [facility] Platelets [#/volume] in Blood by Automated count 280 K/uL 150 - 450 [facility] Platelet mean volume [Entitic volume] in Blood by Automated count 9.0 fL 7.1 - 10.4 [facility] Neutrophils [#/volume] in Blood by Automated count 2.78 K/uL 1.70 - 7.70 [facility] Lymphocytes [#/volume] in Blood by Automated count 2.33 K/uL 1.50 - 6.00 [facility] Monocytes [#/volume] in Blood by Automated count 0.46 K/uL 0.00 - 1. 00 [facility] Eosinophils [#/volume] in Blood by Automated count 0.17 K/uL 0.00 - 0.30 [facility] Basophils [#/volume] in Blood by Automated count 0.05 K/uL 0.00 - 0. 10 [facility] 0.01 Urinalysis macro (dipstick) panel - Urine 0.000 10^3/uL 0.000 - 0.012 [facility] Neutrophils/100 leukocytes in Blood by Automated count 47.9 % 42. 2 - 75.2 [facility] Lymphocytes/100 leukocytes in Blood by Automated count 40.2 % 15. 0 - 41.0 [facility] Monocytes/100 leukocytes in Blood by Automated count 7.9 % 0.0 - 12.0 [facility] Eosinophils/100 leukocytes in Blood by Automated count 2.9 % 0.0 - 7.0 [facility] 0.90.20 NRBC 0.0 % [facility] l MANUAL DIFF NOT INDICATED [facility] RBC MORPH NOT INDICATED [facility] ID Date Data Source [id number] 10/11/2020 10:27:00 AM EST [facility] ([facility] ) Name Value Range Interpretation Code Description Data Alexandra rce(s) Supporting Document(s) PDFReport Laboratory test result [facility] ([facility], ) FVC-Pre 2.61 L [facility] ([facility], ) FVC-Pred 5.26 L [facility] ([facility], ) FVC-%Pred-Pre 49 L [facility] ([facility], ) Fev1-Pred 4.09 L [facility] ([facility]) FVC-LLN 4.29 L [facility] ([facility]) Fev1-Pre 1.89 L [facility] ([facility]) Fev1-%Pred-Pre 46 L [facility] ([facility], ) Fev1-LLN 3.27 L [facility] ([facility]) Fev6-Pred 5.08 L [facility] ([facility]) Fev6-Pre 2.61 L [facility] ([facility]) Qxf8dyv-Wlqg 78 % [facility] ([facility]) Fev6-LLN 4.14 L [facility] ([facility]) Fev6-%Pred-Pre 51 L [facility] ([facility], ) Vck0vxb-New 72 % [facility] ([facility]) Kyc5wtg-%Pred-Pre 92 % [facility] ([facility]) Vtn2njh-Mmr 100 % [facility] ([facility]) Xjk7rnj-MWL 68 % [facility] ([facility]) Qbk0jty-Ahxk 97 % [facility] ([facility]) Yhv3szc-%Pred-Pre 103 % [facility] ([facility]) FEFMax-Pred 10.10 L/E/sec [facility] ([facility]) FEFMax-%Pred-Pre 55 L/E/sec [facility] ([facility]) FEFMax-Pre 5.60 L/E/sec [facility] ([facility]) FEFMax-LLN 7.71 L/E/sec [facility] ([facility]) Nbv5867-%Pred-Pre 34 L/E/sec [facility] ([facility]) Gcg4518-Azvv 3.62 L/E/sec [facility] ([facility]) Qnf6159-Cih 1.24 L/E/sec [facility] ([facility], ) ExpTime-Pre 6.35 sec [facility] ([facility], ) Kth1348-DPQ 1.97 L/E/sec [facility] ([facility], ) Gny1eyr2-Xkn 72 % [facility] ([facility], ) Grv6rqi3-%Pred-Pre 89 % [facility] ([facility], ) Mrz4zrc3-Qgjk 81 % [facility] ([facility], ) Ygt6ehd9-YEG 72 % [facility] ([facility], ) ID Date Data Source [id number] 09/06/2020 09:36:33 AM [facility] [address] [place] [address] [facility] DEPARTMENT Name: [facility] #: [id number] : 1970 Ordering Physician: TYREE SILVERIO Sex: M Date: 08/25/20 Admission Type: E/R X-ray Number: [id number] Unsigned Transcriptions are preliminary reports and do not represent a Medical or Legal Document XRAY CHEST 2 VIEW PA - [place]acey [id number] COMPLETE:08/25/20 15:07 LEI 83841 (REASON FOR CHEST: DYSPNEA Comparison: 08/12/2020. Examination of the chest 2 views submitted. FINDINGS: Mediastinal structures are midline. The heart is normal in size and shape. Hilar structures are normal in appearance. The lungs are clear. No diaphragmatic, pleural or skeletal abnormalities are seen. IMPRESSION: Normal study. Electronically Reviewed and Signed By RAFAELA CARRASCO 09/06/20 09:36 Dictating Initials: BE Transcribed Date: 08/26/20 08:31 Transcribe Initials: BBS Name Value Range Interpretation Code Description Data Alexandra rce(s) Supporting Document(s) ID Date Data Source [id number] 08/25/2020 01:55:00 PM EST [facility] Name Value Range Interpretation Code Description Data Alexandra rce(s) Supporting Document(s) CBC WITHOUT DIFFERENTIAL [facility] COMPLETE BLOOD COUNT Leukocytes [#/volume] in Blood by Automated count 8.6 K/uL 4.0 - 10 .0 [facility] Erythrocytes [#/volume] in Blood by Automated count 4.53 M/uL 4.30 - 6.10 [facility] Hemoglobin [Mass/volume] in Blood 13.5 g/dL 13.5 - 17.5 [facility] Hematocrit [Volume Fraction] of Blood by Automated count 42.8 % 3 9.0 - 50.0 [facility] Erythrocyte mean corpuscular volume [Entitic volume] by Auto mated count 94.5 fL 80.0 - 96.0 [facility] Erythrocyte mean corpuscular hemoglobin [Entitic mass] by Automated count 29.8 pg 26.0 - 34.0 [facility] Erythrocyte mean corpuscular hemoglobin concentration [Mass/volume] by Automated count 31.5 g/dL 32.0 - 36.0 Below low normal [facility] Erythrocyte distribution width [Ratio] by Automated count 13.2 % 11.6 - 14.8 [facility] Platelets [#/volume] in Blood by Automated count 230 K/uL 150 - 450 [facility] Platelet mean volume [Entitic volume] in Blood by Automated count 8.7 fL 7.1 - 10.4 [facility] ID Date Data Source [id number] 08/20/2020 09:39:16 AM EST [facility] [address] [place] [address] TELEPHONE RADIOLOGY DEPARTMENT Name: [facility] #: [id number] : 1970 Ordering Physician: CAILIN JESUS Sex: M Date: 08/12/20 Admission Type: E/R X-ray Number: [id number] Unsigned Transcriptions are preliminary reports and do not represent a Medical or Legal Document XRAY CHEST 2 VIEW PA - [place]ER[place] [id number] COMPLETE:08/12/20 15:00 BBS (REASON FOR CHEST: ASTHMA EXACERBATION FINDINGS: Examination of the chest 2 views submitted for evaluation. Mediastinal structures are midline. The heart is normal in size and shape. Hilar structures are normal in appearance. The lungs are clear. No diaphragmatic, pleural or skeletal abnormalities are seen. IMPRESSION: Normal study. Electronically Reviewed and Signed By Marek MATHEW MD, MD 08/20/20 09:39 Dictating Initials: GMM Transcribed Date: 08/13/20 14:46 Transcribe Initials: Name Value Range Interpretation Code Description Data Alexandra rce(s) Supporting Document(s) ID Date Data Source [id number] 08/13/2020 12:18:58 AM EST [facility] Name Value Range Interpretation Code Description Data Alexandra rce(s) Supporting Document(s) ER Note [facility] l PJEHOs8fYqMWGkbykI2UPNEiTJ8bbyk9REinY8XxMYOdwiIoYNYjZ0hzMXPLGSGELKPhnP1xTSAjHhiO vYm aOSRtEHIFkSmDqFtCaW2bfpje3zQY5YJAnSwyjHC1SfUv6PDVwW5ZkLUKmSZBhx3GxAc6+VaG4gcDktA u2lM5QQ9XWZViH52beAw9lELAfkSbayKCf3cKCajrTg7UyrvdKOEWhSPBFVStKCATYT30UUVZQDiJFKC ecse2ro8KlTa7fOqiB14/ZrfmxtVVb+2f7/Vebd3XI cPRhy1l8azdRmTaaueMDGFqBkCGN2kn24zAEugAMqRbOI9qKPSgPSj3XPyR60pQYqhGoHF+A23EULoxv 6wjWc8+Janet+9Yeac8N0/Haiecvf6/5sgBfWWmbQeDoNhVeUKkcCy78nGHfNMpaZHpn9GNPYIEy7lIs4 [file] i3WXih3dZt0kxTa1+PHARMACY INFORMATICS SPECIALIST/Ae60vgLNHWnWOxaGV9823Iem/z/dC+6kdp5b8vKQjvHfWosjw8NJwkbcKWuI [file] VoKFMGIYQ0A0SHYMFtTIINX9BTX1Q3FrM2OFGcIV1n FvBbT3QowlNrQnFAVh0Ec6HeluW8toEnCsZiRis9XzVzED9TYl== ID Date Data Source [id number] 08/12/2020 12:33:00 PM EST [facility] Name Value Range Interpretation Code Description Data Alexandra rce(s) Supporting Document(s) SARS-CoV-2 [facility] This lab was ordered by [facility]UEL [facility] and reported by [facility]. ID Date Data Source [id number] 08/12/2020 12:33:00 PM EST [facility] Name Value Range Interpretation Code Description Data Alexandra rce(s) Supporting Document(s) RESP PROFILE RP2.1 NASAL PCR C [facility] \\BLDo\\RESPIRATORY PROFILE NASAL PHARYNGEAL BY PCR\\BLDx\\ \\BLDo\\DETECTED _NONE \\BLDx\\ 08/12/20.1608.JC. \\BLDo\\EQUIVOCAL _NONE \\BLDx\\ 08/12/20.1608.[facility]. VIRUSES ADENOVIRUS NOT DETECTED NORMAL: NOT DETECTED [facility] CORONAVIRUS 229E NOT DETECTED NORMAL: NOT DETECTED [facility] CORONAVIRUS HKU1 NOT DETECTED NORMAL: NOT DETECTED [facility] CORONAVIRUS NL63 NOT DETECTED NORMAL: NOT DETECTED [facility] CORONAVIRUS OC43 NOT DETECTED NORMAL: NOT DETECTED [facility] 79279-1 NOT DETECTED NORMAL: NOT DETECTED [facility] REPORT TO DEPARTMENT OF HEAL TH HUMAN METAPNEUMO NOT DETECTED NORMAL: NOT DETECTED [facility] HUMAN RHINO/ENTERO NOT DETECTED NORMAL: NOT DETECTED [facility] NOT DETECTEDNOT DETECTEDNOT DETECTEDNOT DETECTED PARAINFLUENZA V3 NOT DETECTED NORMAL: NOT DETECTED [facility] NOT DETECTED RSV NOT DETECTED NORMAL: NOT DETECTED [facility] BACTERIANOT DET ECTEDNOT DETECTEDNOT DETECTEDNOT DETECTED TESTING PERFORMED USING THE Indelsul RP2.1 MULTIPLEXED NUCLEIC ACID TEST. THIS TEST HAS NOT BEEN FDA CLEARED OR APPROVED; THIS TEST HAS BEEN AUTHORIZED BY FDA UNDER AN EUA FOR USE BY AUTHORIZED LABORATORIES; THIS TEST HAS BEEN AUTHORIZED ONLY FOR THE DETECTION AND DIFFERENTATION OF NUCLEI ACID OF SARS-CoV-2 FROM MULTIPLE RESPIRATORY VIRAL AND BACTERIAL ORGANIMS; AND THIS TEST IS ONLY AUTHORIZED FOR THE DURATION OF THE DECLARATION THAT CIRCUMSTANCES EXIST JUSTIFYING THE AUTHORIZATION OF EMERGENCY USE OF IN VITRO DIAGNOSTIC TESTS FOR THE DETECTION AND/OR DIAGNOSIS OF COVID-19 UNDER SECTION 564(b)(1) OF THE ACT, 21 U.S.C. 360bbb-3(b) (1), UNLESS THE AUTHORIZATION IS TERMINATED OR REVOKED SOONER. ID Date Data Source [id number] 08/04/2020 02:54:00 PM EDT [facility] ([facility]) Name Value Range Interpretation Code Description Data Alexandra rce(s) Supporting Document(s) Red Blood Count 4.46 10 4.30-6.10 Normal (applies to non-numeric results) [facility] ([facility]) White Blood Count 6.5 10 4.0-10.0 Normal (applies to non-numeri c results) [facility] ([facility]) Hematocrit 41.4 % 42.0-52.0 Below low normal [facility] ( [facility]) Hemoglobin 12.9 g/dL 13.5-17.5 Below low normal [facility] ( [facility]) Mean Corpuscular Volume 92.8 fl 80.0-96.0 Normal ( applies to non-numeric results) [facility] ([facility]) Mean Corpuscular HGB Conc 31.2 g/dL 32.0-36.5 Below low normal [facility] ([facility]) Mean Corpuscular Hemoglobin 28.9 pg 27.0-33.0 Norm al (applies to non-numeric results) [facility] ([facility]) Platelet Count, Automated 269 10 150-450 Normal (applies to non-numeric results) [facility] Neutrophils % 46.6 % 36.0-66.0 Normal (applies to non-numeric re sults) [facility]) Red Cell Distribution Width 13.5 % 11.5-14.5 Norm al (applies to non-numeric results) [facility]) [place] % 7.7 % 0.0-5.0 Above high normal [facility]) Lymph % 43.5 % 24.0-44.0 Normal (applies to non-numeric resul ts) [facility] ([facility]) Eos % 1.4 % 0.0-3.0 Normal (applies to non-numeric resul ts) [facility] ([facility]) Immature Granulocyte % 0.3 % 0-3.0 Normal (applies to non-n umeric results) [facility] ([facility]) Baso % 0.5 % 0.0-1.0 Normal (applies to non-numeric resul ts) [facility] ([facility]) Lymph # 2.8 10 1.5-5.0 Normal (applies to non-numeric resul ts) [facility] ([facility]) Nucleated Red Blood Cell % 0.0 % 0-0 Normal (applies to n on-numeric results) [facility] ([facility]) Neutrophils # 3.0 10 1.5-8.5 Normal (applies to non-numeric re sults) [facility] ([facility]) Baso # 0.0 10 0.0-0.2 Normal (applies to non-numeric resul ts) [facility] ([facility]) [place] # 0.5 10 0.0-0.8 Normal (applies to non-numeric resul ts) [facility] ([facility]) Eos # 0.1 10 0.0-0.5 Normal (applies to non-numeric resul ts) [facility] ([facility]) ID Date Data Source [id number] 08/04/2020 02:54:00 PM EDT [facility] ([facility]) Name Value Range Interpretation Code Description Data Alexandra rce(s) Supporting Document(s) Class Description Laboratory test result Normal (applies to non-numeric results) [facility] ([facility]) <content>.</content>
<content>Levels of Specific IgE Class Description of Class</content>
<content> ----- </content>
<content>< 0.10 0 Negative</content>
<content>0.10 - 0.31 0/I Equivocal/Low</content>
<content>0.32 - 0.55 I Low</content>
<content>0.56 - 1.40 II Moderate</content>
<content>1.41 - 3.90 III High</content>
<content>3.91 - 19.00 IV Very High</content>
<content>19.01 - 100.00 V Very High</content>
<content>>100.00 Very High</content>
<content></content> B009-BiQ D pteronyssinus Laboratory test result Normal (applies to non-numeric results) [facility] ([facility], ) Q636-AuP D farinae Mite Laboratory test result N ormal (applies to non-numeric results) [facility] ([facility], ) T584-CoR Cat Epith/Dander 0.74 kU/L Abnormal (appli es to non-numeric results) [facility] ([facility], ) P689-AnA Dog Dander 1.35 kU/L Abnormal (applies to non-nu meric results) [facility] ([facility], ) V614-ZhY B[place] Grass Laboratory test result No rmal (applies to non-numeric results) [facility] ([facility], ) G524-WiU [place] Laboratory test result Normal (applies to non- numeric results) [facility] ([facility], ) Y675-LsE Penicillium chrysogen Laboratory test result Normal (applies to non- numeric results) [facility] ([facility], ) O395-OtW Cockro[place], [place] Laboratory test result Normal (applies to non- numeric results) [facility] ([facility], ) T600-AxM Bahia Grass Laboratory test result Norm al (applies to non-numeric results) [facility] ([facility], ) K650-EfF Mucor racemosus Laboratory test result Normal (applies to non-numeric results) [facility] ([facility], ) M003 IgE Aspergillus fumigatu Laboratory test result Normal (applies to non- numeric results) [facility] ([facility], ) M002 IgE Cladosporium herbaru Laboratory test result Normal (applies to non- numeric results) [facility] ([facility], ) 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 Laboratory test result Normal (applies to non- numeric results) [facility] ([facility], ) H052-SnQ Stemphylium Herbarum Laboratory test result Normal (applies to non- numeric results) [facility] ([facility], ) W244-LiS [place], [place] Laboratory test result No rmal (applies to non-numeric results) [facility] ([facility], ) K615-VlR Common Silver Birch Laboratory test result Normal (applies to non- numeric results) [facility] ([facility], ) O255-AvS [place], White Laboratory test result Piedad l (applies to non-numeric results) [facility] ([facility], ) Z100-YwJ Maple/Beltrami Laboratory test result Normal (applies to non-numeric results) [facility] ([facility], ) E325-SzO Hazelnut Tree Laboratory test result No rmal (applies to non-numeric results) [facility] ([facility], ) U720-MkC Crispin, White Laboratory test result Piedad l (applies to non-numeric results) [facility] ([facility], ) K910-IdN [place], White Laboratory test result N ormal (applies to non-numeric results) [facility] ([facility], ) D729-VzE [place] Laboratory test result N ormal (applies to non-numeric results) [facility] ([facility], ) T371-EtF [place], Mountain Laboratory test result Normal (applies to non-numeric results) [facility] ([facility], ) K869-ZfQ Mugwort Laboratory test result Normal ( applies to non-numeric results) [facility] ([facility], ) Q535-LcC Rag[place], Short Laboratory test result N ormal (applies to non-numeric results) [facility] ([facility], ) V321-CuC Plantain, Ecuadorean Laboratory test result Normal (applies to non- numeric results) [facility] ([facility], ) K920-AcO Sheep Tintah Laboratory test result Nor mal (applies to non-numeric results) [facility] ([facility]) U961-HeM Pigweed, Rough Laboratory test result N ormal (applies to non-numeric results) [facility] ([facility]) M849-TzB Nettle Laboratory test result Normal (a pplies to non-numeric results) [facility] ([facility]) Performed at: [address] [id number] 61 Software Quality Assurance Engineer: Casey Simental MD, Phone: [phone] ID Date Data Source [id number] 08/04/2020 02:54:00 PM EDT [facility] ([facility]) Name Value Range Interpretation Code Description Data Alexandra rce(s) Supporting Document(s) IgE [Mass/volume] in Serum 45.0 IU/ml Normal (applie s to non-numeric results) [facility] ([facility]) ID Date Data Source [id number] 08/03/2020 11:35:27 AM EDT [facility] Name Value Range Interpretation Code Description Data Alexandra rce(s) Supporting Document(s) ER Note [facility] l SGHCIf8bTsJFHlhmnP6WEZDkSX6pdqg1NIqqK4WyFGUpwiWhSXLaF1vtESWJAGREIDWpbE5lDMQtOcnJ vYm pLNPxFKGFkKkMcBkFjD8dpjns4xVK2WPHrFqzgZH1FlDx1QOSrB6EvQMGaSCQoc8FzYw3+JbU9fsZbbA j4mI5YO0WTUBvB02wzDy5nYWYzkNnddTPz8tFTiycCf1QptruCILFbOLNRGAmJPCBOS14XCUOJBhAJJC swpg6qb3WsHr8rEceT35/ZrfmxtVVb+2f7/Wmws0LD lSKvm6g0aueOwHskagOGWBpIgXNO7jr70vGWlsAKtTfTE9ePMNdPSx0GQqC76pFNbdFwCU+Y16DUMpqr 6wjWc8+Janet+8Bpgn7B8/Haiecvf6/8pjPmWOmvMfFcOvDwCEnvIq86tXDdPBzuYAmj9OXOTQGj9kSu0 [file] j8XYsh2tHl3omCl2+PHARMACY INFORMATICS SPECIALIST/Jd84fnJYUCbRGlyZU3465Gkg/z/dC+5xok1s0pRVcaOwSszki4OScovbDMbS [file] Carroll+HaanCV9Nwt4aO9K0KSmeKEZCFZ0LaQOkUPUqM7akNYnpUsEkGBM9dZ0CTBJqRW9virGttOH1FBKv MF8zDALaLVZuGfRzFN5eLKS4INNoDnD+ZeffXT7We7 rxzzQnLNJeERg8ZA3EKGNuvMe0DciSOOceWRFHOM5+Cj4+BkYjSD8hczleAIDsWC8rhlg6RNCgHdSbbn ErBTK8SUTrYgFcOKX+EkHlHIl7WE3NNI0AUR8SbQFyHQ8+XSA+FtdpwsWeVpjJiDSgQjeuEXN5FbQrRC RpORUkBFLkZiM8AvUmBwHRWCLrGBZuPaw9NBZaSTIo CKGrJNbuHSZyEQB5JWI9OFVhQSNtAI8jSoFfBBGvFnliFQPoIYUmUDBpfoLXFEAaRMMtSYQkVWYzOSNl BXGlKEnsMSLhJHXmWSI8IRVfBXFrUM4qJqWjAIOlJRA1KRBhLBQfTNZnonGEWDPwEIUoZxefGqMoMCDr ZJXyKXmeFVKtJWNpBsW2QHFkSMOhON9lMdCuQGBxCA K9HRssQREfCLRviuMAQQXeOAYrBUulIPNyJMTmBKAeGMviXTYcPPI3EvqkXDZsZLWsEL0vMiOvKCJiHZ F4FwctFLVhWVLsspNJILJdXFRoSid6YTCwAWIgGWFwDGfvJXVrEMDcEOo9YJGeYBVdVC1tHmWlGQSvCa YvCVbdYPStOBPygbQEJUIySOOyBBZ2QDDePNUoLBOa WIxbAELwKGVnBRcoGYWyROBpQG9zPmXuNQEvEjL5VSamIJIySVTehkYPUYAmAODfTaUyRuYfWMPkZSKz STpyEYJuEMR9LOb1CHThNSEtMZ0dGiRnHVBiBqo8MsabXSBjHFEraaZGOPVhZABnHJvgDENiUVSaGUQd TPqsBKIbLGW0ZEL2IWJhABZgOZ3lDhHoRGTnUdc0Oa igTIJzJPAbhiFBSODuGXTwXwh6FaEwPSUaBBFaJJmqBLOzCOS7CVz3LQRyTGAmSB9eCrMaEOdiOADOZJ rHRYNgUp7oiKQxJRJsTazzGC2ZrhKeBSXwIVPIVwChW3yTWVa1NrVRXjY4YVMPZSdAWWTQKkXQLBs0CA GuQPLkDJV3TkW+YMuIL1FQIjU2IBRCKRF5V8L5WuN1 Dip3QFUxRvHXKrHbHJ7hFsEuF6EhxjKyWnfPWb5Kt1LkuzB9fuTrTqJ2YOB8YmQwQR6ADb== ID Date Data Source [id number] 06/28/2020 01:24:54 PM EDT [facility] [address] [place] [address] TELEPHONE RADIOLOGY DEPARTMENT Name: [facility] #: [id number] : PATBDAY Ordering Physician: CAILIN JESUS Sex: M Date: 06/22/20 Admission Type: E/R X-ray Number: [id number] Unsigned Transcriptions are preliminary reports and do not represent a Medical or Legal Document \\CTNo\\ EKG TRACING ONLY W/O REPORT [id number] COMPLETE:06/22/20 15:56 LEI 57207 (REASON FOR PROCED: ARRHYTHMIA \\CTNx\\ SEE SCANNED EKG REPORT Dictating Initials: [facility]H Transcribe Date: 06/28/20 13:24 Transcribe Initials: LI Name Value Range Interpretation Code Description Data Alexandra rce(s) Supporting Document(s) ID Date Data Source [id number] 06/24/2020 05:01:33 PM EDT [facility] Name Value Range Interpretation Code Description Data Alexandra rce(s) Supporting Document(s) ER Note [facility] WGXJXp0tMoAKTjdupQ2KCCTzUL2xdzy6ZTawQ1GvPYIoybUpYGVjL4gxKERCIUUQRJMfbD4jNQKdEykU vYm fESNcIXDTpNdNhCsPeM4choaj8vJM9CQReYmmxSC8FqYc1FBFcV5RcNYPiTHNsk7CoFy0+GxG2grZxuR d4iO2IC9RKOZdO77nzKf4eAXIomSljrUEm8rIIicpZw7FouzyAXTMqHIMBTXwHWGWAR64SSQKUAwLRCZ krxh1wu1VvMh8kXjgN17/ZrfmxtVVb+2f7/Jsrj9BT iHOca3z7ijpRuLvsgzUUEPnHhAEY7wl60jWOklMYqQyDO7oMBFeLAz3JFcP34cUEplAzAM+B62NRPcbz 6wjWc8+Janet+0Nxhi9E9/Haiecvf6/8plVbWJaiYrRmOzVxIQbwJf23nRVrUMcnHSto3IDKBJUe1xXy1 [file] m6UVil0mVc9qdTz8+PHARMACY INFORMATICS SPECIALIST/Am37hcMJUGhXWynAF0482Azd/z/dC+1rby3f3vJRykNuVejdi8ZNjrgaFAfD [file] LACLHMVTLuZ4ZSW0BXVTQW0fRZV2JZI5CrTzVuZGFCFHVbGNGoWLSICrFTyYIAN1DaNdRf2CVSPbN9r0 ZSAyNwo+LriqsAMmqVyhIVBVRsnpGlGUTBFBF7JJ ID Date Data Source [id number] 06/22/2020 06:15:07 PM EDT [facility] Name Value Range Interpretation Code Description Data Alexandra rce(s) Supporting Document(s) ER Note [facility] l HVTBCo1sAfHGRnepqH0QASLwPA3rliy8ZPhxI7PqSYDuvuEdIQQkR7cfXTHWOGRPZARcjO5rJRUvZhgZ vYm vTFTrTCONyNwKmYaGlF3eivjz6gYV5SNMyFlagDM3TgRh6VYUsC3VsPUTqSANfp0LvJm3+WeP7brEycJ o5eO3HC4YFZUbX68brAq5cORNrrAkaxPXi9eARpnxMi8SksutXBSViCICFTFlKXUWKJ01SEUJHNnKTVI zptn8cd2OjRn8zQeuH50/ZrfmxtVVb+2f7/Mrwh8ZN bOQqr4e3elfXzXinjlHYTYzTbCAV9kf45wWParENbWvFF4fUZWnLNw2UXtG17fLSeqVdWO+B91IMBjra 6wjWc8+Janet+7Hoiv3O5/Haiecvf6/3ytQvIWhlQhObOlNoEAhhSt24zAVcJQwdSRsw3DHWHBLl2sIa9 [file] r5DKcg1mQb4dfCh4+PHARMACY INFORMATICS SPECIALIST/Pw73dzJNIDbITvuPY2651Dtp/z/dC+2jow3l8gJEkgFaLeflf6UOxqnxHOjO [file] 6Ni3TapyN1sbInFwO5EMJ8NvIeWS0VBl== ID Date Data Source [id number] 06/22/2020 05:21:55 PM EDT [facility] Name Value Range Interpretation Code Description Data Alexandra rce(s) Supporting Document(s) Discharge Note [facility] spital URMKWq6qVkRAMjwqtG4CTPFbBV2pfvc3CFeoS0JgJMGoafRkOMKcJ4ogLBOUUQFDZZVgvY4uFMRrYknT vYm fIAVuAKWEfVwNhYmGvJ5gulnq0yPP9MNSdZknlWM0JnFe7QIFxE6GhVUGeYGVpj9AyJo4+FlE0jsRneX v3mH5NO0FRJNsF72toEb2oSGEncZywpEKv4uQArzbBk6UkzpaRDLWrILFEKVoNYGHBA08SFATPKvWVWG pvhv2ht2ZmSu4dUxcG92/ZrfmxtVVb+2f7/Ymdt4CR xRYwu6i5wmdUhKavlrSPNKeJvEDK5lt04tXXbfNSsXjYC4uOWUgJQe4CSlO38nGMnyVoPM+B55CUVeut 6wjWc8+Janet+3Aysg7G0/Haiecvf6/1fiZcUOisTqZyPlYrOFsnEi46nQAvHHbaWEuh2BWHQXJg8vXc3 [file] c6QXsk3xCx0cvXw4+PHARMACY INFORMATICS SPECIALIST/Ar94dqQWGMpWZixGL8045Set/z/dC+6bhd2p7kEAmgUyIpsih2FDeovbBQnY [file] S2lxTz3fYFYuEVXBVRSkMNPfUkh3CRQMRTKUKCBQZS S2O8LlTgXuMVU6AePxABU9BGXSRk5zDNjJXpVIUSElBYZ6YDBOTlTYXECmINzMKIO8TOMhPdLHKx7RRC KzU2z7FDOjPNh+XssqnXDgsYhtMICWOmNcPRaLNYDFW2VO ID Date Data Source [id number] 06/22/2020 02:30:00 PM EDT [facility] Name Value Range Interpretation Code Description Data Alexandra rce(s) Supporting Document(s) T4 FREE 1.10 ng/dL 0.76 - 1.46 Below low normal [facility] Reference range updated for [facility] LOCI technology based chemiluminescent immunoassay method, and age specific ranges.Effective 06/18/18. ID Date Data Source [id number] 06/22/2020 02:30:00 PM EDT [facility] Name Value Range Interpretation Code Description Data Alexandra rce(s) Supporting Document(s) TSH ULTRASENSITIVE [facility] CORRECTE D REPORT TSH 2.24 uIU/mL 0.36 - 3.74 Below low normal [facility] Reference range updated for [facility] LOCI technology based chemiluminescent immunoassay method, and age specific ranges. Effective 06/18/18. FOLLOWING RESULTS REPORTED IN ERROR TS] TSH REASON SAMPLING ERROR [facility] estela NOTIFIED Nilay SIMEON 06/22/20 @1800 [facility] ORIGINAL REPORT 06/22/20 @ 1723 [facility] CORRECT DATE/TIME 06/22/20 @ 1803 [facility] ID Date Data Source [id number] 06/22/2020 02:30:00 PM EDT [facility] Name Value Range Interpretation Code Description Data Alexandra rce(s) Supporting Document(s) COMPREHENSIVE CHEM PROFILE Cli [facility] COMPREHENSIVE METABOLIC PANEL Sodium [Moles/volume] in Serum or Plasma 139 mEq/L 136 - 145 [facility] Potassium [Moles/volume] in Serum or Plasma 4.8 mEq/L 3.5 - 5.1 [facility] Chloride [Moles/volume] in Serum or Plasma 103 mEq/L 98 - 107 [facility] Carbon dioxide, total [Moles/volume] in Serum or Plasma 30.3 mEq /L 21.0 - 32.0 [facility] Glucose [Mass/volume] in Serum or Plasma 117 mg/dL 70 - 100 Above high normal [facility] Urea nitrogen [Mass/volume] in Serum or Plasma 18 mg/dL 7 - 18 [facility] CREATININE SERUM 1.24 mg/dL 0.70 - 1.30 [facility] AGE 50 yrs [facility] l HEIGHT 72 [facility] l eGFR NON-AFR AMR >60 [facility] eGFR AFR AMR >60 [facility] ital BUN/CREAT 15 6 - 25 [facility] Protein [Mass/volume] in Serum or Plasma 6.4 g/dL 6.0 - 8.3 [facility] Albumin [Mass/volume] in Serum or Plasma 3.7 g/dL 3.8 - 5.4 Below low normal [facility] GLOBULIN 2.7 g/dL 2.0 - 4.0 [facility] A/G RATIO 1.4 0.8 - 2.0 [facility] Calcium [Mass/volume] in Serum or Plasma 8.2 mg/dL 8.8 - 10.2 Below low normal [facility] Bilirubin.total [Mass/volume] in Serum or Plasma 0.5 mg/dL 0.2 - 1.0 [facility] Bilirubin.direct [Mass/volume] in Serum or Plasma 0.1 mg/dL 0.0 - 0. 2 [facility] INDIRECT BILI 0.4 mg/dL 0.0 - 1.1 [facility] pital ALK PHOSPHATASE 66 U/L 40 - 129 [facility] ospital Aspartate aminotransferase [Enzymatic ac tivity/volume] in Serum or Plasma by With P-5'-P 22 IU/L 7 - 37 [facility] Alanine aminotransferase [Enzymatic acti vity/volume] in Serum or Plasma by With P-5'-P 16 IU/L 12 - 78 [facility] ANION GAP 6 7 - 15 Below low normal [facility] Estimated GFR referenc e range: >60ml/min/1.73m >18 years: Calculated using [employer] traceable Study Equation <18 years: Calculated using [facility] tracable Bedside Schartz Equation ID Date Data Source [id number] 06/22/2020 02:30:00 PM EDT [facility] Name Value Range Interpretation Code Description Data Alexandra rce(s) Supporting Document(s) Troponin I.cardiac [Mass/volume] in Serum or Plasma <0.017 ng/mL 0.017 - 0.060 [facility] \\BLDo\\TROPONIN I I NTERPRETATION:\\BLDx\\ < 0.06 ng/mL NOT SUSPICIOUS FOR AN AMI 0.06 - 0.59 ng/mL [facility] FOR AN AMI, SERIAL MONITORING RECOMMENDED 0.6 - 1.5 ng/mL SUSPICIOUS FOR AN AMI Reference range updated for new chemiluminescent immunoassay method based on [employer] technology. Effective 05/20/18. ID Date Data Source [id number] 06/22/2020 02:30:00 PM EDT [facility] Name Value Range Interpretation Code Description Data Alexandra rce(s) Supporting Document(s) CBC [facility] l COMPLETE BLOOD COUNT Leukocytes [#/volume] in Blood by Automated count 5.3 K/uL 4.0 - 10 .0 [facility] Erythrocytes [#/volume] in Blood by Automated count 4.43 M/uL 4.30 - 6.10 [facility] Hemoglobin [Mass/volume] in Blood 13.2 g/dL 13.5 - 17.5 Below low no rmal [facility] Hematocrit [Volume Fraction] of Blood by Automated count 41.2 % 3 9.0 - 50.0 [facility] Erythrocyte mean corpuscular volume [Entitic volume] by Auto mated count 93.0 fL 80.0 - 96.0 [facility] Erythrocyte mean corpuscular hemoglobin [Entitic mass] by Automated count 29.8 pg 26.0 - 34.0 [facility] Erythrocyte mean corpuscular hemoglobin concentration [Mass/volume] by Automated count 32.0 g/dL 32.0 - 36.0 [facility] Erythrocyte distribution width [Ratio] by Automated count 13.5 % 11.6 - 14.8 [facility] Platelets [#/volume] in Blood by Automated count 262 K/uL 150 - 450 [facility] Platelet mean volume [Entitic volume] in Blood by Automated count 9.1 fL 7.1 - 10.4 [facility] Neutrophils [#/volume] in Blood by Automated count 3.55 K/uL 1.70 - 7.70 [facility] Lymphocytes [#/volume] in Blood by Automated count 1.52 K/uL 1.50 - 6.00 [facility] Monocytes [#/volume] in Blood by Automated count 0.16 K/uL 0.00 - 1. 00 [facility] Eosinophils [#/volume] in Blood by Automated count 0.02 K/uL 0.00 - 0.30 [facility] Basophils [#/volume] in Blood by Automated count 0.02 K/uL 0.00 - 0. 10 [facility] 0.02 Urinalysis macro (dipstick) panel - Urine 0.000 10^3/uL 0.000 - 0.012 [facility] Neutrophils/100 leukocytes in Blood by Automated count 67.1 % 42. 2 - 75.2 [facility] Lymphocytes/100 leukocytes in Blood by Automated count 28.7 % 15. 0 - 41.0 [facility] Monocytes/100 leukocytes in Blood by Automated count 3.0 % 0.0 - 12.0 [facility] Eosinophils/100 leukocytes in Blood by Automated count 0.4 % 0.0 - 7.0 [facility] 0.40.40 NRBC 0.0 % [facility] MANUAL DIFF NOT INDICATED [facility] RBC MORPH NOT INDICATED [facility] Procedure Social History Code Duration Value Status Description Data Source(s ) Smoking 06/03/2021 12:00:00 AM EDT - 10/08/1993 12:00:00 AM EST Patient is a former smoker completed Patient is a former smoker [facility] ([facility], ) Vital Signs ID Date Data Source UNK Name Value Range Interpretation Code Description Data Source(s) Body mass index (BMI) [Ratio] 48.02 kg/m2 48.02 kg/m2 [facility] Systolic blood pressure 141 mm[Hg] 141 mm[Hg] [facility] Diastolic blood pressure 70 mm[Hg] 70 mm[Hg] [facility] Body surface area Derived from formula 2.98 m2 2.98 m2 [facility] Body height 187.9600 cm 187.9600 cm [facility] Oxygen saturation in Arterial blood by Pulse oximetry 99 % 99 % [facility] Heart rate 84.0 /min 84.0 /min [facility] ospital Respiratory rate 20 /min 20 /min [facility] Body temperature 36.4 Juliette 36.4 Juliette [facility] Body weight 169.64 kg 169.64 kg [facility] Systolic blood pressure 108 mm[Hg] 108 mm[Hg] [facility]) Diastolic blood pressure 60 mm[Hg] 60 mm[Hg] [facility] ([facility]) Heart rate 69 /min 69 /min [facility] ([facility]) Oxygen saturation in Arterial blood by Pulse oximetry 95 % 95 % [facility] ([facility]) Body height 71 [in_i] 71 [in_i] [facility] ([facility]) 5'11" Body weight 381.00 [lb_av] 381.00 [[facility]_av] [facility] Body mass index (BMI) [Ratio] 53.1 kg/m2 53.1 k g/m2 [facility] ([facility]) [place] body weight 172 [lb_av] 172 [lb_av] [facility] Body weight 172.822 kg 172.822 kg [facility] ([facility]) Body surface area Derived from formula 2.77 m2 2.77 m2 [facility] ([facility]) Systolic blood pressure 150 mm[Hg] 150 mm[Hg] [facility] Diastolic blood pressure 81 mm[Hg] 81 mm[Hg] [facility] Oxygen saturation in Arterial blood by Pulse oximetry 96 % 96 % [facility] Heart rate 88.0 /min 88.0 /min [facility] Respiratory rate 28 /min 28 /min [facility] Body temperature 37.1 Juliette 37.1 Juliette [facility] Systolic blood pressure 150 mm[Hg] 150 mm[Hg] [facility] Diastolic blood pressure 87 mm[Hg] 87 mm[Hg] [facility] Oxygen saturation in Arterial blood by Pulse oximetry 96 % 96 % [facility] Heart rate 88.0 /min 88.0 /min [facility] Respiratory rate 22 /min 22 /min [facility] Body temperature 37.1 Juliette 37.1 Juliette [facility] Body mass index (BMI) [Ratio] 54.38 kg/m2 54.38 kg/m2 [facility] Systolic blood pressure 126 mm[Hg] 126 mm[Hg] [facility] Diastolic blood pressure 69 mm[Hg] 69 mm[Hg] [facility] Body surface area Derived from formula 2.91 m2 2.91 m2 [facility] Body height 177.8000 cm 177.8000 cm [facility] Oxygen saturation in Arterial blood by Pulse oximetry 97 % 97 % [facility] Heart rate 68.0 /min 68.0 /min [facility]ital Respiratory rate 20 /min 20 /min [facility] Body temperature 36.9 Juliette 36.9 Juliette [facility] Body weight 171.91 kg 171.91 kg [facility] Body height 182.8800 cm 182.8800 cm [facility] Body mass index (BMI) [Ratio] 50.59 kg/m2 50.59 kg/m2 [facility] Systolic blood pressure 116 mm[Hg] 116 mm[Hg] [facility] Diastolic blood pressure 63 mm[Hg] 63 mm[Hg] [facility] Body temperature 37.0 Juliette 37.0 Juliette [facility] Body surface area Derived from formula 2.93 m2 2.93 m2 [facility] Oxygen saturation in Arterial blood by Pulse oximetry 97 % 97 % [facility] Respiratory rate 16 /min 16 /min [facility] Body weight 169.19 kg 169.19 kg [facility] Oxygen saturation in Arterial blood by Pulse oximetry 97 % 97 % [facility] ([facility], ) Body height 71 [in_i] 71 [in_i] [facility] ([facility], ) 5'11" Body weight 378.00 [lb_av] 378.00 [lb_av] [facility] ([facility]) Body mass index (BMI) [Ratio] 52.7 kg/m2 52.7 k g/m2 [facility] ([facility]) [place] body weight 172 [lb_av] 172 [lb_av] [facility] ([facility]) Body weight 171.461 kg 171.461 kg [facility] ([facility]) Body surface area Derived from formula 2.76 m2 2.76 m2 [facility] ([facility]) Heart rate 60 /min 60 /min [facility] ([facility]) Oxygen saturation in Arterial blood by Pulse oximetry 97 % 97 % [facility] ([facility]) Body height 71 [in_i] 71 [in_i] [facility] ([facility]) 5'11" Body weight 378.00 [lb_av] 378.00 [lb_av] [facility] ([facility]) Body mass index (BMI) [Ratio] 52.7 kg/m2 52.7 k g/m2 [facility] ([facility]) [place] body weight 172 [lb_av] 172 [lb_av] [facility] ([facility]) Body weight 171.461 kg 171.461 kg [facility] ([facility]) Body surface area Derived from formula 2.76 m2 2.76 m2 [facility] ([facility]) Oxygen saturation in Arterial blood by Pulse oximetry 95 % 95 % [facility] ([facility]) Heart rate 67 /min 67 /min [facility] ([facility]) Body temperature 97.2 [degF] 97.2 [degF] [facility] ([facility]) Body mass index (BMI) [Ratio] 52.2 kg/m2 52.2 k g/m2 [facility] ([facility]) Body height 71 [in_i] 71 [in_i] [facility] ([facility]) 5'11" Body weight 169.646 kg 169.646 [facility] Body surface area Derived from formula 2.75 m2 2.75 m2 [facility] ([facility]) Body weight 374.00 [lb_av] 374.00 [lb_av] [facility] ([facility]) Systolic blood pressure 110 mm[Hg] 110 mm[Hg] M [facility] ([facility]) [place] body weight 172 [lb_av] 172 [lb_av] [facility] ([facility]) Diastolic blood pressure 70 mm[Hg] 70 mm[Hg] [facility] ([facility]) Body mass index (BMI) [Ratio] 52.2 kg/m2 52.2 k g/m2 [facility] ([facility]) Body surface area Derived from formula 2.75 m2 2.75 m2 [facility] ([facility]) Body height 71 [in_i] 71 [in_i] [facility] ([facility]) 5'11" Oxygen saturation in Arterial blood by Pulse oximetry 95 % 95 % [facility] ([facility]) Body temperature 97.2 [degF] 97.2 [degF] [facility] ([facility]) Body weight 374.00 [lb_av] 374.00 [lb_av] [facility] ([facility]) [place] body weight 172 [lb_av] 172 [lb_av] [facility] Body weight 169.646 kg 169.646 kg [facility] ([facility]) Systolic blood pressure 130 mm[Hg] 130 mm[Hg] [facility] Body mass index (BMI) [Ratio] 50.18 kg/m2 50.18 kg/m2 [facility] Diastolic blood pressure 66 mm[Hg] 66 mm[Hg] [facility] Body surface area Derived from formula 2.92 m2 2.92 m2 [facility] Body height 182.8800 cm 182.8800 cm [facility] Oxygen saturation in Arterial blood by Pulse oximetry 97 % 97 % [facility] Heart rate 56.0 /min 56.0 /min [facility] Respiratory rate 20 /min 20 /min [facility] Body temperature 36.3 Juliette 36.3 Juliette [facility] Body weight 167.83 kg 167.83 kg [facility] Body mass index (BMI) [Ratio] 50.45 kg/m2 50.45 kg/m2 [facility] Systolic blood pressure 131 mm[Hg] 131 mm[Hg] [facility] Diastolic blood pressure 68 mm[Hg] 68 mm[Hg] [facility] Body surface area Derived from formula 2.93 m2 2.93 m2 [facility] Body height 182.8800 cm 182.8800 cm [facility] Oxygen saturation in Arterial blood by Pulse oximetry 98 % 98 % [facility] Heart rate 81.0 /min 81.0 /min [facility] Respiratory rate 20 /min 20 /min [facility] Body temperature 36.6 Juliette 36.6 Juliette [facility] Body weight 168.74 kg 168.74 kg [facility] Body mass index (BMI) [Ratio] 48.82 kg/m2 48.82 kg/m2 [facility] Systolic blood pressure 122 mm[Hg] 122 mm[Hg] [facility] Diastolic blood pressure 79 mm[Hg] 79 mm[Hg] [facility] Body surface area Derived from formula 2.88 m2 2.88 m2 [facility] Body height 182.8800 cm 182.8800 cm [facility] Oxygen saturation in Arterial blood by Pulse oximetry 97 % 97 % [facility] Heart rate 70.0 /min 70.0 /min [facility] Respiratory rate 14 /min 14 /min [facility] Body temperature 37.1 Juliette 37.1 Juliette [facility] Body weight 163.29 kg 163.29 kg [facility] Oxygen saturation in Arterial blood by Pulse oximetry 96 % 96 % [facility] ([facility], ) Body temperature 97.4 [degF] 97.4 [degF] [facility] ([facility], ) Body mass index (BMI) [Ratio] 51.2 kg/m2 51.2 k g/m2 [facility] ([facility], ) Body height 71 [in_i] 71 [in_i] [facility] ([facility], ) 5'11" Systolic blood pressure 112 mm[Hg] 112 mm[Hg] [facility] Diastolic blood pressure 70 mm[Hg] 70 mm[Hg] [facility] ([facility]) Body weight 367.00 [lb_av] 367.00 [lb_av] [facility] ([facility]) [place] body weight 172 [lb_av] 172 [lb_av] [facility] ([facility]) Body weight 166.471 kg 166.471 kg [facility] ([facility]) Body surface area Derived from formula 2.73 m2 2.73 m2 [facility] ([facility]) Heart rate 66 /min 66 /min [facility] ([facility]) Diastolic blood pressure 70 mm[Hg] 70 mm[Hg] [facility] ([facility]) Body height 71 [in_i] 71 [in_i] [facility] ([facility]) 5'11" [place] body weight 172 [lb_av] 172 [lb_av] [facility] ([facility]) Systolic blood pressure 110 mm[Hg] 110 mm[Hg] [facility] ([facility]) Heart rate 65 /min 65 /min [facility] ([facility]) Oxygen saturation in Arterial blood by Pulse oximetry 98 % 98 % [facility] ([facility]) Body weight 367.00 [lb_av] 367.00 [lb_av] [facility] ([facility]) Body mass index (BMI) [Ratio] 51.2 kg/m2 51.2 k g/m2 [facility] ([facility]) Body weight 166.471 kg 166.471 kg [facility] ([facility]) Body surface area Derived from formula 2.73 m2 2.73 m2 [facility] ([facility]) Diastolic blood pressure 82 mm[Hg] 82 mm[Hg] [facility] ([facility]) Oxygen saturation in Arterial blood by Pulse oximetry 98 % 98 % [facility] ([facility]) Heart rate 63 /min 63 /min [facility] ([facility]) Body temperature 96.9 [degF] 96.9 [degF] [facility] ([facility]) Body height 71 [in_i] 71 [in_i] [facility] ([facility]) 5'11" Body weight 360.00 [lb_av] 360.00 [lb_av] [facility] ([facility]) Body mass index (BMI) [Ratio] 50.2 kg/m2 50.2 k g/m2 [facility] ([facility]) Systolic blood pressure 110 mm[Hg] 110 mm[Hg] [facility] ([facility]) [place] body weight 172 [lb_av] 172 [lb_av] [facility] ([facility]) Body weight 163.296 kg 163.296 kg [facility] ([facility]) Body surface area Derived from formula 2.71 m2 2.71 m2 [facility] ([facility]) Systolic blood pressure 112 mm[Hg] 112 mm[Hg] [facility] ([facility]) Body height 71 [in_i] 71 [in_i] [facility] ([facility]) 5'11" Diastolic blood pressure 82 mm[Hg] 82 mm[Hg] [facility] ([facility]) Body weight 365.00 [lb_av] 365.00 [lb_av] [facility] ([facility]) Heart rate 65 /min 65 /min [facility] ([facility]) Body mass index (BMI) [Ratio] 50.9 kg/m2 50.9 k g/m2 [facility] ([facility]) [place] body weight 172 [lb_av] 172 [lb_av] [facility] ([facility]) Body weight 165.564 kg 165.564 kg [facility] ([facility]) Oxygen saturation in Arterial blood by Pulse oximetry 98 % 98 % [facility] ([facility]) Body surface area Derived from formula 2.72 m2 2.72 m2 [facility] ([facility]) Systolic blood pressure 122 mmHg 122 mmHg [facility] Diastolic blood pressure 72 mmHg 72 mmHg [facility] Oxygen saturation in Arterial blood by Pulse oximetry 100 % 100 % [facility] Heart rate 49.0 /min 49.0 /min [facility] Respiratory rate 18 /min 18 /min [facility] Body temperature 36.3 Juliette 36.3 Juliette [facility] Body weight 163.29 kg 163.29 kg [facility] Body mass index (BMI) [Ratio] 51.65 kg/m2 51.65 kg/m2 [facility] Body surface area Derived from formula 2.84 m2 2.84 m2 [facility] Body height 177.8000 cm 177.8000 cm [facility] Patient Treatment Plan of Care Planned Activity Planned Date Details Description Data Source (s) benzonatate 100 MG Oral Capsule [Carter Zuniga] 07/28/2021 12: 00:00 AM EDT [facility] Medrol Dosepak 4MG Oral Tablet 07/28/2021 12:00:00 AM EDT [facility] Prednisone 20 MG Oral Tablet 07/23/2021 12:00:00 AM EDT [facility] Prednisone 20 MG Oral Tablet 07/21/2021 12:00:00 AM EDT [facility] Calcium 600 600 MG Oral Tablet 07/13/2021 12:00:00 AM EDT [facility] Cholecalciferol 1000 UNT Oral Tablet 06/02/2021 12:00:00 AM EDT [facility] Cholecalciferol 1000 UNT Oral Tablet 06/02/2021 12:00:00 AM EDT [facility] Prednisone 50 MG Oral Tablet 06/01/2021 12:00:00 AM EDT [facility] Ergocalciferol 15047 UNT Oral Capsule 05/28/2021 12:00:00 AM EDT [facility] Ergocalciferol [id number] UNT Oral Capsule 05/28/2021 12:00:00 AM EDT [facility] Ergocalciferol [id number] UNT Oral Capsule 05/28/2021 12:00:00 AM EDT [facility] Ergocalciferol [id number] UNT Oral Capsule 05/28/2021 12:00:00 AM EDT [facility] Prednisone 10 MG Oral Tablet 05/26/2021 12:00:00 AM EDT [facility] Theophylline 200MG Oral Tablet, Extended Release, 12 H R 05/26/2021 12:00:00 AM EDT [facility] l Prednisone 10 MG Oral Tablet 05/26/2021 12:00:00 AM EDT [facility] Theophylline 200MG Oral Tablet, Extended Release, 12 H R 05/26/2021 12:00:00 AM EDT [facility] l Azithromycin 250MG Oral Tablet 05/26/2021 12:00:00 AM EDT [facility] Prednisone 10 MG Oral Tablet 05/26/2021 12:00:00 AM EDT [facility] Theophylline 200MG Oral Tablet, Extended Release, 12 H R 05/26/2021 12:00:00 AM EDT [facility] l Azithromycin 250MG Oral Tablet 05/26/2021 12:00:00 AM EDT [facility] Prednisone 10 MG Oral Tablet 05/26/2021 12:00:00 AM EDT [facility] Theophylline 200MG Oral Tablet, Extended Release, 12 H R 05/26/2021 12:00:00 AM EDT [facility] Azithromycin 250MG Oral Tablet 05/26/2021 12:00:00 AM EDT [facility] Metoclopramide 10 MG Oral Tablet [Reglan] 04/27/2021 12:00:[address] [facility] Sumatriptan 50 MG Oral Tablet [Imitrex] 04/27/2021 12:00:00 AM EDT [facility] Metoclopramide 10 MG Oral Tablet [Reglan] 04/27/2021 12:00:00 AM ED T [facility] Sumatriptan 50 MG Oral Tablet [Imitrex] 04/27/2021 12:00:00 AM EDT [facility] Metoclopramide 10 MG Oral Tablet [Reglan] 04/27/2021 12:00:[address] [facility] Sumatriptan 50 MG Oral Tablet [Imitrex] 04/27/2021 12:00:00 AM EDT [facility] Metoclopramide 10 MG Oral Tablet [Reglan] 04/27/2021 12:00:[address] [facility] Sumatriptan 50 MG Oral Tablet [Imitrex] 04/27/2021 12:00:00 AM EDT [facility] Metoclopramide 10 MG Oral Tablet [Reglan] 04/27/2021 12:00:00 AM ED T [facility] Sumatriptan 50 MG Oral Tablet [Imitrex] 04/27/2021 12:00:00 AM EDT [facility] Prednisone 20 MG Oral Tablet 04/14/2021 12:00:00 AM EDT [facility] Ergocalciferol [id number] UNT Oral Capsule 03/05/2021 12:00:00 AM EDT [facility] montelukast 10 MG Oral Tablet 03/01/2021 12:00:00 AM EDT [facility] Omeprazole 20 MG Delayed Release Oral Capsule 03/01/2021 12:00:00 A M EDT [facility] Flonase 0.05MG/Actuation Nasal [place] 03/01/2021 12:00:00 AM EDT [facility] Meclizine Hydrochloride 25 MG Oral Tablet 03/01/2021 12:00:00 AM ED T [facility] Albuterol 0.83 MG/ML Inhalant Solution 03/01/2021 12:00:00 AM EDT [facility] Levothyroxine Sodium 0.075 MG Oral Tablet 03/01/2021 12:00:00 AM ED T [facility] montelukast 10 MG Oral Tablet 03/01/2021 12:00:00 AM EDT [facility] Omeprazole 20 MG Delayed Release Oral Capsule 03/01/2021 12:00:00 A M EDT [facility] Flonase 0.05MG/Actuation Nasal [place] 03/01/2021 12:00:00 AM EDT [facility] Meclizine Hydrochloride 25 MG Oral Tablet 03/01/2021 12:00:00 AM ED T [facility] Albuterol 0.83 MG/ML Inhalant Solution 03/01/2021 12:00:00 AM EDT [facility] Levothyroxine Sodium 0.075 MG Oral Tablet 03/01/2021 12:00:00 AM ED T [facility] montelukast 10 MG Oral Tablet 03/01/2021 12:00:00 AM EDT [facility] Omeprazole 20 MG Delayed Release Oral Capsule 03/01/2021 12:00:00 A M EDT [facility] Flonase 0.05MG/Actuation Nasal [place] 03/01/2021 12:00:00 AM EDT [facility] Meclizine Hydrochloride 25 MG Oral Tablet 03/01/2021 12:00:00 AM ED T [facility] Albuterol 0.83 MG/ML Inhalant Solution 03/01/2021 12:00:00 AM EDT [facility] Levothyroxine Sodium 0.075 MG Oral Tablet 03/01/2021 12:00:00 AM ED T [facility] montelukast 10 MG Oral Tablet 03/01/2021 12:00:00 AM EDT [facility] Omeprazole 20 MG Delayed Release Oral Capsule 03/01/2021 12:00:00 A M EDT [facility] Flonase 0.05MG/Actuation Nasal [place] 03/01/2021 12:00:00 AM EDT [facility] Meclizine Hydrochloride 25 MG Oral Tablet 03/01/2021 12:00:00 AM ED T [facility] Albuterol 0.83 MG/ML Inhalant Solution 03/01/2021 12:00:00 AM EDT [facility] Levothyroxine Sodium 0.075 MG Oral Tablet 03/01/2021 12:00:00 AM ED T [facility] montelukast 10 MG Oral Tablet 03/01/2021 12:00:00 AM EDT [facility] Omeprazole 20 MG Delayed Release Oral Capsule 03/01/2021 12:00:00 A M EDT [facility] Flonase 0.05MG/Actuation Nasal [place] 03/01/2021 12:00:00 AM EDT [facility] Meclizine Hydrochloride 25 MG Oral Tablet 03/01/2021 12:00:00 AM ED T [facility] Albuterol 0.83 MG/ML Inhalant Solution 03/01/2021 12:00:00 AM EDT [facility] Levothyroxine Sodium 0.075 MG Oral Tablet 03/01/2021 12:00:00 AM ED T [facility] montelukast 10 MG Oral Tablet 03/01/2021 12:00:00 AM EDT [facility] Omeprazole 20 MG Delayed Release Oral Capsule 03/01/2021 12:00:00 A M EDT [facility] Flonase 0.05MG/Actuation Nasal [place] 03/01/2021 12:00:00 AM EDT [facility] Meclizine Hydrochloride 25 MG Oral Tablet 03/01/2021 12:00:00 AM ED T [facility] Albuterol 0.83 MG/ML Inhalant Solution 03/01/2021 12:00:00 AM EDT [facility] Levothyroxine Sodium 0.075 MG Oral Tablet 03/01/2021 12:00:00 AM ED T [facility] benzonatate 100 MG Oral Capsule [Tessalon Perles] 02/15/2021 12: 00:00 AM EDT [facility] benzonatate 100 MG Oral Capsule [Tessalon Perles] 02/15/2021 12: 00:00 AM EDT [facility] Prednisone 20 MG Oral Tablet 02/12/2021 12:00:00 AM EDT [facility] Prednisone 20 MG Oral Tablet 02/12/2021 12:00:00 AM EDT [facility]
--- NOTE | 2021-08-18 18:07 | REP ---
INDICATION: DYSPNEA/COUGH. COMPARISON: 08/06/2020 TECHNIQUE: An AP sitting portable chest film was obtained. FINDINGS: Cardiac lead wires are present. No definite acute parenchymal opacification is identified. The heart is at the upper limits of size. The pulmonary vasculature is increased in the upper lobes and early cardiac decompensation cannot be excluded. IMPRESSION: No acute pneumonia is identified. 2. Pulmonary vascular redistribution suggesting early cardiac decompensation. <Electronically signed by Phoenix Alarcon > 08/18/21 [id number]
[2021-08-18] MEDS ORDERED: predniSONE 20 MG TAB PO ONE (18:45)
[2021-08-18] MEDS ORDERED: ISOVUE-370 76% 100ML VIAL As Ordered ONE (18:50)
--- NOTE | 2021-08-18 19:37 | REPVR ---
PROCEDURE INFORMATION: Exam: CTA Chest With Contrast Exam date and time: 08/18/2021 7:11 PM Age: 51 years old Clinical indication: Shortness of breath; Additional info: SOB TECHNIQUE: Imaging protocol: Computed tomographic angiography of the chest with contrast. 3D rendering (Not supervised by radiologist): MIP and/or 3D reconstructed images were created by the technologist. Radiation optimization: All CT scans at this facility use at least one of these dose optimization techniques: automated exposure control; mA and/or kV adjustment per patient size (includes targeted exams where dose is matched to clinical indication); or iterative reconstruction. Contrast material: ISOVUE 370; Contrast volume: 75 ml; Contrast route: INTRAVENOUS (IV); COMPARISON: CT ANGIO CHEST 12/17/2016 6:39 PM FINDINGS: Pulmonary arteries: Normal. No pulmonary emboli. Aorta: Unremarkable. No aortic aneurysm. No aortic dissection. Lungs: Unremarkable. No consolidation. No masses. Pleural spaces: Unremarkable. No pneumothorax. No pleural effusion. Heart: Unremarkable. No cardiomegaly. No pericardial effusion. Lymph nodes: Unremarkable. No enlarged lymph nodes. Bones/joints: Unremarkable. No acute fracture. Soft tissues: Multiple hepatic hypodensities consistent with cysts.This patient is status post gastric bypass surgery. Small probable hyperdense cyst projects off the lateral aspect of the left kidney measuring 1.4 cm. Small simple cyst right kidney measures 2.3 cm. Otherwise unremarkable. IMPRESSION: No acute findings. COMMENTS: Consistent with the [employer]'s Incidental Findings Committee white paper (J Am Radha Radiol 2018): Any incidental renal lesion less than 1 cm or classified as too small to characterize, or any incidental cystic renal lesion characterized as simple-appearing, is likely benign. No follow-up imaging is recommended for these lesions per consensus recommendations based on imaging criteria. Electronically signed by: Juvenal Swanson On 08/18/2021 19:37:28 PM
[2021-08-18 20:00] VITALS: BP 105/55
[2021-08-18 20:35] VITALS: O2SAT 96
--- NOTE | 2021-08-19 07:53 | ECGEPIP ---
[facility] - ED Test Date: 2021-08-18 Pat Name: REAGAN MEJÍA Department: Room: - Gender: Male [employer] T[employer]: : 1970 Requested By: Ximena Hernandez Order Number: [id number] Reading MD: Blas Frausto Measurements Intervals [place] Rate: 62 P: 35 DC: 142 QRS: -19 QRSD: 98 T: 27 QT: 432 QTc: 438 Interpretive Statements Normal sinus rhythm POOR R WAVE PROGRESSION SIMILAR TO 04/02/17 Electronically Signed on 08-19-2021 7:53:12 EST by Blas Frausto
--- NOTE | 2021-08-23 19:28 | ED PDOC ---
Post-Departure Follow-Up radiilogy report faxed to Ximena Mark MD Aug 23, 2021 19:28
== END 2021-08-18 20:57 | disposition home or self-care (01) ==
LOC: M ED 15:33
DX: J45.901 Unspecified asthma with (acute) exacerbation (principal); K21.9 Gastro-esophageal reflux disease without esophagitis; R05.9 Cough, unspecified; Z87.891 Personal history of nicotine dependence; Z79.899 Other long term (current) drug therapy
CPT/HCPCS: 71045; 71275; 80047; 80076; 83605; 83880; 84436; 84443; 84484; 85025; 87426; 87798; 93005; 93041; 94760; 96372; 99285; G0463; J1040; Q9967; U0003

== ENCOUNTER → 2021-08-18 | Outpatient (REF) | payer MEDICARE ==
[~2021-08-18] MED LIST changes: +METH4PACK; +OMEP40CA4 PO; -OMEP40CA97 PO
== END ==
LOC: M SFHCPLAZ 17:00
PROVIDERS: ATTEND Physician Assistant
DX: R05.9 Cough, unspecified (principal)

== ENCOUNTER 2022-06-27 15:04 | Emergency (ER) | payer OTHER, MEDICARE ==
[~2022-06-27] VITALS: Ht 182.9 cm; Wt 162.7 kg
[~2022-06-27 15:04] MED LIST changes: +ALBU2.5V10 INH; -ALBU83IN INH; +METH4PACK
[2022-06-27] MEDS ORDERED: dexameTHASONE 20MG/5ML VIAL (J1100 PER 1MG) IV ONE (16:15)
[2022-06-27 16:28] LABS: RSV AMPLIFICATION NEGATIVE (NEGATIVE)
[2022-06-27] MEDS: IPRATROPIUM 0.5MG/ALBUTEROL 2.5MG INH SOL UD 3ML (DUONEB) NEB SCH ×3 (16:31→17:54)
[2022-06-27] MEDS ORDERED: PRED20TA PO (19:16)
[2022-06-27 20:49] VITALS: BP 138/84
== END 2022-06-27 20:51 | disposition home or self-care (01) ==
LOC: M ED 15:04
DX: J45.901 Unspecified asthma with (acute) exacerbation (principal); E66.9 Obesity, unspecified; Z98.84 Bariatric surgery status; G47.33 Obstructive sleep apnea (adult) (pediatric); Z79.890 Hormone replacement therapy; Z79.899 Other long term (current) drug therapy
CPT/HCPCS: 71046; 87631; 94640; 96374; 99284; J1100

== ENCOUNTER 2022-07-11 14:55 | Emergency (ER) | payer MEDICARE, OTHER ==
[~2022-07-11] VITALS: Ht 182.9 cm; Wt 162.0 kg
[2022-07-11] MEDS ORDERED: THEO400T4 PO (15:54)
[2022-07-11] MEDS ORDERED: dexameTHASONE 20MG/5ML VIAL (J1100 PER 1MG) IM ONE (17:45)
[2022-07-11] MEDS ORDERED: IPRATROPIUM 0.5MG/ALBUTEROL 2.5MG INH SOL UD 3ML (DUONEB) NEB ONE ×2 (17:45→19:15)
[2022-07-11] MEDS ORDERED: dexameTHASONE 20MG/5ML VIAL (J1100 PER 1MG) IV ONE (17:50)
[2022-07-11 18:56] LABS: BASO % 0.2 % (0.0-1.0); EOS % 0.1 % (0.0-3.0); HEMATOCRIT 41.7 % (42.0-52.0); HEMOGLOBIN 12.8 g/dl (13.5-17.5); LYMPH # 0.8 10^3/uL (1.5-5.0); LYMPH % 6.8 % (24.0-44.0); MEAN CORPUSCULAR HEMOGLOBIN 26.3 pg (27.0-33.0); MEAN CORPUSCULAR HGB CONC 30.7 g/dl (32.0-36.5); MEAN CORPUSCULAR VOLUME 85.6 fl (80.0-96.0); MONO # 0.3 10^3/uL (0.0-0.8); MONO % 2.6 % (2.0-8.0); NEUTROPHILS # 10.5 10^3/uL (1.5-8.5); NEUTROPHILS % 89.9 % (36.0-66.0); PLATELET COUNT, AUTOMATED 314 10^3/uL (150-450); RED BLOOD COUNT 4.87 10^6/uL (4.30-6.10); WHITE BLOOD COUNT 11.7 10^3/uL (4.0-10.0)
[2022-07-11 19:38] LABS: RSV AMPLIFICATION NEGATIVE (NEGATIVE)
[2022-07-11] MEDS ORDERED: ISOVUE-370 76% 100ML VIAL As Ordered ONE (20:31)
[2022-07-11 21:33] VITALS: BP 135/71
[2022-07-11] MEDS ORDERED: DOXY-443 PO (22:14)
[2022-07-11] MEDS ORDERED: MEDR4PAK PO (22:16)
== END 2022-07-11 22:29 | disposition home or self-care (01) ==
LOC: M ED 14:55
DX: J45.901 Unspecified asthma with (acute) exacerbation (principal); R79.1 Abnormal coagulation profile; Z86.73 Personal history of transient ischemic attack (TIA), and cerebral infarction without residual deficits; M54.9 Dorsalgia, unspecified; Z98.84 Bariatric surgery status; Z87.891 Personal history of nicotine dependence; Z79.890 Hormone replacement therapy; Z79.899 Other long term (current) drug therapy
CPT/HCPCS: 71046; 71275; 80047; 83880; 85025; 85379; 87631; 93005; 94640; 99284; J1100; Q9967